=== PATIENT | female | born 1950 | race Caucasian/White ===

== ENCOUNTER 2018-01-21 08:30 | Day surgery (SDC) | payer MEDICARE ==
[2018-01-16 14:17] LABS: Absolute Lymphocytes (CBC) 1.4 K/uL (0.7-4.9); Absolute Monocytes 0.5 K/uL (0.1-1.3); Absolute Neutrophil 2.9 K/uL (1.8-8.0); Basophils % 1.3 % (0-1.3); Eosinophils % 1.7 % (0-4.4); Hematocrit 35.6 % (36.0-45.0); Lymphocytes % 29.2 % (15.3-44.8); MCH 33.4 pg (27.0-35.0); MCV 98.6 fL (80-100); Monocytes % 9.3 % (3.3-12.3); RBC Red Blood Cell Count 3.61 M/uL (3.86-4.86)
[2018-01-16 14:23] LABS: Protime INR 0.97
[2018-01-16 15:05] LABS: Potassium 3.8 mEq/L (3.6-5.0)
[2018-01-21] MEDS ORDERED: NA CHLORIDE 0.9% 500 ML ONE ×2 (09:08→14:32)
[2018-01-21 09:09] VITALS: TEMP 98
[2018-01-21] MEDS ORDERED: LIDOCAINE 1% 20 ML MDV ONE (11:24)
[2018-01-21] MEDS ORDERED: HEPA 1000U/500MLS 1,000 UNIT/500 ML BAG IV ONE ×3 (11:24→12:47)
[2018-01-21] MEDS ORDERED: FENTANYL CITR 100 MCG/2 ML ONE ×2 (11:25→13:28)
[2018-01-21] MEDS ORDERED: MIDAZOLAM HCL 2 MG/2 ML INJ ONE ×3 (11:25→13:06)
[2018-01-21] MEDS ORDERED: HEPARIN 5000 UNIT/ML 1 ML VIAL ONE (11:54)
[2018-01-21] MEDS ORDERED: MEPERIDINE HCL 50 MG/ML AMP ONE (13:17)
[2018-01-21] MEDS ORDERED: PROMETHAZINE 25 MG/ML VIAL ONE (13:36)
[2018-01-21] MEDS ORDERED: LIDOCAINE 1% W/EPI 1:100,000 MDV 50 ML VIAL ONE (15:07)
[2018-01-21] MEDS ORDERED: HYDROCODONE/APAP 10/325 TAB ONE (15:51)
[2018-01-21 15:52] VITALS: O2SAT 98
[2018-01-21 15:56] VITALS: BP 149/69
[2018-01-21] MEDS ORDERED: HYDROCODONE/APAP 10/325 TAB PO ONE (16:00)
--- NOTE | 2018-01-22 04:10 | OP ---
Surgeon: Sharan Benjamin MD Compressor Mechanic: 1. Marcos Downing. 2. Svitlana Horowitz. The patient was admitted as an outpatient on 01/21/2018. Reason For Admission: Outpatient angioplasty and stent of the right common femoral artery. Ms. Hdez was prepped and draped in the routine sterile fashion except at this time, the access was t hrough the right brachial artery. Indications: Ms. Hdez is a 67-year-old, who has severe peripheral vascular disease. She had a righ t common iliac artery stent. She had a left SFA stent via antegrade approach. Has known severe 99% stenosis of her right common femoral artery from previous studies. I had attempted to do the right c ommon femoral artery with an up-and-over approach from the left groin approximately a month ago, but I was unsuccessful. Today, she was brought back for the same procedure using the right brachial appr [facility]. Procedure In Detail: A 6-Pashto sheath was introduced in the right brachial artery. Then, 5000 unit s of heparin were was given intra-arterial after the insertion. Initially, we used a JR4 catheter to cross from the arm all the way to the right common iliac area. The lesion was crossed using a [place] wire successfully. We initially had difficulty advancing catheters or balloons through the right com mon iliac artery stent. An Liu 4 x 40 balloon was able to cross the lesion across the right commo n iliac artery stent. The lesion itself in the common femoral artery was dilated and so was the sten t. We then used a 5 x 40 Zavalla balloon to dilate the right common iliac artery stent as well as the right common femoral artery area. There were dissections in the common femoral artery area. A 6 x 60 self expandable Liu stent was placed successfully in the right common femoral artery with 0% re siduals. There were no complications of the procedure. Blood Loss: About 20 cc. Total Conscious Sedation: 90 minutes. Final Diagnosis: Status post successful angioplasty and stent of the right common femoral artery and status post dilatation of the right common iliac artery. Postoperative Plan: The patient will be going home on same medical regimen including her Plavix and aspirin and statin, and she will see me in the office in 2 weeks. UMU/MILDREDL Voice ID: [id number] Report ID: [id number]
== END 2018-01-21 15:55 | disposition home or self-care (01) ==
LOC: CCL 08:30
DX: I70.201 Unspecified atherosclerosis of native arteries of extremities, right leg (principal); I10 Essential (primary) hypertension
CPT/HCPCS: 36200; 36415; 37226; 80048; 85025; 85347; 85610; 85730; C1725; C1760; C1769; C1893; J1644; J2175; J2250 ×3; J2550; J3010 ×2

== ENCOUNTER → 2018-09-10 | Day surgery (SDC) | payer MEDICARE ==
--- NOTE | 2018-09-10 12:44 | RAD REPORT ---
EXAM DESCRIPTION: RAD - Myelography Lumbar - 09/10/2018 12:24 pm CLINICAL HISTORY: [id number] - LUMBAR RADICULOPATHY COMPARISON: Lumbar Spine 3 Views dated 07/25/2017 TECHNIQUE: The procedure, risks and alternatives to the procedure were discussed with the patient in detail. After answering all questions, both oral and written consent were obtained. Time-out procedu re was performed. The patient was placed in an oblique prone position on the fluoroscopic table. The skin of the lower back was prepped and draped in the usual sterile fashion. After anesthetizing the skin and deeper sof t tissues with 1% lidocaine, a 22 gauge needle was advanced into the thecal sac at the L2-3 level. Approximately 12 cc of Isovue 200M were injected into subarachnoid space. The patient was then sent f or CT myelography. The patient tolerated the procedure well without immediate complications. Total fluoro time: 1 minutes Images obtained: 5 IMPRESSION: Successful fluoroscopic lumbar puncture for CT lumbar myelogram. CT lumbar myelographic findings are separately reported.
--- NOTE | 2018-09-10 12:52 | RAD REPORT ---
EXAM DESCRIPTION: CT - Spine Lumbar Wo Con - 09/10/2018 12:24 pm CLINICAL HISTORY: Radiculopathy. LUMBAR RADICULOPATHY COMPARISON: Lumbar Spine 3 Views dated 07/25/2017; Abdomen Pelvis Wo Contrast dated 10/29/2017 TECHNIQUE: Axial noncontrast CT imaging of the lumbar spine was performed with coronal and sagittal re-formatted images. Myelographic contrast injection is separately reported. All CT scans are performed using dose optimization technique as appropriate and may include automated exposure control or mA/KV adjustment according to patient size. FINDINGS: A very advanced scoliotic curvature of the lower lumbar spine with concavity to the left i s seen. L1-2: No significant findings. L2-3: Mild concentric posterior disc bulge with mild facet ligamentum flavum hypertrophy. No canal or foraminal stenosis of significance. L3-4: Vacuum disc degeneration is present with a large right paracentral/foraminal disc protrusion me asuring 5-6 mm in AP dimension. Facet and ligamentum flavum hypertrophy is present as well. The findi ngs result in stenosis of the right exit foramen. Mild narrowing the anterior inferior aspect of the left exit foramen. Right lateral recess narrowing is present. L4-5: Broad-based moderate-sized posterior disc bulge is present with vacuum disc degeneration. This finding in conjunction with the marked scoliosis at this level results in moderate central canal sten osis to 8 mm. Bilateral attenuation of the lateral recesses noted, greater on the left. Moderate bila teral exit foraminal stenosis also seen. L5-S1: Disc thinning with endplate sclerosis and mild vacuum disc degeneration noted. Mild posterior disc bulge is present resulting in mild narrowing of the central canal. Mild narrowing of both exit f oramina seen. No evidence of cauda equina nerve root clumping to suggest arachnoiditis. Heavy aortic atherosclerosi s is seen. There may be occlusion of the mid abdominal aorta by extensive plaquing. IMPRESSION: Advanced degenerative spondylosis at L3-4, L4-5 and L5-S1 as described above with a sign ificant scoliotic curvature present of the lower lumbar spine. Heavy aortic atherosclerosis is present with significant heavy mid aortic plaque which could indicate chronic occlusion.
[2018-09-10 14:04] VITALS: BP 145/82; TEMP 97.8; O2SAT 100
== END ==
LOC: DS 09:05
PROVIDERS: ATTEND Specialist
DX: M54.16 Radiculopathy, lumbar region (principal); M54.5 Low back pain; M25.551 Pain in right hip
CPT/HCPCS: 62304; 72131; Q9966

== ENCOUNTER 2019-07-28 19:43 | Emergency (ER) | payer MEDICARE ==
[2019-07-28 21:07] LABS: Absolute Lymphocytes (CBC) 0.5 K/uL (0.7-4.9); Basophils % 0.6 % (0-1.3); Hematocrit 29.1 % (36.0-45.0); MPV 8.2 fL (7.6-11.3); RBC Red Blood Cell Count 2.94 M/uL (3.86-4.86)
[2019-07-28] MEDS ORDERED: NITROGLYCERIN 0.4 MG/TAB SL ONE (21:45)
[2019-07-28 21:52] LABS: Blood Morphology Comment NOT SEEN (NOT SEEN); Platelet Estimate ADEQ; Urine White Blood Cell Casts OK
[2019-07-28] MEDS ORDERED: NITROGLYCERIN/D5W 50 MG/250 ML BTL IV ONE (22:01)
[2019-07-28] MEDS ORDERED: ALBUTEROL 2.5 MG/3 ML NEB SOL ONE (22:05)
[2019-07-28] MEDS ORDERED: METHYLPREDNISOLONE 125 MG INJ ONE (22:05)
[2019-07-28] MEDS ORDERED: IPRATROPIUM BROM 0.5MG/2.5ML ONE (22:06)
[2019-07-28 22:15] LABS: Albumin 3.7 g/dL (3.4-5.0); Bilirubin Total 0.3 mg/dL (0.2-1.0); Potassium 5.9 mmol/L (3.5-5.1); Protein, Total 7.6 g/dL (6.4-8.2); Troponin (Emerg Dept Use Only) 0.06 ng/mL (0.0-0.045)
[2019-07-28 22:37] LABS: Arterial Blood Carboxyhemoglob 4.4 % (0-1.5); Blood O2 Saturation 99.4 % (92-98.5)
--- NOTE | 2019-07-28 23:42 | EDPHYS ---
Physician Documentation [facility] Name: Remi Hdez Age: 69 yrs Sex: Female : 1950 Arrival Date: 07/28/2019 Time: 19:51 Bed 2 Private MD: ED Physician Jose Acevedo HPI: 07/28 20:52 This 69 yrs old Female presents to ER via Wheelchair with complaints of ps1 Shortness Of Breath. 20:52 patient presenting with shortness of breath. 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 States that she was recently [place] the [place] with "fluid on lungs" on return to [facility] she was seen by jaswinder (Sourav) and started on augmentin. States that she has been off of abx for a week. 4 days ago she started having increased WOB. + Cough. No fever. No wheezing. . Historical: - Allergies: 20:01 No Known Allergies; aj1 - Home Meds: 20:01 Vicodin 7.5/750 Oral [Active]; metoprolol succinate 25 mg oral Tb24 1 tab twice daily aj1 [Active]; lisinopril-hydrochlorothiazide 20-25 mg oral tab 1 tab once daily [Active]; amlodipine 10 mg tab 1 tab once daily [Active]; clopidogrel 75 mg oral tab 1 tab once daily [Active]; ropinirole 4 mg oral tab 1 tab [Active]; ibandronate 150 mg oral tab 1 tab once monthly [Active]; gabapentin 100 mg oral cap 3 caps once daily [Active]; aspirin 81 mg Oral chew 1 tab once daily [Active]; hydroxyzine HCl 25 mg Oral tab 1 tab at bedtime [Active]; baclofen 10 mg Oral tab 1 tab twice daily [Active]; zyzal [Active]; - PMHx: 20:01 scoliosis; DDD; spondylosis; raynaud's syndrome; PVD; Osteoporosis; CVA; left carotid aj1 artery blocked; - Immunization history:: Flu vaccine is not up to date. - Social history:: Smoking status: Patient uses tobacco products, smokes one pack cigarettes per day. - Ebola Screening: : Patient denies travel to an Ebola-affected area in the 21 days before illness onset. ROS: 20:52 Constitutional: Negative for fever, chills, and weight loss, Eyes: Negative for injury, ps1 pain, redness, and discharge, Cardiovascular: Negative for chest pain, palpitations, and edema, Abdomen/GI: Negative for abdominal pain, nausea, vomiting, diarrhea, and constipation, MS/Extremity: Negative for injury and deformity, Skin: Negative for injury, rash, and discoloration, Neuro: Negative for headache, weakness, numbness, tingling, and seizure. 20:52 Respiratory: Positive for cough, shortness of breath. Exam: 20:52 Constitutional: This is a well developed, well nourished patient who is awake, alert, ps1 and in no acute distress. Head/Face: Normocephalic, atraumatic. Eyes: Pupils equal round and reactive to light, extra-ocular motions intact. Lids and lashes normal. Conjunctiva and sclera are non-icteric and not injected. Chest/axilla: Normal chest wall appearance and motion. Nontender with no deformity. No lesions are appreciated. Respiratory: Lungs have equal breath sounds bilaterally, clear to auscultation and percussion. No rales, rhonchi or wheezes noted. No increased work of breathing, no retractions or nasal flaring. Abdomen/GI: Soft, non-tender, with normal bowel sounds. No distension or tympany. No guarding or rebound. No evidence of tenderness throughout. Skin: Warm, dry with normal turgor. Normal color with no rashes, no lesions, and no evidence of cellulitis. MS/ Extremity: Pulses equal, no cyanosis. Neurovascular intact. Full, normal range of motion. Neuro: Awake and alert, GCS 15, oriented to person, place, time, and situation. Cranial nerves II-XII grossly intact. Sensory grossly intact. 20:52 Cardiovascular: Rate: tachycardic, Rhythm: regular, Pulses: no pulse deficits are appreciated. Vital Signs: 20:01 BP 198 / 92; Pulse 102; Resp 18; Temp 97.8; Pulse Ox 95% on R/A; Weight 42.64 kg (R); aj1 Height 5 ft. 3 in. (160.02 cm) (R); Pain 0/10; 20:46 BP 211 / 99; Pulse 89; Resp 17 S; Pulse Ox 91% on R/A; cc3 21:00 BP 217 / 97; Pulse 87; Resp 22 S; Pulse Ox 91% on R/A; cc3 21:15 BP 219 / 106; Pulse 90; Resp 20 S; Pulse Ox 84% on 2 lpm NC; cc3 21:30 BP 209 / 104; Pulse 94; Resp 20 S; Pulse Ox 73% on 50% Venturi mask; cc3 22:00 BP 239 / 127; Pulse 133; Resp 30 S; Pulse Ox 89% on 50% Venturi mask; cc3 22:09 BP 218 / 121; Pulse 121; Resp 28; Pulse Ox 100% on BiPAP; aa1 22:32 BP 199 / 110; Pulse 105; Resp 24; Pulse Ox 100% on BiPAP; aa1 22:47 BP 167 / 86; Pulse 97; Resp 20; Pulse Ox 100% on BiPAP; aa1 23:06 BP 205 / 98; Pulse 95; Resp 22; Pulse Ox 99% on BiPAP; aa1 23:24 BP 188 / 109; Pulse 95; Resp 20; Pulse Ox 100% on 40% BiPAP; aa1 07/29 00:15 BP 174 / 94; Pulse 97; Resp 20; Pulse Ox 94% on BiPAP; Pain 0/10; aa1 00:57 BP 190 / 91; Pulse 95; Resp 18; Temp 97.6; Pulse Ox 96% on BiPAP; Pain 0/10; aa1 07/28 20:01 Body Mass Index 16.65 (42.64 kg, 160.02 cm) aj1 MDM: 07/28 20:49 Patient medically screened. ps1 23:30 Data reviewed: vital signs, nurses notes, lab test result(s), EKG, radiologic studies, ps1 and as a result, I will admit patient. Counseling: I had a detailed discussion with the patient and/or guardian regarding: the historical points, exam findings, and any diagnostic results supporting the discharge/admit diagnosis, the presence of at least one elevated blood pressure reading (>120/80) during this emergency department visit, lab results, radiology results, the need for further work-up and treatment in the hospital. ED course: Patient went into respiratory distress shortly after CT scan. Patient moved to room 2 and placed on nitro gtt and bipap. Respiratory WOB improved. BP improved as well as O2 saturation. Still demanding 100mcg/min to regulate BP. No PE on CT. C/w acute pulmonary edema and nearly completely calcified aorta. Will transfer to [facility]. . 07/28 20:48 Order name: CBC with Diff; Complete Time: 21:58 ps1 07/28 20:48 Order name: CMP; Complete Time: 22:37 ps1 07/28 20:48 Order name: Troponin (emerg Dept Use Only); Complete Time: 22:37 ps1 07/28 20:48 Order name: BNP; Complete Time: 22:37 ps1 07/28 21:52 Order name: CBC Smear Scan; Complete Time: 21:58 EDMS 07/28 20:48 Order name: CT Chest For PE Angio ps1 07/28 22:37 Order name: ABG Arterial Blood Gas; Complete Time: 23:36 EDMS EC:34 Rate is 86 beats/min. Rhythm is regular. QRS [place] is Normal. SC interval is normal. QRS ps1 interval is normal. QT interval is normal. No Q waves. T waves are Peaked. No ST changes noted. Clinical impression: Cardiac ischemia. Interpreted by me. Administered Medications: 21:45 Drug: Nitroglycerin 0.4 mg Route: Sublingual; cc3 22:00 Follow up: Response: No adverse reaction; Blood pressure is unchanged cc3 22:09 Drug: Nitro Drip - (Nitroglycerin 50 mg, D5W 250 ml) Route: IV; Rate: 50 mcg/min; Site: aa1 right antecubital; 22:20 Follow up: Rate change 100 mcg/min aa1 22:50 Follow up: Rate change 50 mcg/min aa1 23:07 Follow up: Rate change 75 mcg/min aa1 23:23 Follow up: Rate change 100 mcg/min aa1 07/29 01:10 Follow up: IV Status: Infusion continued upon transfer aa1 07/28 22:15 Drug: Albuterol - atroVENT (3:1) (2.5 mg - 0.5 mg) 3 ml Route: Nebulizer; bb 23:15 Follow up: Response: No adverse reaction; Marked relief of symptoms aa1 22:15 Drug: SOLU-Medrol 125 mg Route: IVP; Site: left forearm; bb 23:15 Follow up: Response: No adverse reaction; Marked relief of symptoms aa1 Disposition: 23:38 Critical Care:. ps1 Disposition: 07/28/19 23:40 Transfer ordered to [facility]. Diagnosis are Hypertensive Emergency, Acute Renal Failure, Hypoxia, Severe Atherosclerosis of Aorta. - Reason for transfer: Higher level of care. - Accepting physician is Renee. - Condition is Fair. - Problem is new. - Symptoms have improved. Critical care time excluding procedures: 23:38 Critical care time: Bedside Care: 45 minutes, Consultation: 10 minutes. Total time: 55 ps1 minutes Signatures: Dispatcher [employer] EDTN Shell Thornton RN RN aj1 Aimee Ibrahim RN RN aa1 Ghislaine Negro RN RN bb Jose Acevedo MD MD ps1 Gwen Belcher cc3 Corrections: (The following items were deleted from the chart) 22:32 22:30 ABG Arterial Blood Gas ordered. [facility] 07/29 01:13 07/28 23:40 07/28/2019 23:40 Transfer ordered to [facility]. aa1 Diagnosis is Hypertensive Emergency; Acute Renal Failure; Hypoxia; Severe Atherosclerosis of Aorta. Reason for transfer: Higher level of care. Accepting physician is Renee. Condition is Fair. Problem is new. Symptoms have improved. ps1
--- NOTE | 2019-07-28 23:42 | ER ---
Nurse's Notes [facility] Name: Remi Hdez Age: 69 yrs Sex: Female : 1950 Arrival Date: 07/28/2019 Time: 19:51 Bed 2 Private MD: Diagnosis: Hypertensive Emergency;Acute Renal Failure;Hypoxia;Severe Atherosclerosis of Aorta Presentation: 07/28 19:52 Presenting complaint: Patient states: "I'm having trouble breathing and my blood aj1 pressure has been really high. It was 204/165. I was in the [place] 3 weeks ago and I was in the hospital because my lungs were filling up with fluid." Reports that she has followed up with both her PHCP and her Co Founder And President since returning home. Reports cough, congestion. Denies fever. Transition of care: patient was not received from another setting of care. Onset of symptoms was July 2019. Risk Assessment: Do you want to hurt yourself or someone else? Patient reports no desire to harm self or others. Initial Sepsis Screen: Does the patient meet any 2 criteria? No. Patient's initial sepsis screen is negative. Does the patient have a suspected source of infection? No. Patient's initial sepsis screen is negative. Care prior to arrival: None. 19:52 Method Of Arrival: Wheelchair aj1 19:52 Acuity: AMINAH 2 bb Triage Assessment: 20:01 General: Appears in no apparent distress. uncomfortable, Behavior is calm, cooperative, aj1 appropriate for age. Pain: Denies pain. Neuro: Level of Consciousness is awake, alert, obeys commands. Cardiovascular: Patient's skin is warm and dry. Respiratory: Reports shortness of breath cough that is productive, Onset: The symptoms/episode began/occurred 3 days ago, the patient has mild shortness of breath. Historical: - Allergies: 20:01 No Known Allergies; aj1 - Home Meds: 20:01 Vicodin 7.5/750 Oral [Active]; metoprolol succinate 25 mg oral Tb24 1 tab twice daily aj1 [Active]; lisinopril-hydrochlorothiazide 20-25 mg oral tab 1 tab once daily [Active]; amlodipine 10 mg tab 1 tab once daily [Active]; clopidogrel 75 mg oral tab 1 tab once daily [Active]; ropinirole 4 mg oral tab 1 tab [Active]; ibandronate 150 mg oral tab 1 tab once monthly [Active]; gabapentin 100 mg oral cap 3 caps once daily [Active]; aspirin 81 mg Oral chew 1 tab once daily [Active]; hydroxyzine HCl 25 mg Oral tab 1 tab at bedtime [Active]; baclofen 10 mg Oral tab 1 tab twice daily [Active]; zyzal [Active]; - PMHx: 20:01 scoliosis; DDD; spondylosis; raynaud's syndrome; PVD; Osteoporosis; CVA; left carotid aj1 artery blocked; - Immunization history:: Flu vaccine is not up to date. - Social history:: Smoking status: Patient uses tobacco products, smokes one pack cigarettes per day. - Ebola Screening: : Patient denies travel to an Ebola-affected area in the 21 days before illness onset. Screenin:24 Abuse screen: Denies threats or abuse. Denies injuries from another. Nutritional cc3 screening: No deficits noted. Fall Risk Ambulatory Aid- None/Bed Rest/Nurse Assist (0 pts). Gait- Weak (10 pts.). Mental Status- Oriented to own ability (0 pts). 20:24 Tuberculosis screening: No symptoms or risk factors identified. cc3 Assessment: 20:24 General: Appears in no apparent distress. uncomfortable, Behavior is calm, cooperative, cc3 appropriate for age. Pain: Denies pain. Neuro: Level of Consciousness is awake, alert, obeys commands, Oriented to person, place, time, situation, Appropriate for age. Cardiovascular: Denies chest pain, Heart tones S1 S2 present Capillary refill < 3 seconds in bilateral fingers Patient's skin is warm and dry. Rhythm is regular. Respiratory: Airway is patent Respiratory effort is even, unlabored, Respiratory pattern is regular, symmetrical, Breath sounds are clear bilaterally. GI: Abdomen is flat, Bowel sounds present X 4 quads. : No signs and/or symptoms were reported regarding the genitourinary system. EENT: No signs and/or symptoms were reported regarding the EENT system. Derm: Skin is intact, is healthy with good turgor, Skin is pink, warm \\T\\ dry. normal, Skin temperature is warm. Musculoskeletal: Circulation, motion, and sensation intact. Range of motion: intact in all extremities. 21:15 Reassessment: Patient appears in no apparent distress at this time. Patient and/or cc3 family updated on plan of care and expected duration. Pain level reassessed. Patient is alert, oriented x 3, equal unlabored respirations, skin warm/dry/pink. Patient is desaturating with fluctuating low oxygen saturation of 84% on 2 LPM via nasal cannula and blood pressure reading on the high side as charted, Dr. Acevedo informed and he assessed the patient bedside. 21:25 Reassessment: Followed up CT scan appointment and staff Marbin said they're waiting on cc3 lab result, informed Dr. Acevedo and he said not to wait the lab result anymore, patient can go to CT scan now, door techniciancarola Mishra informed and she said she'll come now to get the patient. 21:45 Reassessment: door techniciancarola Mishra came and took the patient to their department by bed cc3 escorted by me. 22:00 Reassessment: Patient came back from CT scan department and the patient is becoming cc3 respiratory distressed, tachypneic and still with high blood pressure reading, Dr. Acevedo informed and assessed the patient at bedside and said to transfer the patient to trauma room and to start the patient on nitro drip, charge nurse Ghislaine informed. 22:09 Reassessment: Pt moved from bed 19 to bed 2 at this time per MD request. Placed on aa1 BiPAP and nitro drip initiated at this time. Neuro: Level of Consciousness is awake, alert, obeys commands. Respiratory: Airway is patent Respiratory effort is gasping, Respiratory pattern is tachypnea. Derm: Skin is intact, Skin is pink, warm \\T\\ dry. 22:47 Reassessment: Patient appears in no apparent distress at this time. Patient is alert, aa1 oriented x 3, equal unlabored respirations, skin warm/dry/pink. Respirations and v/s improved; will continue to monitor Patient states feeling better. Patient states symptoms have improved. 23:06 Reassessment: BP trending back upwards; MD notified and nitro drip increased at this aa1 time. 23:45 Reassessment: Patient appears in no apparent distress at this time. Patient and/or aa1 family updated on plan of care and expected duration. Pain level reassessed. Patient is alert, oriented x 3, equal unlabored respirations, skin warm/dry/pink. Pt to be transferred; pending approval Patient denies pain at this time. 07/29 00:33 Reassessment: report called to Patrica Weinberg RN for ICU at [facility]. bb 00:57 Reassessment: Patient appears in no apparent distress at this time. Patient is alert, aa1 oriented x 3, equal unlabored respirations, skin warm/dry/pink. Pt states she is feeling much better. [facility] present for transfer. Vital Signs: 07/28 20:01 BP 198 / 92; Pulse 102; Resp 18; Temp 97.8; Pulse Ox 95% on R/A; Weight 42.64 kg (R); aj1 Height 5 ft. 3 in. (160.02 cm) (R); Pain 0/10; 20:46 BP 211 / 99; Pulse 89; Resp 17 S; Pulse Ox 91% on R/A; cc3 21:00 BP 217 / 97; Pulse 87; Resp 22 S; Pulse Ox 91% on R/A; cc3 21:15 BP 219 / 106; Pulse 90; Resp 20 S; Pulse Ox 84% on 2 lpm NC; cc3 21:30 BP 209 / 104; Pulse 94; Resp 20 S; Pulse Ox 73% on 50% Venturi mask; cc3 22:00 BP 239 / 127; Pulse 133; Resp 30 S; Pulse Ox 89% on 50% Venturi mask; cc3 22:09 BP 218 / 121; Pulse 121; Resp 28; Pulse Ox 100% on BiPAP; aa1 22:32 BP 199 / 110; Pulse 105; Resp 24; Pulse Ox 100% on BiPAP; aa1 22:47 BP 167 / 86; Pulse 97; Resp 20; Pulse Ox 100% on BiPAP; aa1 23:06 BP 205 / 98; Pulse 95; Resp 22; Pulse Ox 99% on BiPAP; aa1 23:24 BP 188 / 109; Pulse 95; Resp 20; Pulse Ox 100% on 40% BiPAP; aa1 07/29 00:15 BP 174 / 94; Pulse 97; Resp 20; Pulse Ox 94% on BiPAP; Pain 0/10; aa1 00:57 BP 190 / 91; Pulse 95; Resp 18; Temp 97.6; Pulse Ox 96% on BiPAP; Pain 0/10; aa1 07/28 20:01 Body Mass Index 16.65 (42.64 kg, 160.02 cm) aj1 ED Course: 07/28 19:51 Patient arrived in ED. cf2 19:55 Triage completed. aj1 20:01 Arm band placed on Patient placed in waiting room, Patient notified of wait time. aj1 20:23 Jose Acevedo MD is Attending Physician. [facility] 20:24 Gwen Belcher is Primary Nurse. cc3 20:24 Patient has correct armband on for positive identification. Placed in gown. Bed in low cc3 position. Call light in reach. Side rails up X2. pre k teacher on. Pulse ox on. NIBP on. 20:45 Inserted saline lock: 20 gauge in right antecubital area, using aseptic technique. cc3 Blood collected. 20:49 Radiology exam delayed due to lab results not completed at this time. (BUN/Creatinine). vm2 21:27 Radiology exam delayed due to lab results not completed at this time. (BUN/Creatinine). nj 21:58 CT completed. Patient tolerated procedure well. Patient moved back from CT. 2 22:00 Report given to trauma room. cc3 22:01 CT Chest For PE Angio In Process Unspecified. EDMS 22:15 Inserted saline lock: 22 gauge in left forearm, using aseptic technique. bb 22:47 Aimee Ibrahim, RN is Primary Nurse. aa1 07/29 00:59 No provider procedures requiring assistance completed. Patient transferred, IV remains aa1 in place. intact, No redness/swelling at site. Administered Medications: 07/28 21:45 Drug: Nitroglycerin 0.4 mg Route: Sublingual; cc3 22:00 Follow up: Response: No adverse reaction; Blood pressure is unchanged cc3 22:09 Drug: Nitro Drip - (Nitroglycerin 50 mg, D5W 250 ml) Route: IV; Rate: 50 mcg/min; Site: aa1 right antecubital; 22:20 Follow up: Rate change 100 mcg/min aa1 22:50 Follow up: Rate change 50 mcg/min aa 23:07 Follow up: Rate change 75 mcg/min aa1 23:23 Follow up: Rate change 100 mcg/min aa 07/29 01:10 Follow up: IV Status: Infusion continued upon transfer aa1 07/28 22:15 Drug: Albuterol - atroVENT (3:1) (2.5 mg - 0.5 mg) 3 ml Route: Nebulizer; bb 23:15 Follow up: Response: No adverse reaction; Marked relief of symptoms aa1 22:15 Drug: SOLU-Medrol 125 mg Route: IVP; Site: left forearm; bb 23:15 Follow up: Response: No adverse reaction; Marked relief of symptoms aa1 Outcome: 23:40 ER care complete, transfer ordered by . ps1 07/29 00:34 Instructed on the need for transfer. bb 00:59 Transferred by ground EMS to [facility], Transfer form completed. aa1 X-rays sent w/ patient. 00:59 Condition: stable 01:13 Patient left the ED. aa1 Signatures: Dispatcher [employer] EDShell Woods RN RN aj1 Aimee Ibrahim RN RN aa1 Ghislaine Negro RN RN Edu Bonds [place] 2 Jose Acevedo MD MD ps1 Gwen Belcher cc3 Benji Gonsalves cf2 Corrections: (The following items were deleted from the chart) 07/28 22:28 19:52 Acuity: AMINAH 3 aj1 bb 22:29 21:[address]: Follow[address] up CT scan appointment and staff Marbin said they're cc3 waiting on lab result, informed Dr. Acevedo and he said not to wait the lab result anymore, patient can go to CT scan now, door technician Danica informed and she said she'll come now o get the patient. cc3 22:35 21:15 Reassessment: Patient appears in no apparent distress at this time. Patient cc3 and/or family updated on plan of care and expected duration. Pain level reassessed. Patient is alert, oriented x 3, equal unlabored respirations, skin warm/dry/pink. Patient is desaturating with fluctuating low oxygen saturation of 84% on 2 LPM via nasal cannula and blood pressure reading on the high side as charted, Dr. Acevedo informed and he assessed the patient bedside. cc3
[2019-07-29 02:23] VITALS: BP 190/91; TEMP 97.6; O2SAT 96
--- NOTE | 2019-07-29 09:34 | EKG ---
Test Date: 2019-07-28 Test Time: 20:34:57 [employer]: HOLLI MEASUREMENT RESULTS: Intervals: Rate: 86 CT: 138 QRSD: 74 QT: 372 QTc: 445 [place]: P: 69 CT: 138 QRS: 84 T: 74 INTERPRETIVE STATEMENTS: Normal sinus rhythm Septal infarct, age undetermined Abnormal ECG Compared to ECG 12/27/2017 08:39:39 Myocardial infarct finding now present Incomplete right bundle-branch block no longer present Electronically Signed On 07-29-19 09:34:11 CDT by Jcarlos Carter
--- NOTE | 2019-07-29 10:45 | RAD REPORT ---
EXAM DESCRIPTION: Chest For Pe Angio CLINICAL HISTORY: Shortness of breath, cough, congestion TECHNIQUE: Contiguous axial images obtained through the chest during angiographic phase following th e uneventful administration of IV contrast. Sagittal and coronal reformatted images were provided. [place] P reformatted images were provided. This exam was performed according to our departmental dose-optimization program, which includes autom ated exposure control, adjustment of the mA and/or kV according to patient size and/or use of iterati ve reconstruction technique. COMPARISON: No prior exams provided for comparison. FINDINGS: Diagnostic quality: There is good opacification of the pulmonary arterial tree. Lungs: Diffuse interstitial thickening, scattered patchy groundglass opacities and mild bibasilar con solidation. Bibasilar peribronchial thickening. Pleura: Small bilateral pleural effusions, right greater than left. Heart and pericardium: The heart is mildly enlarged. Coronary artery calcification. No pericardial ef fusion. Mediastinum and didi: Mildly enlarged mediastinal and bilateral hilar lymph nodes measuring up to 12 mm in short axis. Lower neck and chest wall: Unremarkable Vessels: No pulmonary arterial filling defects. Mild to moderate thoracic aortic atherosclerosis. No thoracic aortic aneurysm. Extensive calcified atherosclerotic plaque of the aorta at the level of the hiatus with near complete to complete occlusion. Upper abdomen: Unremarkable Bones: Unremarkable IMPRESSION: 1. No pulmonary embolic disease. 2. Findings suggestive of pulmonary congestion including small bilateral pleural effusions. Superim posed infection not excluded. 3. Extensive calcified atherosclerotic plaque of the aorta at the level of the hiatus with near com plete to complete occlusion. 4. Other findings as above. Electronically signed by: Marshall Caban MD 07/28/2019 10:29 PM CDT Due to temporary technical issues with the PACS/Fluency reporting system, reports are being signed by the in house radiologist as a courtesy to ensure prompt reporting. The interpreting radiologist is f ully responsible for the content of the report.
== END 2019-07-29 01:13 | disposition short-term general hospital (02) ==
LOC: ER 19:43
DX: I16.0 Hypertensive urgency (principal); R09.02 Hypoxemia; N17.9 Acute kidney failure, unspecified; I12.9 Hypertensive chronic kidney disease with stage 1 through stage 4 chronic kidney disease, or unspecified chronic kidney disease; I70.0 Atherosclerosis of aorta; F17.210 Nicotine dependence, cigarettes, uncomplicated
CPT/HCPCS: 96365; 93005; 85025; 36415; 84484; 80053; 83880; 71275; 94640; 82805; 94660; 96375; 99285; 96366; Q9967; J2930

== ENCOUNTER 2019-10-16 15:48 | Inpatient (IN) | payer MEDICARE ==
--- OUTSIDE RECORDS SUMMARY | 2019-10-16 15:52 | XMS REPORT ---
:1950 Author [facility] Address [address] [place] [address] Dr. Fine. [address] [place] [address] Care Team Providers Name Role Phone MEKHI MONTES DE OCA Unavailable Unavailable Problems This patient has no known problems. Allergies, Adverse Reactions, Alerts This patient has no known allergies or adverse reactions. Medications This patient has no known medications. Results Test Description Test Time Test Comments Text Results Atomic Results Result Comments TISSUE EXAM 2019-08-12 11:34:00 Surgical Pathology Report Case: [id number] Authorizing Provider: Dorinda Carrasco MD Collected: 08/07/2019 1453 Ordering Location: [address] Received: 08/07/2019 1457 Service Pathologist: Sheila May MD Specimen: Kidney KIDNEY, RIGHT, NEEDLE BIOPSIES- ACUTE TUBULOEPITHELIAL INJURY- FOCAL SEGMENTAL AND FOCAL GLOBAL GLOMERULOSCLEROSIS- NEGATIVE FOR IMMUNE MEDIATED GLOMERULONEPHRITIS- INTERSTITIAL FIBROSIS AND TUBULAR ATROPHY, MILD (~20%)- MODERATE ARTERIOLAR SCLEROSIS- SEGMENTALLY THICKENED GLOMERULAR BASEMENT MEMBRANES, SUGGESTIVE OF EARLY DIABETIC NEPHROPATHY (ULTRASTRUCTURAL) Signing Pathologist Direct Phone Line: [phone] signed by Sheila May MD on 08/12/2019 at 11:34 AMThe renal biopsy shows 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 No features of crescentic GN or thrombi are seen. No features of acute tubulointersitital nephritis are seen.Negative immunofluorescence and absence of electron dense deposits on ultrastructural evaluation excludes an immune complex mediated glomerulonephritis. The histological findings were discussed with Dr. Cho on 08/10/2019.68623, 05684 X3, 05116, 94572 x7, [id number] source of tissue: Right [place] kidneyKidney biopsy, non-transplantA. [place] kidney biopsy Received in formalin labeled with the patient's name "Remi Khan" accession [id number] are two kong-brown core biopsy fragments measuring 1.2 x0.1x0.1 and 05.x0.1x0.1 cm. The specimen is submitted entirely in cassette A1.A. This portion of the case is received in three containers labeled with the patient's information and [id number] which corresponds to the accompanying requisition slip. Received in formalin labeled with the patient's information and "A. Right [place] kidney biopsy" are two fragments of kong-pink soft tissue measuring 2 x 0.1 x 0.1 cm in aggregate. They are submitted in toto after filtration in cassette A1. Also received in part A is a container labeled with the patient's information and "right [place] kidney biopsy". The specimen is a 1.2 x 0.1 cm kong-pink fragment of soft tissue in saline. It is submitted entirely for C4D testing. Also received as part A is a container labeled with the patient's information and "right [place] kidney biopsy". The specimen consists of a 0.5 cm x 0.1 cm fragment of kong-pink soft tissue in glutaraldehyde. It is submitted for electron microscopy testing. SC/bc LIGHT MICROSCOPY: Section shows two cores of renal cortical tissue. Glomeruli: Approximately 36 glomeruli are examined, of which 7 glomeruli are globally sclerotic/obsolescent. One glomerulus shows segmental scarring and there is a suggestion of a fibrous crescent. All non-sclerotic glomeruli are hypertrophied and with patent capillary loops. No endocapillary hypercellularity, necrosis, cellular/fibrocellular crescents, or thrombi are seen. No double contours are noted on Silva or PAS stain.Tubules and interstitium: The tubules are ectatic with loss of brush borders, lined by low cuboidal to flattened epithelium. There is nuclear dropout with focal regenerative nuclear changes. Some tubular profiles show degenerate sloughed off epithelial cells. Occasional calcium oxalate crystals are seen. No significant interstitial inflammation is seen. There is mild interstitial fibrosis and tubular atrophy involving about 20% of renal cortex. Vessels: Branches of interlobular arteries show mild sclerosis. There is moderate arteriolar hyalinosis. Special stains: Radha trichrome, PAS and Silva silver stains were necessary for evaluation of this biopsy and showed expected staining patterns of internal control tissue matrix structures.IMMUNOFLUORESCENCEHistology: H&E-stained sections show 2 non-obsolescent and one globally sclerosed glomerulus. Immunofluorescence findings: IgA: negative in glomeruli, tubular casts are positiveIgG: negative in glomeruli IgM: focal, segmental, mesangial entrapment/staining 1+C3: negative in glomeruli, arteriolar staining 1+C1q: no significant glomerular, tubulointerstitial or vascular staining Fibrinogen: no significant glomerular, tubulointerstitial or vascular stainingKappa: negative glomeruli, tubular casts are positiveLambda: negative glomeruli, tubular casts are positiveAll polyclonal antibodies used for immunofluorescence staining have been previously tested and shown to have appropriate reactivities with positive control specimens. ELECTRON MICROSCOPY:Thick section histology: Toluidine blue-stained sections reveal three non-obsolescent glomerulus. All three glomeruli are examined ultrastructurally.Ultrastructure: Examination of the glomerular ultrastructure reveals that the glomerular basement membrane is segmentally thickened measuring upto 717 nm (normal female average 215-395 nm; Jes Camilo Arch Pathol Lab Med 133; 224-232). Subendothelial, subepithelial, and mesangial/paramesangial electron-dense, immune complex-type deposits are not present. Podocyte foot processes are segmentally effaced.The interpretation of this case included the use of immunohistochemistry or special stains.Control Slides Examined: In-house known positive controls were evaluated along with the test tissue. These control slides run alongside of the patients sample show appropriate staining. Internal positive and negative controls when available are evaluated Immunohistochemistry technical testing was performed at [facility] Pathology Laboratory where it was developed and its performance characteristics were determined. It has not been cleared or approved by the U.S. Food and Drug Administration. The FDA has determined that such clearance or approval is not necessary. The test is used for clinical purposes. It should not be regarded as investigational or for research. This laboratory is certified under the Clinical Laboratory Improvement Amendments of 1988 (CLIA-88) as qualified to perform high complexity clinical laboratory testing. POCT-GLUCOSE METER 2019-08-12 08:40:00 Test Item Value Reference Range Comments POC-GLUCOSE METER (Pivto) 97 mg/dL 70-110 : TESTED AT [facility] [address] [facility] (test qafd=3055) [place], [address]: Gas Plumber/International Trade Analyst UD=[id number] for ANGELICA GANN [id number] 06:13:00 Test Item Value Reference Range Comments FERRITIN (Pivto) (test oeea=145) 115 ng/mL 5-275 IRON, TIBC, % SAT. (WITHOUT FERRITIN)2019-08-12 06:00:00 Test Item Value Reference Range Comments IRON (BEAKER) (test tqdq=733) 107.0 ug/dL 40.0-160.0 TOTAL IRON BINDING CAPACITY (BEAKER) (test 264 ug/dL 250-450 fbop=027) IRON % SATURATION (2) (BEAKER) (test mwyn=4550) 41 % 20-55 [id number] 05:16:00 Test Item Value Reference Range Comments PHOSPHORUS (BEAKER) (test wrjc=291) 1.8 mg/dL 2.3-4.7 RETICULOCYTE [id number] 04:50:00 Test Item Value Reference Range Comments RETICULOCYTE COUNT PCT (BEAKER) (test cqmk=860) 2.9 % 0.5-1.7 POCT-GLUCOSE [id number] 20:56:00 Test Item Value Reference Range Comments POC-GLUCOSE METER (BEAKER) 122 mg/dL 70-110 : TESTED AT [address] (test ereg=1139) [facility], [address]: Gas Plumber/International Trade Analyst LC=[id number] for NEGRO BUSTILLOS POCT-GLUCOSE [id number] 16:53:00 Test Item Value Reference Range Comments POC-GLUCOSE METER (BEAKER) 113 mg/dL 70-110 : TESTED AT [address] (test vpza=3625) [facility], [address]: Gas Plumber/International Trade Analyst VU=[id number] for MELY GIOVANI POCT-GLUCOSE [id number] 12:42:00 Test Item Value Reference Range Comments POC-GLUCOSE METER (BEAKER) 150 mg/dL 70-110 TESTED AT [address] (test bytf=1123) [facility] [address] POCT-GLUCOSE [id number] 08:47:00 Test Item Value Reference Range Comments POC-GLUCOSE METER (BEAKER) 106 mg/dL 70-110 TESTED AT [address] (test tfwi=5585) [facility] [address] POCT-GLUCOSE [id number] 07:45:00 Test Item Value Reference Range Comments POC-GLUCOSE METER (BEAKER) 114 mg/dL 70-110 TESTED AT [address] (test ynko=4457) [facility] [address] POCT-GLUCOSE [id number] 06:55:00 Test Item Value Reference Range Comments POC-GLUCOSE METER (BEAKER) 205 mg/dL 70-[address] [facility] [address] (test lvuq=6498) [facility] [address] CALCIUM, [id number] 06:09:00 Test Item Value Reference Range Comments CALCIUM IONIZED (BEAKER) (test cvtr=004) 1.15 mmol/L 1.12-1.27 PH, BLOOD (BEAKER) (test qoql=1604) 7.40 BASIC METABOLIC [id number] 04:54:00 Test Item Value Reference Range Comments SODIUM (BEAKER) (test 134 meq/L 136-145 nsfm=670) POTASSIUM (BEAKER) (test 4.0 meq/L 3.5-5.1 mjaj=377) CHLORIDE (BEAKER) (test 93 meq/L 98-107 qhqi=578) CO2 (BEAKER) (test 31 meq/L 22-29 pxkn=329) BLOOD UREA NITROGEN 41 mg/dL 7-21 (BEAKER) (test dwiu=636) CREATININE (BEAKER) (test 5.34 mg/dL 0.57-1.25 wswv=294) GLUCOSE RANDOM (BEAKER) 110 mg/dL 70-105 (test frtx=472) CALCIUM (BEAKER) (test 9.5 mg/dL 8.4-10.2 zakt=217) EGFR (BEAKER) (test 8 mL/min/1.73 sq m ESTIMATED GFR IS NOT qrvi=7545) ACCURATE CREATININE CLEARANCE IN PREDICTING GLOMERULAR FILTRATION RATE. ESTIMATED GFR IS NOT APPLICABLE FOR DIALYSIS PATIENTS. [id number] 04:46:00 Test Item Value Reference Range Comments PHOSPHORUS (BEAKER) (test ensl=767) 4.2 mg/dL 2.3-4.7 [id number] 04:46:00 Test Item Value Reference Range Comments MAGNESIUM (BEAKER) (test xuxo=649) 2.0 mg/dL 1.6-2.6 CBC W/PLT COUNT & AUTO [id number] 04:43:00 Test Item Value Reference Range Comments WHITE BLOOD CELL COUNT (BEAKER) (test xway=994) 7.7 K/ L 3.5-10.5 RED BLOOD CELL COUNT (BEAKER) (test mmty=479) 2.43 M/ L 3.93-5.22 HEMOGLOBIN (BEAKER) (test kvrm=213) 7.9 GM/DL 11.2-15.7 HEMATOCRIT (BEAKER) (test lefd=308) 24.6 % 34.1-44.9 MEAN CORPUSCULAR VOLUME (BEAKER) (test sruq=623) 101.2 fL 79.4-94.8 MEAN CORPUSCULAR HEMOGLOBIN (BEAKER) (test 32.5 pg 25.6-32.2 rouv=602) MEAN CORPUSCULAR HEMOGLOBIN CONC (BEAKER) (test 32.1 GM/DL 32.2-35.5 suxz=488) RED CELL DISTRIBUTION WIDTH (BEAKER) (test 15.6 % 11.7-14.4 drll=285) PLATELET COUNT (BEAKER) (test cfuz=664) 258 K/CU MM 150-450 MEAN PLATELET VOLUME (BEAKER) (test xvms=872) 11.0 fL 9.4-12.3 NUCLEATED RED BLOOD CELLS (BEAKER) (test 0 /100 WBC 0-0 pojo=079) NEUTROPHILS RELATIVE PERCENT (BEAKER) (test 63 % lelb=712) LYMPHOCYTES RELATIVE PERCENT (BEAKER) (test 25 % cxdr=873) MONOCYTES RELATIVE PERCENT (BEAKER) (test 10 % uico=334) EOSINOPHILS RELATIVE PERCENT (BEAKER) (test 2 % eqqw=995) BASOPHILS RELATIVE PERCENT (BEAKER) (test 0 % rnpz=934) NEUTROPHILS ABSOLUTE COUNT (BEAKER) (test 4.85 K/ L 1.56-6.13 veey=617) LYMPHOCYTES ABSOLUTE COUNT (BEAKER) (test 1.93 K/ L 1.18-3.74 uzyt=245) MONOCYTES ABSOLUTE COUNT (BEAKER) (test 0.73 K/ L 0.24-0.36 ypyr=557) EOSINOPHILS ABSOLUTE COUNT (BEAKER) (test 0.12 K/ L 0.04-0.36 mwcs=308) BASOPHILS ABSOLUTE COUNT (BEAKER) (test 0.01 K/ L 0.01-0.08 rhtx=712) IMMATURE GRANULOCYTES-RELATIVE PERCENT (BEAKER) 1 % 0-1 (test deag=8344) POCT-GLUCOSE [id number] 16:58:00 Test Item Value Reference Range Comments POC-GLUCOSE METER (BEAKER) 133 mg/dL 70-[address] [facility] [address] [facility] (test phqu=8941) [facility] [address] POCT-GLUCOSE [id number] 11:51:00 Test Item Value Reference Range Comments POC-GLUCOSE METER (BEAKER) 114 mg/dL 70-110 TESTED AT [place] [id number] [facility] (test awkg=9926) [facility] [address] POCT-GLUCOSE [id number] 07:11:00 Test Item Value Reference Range Comments POC-GLUCOSE METER (BEAKER) 86 mg/dL 70-110 TESTED AT [address] (test qcoq=4757) [facility] [address] BASIC METABOLIC [id number] 06:01:00 Test Item Value Reference Range Comments SODIUM (BEAKER) (test 136 meq/L 136-145 zflv=435) POTASSIUM (BEAKER) (test 3.6 meq/L 3.5-5.1 Specimen slightly dsvu=067) hemolyzed CHLORIDE (BEAKER) (test 98 meq/L 98-107 pnez=160) CO2 (BEAKER) (test 27 meq/L 22-29 xtnf=640) BLOOD UREA NITROGEN 25 mg/dL 7-21 (BEAKER) (test eyje=530) CREATININE (BEAKER) (test 3.94 mg/dL 0.57-1.25 Specimen slightly wpfy=702) hemolyzed GLUCOSE RANDOM (BEAKER) 95 mg/dL 70-105 (test ojbp=755) CALCIUM (BEAKER) (test 9.1 mg/dL 8.4-10.2 kgcz=271) EGFR (BEAKER) (test 11 mL/min/1.73 sq m ESTIMATED GFR IS NOT adsf=0191) ACCURATE CREATININE CLEARANCE IN PREDICTING GLOMERULAR FILTRATION RATE. ESTIMATED GFR IS NOT APPLICABLE FOR DIALYSIS PATIENTS. [id number] 05:59:00 Test Item Value Reference Range Comments PHOSPHORUS (BEAKER) (test 4.0 mg/dL 2.3-4.7 Specimen slightly hemolyzed dzlj=157) CBC W/PLT COUNT & AUTO [id number] 05:25:00 Test Item Value Reference Range Comments WHITE BLOOD CELL COUNT (BEAKER) (test hozr=081) 6.7 K/ L 3.5-10.5 RED BLOOD CELL COUNT (BEAKER) (test mgop=364) 2.59 M/ L 3.93-5.22 HEMOGLOBIN (BEAKER) (test hbmw=541) 8.4 GM/DL 11.2-15.7 HEMATOCRIT (BEAKER) (test pwfm=315) 26.8 % 34.1-44.9 MEAN CORPUSCULAR VOLUME (BEAKER) (test bpgk=797) 103.5 fL 79.4-94.8 MEAN CORPUSCULAR HEMOGLOBIN (BEAKER) (test 32.4 pg 25.6-32.2 vhfz=223) MEAN CORPUSCULAR HEMOGLOBIN CONC (BEAKER) (test 31.3 GM/DL 32.2-35.5 wafx=739) RED CELL DISTRIBUTION WIDTH (BEAKER) (test 15.7 % 11.7-14.4 xjuh=589) PLATELET COUNT (BEAKER) (test jhvq=374) 262 K/CU MM 150-450 MEAN PLATELET VOLUME (BEAKER) (test usll=355) 10.9 fL 9.4-12.3 NUCLEATED RED BLOOD CELLS (BEAKER) (test 0 /100 WBC 0-0 jsbr=596) NEUTROPHILS RELATIVE PERCENT (BEAKER) (test 60 % xzdc=672) LYMPHOCYTES RELATIVE PERCENT (BEAKER) (test 28 % fdvi=466) MONOCYTES RELATIVE PERCENT (BEAKER) (test 10 % uroe=691) EOSINOPHILS RELATIVE PERCENT (BEAKER) (test 2 % xdip=727) BASOPHILS RELATIVE PERCENT (BEAKER) (test 0 % lpbb=881) NEUTROPHILS ABSOLUTE COUNT (BEAKER) (test 3.96 K/ L 1.56-6.13 hkae=043) LYMPHOCYTES ABSOLUTE COUNT (BEAKER) (test 1.84 K/ L 1.18-3.74 zmvs=943) MONOCYTES ABSOLUTE COUNT (BEAKER) (test 0.66 K/ L 0.24-0.36 xfcr=896) EOSINOPHILS ABSOLUTE COUNT (BEAKER) (test 0.11 K/ L 0.04-0.36 xicw=066) BASOPHILS ABSOLUTE COUNT (BEAKER) (test 0.02 K/ L 0.01-0.08 nqwo=804) IMMATURE GRANULOCYTES-RELATIVE PERCENT (BEAKER) 1 % 0-1 (test erky=6471) POCT-GLUCOSE [id number] 19:16:00 Test Item Value Reference Range Comments POC-GLUCOSE METER (BEAKER) 99 mg/dL 70-110 TESTED AT [address] (test fzel=3878) [place] [id number] POCT-GLUCOSE [id number] 17:22:00 Test Item Value Reference Range Comments POC-GLUCOSE METER (BEAKER) 117 mg/dL 70-110 TESTED AT [address] (test dflu=5138) [place] [address] POCT-GLUCOSE [id number] 12:12:00 Test Item Value Reference Range Comments POC-GLUCOSE METER (BEAKER) 101 mg/dL 70-110 TESTED AT [address] (test tqkf=2175) [place] [address] POCT-GLUCOSE [id number] 08:23:00 Test Item Value Reference Range Comments POC-GLUCOSE METER (BEAKER) 114 mg/dL 70-110 TESTED AT [address] (test kito=4628) [place] [address] BASIC METABOLIC [id number] 04:47:00 Test Item Value Reference Range Comments SODIUM (BEAKER) (test 139 meq/L 136-145 zqle=648) POTASSIUM (BEAKER) (test 3.5 meq/L 3.5-5.1 gvfp=951) CHLORIDE (BEAKER) (test 102 meq/L 98-107 kfzt=543) CO2 (BEAKER) (test 29 meq/L 22-29 cwlf=037) BLOOD UREA NITROGEN 11 mg/dL 7-21 (BEAKER) (test bglp=768) CREATININE (BEAKER) (test 1.87 mg/dL 0.57-1.25 idth=072) GLUCOSE RANDOM (BEAKER) 100 mg/dL 70-105 (test hfww=843) CALCIUM (BEAKER) (test 9.0 mg/dL 8.4-10.2 gilo=405) EGFR (BEAKER) (test 27 mL/min/1.73 sq m ESTIMATED GFR IS NOT oioq=1963) ACCURATE CREATININE CLEARANCE IN PREDICTING GLOMERULAR FILTRATION RATE. ESTIMATED GFR IS NOT APPLICABLE FOR DIALYSIS PATIENTS. POCT-GLUCOSE [id number] 18:13:00 Test Item Value Reference Range Comments POC-GLUCOSE METER (BEAKER) 157 mg/dL 70-110 TESTED AT [address] (test ksmk=4418) [place] [address] POCT-GLUCOSE [id number] 16:11:00 Test Item Value Reference Range Comments POC-GLUCOSE METER (BEAKER) 105 mg/dL 70-[address] [facility] [address] [facility] (test ckkm=3356) [facility] [address] POCT-GLUCOSE [id number] 13:40:00 Test Item Value Reference Range Comments POC-GLUCOSE METER (BEAKER) 127 mg/dL 70-110 TESTED AT [place] [id number] [facility] (test hhxh=6673) [facility] [address] CBC W/PLT COUNT & AUTO [id number] 08:00:00 Test Item Value Reference Range Comments WHITE BLOOD CELL COUNT (BEAKER) (test bxwk=383) 7.2 K/ L 3.5-10.5 RED BLOOD CELL COUNT (BEAKER) (test gkws=443) 2.41 M/ L 3.93-5.22 HEMOGLOBIN (BEAKER) (test msnh=607) 7.6 GM/DL 11.2-15.7 HEMATOCRIT (BEAKER) (test ejoi=369) 24.5 % 34.1-44.9 MEAN CORPUSCULAR VOLUME (BEAKER) (test efjr=372) 101.7 fL 79.4-94.8 MEAN CORPUSCULAR HEMOGLOBIN (BEAKER) (test 31.5 pg 25.6-32.2 cvgm=104) MEAN CORPUSCULAR HEMOGLOBIN CONC (BEAKER) (test 31.0 GM/DL 32.2-35.5 ctxh=756) RED CELL DISTRIBUTION WIDTH (BEAKER) (test 15.5 % 11.7-14.4 ewaw=735) PLATELET COUNT (BEAKER) (test ibub=679) 256 K/CU MM 150-450 MEAN PLATELET VOLUME (BEAKER) (test jgat=366) 10.8 fL 9.4-12.3 NUCLEATED RED BLOOD CELLS (BEAKER) (test 0 /100 WBC 0-0 yumu=511) NEUTROPHILS RELATIVE PERCENT (BEAKER) (test 66 % inju=933) LYMPHOCYTES RELATIVE PERCENT (BEAKER) (test 23 % zzks=014) MONOCYTES RELATIVE PERCENT (BEAKER) (test 9 % uika=817) EOSINOPHILS RELATIVE PERCENT (BEAKER) (test 1 % koon=237) BASOPHILS RELATIVE PERCENT (BEAKER) (test 0 % vrjn=415) NEUTROPHILS ABSOLUTE COUNT (BEAKER) (test 4.75 K/ L 1.56-6.13 gbjj=241) LYMPHOCYTES ABSOLUTE COUNT (BEAKER) (test 1.62 K/ L 1.18-3.74 lvvi=971) MONOCYTES ABSOLUTE COUNT (BEAKER) (test 0.64 K/ L 0.24-0.36 pnly=698) EOSINOPHILS ABSOLUTE COUNT (BEAKER) (test 0.06 K/ L 0.04-0.36 hmmb=182) BASOPHILS ABSOLUTE COUNT (BEAKER) (test 0.01 K/ L 0.01-0.08 rebz=606) IMMATURE GRANULOCYTES-RELATIVE PERCENT (BEAKER) 1 % 0-1 (test ihtz=2097) BASIC METABOLIC [id number] 06:43:00 Test Item Value Reference Range Comments SODIUM (BEAKER) (test 136 meq/L 136-145 grnu=135) POTASSIUM (BEAKER) (test 4.6 meq/L 3.5-5.1 iopf=019) CHLORIDE (BEAKER) (test 100 meq/L 98-107 uxjk=399) CO2 (BEAKER) (test 27 meq/L 22-29 czxx=111) BLOOD UREA NITROGEN 40 mg/dL 7-21 (BEAKER) (test amom=930) CREATININE (BEAKER) (test 4.15 mg/dL 0.57-1.25 hbxi=309) GLUCOSE RANDOM (BEAKER) 87 mg/dL 70-105 (test njqv=991) CALCIUM (BEAKER) (test 8.6 mg/dL 8.4-10.2 dzxd=118) EGFR (BEAKER) (test 11 mL/min/1.73 sq m ESTIMATED GFR IS NOT lpxq=6701) ACCURATE CREATININE CLEARANCE IN PREDICTING GLOMERULAR FILTRATION RATE. ESTIMATED GFR IS NOT APPLICABLE FOR DIALYSIS PATIENTS. CBC W/PLT COUNT & AUTO [id number] 20:57:00 Test Item Value Reference Range Comments WHITE BLOOD CELL COUNT (BEAKER) (test juel=139) 5.6 K/ L 3.5-10.5 RED BLOOD CELL COUNT (BEAKER) (test shnj=269) 2.37 M/ L 3.93-5.22 HEMOGLOBIN (BEAKER) (test tqvw=538) 7.6 GM/DL 11.2-15.7 HEMATOCRIT (BEAKER) (test cxva=893) 24.0 % 34.1-44.9 MEAN CORPUSCULAR VOLUME (BEAKER) (test zvxw=165) 101.3 fL 79.4-94.8 MEAN CORPUSCULAR HEMOGLOBIN (BEAKER) (test 32.1 pg 25.6-32.2 yadr=653) MEAN CORPUSCULAR HEMOGLOBIN CONC (BEAKER) (test 31.7 GM/DL 32.2-35.5 fxai=545) RED CELL DISTRIBUTION WIDTH (BEAKER) (test 15.6 % 11.7-14.4 xvbj=535) PLATELET COUNT (BEAKER) (test yaxz=785) 256 K/CU MM 150-450 MEAN PLATELET VOLUME (BEAKER) (test prfz=875) 10.5 fL 9.4-12.3 NUCLEATED RED BLOOD CELLS (BEAKER) (test 0 /100 WBC 0-0 lwen=994) NEUTROPHILS RELATIVE PERCENT (BEAKER) (test 63 % fcfl=450) LYMPHOCYTES RELATIVE PERCENT (BEAKER) (test 24 % qsxk=055) MONOCYTES RELATIVE PERCENT (BEAKER) (test 12 % hwst=629) EOSINOPHILS RELATIVE PERCENT (BEAKER) (test 1 % nexi=492) BASOPHILS RELATIVE PERCENT (BEAKER) (test 0 % usyr=567) NEUTROPHILS ABSOLUTE COUNT (BEAKER) (test 3.53 K/ L 1.56-6.13 uuwk=011) LYMPHOCYTES ABSOLUTE COUNT (BEAKER) (test 1.36 K/ L 1.18-3.74 eolb=996) MONOCYTES ABSOLUTE COUNT (BEAKER) (test 0.65 K/ L 0.24-0.36 ztwp=576) EOSINOPHILS ABSOLUTE COUNT (BEAKER) (test 0.03 K/ L 0.04-0.36 nczf=255) BASOPHILS ABSOLUTE COUNT (BEAKER) (test 0.01 K/ L 0.01-0.08 kazb=351) IMMATURE GRANULOCYTES-RELATIVE PERCENT (BEAKER) 1 % 0-1 (test qfbi=6548) U/S, BIOPSY, RENAL (KIDNEY)2019-08-07 19:04:00Reason for exam:->akiFINAL REPORT US Guided core biopsy right kidney. History: Renal dysfunction. [place] kidney biopsy requested. Operating Room Manager: Da Gomez MD. Chief Design Engineer: None. Modality: Ultrasound Sedation: Versed one mg and fentanyl 50 mcg was given intravenously for conscious sedation. Vital signs were monitored throughout the procedure by a dedicated RN under direct supervision of Dr. Gomez, and remained stable. Physician intra-service sedation time was approximately 15 minutes. Estimated blood loss: < 5 cc. Technique: Informed written consent was obtained. Discussion of risks, benefits, and alternatives were made with the patient. The patient expressed understanding and agreed to proceed. A universal timeout was performed prior to starting the procedure. Standard sterile precautions were utilized. A preliminary ultrasonography was performed to assess the target and determine a safe access site. It showed the bigger and more accessible right kidney. Pertinent ultrasound images were secured to the PACS for documentation. A posterior access site was selected and sterilely prepped and draped. Local anesthesia with 1% lidocaine was administered. A dermatotomy was performed. Using aseptic precautions, under real-time ultrasonographic guidance, the target lesion was accessed with a 17-gauge guide. Using an 18-gauge, multiple cores of the targeted tissue were performed. The specimen was handed over to the pathology fulfillment representative for further processing. At the end of the procedure, an aseptic dressing applied. The patient tolerated the procedure well. After recovery, the patient was discharged from the department in stable condition. Complications: None immediate. Specimen: Five cores Impression: Successful ultrasound-guided core biopsy of [place] right kidney Thank you forthe opportunity to assist in the care of your patient. Signed: Da Gomez MDReport Verified Date/Time: 08/07 19:04:00 Reading Location: [place] [address] Angio Body Reading Room CALCIUM , [id number] 06:20:00 Test Item Value Reference Range Comments CALCIUM IONIZED (BEAKER) (test gmzs=145) 0.97 mmol/L 1.12-1.27 PH, BLOOD (BEAKER) (test yhbx=6372) 7.48 COMPREHENSIVE METABOLIC [id number] 05:32:00 Test Item Value Reference Range Comments TOTAL PROTEIN (BEAKER) 5.9 gm/dL 6.0-8.3 Specimen slightly (test gyaz=454) hemolyzed ALBUMIN (BEAKER) (test 3.6 g/dL 3.5-5.0 Specimen slightly tpwb=1925) hemolyzed ALKALINE PHOSPHATASE 44 U/L 40-150 (BEAKER) (test kfhl=681) BILIRUBIN TOTAL (BEAKER) 0.2 mg/dL 0.2-1.2 Specimen slightly (test vddt=541) hemolyzed SODIUM (BEAKER) (test 137 meq/L 136-145 xtpx=210) POTASSIUM (BEAKER) (test 4.0 meq/L 3.5-5.1 Specimen slightly mwpw=356) hemolyzed CHLORIDE (BEAKER) (test 101 meq/L 98-107 gulr=504) CO2 (BEAKER) (test 27 meq/L 22-29 ghok=286) BLOOD UREA NITROGEN 24 mg/dL 7-21 (BEAKER) (test paur=562) CREATININE (BEAKER) (test 2.94 mg/dL 0.57-1.25 Specimen slightly zymr=975) hemolyzed GLUCOSE RANDOM (BEAKER) 103 mg/dL 70-105 (test wgpj=066) CALCIUM (BEAKER) (test 8.2 mg/dL 8.4-10.2 qcka=619) AST (SGOT) (BEAKER) (test 27 U/L 5-34 Specimen slightly evce=990) hemolyzed ALT (SGPT) (BEAKER) (test 10 U/L 6-55 Specimen slightly jrzf=189) hemolyzed EGFR (BEAKER) (test 16 mL/min/1.73 sq m ESTIMATED GFR IS NOT rfze=6125) ACCURATE CREATININE CLEARANCE IN PREDICTING GLOMERULAR FILTRATION RATE. ESTIMATED GFR IS NOT APPLICABLE FOR DIALYSIS PATIENTS. [id number] 05:20:00 Test Item Value Reference Range Comments MAGNESIUM (BEAKER) (test 1.9 mg/dL 1.6-2.6 Specimen slightly hemolyzed imel=726) [id number] 05:20:00 Test Item Value Reference Range Comments PHOSPHORUS (BEAKER) (test 3.5 mg/dL 2.3-4.7 Specimen slightly hemolyzed bqsn=368) PROTHROMBIN [id number] 05:06:00 Test Item Value Reference Range Comments PROTIME (BEAKER) (test tiak=206) 13.2 seconds 11.9-14.2 INR (BEAKER) (test hrdd=349) 1.0 <=5.9 Effective 03/18/2019: PT Reference Range ChangeNew: 11.9-14.2 Previous: 11.7- 14.7RECOMMENDED COUMADIN/WARFARIN INR THERAPY RANGESSTANDARD DOSE: 2.0-3.0 Includes: PROPHYLAXIS for venous thrombosis, systemic embolization; TREATMENT for venous thrombosis and/or pulmonary embolus.HIGH RISK: Target INR is2.5-3.5 for patients wiht mechanical heart valves.RAD, CHEST, 1 VIEW, NON [id number] 14:00:00Reason for exam:->shortness of breathShould this be performed at the bedside?->YesFINAL REPORT RAD, CHEST, 1 VIEW, NON DEPT INDICATION: shortness of breath COMPARISON: August 03, 2019 FINDINGS: Portable frontal view of the chest. IMPRESSION: Support Lines:Right IJ central venous catheter is stable. Lungs and pleura: No new consolidation. Trace effusions.No pneumothorax.Heart and mediastinum: Stable contours. Additional findings: None. Signed: JR Palm Robert MDReport Verified Date/Time: 08/06/2019 14:00:28 Reading Location: [facility] Radiology Reading Room POCT-GLUCOSE [id number] 09:23:00 Test Item Value Reference Range Comments POC-GLUCOSE METER (BEAKER) 103 mg/dL 70-110 TESTED AT [address] (test dqmk=1431) [facility] [address] POCT-GLUCOSE [id number] 19:02:00 Test Item Value Reference Range Comments POC-GLUCOSE METER (BEAKER) 125 mg/dL 70-110 TESTED AT [address] (test oljp=4344) [facility] [address] POCT-GLUCOSE [id number] 12:40:00 Test Item Value Reference Range Comments POC-GLUCOSE METER (BEAKER) 121 mg/dL 70-110 TESTED AT [address] (test vpxr=7534) [facility] [address] POCT-GLUCOSE [id number] 09:54:00 Test Item Value Reference Range Comments POC-GLUCOSE METER (BEAKER) 87 mg/dL 70-110 TESTED AT [address] (test utdd=5948) [facility] [address] CALCIUM, [id number] 06:41:00 Test Item Value Reference Range Comments CALCIUM IONIZED (BEAKER) (test kumo=072) 1.03 mmol/L 1.12-1.27 PH, BLOOD (BEAKER) (test ldtb=2601) 7.40 COMPREHENSIVE METABOLIC [id number] 06:11:00 Test Item Value Reference Range Comments TOTAL PROTEIN (BEAKER) 6.3 gm/dL 6.0-8.3 (test zsee=382) ALBUMIN (BEAKER) (test 3.7 g/dL 3.5-5.0 aqdo=0384) ALKALINE PHOSPHATASE 53 U/L 40-150 (BEAKER) (test ndzi=137) BILIRUBIN TOTAL (BEAKER) 0.2 mg/dL 0.2-1.2 (test gvyp=910) SODIUM (BEAKER) (test 134 meq/L 136-145 qxft=408) POTASSIUM (BEAKER) (test 4.2 meq/L 3.5-5.1 ghyr=899) CHLORIDE (BEAKER) (test 100 meq/L 98-107 apun=640) CO2 (BEAKER) (test 24 meq/L 22-29 ztam=473) BLOOD UREA NITROGEN 29 mg/dL 7-21 (BEAKER) (test iagw=947) CREATININE (BEAKER) (test 3.19 mg/dL 0.57-1.25 bxya=434) GLUCOSE RANDOM (BEAKER) 82 mg/dL 70-105 (test tkwu=461) CALCIUM (BEAKER) (test 8.4 mg/dL 8.4-10.2 mzsd=639) AST (SGOT) (BEAKER) (test 26 U/L 5-34 lude=653) ALT (SGPT) (BEAKER) (test 18 U/L 6-55 jviu=788) EGFR (BEAKER) (test 14 mL/min/1.73 sq m ESTIMATED GFR IS NOT hfle=4362) ACCURATE CREATININE CLEARANCE IN PREDICTING GLOMERULAR FILTRATION RATE. ESTIMATED GFR IS NOT APPLICABLE FOR DIALYSIS PATIENTS. [id number] 06:04:00 Test Item Value Reference Range Comments PHOSPHORUS (BEAKER) (test hxqu=684) 3.5 mg/dL 2.3-4.7 [id number] 06:04:00 Test Item Value Reference Range Comments MAGNESIUM (BEAKER) (test ccjq=259) 2.0 mg/dL 1.6-2.6 B-TYPE NATRIURETIC FACTOR (BNP)2019-08-05 06:03:00 Test Item Value Reference Range Comments B-TYPE NATRIURETIC PEPTIDE (BEAKER) (test 2566 pg/mL 0-100 terz=748) CBC W/PLT COUNT & AUTO [id number] 05:35:00 Test Item Value Reference Range Comments WHITE BLOOD CELL COUNT (BEAKER) (test sutj=891) 6.8 K/ L 3.5-10.5 RED BLOOD CELL COUNT (BEAKER) (test fuip=653) 2.68 M/ L 3.93-5.22 HEMOGLOBIN (BEAKER) (test kgtq=717) 8.5 GM/DL 11.2-15.7 HEMATOCRIT (BEAKER) (test pynp=034) 27.1 % 34.1-44.9 MEAN CORPUSCULAR VOLUME (BEAKER) (test whut=456) 101.1 fL 79.4-94.8 MEAN CORPUSCULAR HEMOGLOBIN (BEAKER) (test 31.7 pg 25.6-32.2 slzd=507) MEAN CORPUSCULAR HEMOGLOBIN CONC (BEAKER) (test 31.4 GM/DL 32.2-35.5 buty=507) RED CELL DISTRIBUTION WIDTH (BEAKER) (test 15.2 % 11.7-14.4 qgae=716) PLATELET COUNT (BEAKER) (test xrhf=312) 264 K/CU MM 150-450 MEAN PLATELET VOLUME (BEAKER) (test emgq=197) 10.6 fL 9.4-12.3 NUCLEATED RED BLOOD CELLS (BEAKER) (test 0 /100 WBC 0-0 ouzu=837) NEUTROPHILS RELATIVE PERCENT (BEAKER) (test 75 % ckmo=817) LYMPHOCYTES RELATIVE PERCENT (BEAKER) (test 14 % zdqj=533) MONOCYTES RELATIVE PERCENT (BEAKER) (test 10 % zddr=832) EOSINOPHILS RELATIVE PERCENT (BEAKER) (test 0 % xwvh=862) BASOPHILS RELATIVE PERCENT (BEAKER) (test 0 % xbjd=462) NEUTROPHILS ABSOLUTE COUNT (BEAKER) (test 5.09 K/ L 1.56-6.13 vwpm=324) LYMPHOCYTES ABSOLUTE COUNT (BEAKER) (test 0.97 K/ L 1.18-3.74 gmcz=192) MONOCYTES ABSOLUTE COUNT (BEAKER) (test 0.67 K/ L 0.24-0.36 uatm=199) EOSINOPHILS ABSOLUTE COUNT (BEAKER) (test 0.01 K/ L 0.04-0.36 xjbu=265) BASOPHILS ABSOLUTE COUNT (BEAKER) (test 0.00 K/ L 0.01-0.08 vqid=471) IMMATURE GRANULOCYTES-RELATIVE PERCENT (BEAKER) 1 % 0-1 (test tswd=6286) HEPATITIS B [id number] 03:21:00 Test Item Value Reference Range Comments HEPATITIS B CORE TOTAL ANTIBODY (BEAKER) (test Nonreactive Nonreactive wuyj=925) HEPATITIS B SURFACE ANTIBODY (BEAKER) (test < mIU/mL <8.0 axhg=148) HEPATITIS B SURFACE ANTIGEN (2) (BEAKER) (test Nonreactive Nonreactive iojy=0160) POCT-GLUCOSE [id number] 17:07:00 Test Item Value Reference Range Comments POC-GLUCOSE METER (BEAKER) 137 mg/dL 70-[address] [facility] [address] [facility] (test pezq=2166) [facility] [address] POCT-GLUCOSE [id number] 10:50:00 Test Item Value Reference Range Comments POC-GLUCOSE METER (BEAKER) 91 mg/dL 70-110 TESTED AT [address] (test vfyc=3989) [facility] [address] ANG, TUNNELED CATHETER [id number] 10:27:00Reason for exam:->Long- term dialysisFINAL REPORT Procedure: Tunneled dialysis catheter placement. History: Need for hemodialysis. Operating Room Manager: Da Gomez MD. Chief Design Engineer: Josué M.D. Modality: Sonography and fluoroscopy. DOSE REDUCTION: The examination was performed according to departmental dose-optimization program. Fluoro time:0.4 minutes Radiation dose for this procedure was 0.7 mGy air Kerma. Number of images: Four Sedation: Versed 0.5 mg and fentanyl 25 mcg was given intravenously for conscious sedation. Vital signs were monitored throughout the procedure by a dedicated RN under direct supervision of Dr. Gomez, and remained stable. Medicines: Not applicable. Anesthesia: Lidocaine local infiltration. Physician intraprocedure sedation time was 10 minutes. Estimated blood loss: < 5 cc. Technique: Informed written consent was obtained. Discussion of risks, benefits, and alternatives were made with the patient. The patient expressed understanding and agreed to proceed. A universal timeout was performed prior to starting the procedure. The procedure room personnel used personal protective equipment. The operators used sterile gowns and gloves additionally. A preliminary ultrasonogram was performed of the neckthat revealed a patent and compressible right internal jugular vein. Pertinent ultrasound images were stored in the PACS for documentation. A sterile prep and drape of the right neck and upper chest was performed using standard technique. Using aseptic precautions, real-time ultrasound guidance, the internal jugular vein was accessed after local anesthetic infiltration and dermatotomy with a micropuncture needle. A 018 guidewire was advanced into the central venous system under fluoroscopic guidance. Over the wire a micropuncture sheath was placed. Through the micropuncture sheath, a 035 wire wasadvanced into the venous system under fluoroscopic guidance. Over the wire a peel-away sheath was placed. After local anesthesia, an incision was created in the subclavicular exit site location and a cuffed tunneled dialysis catheter of an appropriate length was tunneled from the exit site to the venotomy site using a tunneling device. The catheter was advanced into the venous system through the peel-away sheath which was removed. The catheter aspirated and flushed well and was terminally packed with heparin 1000 units per cc. The catheter was secured to skin using nonabsorbable suture and a CHG dressing applied. The venotomy site was closed using Dermabond. An aseptic dressing was applied using the protocol for Dermabond. The patient was transferred to the recovery area and was discharged from the department in stable condition. Complications: None immediate. Device: 15.5French x 19 cm cuff to tip Duraflow 2 catheter. Findings: Patent and compressible right internal jugular vein. Final image shows the catheter to be in good position with the catheter tip in the right atrium, an excellent position for use. There is no complication. Impression: Successful ultrasound and fluoroscopic guided right internal jugular vein route cuffed tunneled hemodialysis catheter placement as described above. Thank you for the opportunity to assist in the care of your patient. Signed: aD Gomez MDReport Verified Date/Time: 08/04/2019 10:27:22 Reading Location: [place] [address] Angio Body Reading Room CALCIUM, [id number] 06:41:00 Test Item Value Reference Range Comments CALCIUM IONIZED (BEAKER) (test kvqh=483) 1.08 mmol/L 1.12-1.27 PH, BLOOD (BEAKER) (test stvq=8079) 7.36 BASIC METABOLIC [id number] 05:01:00 Test Item Value Reference Range Comments SODIUM (BEAKER) (test 127 meq/L 136-145 sngy=672) POTASSIUM (BEAKER) (test 4.3 meq/L 3.5-5.1 msfo=530) CHLORIDE (BEAKER) (test 93 meq/L 98-107 aiqs=375) CO2 (BEAKER) (test 22 meq/L 22-29 xvzl=662) BLOOD UREA NITROGEN 67 mg/dL 7-21 (BEAKER) (test mzwr=434) CREATININE (BEAKER) (test 5.59 mg/dL 0.57-1.25 upvw=593) GLUCOSE RANDOM (BEAKER) 83 mg/dL 70-105 (test gnuo=341) CALCIUM (BEAKER) (test 8.6 mg/dL 8.4-10.2 rlgo=774) EGFR (BEAKER) (test 8 mL/min/1.73 sq m ESTIMATED GFR IS NOT yoor=3227) ACCURATE CREATININE CLEARANCE IN PREDICTING GLOMERULAR FILTRATION RATE. ESTIMATED GFR IS NOT APPLICABLE FOR DIALYSIS PATIENTS. [id number] 04:51:00 Test Item Value Reference Range Comments PHOSPHORUS (BEAKER) (test dnxj=232) 5.8 mg/dL 2.3-4.7 [id number] 04:51:00 Test Item Value Reference Range Comments MAGNESIUM (BEAKER) (test vtbi=925) 2.0 mg/dL 1.6-2.6 B-TYPE NATRIURETIC FACTOR (BNP)2019-08-04 04:44:00 Test Item Value Reference Range Comments B-TYPE NATRIURETIC PEPTIDE (BEAKER) (test 2587 pg/mL 0-100 ewaa=843) PROTHROMBIN [id number] 04:36:00 Test Item Value Reference Range Comments PROTIME (BEAKER) (test etom=473) 13.2 seconds 11.9-14.2 INR (BEAKER) (test wclu=385) 1.1 <=5.9 Effective 03/18/2019: PT Reference Range ChangeNew: 11.9-14.2 Previous: 11.7- 14.7RECOMMENDED COUMADIN/WARFARIN INR THERAPY RANGESSTANDARD DOSE: 2.0-3.0 Includes: PROPHYLAXIS for venous thrombosis, systemic embolization; TREATMENT for venous thrombosis and/or pulmonary embolus.HIGH RISK: Target INR is2.5-3.5 for patients wiht mechanical heart valves.CBC W/PLT COUNT & AUTO [id number] 04:30:00 Test Item Value Reference Range Comments WHITE BLOOD CELL COUNT (BEAKER) (test vclb=992) 5.5 K/ L 3.5-10.5 RED BLOOD CELL COUNT (BEAKER) (test kfug=854) 2.72 M/ L 3.93-5.22 HEMOGLOBIN (BEAKER) (test jqxy=298) 8.6 GM/DL 11.2-15.7 HEMATOCRIT (BEAKER) (test frtu=571) 26.2 % 34.1-44.9 MEAN CORPUSCULAR VOLUME (BEAKER) (test bnnq=037) 96.3 fL 79.4-94.8 MEAN CORPUSCULAR HEMOGLOBIN (BEAKER) (test 31.6 pg 25.6-32.2 vppo=192) MEAN CORPUSCULAR HEMOGLOBIN CONC (BEAKER) (test 32.8 GM/DL 32.2-35.5 tpdy=330) RED CELL DISTRIBUTION WIDTH (BEAKER) (test 15.0 % 11.7-14.4 byge=820) PLATELET COUNT (BEAKER) (test stuu=871) 294 K/CU MM 150-450 MEAN PLATELET VOLUME (BEAKER) (test wdqb=157) 10.6 fL 9.4-12.3 NUCLEATED RED BLOOD CELLS (BEAKER) (test 0 /100 WBC 0-0 bsue=332) NEUTROPHILS RELATIVE PERCENT (BEAKER) (test 73 % lagf=948) LYMPHOCYTES RELATIVE PERCENT (BEAKER) (test 18 % muju=953) MONOCYTES RELATIVE PERCENT (BEAKER) (test 8 % bqxj=461) EOSINOPHILS RELATIVE PERCENT (BEAKER) (test 0 % muou=285) BASOPHILS RELATIVE PERCENT (BEAKER) (test 0 % wmvs=333) NEUTROPHILS ABSOLUTE COUNT (BEAKER) (test 3.98 K/ L 1.56-6.13 ijro=294) LYMPHOCYTES ABSOLUTE COUNT (BEAKER) (test 1.00 K/ L 1.18-3.74 jfmo=152) MONOCYTES ABSOLUTE COUNT (BEAKER) (test 0.46 K/ L 0.24-0.36 tlsv=068) EOSINOPHILS ABSOLUTE COUNT (BEAKER) (test 0.00 K/ L 0.04-0.36 eajt=167) BASOPHILS ABSOLUTE COUNT (BEAKER) (test 0.00 K/ L 0.01-0.08 jcps=445) IMMATURE GRANULOCYTES-RELATIVE PERCENT (BEAKER) 1 % 0-1 (test kjvy=4730) CREATININE, RANDOM [id number] 03:22:00 Test Item Value Reference Range Comments CREATININE URINE (BEAKER) (test sdtb=431) 157.2 mg/dL Reference Range: No NormalsPROTEIN, RANDOM [id number] 03:22:00 Test Item Value Reference Range Comments PROTEIN, URINE (BEAKER) (test fltv=8482) 71 mg/dL 0-14 URINALYSIS W/ [id number] 02:15:00 Test Item Value Reference Range Comments COLOR (BEAKER) (test shyd=620) Yellow CLARITY (BEAKER) (test knsi=633) Cloudy SPECIFIC GRAVITY UA (BEAKER) (test pvde=630) 1.020 1.001-1.035 PH UA (BEAKER) (test tbdj=430) 5.5 5.0-8.0 PROTEIN UA (BEAKER) (test fqob=064) 70 mg/dL Negative GLUCOSE UA (BEAKER) (test dnei=273) Negative Negative KETONES UA (BEAKER) (test ybqo=118) 10 mg/dL Negative BILIRUBIN UA (BEAKER) (test cdwe=852) Negative Negative BLOOD UA (BEAKER) (test audr=414) Trace Negative NITRITE UA (BEAKER) (test abuk=048) Negative Negative LEUKOCYTE ESTERASE UA (BEAKER) (test hhyn=352) Large Negative UROBILINOGEN UA (BEAKER) (test unov=285) 2.0 mg/dL 0.2-1.0 RBC UA (BEAKER) (test mjkr=180) 51 /HPF WBC UA (BEAKER) (test uclp=767) 533 /HPF BACTERIA (BEAKER) (test jxev=396) Many CRYSTALS, URINE (BEAKER) (test zqqh=9936) Occasional YEAST (BEAKER) (test desa=3956) Many SOURCE(BEAKER) (test hvia=3338) POCT-GLUCOSE [id number] 20:49:00 Test Item Value Reference Range Comments POC-GLUCOSE METER (BEAKER) 145 mg/dL 70-110 TESTED AT [address] (test xvkh=8619) [place] [address] POCT-GLUCOSE [id number] 17:08:00 Test Item Value Reference Range Comments POC-GLUCOSE METER (BEAKER) 142 mg/dL 70-110 TESTED AT [address] (test vuwc=0449) [place] [address] RAD, CHEST, 1 VIEW, NON [id number] 13:52:00Reason for exam:->Fluid overloadShould this be performed at the bedside?->YesFINAL REPORT RAD, CHEST, 1 VIEW, NON DEPT INDICATION: Fluid overload COMPARISON : July 29, 2019 FINDINGS: Portable frontal view of the chest. IMPRESSION: Support Lines: RightIJ central venous catheter is stable. Lungs and pleura: No new consolidation. Decreased interstitialcongestion. No effusion. No pneumothorax.Heart and mediastinum: Stable contours. Additional findings: None. Signed: JR Palm Robert MDReport Verified Date/Time: 08/03/2019 13: 52:14 Reading Location: [facility] Radiology Reading Room POCT-GLUCOSE [id number] 12:26:00 Test Item Value Reference Range Comments POC-GLUCOSE METER (BEAKER) 112 mg/dL 70-110 TESTED AT [address] (test zzvo=8245) [place] [id number] POCT-GLUCOSE [id number] 08:19:00 Test Item Value Reference Range Comments POC-GLUCOSE METER (BEAKER) 95 mg/dL 70-110 TESTED AT [address] (test iprj=8578) [place] [address] BASIC METABOLIC [id number] 07:26:00 Test Item Value Reference Range Comments SODIUM (BEAKER) (test 128 meq/L 136-145 fklw=232) POTASSIUM (BEAKER) (test 3.6 meq/L 3.5-5.1 qxgf=670) CHLORIDE (BEAKER) (test 95 meq/L 98-107 qpep=071) CO2 (BEAKER) (test 24 meq/L 22-29 bmhw=248) BLOOD UREA NITROGEN 46 mg/dL 7-21 (BEAKER) (test xyqx=244) CREATININE (BEAKER) (test 4.09 mg/dL 0.57-1.25 yutj=240) GLUCOSE RANDOM (BEAKER) 93 mg/dL 70-105 (test mdxj=441) CALCIUM (BEAKER) (test 8.4 mg/dL 8.4-10.2 dgyg=611) EGFR (BEAKER) (test 11 mL/min/1.73 sq m ESTIMATED GFR IS NOT akli=1594) ACCURATE CREATININE CLEARANCE IN PREDICTING GLOMERULAR FILTRATION RATE. ESTIMATED GFR IS NOT APPLICABLE FOR DIALYSIS PATIENTS. POCT-GLUCOSE [id number] 20:40:00 Test Item Value Reference Range Comments POC-GLUCOSE METER (BEAKER) 156 mg/dL 70-110 TESTED AT [address] (test zjgc=7444) [place] [id number] POCT-GLUCOSE [id number] 18:30:00 Test Item Value Reference Range Comments POC-GLUCOSE METER (BEAKER) 151 mg/dL 70-110 TESTED AT [address] (test hfno=8829) [facility] [address] BASIC METABOLIC [id number] 05:47:00 Test Item Value Reference Range Comments SODIUM (BEAKER) (test 137 meq/L 136-145 ibnf=067) POTASSIUM (BEAKER) (test 3.9 meq/L 3.5-5.1 qyst=154) CHLORIDE (BEAKER) (test 100 meq/L 98-107 sueh=382) CO2 (BEAKER) (test 25 meq/L 22-29 djck=944) BLOOD UREA NITROGEN 25 mg/dL 7-21 (BEAKER) (test tevt=742) CREATININE (BEAKER) (test 2.64 mg/dL 0.57-1.25 qsgr=334) GLUCOSE RANDOM (BEAKER) 86 mg/dL 70-105 (test ihyk=539) CALCIUM (BEAKER) (test 9.0 mg/dL 8.4-10.2 lhkn=182) EGFR (BEAKER) (test 18 mL/min/1.73 sq m ESTIMATED GFR IS NOT dbmq=9139) ACCURATE CREATININE CLEARANCE IN PREDICTING GLOMERULAR FILTRATION RATE. ESTIMATED GFR IS NOT APPLICABLE FOR DIALYSIS PATIENTS. CBC W/PLT COUNT & AUTO [id number] 05:13:00 Test Item Value Reference Range Comments WHITE BLOOD CELL COUNT (BEAKER) (test mqtd=668) 6.6 K/ L 3.5-10.5 RED BLOOD CELL COUNT (BEAKER) (test qyeg=476) 2.99 M/ L 3.93-5.22 HEMOGLOBIN (BEAKER) (test uflw=432) 9.4 GM/DL 11.2-15.7 HEMATOCRIT (BEAKER) (test urbn=215) 28.7 % 34.1-44.9 MEAN CORPUSCULAR VOLUME (BEAKER) (test epxj=204) 96.0 fL 79.4-94.8 MEAN CORPUSCULAR HEMOGLOBIN (BEAKER) (test 31.4 pg 25.6-32.2 ewjp=498) MEAN CORPUSCULAR HEMOGLOBIN CONC (BEAKER) (test 32.8 GM/DL 32.2-35.5 eclh=849) RED CELL DISTRIBUTION WIDTH (BEAKER) (test 15.1 % 11.7-14.4 yyfb=366) PLATELET COUNT (BEAKER) (test rmjg=478) 304 K/CU MM 150-450 MEAN PLATELET VOLUME (BEAKER) (test ufqj=226) 10.8 fL 9.4-12.3 NUCLEATED RED BLOOD CELLS (BEAKER) (test 0 /100 WBC 0-0 tjbg=855) NEUTROPHILS RELATIVE PERCENT (BEAKER) (test 72 % lpaa=900) LYMPHOCYTES RELATIVE PERCENT (BEAKER) (test 17 % wbgv=580) MONOCYTES RELATIVE PERCENT (BEAKER) (test 11 % zpdc=623) EOSINOPHILS RELATIVE PERCENT (BEAKER) (test 0 % pjxh=901) BASOPHILS RELATIVE PERCENT (BEAKER) (test 0 % bdeq=031) NEUTROPHILS ABSOLUTE COUNT (BEAKER) (test 4.77 K/ L 1.56-6.13 ceuh=509) LYMPHOCYTES ABSOLUTE COUNT (BEAKER) (test 1.10 K/ L 1.18-3.74 pnqf=690) MONOCYTES ABSOLUTE COUNT (BEAKER) (test 0.70 K/ L 0.24-0.36 ysfq=702) EOSINOPHILS ABSOLUTE COUNT (BEAKER) (test 0.00 K/ L 0.04-0.36 lpha=110) BASOPHILS ABSOLUTE COUNT (BEAKER) (test 0.00 K/ L 0.01-0.08 jtqh=788) IMMATURE GRANULOCYTES-RELATIVE PERCENT (BEAKER) 1 % 0-1 (test iusl=9311) POCT-GLUCOSE [id number] 21:29:00 Test Item Value Reference Range Comments POC-GLUCOSE METER (BEAKER) 226 mg/dL 70-110 TESTED AT [address] (test nxat=2862) [place] [address] POCT-GLUCOSE [id number] 13:03:00 Test Item Value Reference Range Comments POC-GLUCOSE METER (BEAKER) 134 mg/dL 70-110 TESTED AT [address] (test lztx=7770) [place] [address] POCT-GLUCOSE [id number] 09:37:00 Test Item Value Reference Range Comments POC-GLUCOSE METER (BEAKER) 82 mg/dL 70-110 TESTED AT [address] (test vytf=5029) [place] [address] BASIC METABOLIC [id number] 05:53:00 Test Item Value Reference Range Comments SODIUM (BEAKER) (test 131 meq/L 136-145 dqqh=809) POTASSIUM (BEAKER) (test 3.4 meq/L 3.5-5.1 bvxo=596) CHLORIDE (BEAKER) (test 94 meq/L 98-107 lmfi=891) CO2 (BEAKER) (test 25 meq/L 22-29 hozj=094) BLOOD UREA NITROGEN 47 mg/dL 7-21 (BEAKER) (test jmyq=350) CREATININE (BEAKER) (test 4.03 mg/dL 0.57-1.25 ybys=778) GLUCOSE RANDOM (BEAKER) 81 mg/dL 70-105 (test audj=221) CALCIUM (BEAKER) (test 8.1 mg/dL 8.4-10.2 rela=715) EGFR (BEAKER) (test 11 mL/min/1.73 sq m ESTIMATED GFR IS NOT kzur=1451) ACCURATE CREATININE CLEARANCE IN PREDICTING GLOMERULAR FILTRATION RATE. ESTIMATED GFR IS NOT APPLICABLE FOR DIALYSIS PATIENTS. CBC W/PLT COUNT & AUTO [id number] 05:32:00 Test Item Value Reference Range Comments WHITE BLOOD CELL COUNT (BEAKER) (test fhcg=232) 8.2 K/ L 3.5-10.5 RED BLOOD CELL COUNT (BEAKER) (test wmgn=547) 2.75 M/ L 3.93-5.22 HEMOGLOBIN (BEAKER) (test efho=377) 8.6 GM/DL 11.2-15.7 HEMATOCRIT (BEAKER) (test yfob=318) 26.0 % 34.1-44.9 MEAN CORPUSCULAR VOLUME (BEAKER) (test jdxg=851) 94.5 fL 79.4-94.8 MEAN CORPUSCULAR HEMOGLOBIN (BEAKER) (test 31.3 pg 25.6-32.2 xxmc=503) MEAN CORPUSCULAR HEMOGLOBIN CONC (BEAKER) (test 33.1 GM/DL 32.2-35.5 uudm=996) RED CELL DISTRIBUTION WIDTH (BEAKER) (test 15.8 % 11.7-14.4 oznt=982) PLATELET COUNT (BEAKER) (test hskp=108) 262 K/CU MM 150-450 MEAN PLATELET VOLUME (BEAKER) (test wdsd=961) 10.9 fL 9.4-12.3 NUCLEATED RED BLOOD CELLS (BEAKER) (test 0 /100 WBC 0-0 gjob=805) NEUTROPHILS RELATIVE PERCENT (BEAKER) (test 71 % ixed=129) LYMPHOCYTES RELATIVE PERCENT (BEAKER) (test 18 % uhvc=439) MONOCYTES RELATIVE PERCENT (BEAKER) (test 10 % jhwh=770) EOSINOPHILS RELATIVE PERCENT (BEAKER) (test 0 % cplh=377) BASOPHILS RELATIVE PERCENT (BEAKER) (test 0 % bihw=696) NEUTROPHILS ABSOLUTE COUNT (BEAKER) (test 5.81 K/ L 1.56-6.13 sfbg=572) LYMPHOCYTES ABSOLUTE COUNT (BEAKER) (test 1.48 K/ L 1.18-3.74 eeej=773) MONOCYTES ABSOLUTE COUNT (BEAKER) (test 0.85 K/ L 0.24-0.36 pilj=079) EOSINOPHILS ABSOLUTE COUNT (BEAKER) (test 0.01 K/ L 0.04-0.36 spxl=561) BASOPHILS ABSOLUTE COUNT (BEAKER) (test 0.01 K/ L 0.01-0.08 akbn=375) IMMATURE GRANULOCYTES-RELATIVE PERCENT (BEAKER) 1 % 0-1 (test urof=6921) POCT-GLUCOSE [id number] 00:07:00 Test Item Value Reference Range Comments POC-GLUCOSE METER (BEAKER) 120 mg/dL 70-[address] [facility] [address] [facility] (test rupo=5381) [facility] [address] URINE PROTEIN ELECTROPHORESIS, [id number] 15:42:00 Test Item Value Reference Range Comments PROTEIN, URINE (BEAKER) (test 41 mg/dL 0-14 cqch=1092) ALBUMIN URINE ELP (BEAKER) 56.1 % (test ydml=4218) GAMMA GLOBULIN URINE (BEAKER) 43.9 % (test uqab=4448) UPEP, ID-[id number] (BEAKER) (test Urine protein study consistent cxuj=6879) with glomerular dysfunction. No monoclonal bands detected. [id number] (BEAKER) Valerie Scott MD (electronic (test cfgi=2571) signature) PROTEIN ELECTROPHORESIS, [id number] 15:34:00 Test Item Value Reference Range Comments ALBUMIN FRACTION (BEAKER) 3.6 g/dL 3.5-5.5 (test mbzd=787) ALPHA 1 FRACTION (BEAKER) 0.4 g/dL 0.2-0.4 (test uist=646) ALPHA 2 FRACTION (BEAKER) 0.9 g/dL 0.5-0.9 (test rxqg=743) BETA FRACTION (BEAKER) 0.7 g/dL 0.6-1.1 (test hupj=163) GAMMA GLOBULIN FRACTION 0.7 g/dL 0.7-1.7 (BEAKER) (test joew=957) INTERPRETATION-119 (BEAKER) Normal electrophoretic pattern. (test ltcu=5729) No monoclonal bands identified. [id number] Valerie Scott MD (electronic (BEAKER) (test qzff=4635) signature) PROTEIN TOTAL SERUM, SPEP 6.3 gm/dL 6.0-8.3 (BEAKER) (test yxhq=7339) POCT-GLUCOSE [id number] 08:49:00 Test Item Value Reference Range Comments POC-GLUCOSE METER (BEAKER) 88 mg/dL 70-[address] [facility] [address] [facility] (test nhrt=4039) [facility] [address] BASIC METABOLIC [id number] 07:13:00 Test Item Value Reference Range Comments SODIUM (BEAKER) (test 138 meq/L 136-145 rmki=375) POTASSIUM (BEAKER) (test 3.7 meq/L 3.5-5.1 fqgz=708) CHLORIDE (BEAKER) (test 102 meq/L 98-107 lofl=454) CO2 (BEAKER) (test 25 meq/L 22-29 gqcl=832) BLOOD UREA NITROGEN 30 mg/dL 7-21 (BEAKER) (test bnto=566) CREATININE (BEAKER) (test 3.01 mg/dL 0.57-1.25 tpvm=829) GLUCOSE RANDOM (BEAKER) 87 mg/dL 70-105 (test bmob=348) CALCIUM (BEAKER) (test 8.3 mg/dL 8.4-10.2 tcwd=391) EGFR (BEAKER) (test 15 mL/min/1.73 sq m ESTIMATED GFR IS NOT adyi=4164) ACCURATE CREATININE CLEARANCE IN PREDICTING GLOMERULAR FILTRATION RATE. ESTIMATED GFR IS NOT APPLICABLE FOR DIALYSIS PATIENTS. [id number] 07:12:00 Test Item Value Reference Range Comments PHOSPHORUS (BEAKER) (test uzkr=556) 3.5 mg/dL 2.3-4.7 [id number] 07:12:00 Test Item Value Reference Range Comments MAGNESIUM (BEAKER) (test xzdx=556) 2.1 mg/dL 1.6-2.6 CBC W/PLT COUNT & AUTO [id number] 04:59:00 Test Item Value Reference Range Comments WHITE BLOOD CELL COUNT (BEAKER) (test cyqo=610) 9.7 K/ L 3.5-10.5 RED BLOOD CELL COUNT (BEAKER) (test tmlm=806) 2.68 M/ L 3.93-5.22 HEMOGLOBIN (BEAKER) (test nubo=675) 8.4 GM/DL 11.2-15.7 HEMATOCRIT (BEAKER) (test oaeo=197) 25.8 % 34.1-44.9 MEAN CORPUSCULAR VOLUME (BEAKER) (test jhiu=522) 96.3 fL 79.4-94.8 MEAN CORPUSCULAR HEMOGLOBIN (BEAKER) (test 31.3 pg 25.6-32.2 vfji=416) MEAN CORPUSCULAR HEMOGLOBIN CONC (BEAKER) (test 32.6 GM/DL 32.2-35.5 oilo=046) RED CELL DISTRIBUTION WIDTH (BEAKER) (test 16.4 % 11.7-14.4 fexs=849) PLATELET COUNT (BEAKER) (test ahqh=391) 240 K/CU MM 150-450 MEAN PLATELET VOLUME (BEAKER) (test lgly=013) 10.5 fL 9.4-12.3 NUCLEATED RED BLOOD CELLS (BEAKER) (test 0 /100 WBC 0-0 esmo=258) NEUTROPHILS RELATIVE PERCENT (BEAKER) (test 75 % yhqc=203) LYMPHOCYTES RELATIVE PERCENT (BEAKER) (test 15 % ibta=452) MONOCYTES RELATIVE PERCENT (BEAKER) (test 9 % nwpe=726) EOSINOPHILS RELATIVE PERCENT (BEAKER) (test 0 % iikc=145) BASOPHILS RELATIVE PERCENT (BEAKER) (test 0 % vzjg=919) NEUTROPHILS ABSOLUTE COUNT (BEAKER) (test 7.29 K/ L 1.56-6.13 mqbh=301) LYMPHOCYTES ABSOLUTE COUNT (BEAKER) (test 1.44 K/ L 1.18-3.74 xqgv=556) MONOCYTES ABSOLUTE COUNT (BEAKER) (test 0.84 K/ L 0.24-0.36 mixs=818) EOSINOPHILS ABSOLUTE COUNT (BEAKER) (test 0.00 K/ L 0.04-0.36 sjxt=793) BASOPHILS ABSOLUTE COUNT (BEAKER) (test 0.03 K/ L 0.01-0.08 enid=702) IMMATURE GRANULOCYTES-RELATIVE PERCENT (BEAKER) 1 % 0-1 (test phsi=2212) BASIC METABOLIC [id number] 18:41:00 Test Item Value Reference Range Comments SODIUM (BEAKER) (test 139 meq/L 136-145 yyfq=529) POTASSIUM (BEAKER) (test 3.7 meq/L 3.5-5.1 bood=835) CHLORIDE (BEAKER) (test 101 meq/L 98-107 ypge=496) CO2 (BEAKER) (test 29 meq/L 22-29 tkfj=585) BLOOD UREA NITROGEN 15 mg/dL 7-21 (BEAKER) (test spwq=578) CREATININE (BEAKER) (test 1.93 mg/dL 0.57-1.25 lxdw=977) GLUCOSE RANDOM (BEAKER) 134 mg/dL 70-105 (test qkqf=828) CALCIUM (BEAKER) (test 8.6 mg/dL 8.4-10.2 augr=123) EGFR (BEAKER) (test 26 mL/min/1.73 sq m ESTIMATED GFR IS NOT qzsd=0839) ACCURATE CREATININE CLEARANCE IN PREDICTING GLOMERULAR FILTRATION RATE. ESTIMATED GFR IS NOT APPLICABLE FOR DIALYSIS PATIENTS. VITAMIN B12 AND [id number] 17:59:00 Test Item Value Reference Range Comments VITAMIN B12 (BEAKER) (test ukpv=002) > pg/mL 213-816 FOLATE (BEAKER) (test opuc=738) 12.7 ng/mL >=7.0 BASIC METABOLIC [id number] 16:16:00 Test Item Value Reference Range Comments SODIUM (BEAKER) (test 139 meq/L 136-145 zjcb=396) POTASSIUM (BEAKER) (test 3.9 meq/L 3.5-5.1 yuwy=746) CHLORIDE (BEAKER) (test 101 meq/L 98-107 wgyd=434) CO2 (BEAKER) (test 27 meq/L 22-29 rrje=599) BLOOD UREA NITROGEN 12 mg/dL 7-21 (BEAKER) (test kirw=371) CREATININE (BEAKER) (test 1.72 mg/dL 0.57-1.25 prxv=530) GLUCOSE RANDOM (BEAKER) 134 mg/dL 70-105 (test cval=316) CALCIUM (BEAKER) (test 9.0 mg/dL 8.4-10.2 nhyy=997) EGFR (BEAKER) (test 29 mL/min/1.73 sq m ESTIMATED GFR IS NOT xkdj=7045) ACCURATE CREATININE CLEARANCE IN PREDICTING GLOMERULAR FILTRATION RATE. ESTIMATED GFR IS NOT APPLICABLE FOR DIALYSIS PATIENTS. [id number] 16:07:00 Test Item Value Reference Range Comments PHOSPHORUS (BEAKER) (test yqqq=619) 2.8 mg/dL 2.3-4.7 [id number] 16:07:00 Test Item Value Reference Range Comments MAGNESIUM (BEAKER) (test rzly=928) 2.0 mg/dL 1.6-2.6 HEMOGLOBIN AND [id number] 15:53:00 Test Item Value Reference Range Comments HEMOGLOBIN (BEAKER) (test tyog=117) 9.6 GM/DL 11.2-15.7 HEMATOCRIT (BEAKER) (test ceae=913) 28.9 % 34.1-44.9 RAD, CHEST, 1 VIEW, NON [id number] 13:32:00Reason for exam:->SOBShould this be performed at the bedside?->YesFINAL REPORT RAD , CHEST, 1 VIEW, NON DEPT INDICATION: SOB COMPARISON: Prior day's exam FINDINGS : Portable frontal view of the chest. IMPRESSION: Support Lines: None. Lungs andpleura: Worsening interstitial congestion. Bilateral pleural effusions. No pneumothorax.Heart and mediastinum: Stable contours. Additional findings: None. Signed: JR Palm Robert MDReport Verified Date/Time: 07/30/2019 13:32: 46 Reading Location: [facility] Radiology Reading Room EOSINOPHIL SMEAR, [id number] 12:08:00 Test Item Value Reference Range Comments EOSINOPHIL SMEAR, URINE (BEAKER) Rare EOS=less than 5% WBCs No EOS seen (test rmzd=0506) seen are EOS RHEUMATOID FACTOR AB, REFLEX TO [id number] 12:01:00 Test Item Value Reference Range Comments RHEUMATOID FACTOR (BEAKER) (test ndko=696) Negative POCT-GLUCOSE [id number] 10:59:00 Test Item Value Reference Range Comments POC-GLUCOSE METER (BEAKER) 87 mg/dL 70-110 TESTED AT [address] (test gtla=1562) [facility] [address] ANTI-NUCLEAR ANTIBODY (SOCRATES)2019-07-30 10:13:00 Test Item Value Reference Range Comments ANTI-NUCLEAR ANTIBODY (SOCRATES) (BEAKER) (test Positive Negative unxo=643) Test performed by IFA method.SOCRATES TITER AND [id number] 10:13:00 Test Item Value Reference Range Comments SOCRATES TITER (BEAKER) (test dmuy=1134) :160 SOCRATES PATTERN (BEAKER) (test cogd=3226) Nucleolar [id number] 10:05:00 Test Item Value Reference Range Comments FERRITIN (BEAKER) (test vnhb=079) 646 ng/mL 5-275 IRON, TIBC, % SAT. (WITHOUT FERRITIN)2019-07-30 09:44:00 Test Item Value Reference Range Comments IRON (BEAKER) (test xoty=780) 38.0 ug/dL 40.0-160.0 TOTAL IRON BINDING CAPACITY (BEAKER) (test 243 ug/dL 250-450 wdlg=755) IRON % SATURATION (2) (BEAKER) (test nbqa=8402) 16 % 20-55 BASIC METABOLIC [id number] 09:20:00 Test Item Value Reference Range Comments SODIUM (BEAKER) (test 136 meq/L 136-145 ocke=392) POTASSIUM (BEAKER) (test 5.0 meq/L 3.5-5.1 acwl=817) CHLORIDE (BEAKER) (test 102 meq/L 98-107 psxm=139) CO2 (BEAKER) (test 24 meq/L 22-29 rxvs=450) BLOOD UREA NITROGEN 34 mg/dL 7-21 (BEAKER) (test gkmr=642) CREATININE (BEAKER) (test 2.93 mg/dL 0.57-1.25 inow=079) GLUCOSE RANDOM (BEAKER) 101 mg/dL 70-105 (test haps=613) CALCIUM (BEAKER) (test 8.5 mg/dL 8.4-10.2 kqio=541) EGFR (BEAKER) (test 16 mL/min/1.73 sq m ESTIMATED GFR IS NOT fmgp=2450) ACCURATE CREATININE CLEARANCE IN PREDICTING GLOMERULAR FILTRATION RATE. ESTIMATED GFR IS NOT APPLICABLE FOR DIALYSIS PATIENTS. [id number] 09:17:00 Test Item Value Reference Range Comments PHOSPHORUS (BEAKER) (test fmql=259) 5.3 mg/dL 2.3-4.7 [id number] 09:17:00 Test Item Value Reference Range Comments MAGNESIUM (BEAKER) (test fpzq=465) 2.1 mg/dL 1.6-2.6 [id number] 09:16:00 Test Item Value Reference Range Comments MAGNESIUM (BEAKER) (test epdv=395) 2.1 mg/dL 1.6-2.6 TSH/FREE T4 IF [id number] 07:01:00 Test Item Value Reference Range Comments THYROID STIMULATING HORMONE (BEAKER) (test 1.59 uIU/mL 0.35-4.94 wbkg=688) COMPLEMENT COMPONENT [id number] 06:49:00 Test Item Value Reference Range Comments C4 COMPLEMENT (BEAKER) (test cwrf=828) 28 mg/dL 15-57 COMPLEMENT COMPONENT [id number] 06:49:00 Test Item Value Reference Range Comments C3 COMPLEMENT (BEAKER) (test vqrm=536) 102 mg/dL 82-193 COMPREHENSIVE METABOLIC [id number] 04:56:00 Test Item Value Reference Range Comments TOTAL PROTEIN (BEAKER) 6.2 gm/dL 6.0-8.3 (test pjwp=977) ALBUMIN (BEAKER) (test 3.7 g/dL 3.5-5.0 sgdm=5767) ALKALINE PHOSPHATASE 57 U/L 40-150 (BEAKER) (test qgsw=716) BILIRUBIN TOTAL (BEAKER) 0.3 mg/dL 0.2-1.2 (test xdus=881) SODIUM (BEAKER) (test 138 meq/L 136-145 ixjg=850) POTASSIUM (BEAKER) (test 4.6 meq/L 3.5-5.1 xcmk=293) CHLORIDE (BEAKER) (test 104 meq/L 98-107 ldvz=839) CO2 (BEAKER) (test 23 meq/L 22-29 xzbt=110) BLOOD UREA NITROGEN 31 mg/dL 7-21 (BEAKER) (test cpce=771) CREATININE (BEAKER) (test 2.72 mg/dL 0.57-1.25 coyf=641) GLUCOSE RANDOM (BEAKER) 112 mg/dL 70-105 (test qhkh=758) CALCIUM (BEAKER) (test 8.8 mg/dL 8.4-10.2 uigr=515) AST (SGOT) (BEAKER) (test 24 U/L 5-34 bjut=516) ALT (SGPT) (BEAKER) (test 12 U/L 6-55 ptob=808) EGFR (BEAKER) (test 17 mL/min/1.73 sq m ESTIMATED GFR IS NOT bdsk=3910) ACCURATE CREATININE CLEARANCE IN PREDICTING GLOMERULAR FILTRATION RATE. ESTIMATED GFR IS NOT APPLICABLE FOR DIALYSIS PATIENTS. [id number] 04:51:00 Test Item Value Reference Range Comments PHOSPHORUS (BEAKER) (test agjh=139) 4.7 mg/dL 2.3-4.7 [id number] 04:51:00 Test Item Value Reference Range Comments MAGNESIUM (BEAKER) (test snhj=467) 2.0 mg/dL 1.6-2.6 CBC W/PLT COUNT & AUTO [id number] 04:28:00 Test Item Value Reference Range Comments WHITE BLOOD CELL COUNT (BEAKER) (test huxh=058) 14.8 K/ L 3.5-10.5 RED BLOOD CELL COUNT (BEAKER) (test splz=233) 2.09 M/ L 3.93-5.22 HEMOGLOBIN (BEAKER) (test aijn=276) 6.7 GM/DL 11.2-15.7 HEMATOCRIT (BEAKER) (test cxxw=036) 20.5 % 34.1-44.9 MEAN CORPUSCULAR VOLUME (BEAKER) (test aufo=279) 98.1 fL 79.4-94.8 MEAN CORPUSCULAR HEMOGLOBIN (BEAKER) (test 32.1 pg 25.6-32.2 ugfb=045) MEAN CORPUSCULAR HEMOGLOBIN CONC (BEAKER) (test 32.7 GM/DL 32.2-35.5 luoc=905) RED CELL DISTRIBUTION WIDTH (BEAKER) (test 15.0 % 11.7-14.4 xdxy=289) PLATELET COUNT (BEAKER) (test ftfi=248) 263 K/CU MM 150-450 MEAN PLATELET VOLUME (BEAKER) (test cibm=028) 10.3 fL 9.4-12.3 NUCLEATED RED BLOOD CELLS (BEAKER) (test 0 /100 WBC 0-0 gnem=895) NEUTROPHILS RELATIVE PERCENT (BEAKER) (test 87 % ikmk=297) LYMPHOCYTES RELATIVE PERCENT (BEAKER) (test 6 % rppf=982) MONOCYTES RELATIVE PERCENT (BEAKER) (test 6 % vvcd=946) EOSINOPHILS RELATIVE PERCENT (BEAKER) (test 0 % nmkx=133) BASOPHILS RELATIVE PERCENT (BEAKER) (test 0 % byyj=282) NEUTROPHILS ABSOLUTE COUNT (BEAKER) (test 12.92 K/ L 1.56-6.13 xzsb=018) LYMPHOCYTES ABSOLUTE COUNT (BEAKER) (test 0.95 K/ L 1.18-3.74 ucmk=699) MONOCYTES ABSOLUTE COUNT (BEAKER) (test 0.87 K/ L 0.24-0.36 tdhk=563) EOSINOPHILS ABSOLUTE COUNT (BEAKER) (test 0.00 K/ L 0.04-0.36 kitd=248) BASOPHILS ABSOLUTE COUNT (BEAKER) (test 0.01 K/ L 0.01-0.08 egym=099) IMMATURE GRANULOCYTES-RELATIVE PERCENT (BEAKER) 1 % 0-1 (test enoe=1341) BLOOD GAS, [id number] 04:22:00 Test Item Value Reference Range Comments PH ARTERIAL (BEAKER) (test tlnq=335) 7.44 7.35-7.45 PCO2 ARTERIAL (BEAKER) (test jcux=869) 37 mmHg 35-45 PO2 ARTERIAL (BEAKER) (test izbs=236) 188 mmHg 80-90 O2 SATURATION ARTERIAL (BEAKER) (test hdla=755) 99.4 % 96.0-97.0 HCO3 ARTERIAL (BEAKER) (test omnk=439) 24 mmol/L 21-29 BASE EXCESS ARTERIAL (BEAKER) (test yebk=319) 0.1 mmol/L -2.0-3.0 PATIENT TEMPERATURE (BEAKER) (test nmxh=5007) 36.5 C FIO2 (BEAKER) (test fqih=5138) 50.0 % CALCIUM, [id number] 04:17:00 Test Item Value Reference Range Comments CALCIUM IONIZED (BEAKER) (test nwup=471) 1.13 mmol/L 1.12-1.27 PH, BLOOD (BEAKER) (test dymv=2804) 7.43 HEPATITIS B SURFACE [id number] 22:40:00 Test Item Value Reference Range Comments HEPATITIS B SURFACE ANTIGEN (2) (BEAKER) (test Nonreactive Nonreactive vrzt=5085) BASIC METABOLIC [id number] 21:37:00 Test Item Value Reference Range Comments SODIUM (BEAKER) (test 134 meq/L 136-145 zwcx=124) POTASSIUM (BEAKER) (test 6.0 meq/L 3.5-5.1 ehld=678) CHLORIDE (BEAKER) (test 105 meq/L 98-107 gzxw=492) CO2 (BEAKER) (test 17 meq/L 22-29 reoo=185) BLOOD UREA NITROGEN 74 mg/dL 7-21 (BEAKER) (test rmoo=948) CREATININE (BEAKER) (test 4.66 mg/dL 0.57-1.25 oxef=404) GLUCOSE RANDOM (BEAKER) 142 mg/dL 70-105 (test qhqi=379) CALCIUM (BEAKER) (test 8.0 mg/dL 8.4-10.2 uzzc=650) EGFR (BEAKER) (test 9 mL/min/1.73 sq m ESTIMATED GFR IS NOT wkbx=1447) ACCURATE CREATININE CLEARANCE IN PREDICTING GLOMERULAR FILTRATION RATE. ESTIMATED GFR IS NOT APPLICABLE FOR DIALYSIS PATIENTS. U/S, RENAL WITH [id number] 21:31:00Reason for exam:->AKIFINAL REPORT U/S, RENAL WITH DOPPLER INDICATION: MOY COMPARISON: None TECHNIQUE: Real-time transabdominal renal ultrasound. Color and spectral Doppler examination of the renal vasculature. FINDINGS: Right kidney: Normal size and cortical thickness without hydronephrosis. Measurements are 9.8 x 4.4 x 5.4 cm. Parenchyma echogenicity is increased. Left kidney:Normal cortical thickness without hydronephrosis. Measurements are 6.2 x 3.8 x 4.0 cm. Parenchymal echogenicity is increased. Renal Vasculature: Doppler interrogation reveals preserved vascular flow in the main renal arteries and veins bilaterally. Urinary bladder: Galeas catheter present. Color Doppler and spectral ultrasound imaging:Right PSVs are normal.Left PSVs are normal. Resistive Indices, Right: Upper: 0.72 Middle: 0.76 Lower: 0.73 Resistive Indices, Left: Upper: 0.74 Middle: 0.75 Lower: 0.77 RIs are slightly elevated bilaterally. IMPRESSION:Bilateral increased renal echogenicity consistent with medical renal disease. The left kidney is mildly atrophic. No hydronephrosis. Resistive indices are slightly elevated bilaterally. Signed: Michael Brito MDReport Verified Date/Time: 07/29/2019 21:31 :26 [id number] 21:27:00 Test Item Value Reference Range Comments MAGNESIUM (BEAKER) (test uket=674) 2.3 mg/dL 1.6-2.6 TROPONIN [id number] 21:18:00 Test Item Value Reference Range Comments TROPONIN I (BEAKER) (test vfds=268) 0.08 ng/mL 0.00-0.03 Troponin I (TnI) levels must be interpreted in the context of the presenting symptoms and the clinical findings. Elevated TnI levels indicate myocardial damage, but are not specific for ischemic heart disease. Elevated TnI levels are seen in patients with other cardiac conditions (including myocarditis and congestive heart failure), and slight TnI elevations occur in patients with other conditions, including sepsis, renal failure, acidosis, acute neurological disease, and persistent tachyarrhythmia.RAD, CHEST, 1 VIEW, NON [id number] 20:45:00Reason for exam:->CVC placementShould this be performed at the bedside?->YesFINAL REPORT RAD, CHEST, 1 VIEW, NON DEPT INDICATION: CVC placement COMPARISON: Prior day's exam FINDINGS: Portable frontal view of the chest. IMPRESSION: Support Lines: Interval placement of right IJ catheter with tip overlying the SVC. Lungs and pleura: Unchanged airspace and pleural opacities. No pneumothorax.Heart and mediastinum: Stable contours. Stable surgical changes.Additional findings: None. Signed: Yonis Rahman MDReport Verified Date/Time: 07/29/2019 20:45:35Reading Location: [address] Neuro Reading Room BASI METABOLIC [id number] 20:31:00 Test Item Value Reference Range Comments SODIUM (BEAKER) (test 134 meq/L 136-145 mkmj=505) POTASSIUM (BEAKER) (test 6.0 meq/L 3.5-5.1 uhzq=049) CHLORIDE (BEAKER) (test 105 meq/L 98-107 hmqc=063) CO2 (BEAKER) (test 18 meq/L 22-29 cces=951) BLOOD UREA NITROGEN 74 mg/dL 7-21 (BEAKER) (test pitz=903) CREATININE (BEAKER) (test 4.68 mg/dL 0.57-1.25 dlxc=724) GLUCOSE RANDOM (BEAKER) 143 mg/dL 70-105 (test lyqg=260) CALCIUM (BEAKER) (test 8.0 mg/dL 8.4-10.2 iktc=480) EGFR (BEAKER) (test 9 mL/min/1.73 sq m ESTIMATED GFR IS NOT yort=3097) ACCURATE CREATININE CLEARANCE IN PREDICTING GLOMERULAR FILTRATION RATE. ESTIMATED GFR IS NOT APPLICABLE FOR DIALYSIS PATIENTS. Draw 1 hour after giving insulin. Page [phone]. Thank you.CREATININE, RANDOM [id number] 18:51:00 Test Item Value Reference Range Comments CREATININE URINE (BEAKER) (test tvty=735) 149.5 mg/dL Reference Range: No NormalsPROTEIN, RANDOM [id number] 18:51:00 Test Item Value Reference Range Comments PROTEIN, URINE (BEAKER) (test ytfv=2289) 86 mg/dL 0-14 BASIC METABOLIC [id number] 18:21:00 Test Item Value Reference Range Comments SODIUM (BEAKER) (test 134 meq/L 136-145 oqxb=346) POTASSIUM (BEAKER) (test 6.1 meq/L 3.5-5.1 kqzt=601) CHLORIDE (BEAKER) (test 105 meq/L 98-107 jwtq=978) CO2 (BEAKER) (test 18 meq/L 22-29 phcg=237) BLOOD UREA NITROGEN 71 mg/dL 7-21 (BEAKER) (test ejxc=852) CREATININE (BEAKER) (test 4.41 mg/dL 0.57-1.25 pacv=768) GLUCOSE RANDOM (BEAKER) 156 mg/dL 70-105 (test gdcq=555) CALCIUM (BEAKER) (test 8.1 mg/dL 8.4-10.2 pdgc=225) EGFR (BEAKER) (test 10 mL/min/1.73 sq m ESTIMATED GFR IS NOT hiqa=2671) ACCURATE CREATININE CLEARANCE IN PREDICTING GLOMERULAR FILTRATION RATE. ESTIMATED GFR IS NOT APPLICABLE FOR DIALYSIS PATIENTS. URIC [id number] 17:45:00 Test Item Value Reference Range Comments URIC ACID (BEAKER) (test swjk=117) 8.0 mg/dL 2.6-7.2 URINALYSIS W/ [id number] 17:44:00 Test Item Value Reference Range Comments COLOR (BEAKER) (test tjnu=442) Yellow CLARITY (BEAKER) (test gwkx=793) Hazy SPECIFIC GRAVITY UA (BEAKER) (test kpuq=359) 1.017 1.001-1.035 PH UA (BEAKER) (test pxrk=692) 5.5 5.0-8.0 PROTEIN UA (BEAKER) (test ojih=770) 30 mg/dL Negative GLUCOSE UA (BEAKER) (test xevf=346) Negative Negative KETONES UA (BEAKER) (test udgp=657) Negative Negative BILIRUBIN UA (BEAKER) (test vhzf=000) Negative Negative BLOOD UA (BEAKER) (test xqqg=776) Moderate Negative NITRITE UA (BEAKER) (test rnbe=726) Negative Negative LEUKOCYTE ESTERASE UA (BEAKER) (test xved=747) Large Negative UROBILINOGEN UA (BEAKER) (test gbgp=810) 0.2 mg/dL 0.2-1.0 RBC UA (BEAKER) (test dkls=521) 13 /HPF WBC UA (BEAKER) (test bmke=603) 70 /HPF MUCUS (BEAKER) (test girl=7706) Rare SQUAMOUS EPITHELIAL (BEAKER) (test esyp=275) < /HPF HYALINE CASTS (BEAKER) (test vdgb=171) 13 /LPF YEAST (BEAKER) (test hkcf=2238) Rare SOURCE(BEAKER) (test xsdw=5771) Urine, Galeas BLOOD GAS, [id number] 17:37:00 Test Item Value Reference Range Comments PH ARTERIAL (BEAKER) (test jnbm=573) 7.22 7.35-7.45 PCO2 ARTERIAL (BEAKER) (test ybfq=579) 44 mmHg 35-45 PO2 ARTERIAL (BEAKER) (test dmjy=499) 100 mmHg 80-90 O2 SATURATION ARTERIAL (BEAKER) (test zeho=808) 96.4 % 96.0-97.0 HCO3 ARTERIAL (BEAKER) (test kvse=613) 18 mmol/L 21-29 BASE EXCESS ARTERIAL (BEAKER) (test blzb=991) -9.4 mmol/L -2.0-3.0 PATIENT TEMPERATURE (BEAKER) (test jpdb=3490) 36.7 C FIO2 (BEAKER) (test qhfr=8274) 50.0 % B-TYPE NATRIURETIC FACTOR (BNP)2019-07-29 16:27:00 Test Item Value Reference Range Comments B-TYPE NATRIURETIC PEPTIDE (BEAKER) (test 3829 pg/mL 0-100 cztp=920) CALCIUM, [id number] 16:05:00 Test Item Value Reference Range Comments CALCIUM IONIZED (BEAKER) (test leat=387) 1.00 mmol/L 1.12-1.27 PH, BLOOD (BEAKER) (test hugt=2132) 7.30 BASIC METABOLIC [id number] 15:53:00 Test Item Value Reference Range Comments SODIUM (BEAKER) (test 134 meq/L 136-145 mrpi=991) POTASSIUM (BEAKER) (test 6.4 meq/L 3.5-5.1 mizp=942) CHLORIDE (BEAKER) (test 107 meq/L 98-107 zove=130) CO2 (BEAKER) (test 20 meq/L 22-29 pcer=241) BLOOD UREA NITROGEN 69 mg/dL 7-21 (BEAKER) (test uwdg=853) CREATININE (BEAKER) (test 4.07 mg/dL 0.57-1.25 ezsv=107) GLUCOSE RANDOM (BEAKER) 158 mg/dL 70-105 (test rydd=002) CALCIUM (BEAKER) (test 7.9 mg/dL 8.4-10.2 mhco=494) EGFR (BEAKER) (test 11 mL/min/1.73 sq m ESTIMATED GFR IS NOT dfxz=9359) ACCURATE CREATININE CLEARANCE IN PREDICTING GLOMERULAR FILTRATION RATE. ESTIMATED GFR IS NOT APPLICABLE FOR DIALYSIS PATIENTS. Page [phone] with [id number] 15:43:00 Test Item Value Reference Range Comments MAGNESIUM (BEAKER) (test takl=948) 2.1 mg/dL 1.6-2.6 Page [phone] with [id number] 15:43:00 Test Item Value Reference Range Comments PHOSPHORUS (BEAKER) (test zwkv=751) 6.0 mg/dL 2.3-4.7 Page [phone] with resultsTROPONIN [id number] 14:11:00 Test Item Value Reference Range Comments TROPONIN I (BEAKER) (test kjbs=779) 0.11 ng/mL 0.00-0.03 Troponin I (TnI) levels must be interpreted in the context of the presenting symptoms and the clinical findings. Elevated TnI levels indicate myocardial damage, but are not specific for ischemic heart disease. Elevated TnI levels are seen in patients with other cardiac conditions (including myocarditis and congestive heart failure), and slight TnI elevations occur in patients with other conditions, including sepsis, renal failure, acidosis, acute neurological disease, and persistent tachyarrhythmia.[id number] 14:04:00 Test Item Value Reference Range Comments PHOSPHORUS (BEAKER) (test gwnm=497) 6.1 mg/dL 2.3-4.7 [id number] 14:04:00 Test Item Value Reference Range Comments MAGNESIUM (BEAKER) (test bodu=727) 2.2 mg/dL 1.6-2.6 HEMOGLOBIN [id number] 13:07:00 Test Item Value Reference Range Comments HEMOGLOBIN A1C (BEAKER) (test iayr=696) 5.6 % 4.3-6.1 POCT-GLUCOSE [id number] 11:56:00 Test Item Value Reference Range Comments POC-GLUCOSE METER (BEAKER) 209 mg/dL 70-[address] [facility] [address] [facility] (test suvg=4539) [facility] [id number] POCT-GLUCOSE [id number] 11:35:00 Test Item Value Reference Range Comments POC-GLUCOSE METER (BEAKER) 192 mg/dL 70-110 TESTED AT [address] (test mwmp=7004) [facility] [id number] CREATININE, RANDOM [id number] 10:13:00 Test Item Value Reference Range Comments CREATININE URINE (BEAKER) (test dmoj=535) 89.4 mg/dL Reference Range: No NormalsUREA NITROGEN, RANDOM [id number] 10:13:00 Test Item Value Reference Range Comments UREA NITROGEN URINE (BEAKER) (test tswo=602) 159 mg/dL Reference Range: No NormalsTROPONIN [id number] 10:08:00 Test Item Value Reference Range Comments TROPONIN I (BEAKER) (test fkah=055) 0.12 ng/mL 0.00-0.03 Troponin I (TnI) levels must be interpreted in the context of the presenting symptoms and the clinical findings. Elevated TnI levels indicate myocardial damage, but are not specific for ischemic heart disease. Elevated TnI levels are seen in patients with other cardiac conditions (including myocarditis and congestive heart failure), and slight TnI elevations occur in patients with other conditions, including sepsis, renal failure, acidosis, acute neurological disease, and persistent tachyarrhythmia.LIPID [id number] 07:50:00 Test Item Value Reference Range Comments TRIGLYCERIDES (BEAKER) (test epvh=429) 137 mg/dL CHOLESTEROL (BEAKER) (test jvzd=555) 140 mg/dL HDL CHOLESTEROL (BEAKER) (test mptd=307) 31 mg/dL LDL CHOLESTEROL CALCULATED (BEAKER) (test 82 mg/dL cnms=726) Triglyceride Reference Range: Low Risk <150 Borderline 150- 199 High Risk 200-499 Very High Risk >=500Cholesterol Reference Range: Low Risk <200 Borderline 200-239 High Risk > 240HDL Cholesterol Reference Range: Low Risk >=60 High Risk <40LDL Cholesterol Reference Range: Optimal <100 Near Optimal 100-129 Borderline 130-159 High 160-189 Very High >=190URINALYSIS WITH MICROSCOPIC IF [id number] 05:40:00 Test Item Value Reference Range Comments COLOR (BEAKER) (test zskv=333) Yellow CLARITY (BEAKER) (test ouuc=921) Hazy SPECIFIC GRAVITY UA (BEAKER) (test clgz=153) 1.033 1.001-1.035 PH UA (BEAKER) (test ergp=157) 5.5 5.0-8.0 PROTEIN UA (BEAKER) (test pnxe=836) 50 mg/dL Negative GLUCOSE UA (BEAKER) (test ftzk=182) Negative Negative KETONES UA (BEAKER) (test snph=742) Trace Negative BILIRUBIN UA (BEAKER) (test tdpb=442) Negative Negative BLOOD UA (BEAKER) (test hpcr=264) Small Negative NITRITE UA (BEAKER) (test xuxo=968) Negative Negative LEUKOCYTE ESTERASE UA (BEAKER) (test rrkh=720) Large Negative UROBILINOGEN UA (BEAKER) (test cafe=682) 2.0 mg/dL 0.2-1.0 SOURCE(BEAKER) (test rnxz=5255) URINALYSIS [id number] 05:40:00 Test Item Value Reference Range Comments RBC UA (BEAKER) (test eutd=908) 8 /HPF WBC UA (BEAKER) (test wfjn=465) 43 /HPF SQUAMOUS EPITHELIAL (BEAKER) (test tduf=831) 1 /HPF YEAST (BEAKER) (test rsmp=9201) [facility] COMPREHENSIVE METABOLIC [id number] 04:28:00 Test Item Value Reference Range Comments TOTAL PROTEIN (BEAKER) 6.5 gm/dL 6.0-8.3 (test wlnd=638) ALBUMIN (BEAKER) (test 3.6 g/dL 3.5-5.0 qupd=1763) ALKALINE PHOSPHATASE 62 U/L 40-150 (BEAKER) (test xnfi=626) BILIRUBIN TOTAL (BEAKER) 0.3 mg/dL 0.2-1.2 (test lhjk=068) SODIUM (BEAKER) (test 135 meq/L 136-145 ktjr=974) POTASSIUM (BEAKER) (test 5.7 meq/L 3.5-5.1 dphf=169) CHLORIDE (BEAKER) (test 108 meq/L 98-107 ywms=764) CO2 (BEAKER) (test 15 meq/L 22-29 nipr=646) BLOOD UREA NITROGEN 68 mg/dL 7-21 (BEAKER) (test qljt=474) CREATININE (BEAKER) (test 3.72 mg/dL 0.57-1.25 cuxg=232) GLUCOSE RANDOM (BEAKER) 157 mg/dL 70-105 (test tizl=963) CALCIUM (BEAKER) (test 8.5 mg/dL 8.4-10.2 gebs=187) AST (SGOT) (BEAKER) (test 15 U/L 5-34 shao=305) ALT (SGPT) (BEAKER) (test 12 U/L 6-55 umkm=455) EGFR (BEAKER) (test 12 mL/min/1.73 sq m ESTIMATED GFR IS NOT hmry=4062) ACCURATE CREATININE CLEARANCE IN PREDICTING GLOMERULAR FILTRATION RATE. ESTIMATED GFR IS NOT APPLICABLE FOR DIALYSIS PATIENTS. RAD, CHEST, 1 VIEW, NON [id number] 04:26:00Reason for exam:-> dyspneaShould this be performed at the bedside?->YesFINAL REPORT INDICATION: dyspnea COMPARISON: None TECHNIQUE: Single frontal view of the chest. FINDINGS: Lungs and pleura: There are right greater than left diffuse interstitial opacities. No lobar airspace consolidation. Small bilateral pleural effusions.Heart and mediastinum: Normal heart size. Unremarkable mediastinal contours.Osseous structures: No acute abnormality.Other : None. IMPRESSION: Findings compatible with diffuse interstitial pulmonary edema with small bilateralpleural effusions or atypical pneumonia which could have a similar appearance. Signed: Michael BritoMDReport Verified Date/Time: 04:26:41 Electronically signed by: Brenda CAPUTO 2018 04:26 AMTROPONIN [id number] 04:22:00 Test Item Value Reference Range Comments TROPONIN I (BEAKER) (test jiqq=519) 0.12 ng/mL 0.00-0.03 Troponin I (TnI) levels must be interpreted in the context of the presenting symptoms and the clinical findings. Elevated TnI levels indicate myocardial damage, but are not specific for ischemic heart disease. Elevated TnI levels are seen in patients with other cardiac conditions (including myocarditis and congestive heart failure), and slight TnI elevations occur in patients with other conditions, including sepsis, renal failure, acidosis, acute neurological disease, and persistent tachyarrhythmia.CBC W/PLT COUNT & AUTO [id number] 04:18:00 Test Item Value Reference Range Comments WHITE BLOOD CELL COUNT (BEAKER) (test zfch=138) 12.5 K/ L 3.5-10.5 RED BLOOD CELL COUNT (BEAKER) (test lqqh=518) 2.61 M/ L 3.93-5.22 HEMOGLOBIN (BEAKER) (test wljb=998) 8.2 GM/DL 11.2-15.7 HEMATOCRIT (BEAKER) (test tfax=094) 26.9 % 34.1-44.9 MEAN CORPUSCULAR VOLUME (BEAKER) (test jcfn=953) 103.1 fL 79.4-94.8 MEAN CORPUSCULAR HEMOGLOBIN (BEAKER) (test 31.4 pg 25.6-32.2 nqar=601) MEAN CORPUSCULAR HEMOGLOBIN CONC (BEAKER) (test 30.5 GM/DL 32.2-35.5 ytpn=483) RED CELL DISTRIBUTION WIDTH (BEAKER) (test 15.0 % 11.7-14.4 cruw=116) PLATELET COUNT (BEAKER) (test oije=840) 302 K/CU MM 150-450 MEAN PLATELET VOLUME (BEAKER) (test shcw=024) 9.9 fL 9.4-12.3 NUCLEATED RED BLOOD CELLS (BEAKER) (test 0 /100 WBC 0-0 oibt=001) NEUTROPHILS RELATIVE PERCENT (BEAKER) (test 97 % yhtb=544) LYMPHOCYTES RELATIVE PERCENT (BEAKER) (test 2 % lpfi=457) MONOCYTES RELATIVE PERCENT (BEAKER) (test 1 % odoj=802) EOSINOPHILS RELATIVE PERCENT (BEAKER) (test 0 % fbqe=733) BASOPHILS RELATIVE PERCENT (BEAKER) (test 0 % hdnd=255) NEUTROPHILS ABSOLUTE COUNT (BEAKER) (test 12.10 K/ L 1.56-6.13 ymwr=647) LYMPHOCYTES ABSOLUTE COUNT (BEAKER) (test 0.22 K/ L 1.18-3.74 liuo=622) MONOCYTES ABSOLUTE COUNT (BEAKER) (test 0.08 K/ L 0.24-0.36 nuke=539) EOSINOPHILS ABSOLUTE COUNT (BEAKER) (test 0.00 K/ L 0.04-0.36 snhi=480) BASOPHILS ABSOLUTE COUNT (BEAKER) (test 0.01 K/ L 0.01-0.08 hxwz=344) IMMATURE GRANULOCYTES-RELATIVE PERCENT (BEAKER) 0 % 0-1 (test miuk=8931) [id number] 04:15:00 Test Item Value Reference Range Comments PHOSPHORUS (BEAKER) (test khdn=186) 5.9 mg/dL 2.3-4.7 [id number] 04:15:00 Test Item Value Reference Range Comments MAGNESIUM (BEAKER) (test imbs=377) 2.2 mg/dL 1.6-2.6 B-TYPE NATRIURETIC FACTOR (BNP)2019-07-29 04:10:00 Test Item Value Reference Range Comments B-TYPE NATRIURETIC PEPTIDE (BEAKER) (test 4787 pg/mL 0-100 nsxu=921)
[2019-10-16] MEDS ORDERED: ALBUTEROL 2.5 MG/3 ML NEB SOL ONE ×2 (16:44→20:18)
[2019-10-16 16:46] LABS: Blood Gas Oxyhemoglobin 83.4 % (94-97); Blood O2 Saturation 87.7 % (92-98.5)
[2019-10-16 16:46] LABS: Absolute Lymphocytes (CBC) 0.8 K/uL (0.7-4.9); Hematocrit 28.5 % (36.0-45.0); Lymphocytes % 7.3 % (15.3-44.8); MPV 9.5 fL (7.6-11.3); RBC Red Blood Cell Count 2.86 M/uL (3.86-4.86)
[2019-10-16 16:52] LABS: Protime INR 1.04
--- NOTE | 2019-10-16 16:56 | RAD REPORT ---
EXAM DESCRIPTION: [facility] Single View10/16/2019 4:21 pm CLINICAL HISTORY: sob COMPARISON: September 30, 2019 FINDINGS: Moderate bilateral pulmonary opacities. Small pleural effusions. The heart is mildly enla rged Central venous line remains in place IMPRESSION: CHF
[2019-10-16 16:59] LABS: Phosphorus 4.9 mg/dL (2.5-4.9); Uric Acid 7.4 mg/dL (2.6-6.0)
[2019-10-16 17:13] LABS: Anisocytosis 1+; Blood Morphology Comment NOTED (NOT SEEN); Elliptocytes 1+; Hypochromasia 1+; Platelet Estimate ADEQ; Poikilocytosis 1+
[2019-10-16 17:17] LABS: Albumin 3.8 g/dL (3.4-5.0); Bilirubin Direct 0.1 mg/dL (0-0.2); Bilirubin Total 0.3 mg/dL (0.2-1.0); Magnesium 1.8 mg/dL (1.8-2.4); Protein, Total 7.2 g/dL (6.4-8.2)
[2019-10-16 17:20] LABS: Troponin (Emerg Dept Use Only) 0.73 ng/mL (0.0-0.045)
[2019-10-16] MEDS ORDERED: ONDANSETRON 4 MG/2 ML VIAL IV PRN (19:26)
[2019-10-16] MEDS ORDERED: ACETAMINOPHEN 500 MG TAB PO PRN (19:26)
--- NOTE | 2019-10-16 19:30 | ER ---
Nurse's Notes [facility] Name: Remi Hdez Age: 69 yrs Sex: Female : 1950 Arrival Date: 10/16/2019 Time: 15:49 Bed 8 Private MD: Vito Sloan K; Parvez Light H Diagnosis: Unspecified systolic (congestive) heart failure;End stage renal disease;Hypoxemia Presentation: 10/16 15:53 Presenting complaint: Child states: copd exacerbation, normally o2 is high 80's, today ch is not holding well. sob issues started carmita hodan. Transition of care: patient was not received from another setting of care. Onset of symptoms was October 14, 2019. Risk Assessment: Do you want to hurt yourself or someone else? Patient reports no desire to harm self or others. Initial Sepsis Screen: Does the patient meet any 2 criteria? No. Patient's initial sepsis screen is negative. Does the patient have a suspected source of infection? No. Patient's initial sepsis screen is negative. Care prior to arrival: None. 15:53 Method Of Arrival: Wheelchair 15:53 Acuity: AMINAH 2 ch Triage Assessment: 16:03 General: Appears distressed, Behavior is cooperative, anxious. Pain: Denies pain. ch Respiratory: Airway is patent Trachea midline Respiratory effort is labored, gasping, with retractions, using tripod position, Respiratory pattern is tachypnea. Historical: - Allergies: 16:03 No Known Allergies; ch - PMHx: 16:03 CVA; DDD; left carotid artery blocked; Osteoporosis; PVD; Raynaud's syndrome; ch scoliosis; spondylosis; COPD; kidney failure; dialysis on saturdays; - PSHx: 16:03 port to R upper chest wall; - Immunization history:: Adult Immunizations up to date. - Social history:: Smoking status: unknown. - Ebola Screening: : Patient negative for fever greater than or equal to 101.5 degrees Fahrenheit, and additional compatible Ebola Virus Disease symptoms Patient denies exposure to infectious person Patient denies travel to an Ebola-affected area in the 21 days before illness onset No symptoms or risks identified at this time. Screenin:48 Abuse screen: Denies threats or abuse. Denies injuries from another. Nutritional sg screening: No deficits noted. Tuberculosis screening: No symptoms or risk factors identified. Never had TB. Fall Risk None identified. Assessment: 16:48 Reassessment: Patient appears in no apparent distress at this time. Patient and/or sg family updated on plan of care and expected duration. Pain level reassessed. Patient is alert, oriented x 3, equal unlabored respirations, skin warm/dry/pink. 19:00 Reassessment: Patient appears in no apparent distress at this time. Patient and/or sg family updated on plan of care and expected duration. Pain level reassessed. Patient is alert, oriented x 3, equal unlabored respirations, skin warm/dry/pink. pt family remains at bedside at this time, awaiting new orders. 20:04 General: Appears in no apparent distress. uncomfortable, Behavior is calm, cooperative, jd3 appropriate for age. Pain: Complains of pain in back Quality of pain is described as aching. Neuro: Level of Consciousness is awake, alert, obeys commands, Oriented to person, place, time, situation. Cardiovascular: Denies chest pain, Capillary refill < 3 seconds Patient's skin is warm and dry. Respiratory: Reports shortness of breath at rest Airway is patent Respiratory effort is even, unlabored, Respiratory pattern is symmetrical, tachypnea. GI: No signs and/or symptoms were reported involving the gastrointestinal system. : No signs and/or symptoms were reported regarding the genitourinary system. EENT: No signs and/or symptoms were reported regarding the EENT system. Derm: Skin is intact, Skin is dry, Skin is normal, Skin temperature is warm. Musculoskeletal: Circulation, motion, and sensation intact. Range of motion: intact in all extremities. 20:19 Reassessment: pt reporting shortness of breath, provider notified. new orders received, jd3 see DEC. 20:35 Reassessment: pt reported the shortness of breath symptoms feeling better. jd3 Vital Signs: 15:50 Pulse 113; Resp 40; Pulse Ox 68% on R/A; ch 16:15 BP 145 / 64; Pulse 69; sg 17:00 BP 164 / 72; Pulse 79; Resp 29 S; Pulse Ox 92% on 3 lpm NC; sg 18:00 BP 169 / 79; Pulse 64; Resp 26; Pulse Ox 90% on 3 lpm NC; sg 19:21 BP 161 / 70; Resp 19 S; Pulse Ox 90% on 3 lpm NC; jd3 20:19 BP 160 / 74; Pulse 79; Resp 22 S; Pulse Ox 91% on Nebulizer Mask; jd3 15:50 pt has home neb, no home o2. pt normal is high 80's, sometimes low 90's ED Course: 15:49 Patient arrived in ED. as 15:49 Vito Sloan MD is Private Physician. as 15:49 Parvez Light DO is Private Physician. as 15:55 Triage completed. 15:55 [facility]C [facility] snw 15:55 José Miguel Kenney MD is Attending Physician. snw 15:58 Nicolas Alex, CHEMA is Primary Nurse. bp 16:03 Arm band placed on left wrist. Patient placed in an exam room, in a wheelchair, on oxygen, on monitoring engineer, on pulse oximetry, pt o2 rises to 88 on 4L NC. 16:21 Radiology exam delayed due to IV insertion attempt and/or patient not having mh1 appropriate IV at this time. 16:21 XRAY Chest (1 view) In Process Unspecified. EDMS 16:30 Initial lab(s) drawn, by me, sent to lab. First set of blood cultures drawn by me. sg Inserted saline lock: 22 gauge in right upper arm, using aseptic technique. Blood collected. 19:22 Patient has correct armband on for positive identification. Bed in low position. Call j light in reach. Side rails up X 1. 19:27 Adam Felix MD is Hospitalizing Provider. snw 20:07 No provider procedures requiring assistance completed. Patient admitted, IV remains in jd3 place. Administered Medications: 16:40 Drug: Albuterol 2.5 mg Route: Inhalation; sg 20:03 Drug: Lasix 20 mg Route: IVP; Site: right antecubital; jd3 20:36 Follow up: Response: No adverse reaction jd3 20:18 Drug: Albuterol 2.5 mg Route: Inhalation; jd3 20:36 Follow up: Response: No adverse reaction jd3 Outcome: 19:28 Decision to Hospitalize by Provider. snw 20:08 Condition: stable jd3 20:08 Instructed on the need for admit. 20:26 Admitted to Med/surg accompanied by tech, via wheelchair, room 215, with oxygen, with johnny chart, Report called to Latesha BEAR 20:45 Patient left the ED. jgilson Signatures: Dispatcher [employer] EDGosia Matt, RN RN Gerry Velez RN RN sg Dalia Ross, OCCUPATIONAL HEALTH AND SAFETY ADVISER-C OCCUPATIONAL HEALTH AND SAFETY ADVISER-Csnw Selam Cutler 1 Franchesca Leung Jonathon, RN RN jd3 Nicolas Alex RN RN bp
--- NOTE | 2019-10-16 19:30 | EDPHYS ---
Physician Documentation [facility] Name: Remi Hdez Age: 69 yrs Sex: Female : 1950 Arrival Date: 10/16/2019 Time: 15:49 Bed 8 Private MD: Vito Sloan K; Parvez Light H ED Physician José Miguel Kenney HPI: 10/16 17:09 This 69 yrs old Female presents to ER via Wheelchair with complaints of COPD snw Exacerbation. 17:09 The patient has shortness of breath at rest. Onset: The symptoms/episode began/occurred snw gradually, 3 day(s) ago, and became worse today. Duration: The symptoms are continuous. The patient's shortness of breath is aggravated by exertion, light activity. Associated signs and symptoms: Pertinent positives: non-productive cough. Severity of symptoms: At their worst the symptoms were moderate severe in the emergency department the symptoms have improved markedly. The patient has experienced similar episodes in the past. sees Dr. Light, Dr. Sloan, and Dr. Benjamin. Historical: - Allergies: 16:03 No Known Allergies; ch - PMHx: 16:03 CVA; DDD; left carotid artery blocked; Osteoporosis; PVD; Raynaud's syndrome; ch scoliosis; spondylosis; COPD; kidney failure; dialysis on saturdays; - PSHx: 16:03 port to R upper chest wall; ch - Immunization history:: Adult Immunizations up to date. - Social history:: Smoking status: unknown. - Ebola Screening: : Patient negative for fever greater than or equal to 101.5 degrees Fahrenheit, and additional compatible Ebola Virus Disease symptoms Patient denies exposure to infectious person Patient denies travel to an Ebola-affected area in the 21 days before illness onset No symptoms or risks identified at this time. ROS: 17:08 Constitutional: Negative for fever, chills, and weight loss, Eyes: Negative for injury, snw pain, redness, and discharge, ENT: Negative for injury, pain, and discharge, Neck: Negative for injury, pain, and swelling, Cardiovascular: Negative for chest pain, palpitations, and edema, Abdomen/GI: Negative for abdominal pain, nausea, vomiting, diarrhea, and constipation, Back: Negative for injury and pain, : Negative for injury, bleeding, discharge, and swelling, MS/Extremity: Negative for injury and deformity, Skin: Negative for injury, rash, and discoloration, Neuro: Negative for headache, weakness, numbness, tingling, and seizure. 17:08 Respiratory: Positive for cough, shortness of breath, at rest. wheezing. Exam: 17:06 Head/Face: Normocephalic, atraumatic. Eyes: Pupils equal round and reactive to light, snw extra-ocular motions intact. Lids and lashes normal. Conjunctiva and sclera are non-icteric and not injected. Cornea within normal limits. Periorbital areas with no swelling, redness, or edema. ENT: Nares patent. No nasal discharge, no septal abnormalities noted. Tympanic membranes are normal and external auditory canals are clear. Oropharynx with no redness, swelling, or masses, exudates, or evidence of obstruction, uvula midline. Mucous membranes moist. Neck: Trachea midline, no thyromegaly or masses palpated, and no cervical lymphadenopathy. Supple, full range of motion without nuchal rigidity, or vertebral point tenderness. No Meningismus. Chest/axilla: Normal chest wall appearance and motion. Nontender with no deformity. No lesions are appreciated. Cardiovascular: Regular rate and rhythm with a normal S1 and S2. No gallops, murmurs, or rubs. Normal PMI, no JVD. No pulse deficits. + mild pretibial edema 17:06 Abdomen/GI: Soft, non-tender, with normal bowel sounds. No distension or tympany. No guarding or rebound. No evidence of tenderness throughout. Back: No spinal tenderness. No costovertebral tenderness. Full range of motion. Skin: Warm, dry with normal turgor. Normal color with no rashes, no lesions, and no evidence of cellulitis. MS/ Extremity: Pulses equal, no cyanosis. Neurovascular intact. Full, normal range of motion. Neuro: Awake and alert, GCS 15, oriented to person, place, time, and situation. Cranial nerves II-XII grossly intact. Motor strength 5/5 in all extremities. Sensory grossly intact. Cerebellar exam normal. Normal gait. Psych: Awake, alert, with orientation to person, place and time. Behavior, mood, and affect are within normal limits. 17:06 Constitutional: The patient appears alert, awake, frail. 17:06 Respiratory: moderate respiratory distress is noted, Respirations: shallow respirations, tachypnea, Breath sounds: bronchial sounds, wheezing: that is moderate, is heard diffusely, SpO2 68%, placed in exam room with O2, rr slowed, SpO2 90%, pt feeling much better. No Oxygen at home. Vital Signs: 15:50 Pulse 113; Resp 40; Pulse Ox 68% on R/A; ch 16:15 BP 145 / 64; Pulse 69; sg 17:00 BP 164 / 72; Pulse 79; Resp 29 S; Pulse Ox 92% on 3 lpm NC; sg 18:00 BP 169 / 79; Pulse 64; Resp 26; Pulse Ox 90% on 3 lpm NC; sg 19:21 BP 161 / 70; Resp 19 S; Pulse Ox 90% on 3 lpm NC; jd3 20:19 BP 160 / 74; Pulse 79; Resp 22 S; Pulse Ox 91% on Nebulizer Mask; jd3 15:50 pt has home neb, no home o2. pt normal is high 80's, sometimes low 90's ch MDM: 15:55 Data reviewed: vital signs, nurses notes. Data interpreted: Pulse oximetry: on room air snw is 68 %. Interpretation: hypoxia. 15:55 Counseling: I had a detailed discussion with the patient and/or guardian regarding: the snw historical points, exam findings, and any diagnostic results supporting the discharge/admit diagnosis, the presence of at least one elevated blood pressure reading (>120/80) during this emergency department visit, lab results, radiology results, the need for further work-up and treatment in the hospital, smoking cessation. Response to treatment: the patient's symptoms have markedly improved after treatment. Physician consultation: Adam Felix MD was called at 19:30, was contacted at 19:30, regarding admission, to the telemetry unit. 16:29 Patient medically screened. snw 10/16 15:55 Order name: Basic Metabolic Panel; Complete Time: 17:27 snw 10/16 15:55 Order name: CBC with Diff; Complete Time: 17:27 snw 10/16 15:55 Order name: LFT's; Complete Time: 17:27 snw 10/16 15:55 Order name: Magnesium; Complete Time: 17:27 snw 10/16 15:55 Order name: NT PRO-BNP; Complete Time: 17:27 snw 10/16 15:55 Order name: PT-INR; Complete Time: 17:03 snw 10/16 15:55 Order name: Troponin (emerg Dept Use Only); Complete Time: 17:27 snw 10/16 15:55 Order name: ABG; Complete Time: 16:50 snw 10/16 15:55 Order name: Blood Culture Adult (2) snw 10/16 16:16 Order name: Uric Acid; Complete Time: 17:01 snw 10/16 16:16 Order name: Phosphorus; Complete Time: 17:01 snw 10/16 16:38 Order name: Glucose, Ancillary Testing; Complete Time: 16:45 EDMS 10/16 17:13 Order name: Manual Differential; Complete Time: 17:27 EDAR 10/16 19:33 Order name: Thyroid Stimulating Hormone EDAR 10/16 19:33 Order name: CBC with Automated Diff EDAR 10/16 19:33 Order name: CBC with Automated Diff EDAR 10/16 19:33 Order name: CKMB Creatine Kinase MB EDAR 10/16 19:33 Order name: CKMB Creatine Kinase MB EDAR 10/16 19:33 Order name: CKMB Creatine Kinase MB EDAR 10/16 19:33 Order name: CKMB Creatine Kinase MB EDAR 10/16 19:33 Order name: Comprehensive Metabolic Panel EDAR 10/16 19:33 Order name: Comprehensive Metabolic Panel [facility] 10/16 19:33 Order name: Lipid Profile [facility] 10/16 19:33 Order name: Lipid Profile [facility] 10/16 19:33 Order name: Magnesium EDAR 10/16 19:33 Order name: Magnesium EDMS 10/16 19:33 Order name: Phosphorus EDAR 10/16 19:33 Order name: Phosphorus EDAR 10/16 19:34 Order name: Troponin I EDAR 10/16 19:34 Order name: Troponin I EDAR 10/16 15:55 Order name: XRAY Chest (1 view); Complete Time: 17:03 snw 10/16 15:55 Order name: EKG; Complete Time: 15:56 snw 10/16 15:55 Order name: Cardiac monitoring; Complete Time: 16:38 snw 10/16 15:55 Order name: EKG - Nurse/Tech; Complete Time: 16:38 snw 10/16 15:55 Order name: IV Saline Lock; Complete Time: 16:38 snw 10/16 15:55 Order name: Labs collected and sent; Complete Time: 16:39 snw 10/16 15:55 Order name: O2 Per Protocol; Complete Time: 16:39 snw 10/16 15:55 Order name: O2 Sat Monitoring; Complete Time: 16:39 snw 10/16 16:16 Order name: FSBS; Complete Time: 16:38 snw 10/16 19:33 Order name: CONS Physician Consult EDMS 10/16 19:33 Order name: Renal EDMS 10/16 19:34 Order name: Troponin I EDMS 10/16 19:34 Order name: Troponin I EDMS Administered Medications: 16:40 Drug: Albuterol 2.5 mg Route: Inhalation; sg 20:03 Drug: Lasix 20 mg Route: IVP; Site: right antecubital; jd3 20:36 Follow up: Response: No adverse reaction jd3 20:18 Drug: Albuterol 2.5 mg Route: Inhalation; jd3 20:36 Follow up: Response: No adverse reaction jd3 Disposition: 10/17 19:37 Co-signature as Attending Physician, José Miguel Kenney MD I agree with the assessment and kdr plan of care. Disposition: 10/16/19 19:28 Hospitalization ordered by Adam Felix for Inpatient Admission. Preliminary diagnosis are Unspecified systolic (congestive) heart failure, End stage renal disease, Hypoxemia. - Bed requested for Telemetry/MedSurg (Inpatient). - Status is Inpatient Admission. jd3 - Condition is Stable. - Problem is an acute exacerbation. - Symptoms have improved. UTI on Admission? No Signatures: Dispatcher [employer] EDAR Gosia Sanchez RN RN ch Gay, Steven, RN RN sg Rittger, Kevin, MD MD [facility] Dalia Ross, HAT AND CAP [employer]S CUTTER HAND-C HAT AND CAP [employer]S CUTTER HAND-[place] RN RN jd3 Aguilar, Jose, RN RN ja1 Corrections: (The following items were deleted from the chart) 10/16 19:59 19:28 Hospitalization Ordered by Adam Felix MD for Inpatient Admission. Preliminary ja1 diagnosis is Unspecified systolic (congestive) heart failure; End stage renal disease; Hypoxemia. Bed requested for Telemetry/MedSurg (Inpatient). Status is Inpatient Admission. Condition is Stable. Problem is an acute exacerbation. Symptoms have improved. UTI on Admission? No. snw 20:45 19:59 10/16/2019 19:28 Hospitalization Ordered by Adam Felix MD for Inpatient jd3 Admission. Preliminary diagnosis is Unspecified systolic (congestive) heart failure; End stage renal disease; Hypoxemia. Bed requested for Telemetry/MedSurg (Inpatient). Status is Inpatient Admission. Condition is Stable. Problem is an acute exacerbation. Symptoms have improved. UTI on Admission? No. ja1
--- NOTE | 2019-10-16 19:33 | P.HP ---
Certification for Inpatient Patient admitted to: Inpatient With expected LOS: >2 Midnights Patient will require the following post-hospital care: None Practitioner: I am a practitioner with admitting privileges, knowledge of patient current condition, hospital course, and medical plan of care. Services: Services provided to patient in accordance with Admission requirements found in Title 42 Section 412.3 of the Code of Federal Regulations Patient History Date of Service: 10/16/19 Reason for admission: shortness of breath History of Present Illness: 69-year-old female with past medical history of CVA; DDD; left carotid artery blocked; Osteoporosis; PVD; Raynaud's syndrome,scoliosis; spondylosis; COPD; kidney failure;ESRD dialysis on saturdays admitted with respiratory distress and hypoxemia. The patient has a recent history of hospitalization in [facility], and was started on dialysis has been followed by nephrology and cardiology. She came to ER today with respiratory distress and shortness of breath. Denies any chest pain. Patient was found to have hypoxemia and was admitted for further management Denies any fever. no chills. Associated with mild cough with no expectoration Denies any nausea vomiting or diarrhea Patient was assessed in the ER and was found to be hypoxemic and x-ray suggestive of pulmonary edema and was admitted for further management. Allergies No Known Drug Allergies Allergy (Verified 01/16/18 13:54) Unknown Home medications list reviewed: Yes Home Medications: Aspirin [Aspir-Low] 81 mg PO DAILY 09/10/18 Baclofen 10 mg PO DAILY 09/10/18 Biotin [Nail-Ex] 2,500 mcg PO DAILY 09/10/18 Clopidogrel Bisulfate [Plavix*] 75 mg PO DAILY 09/10/18 Cyanocobalamin [Vitamin B-12*] 1,000 mcg PO DAILY 09/10/18 Glucosamine/Chondro Martinez A/C/Mn [Glucosamine-Chondroitin Cap] 1 cap PO DAILY 09/10 Hydralazine [Apresoline*] 25 mg PO DAILY 09/10/18 Hydrocodone/Acetaminophen [Vicodin Hp 10-325 mg Tablet] 1 tab PO TID 09/10/18 Ibandronate Sodium [Boniva] 150 mg PO SEECOM 09/10/18 Multivitamin [Multiple Vitamins] 1 tab PO DAILY 09/10/18 Zinc 50 mg PO DAILY 09/10/18 lisinopriL [Lisinopril] 10 mg PO DAILY 09/10/18 - Past Medical/Surgical History Past Medical History: Reviewed- Non-Contributory -: CVA; DDD; left carotid artery blocked; Osteoporosis; PVD; Raynaud's syndrom Past Surgical History: Reviewed- Non-Contributory - Family History Family History: Reviewed- Non-Contributory - Social History Smoking Status: Never smoker Alcohol use: No CD- Drugs: No Caffeine use: No Review of Systems 10-point ROS is otherwise unremarkable Physical Examination - Vital Signs Temperature: 98.1 F Blood Pressure: 149/86 Pulse: 76 Respirations: 20 Pulse Ox (%): 90 - Physical Exam General: Alert, Oriented x3, Mild distress HEENT: Atraumatic, Normocephalic Neck: Supple Respiratory: Diminished, Crackles/rales, Expiratory wheezes Cardiovascular: No edema, Regular rate/rhythm, Normal S1 S2 Capillary refill: <2 Seconds Gastrointestinal: Soft and benign, W/out hepatosplenomegaly Musculoskeletal: No clubbing, No swelling Integumentary: No rashes Neurological: Normal speech, Normal strength at 5/5 x4 extr Lymphatics: No axilla or inguinal lymphadenopathy Urinary: Other (no bladder distention ) External genitalia: Deferred Rectal: Deferred - Studies Laboratory Data (last 24 hrs) 10/16/19 16:30: Uric Acid 7.4 H, Phosphorus 4.9 10/16/19 16:30: PT 12.2, INR 1.04 10/16/19 16:30: WBC 11.2 H, Hgb 9.4 L, Hct 28.5 L, Plt Count 260 10/16/19 16:30: Sodium 141, Potassium 4.0, BUN 73 H, Creatinine 2.54 H, Glucose 139 H, Magnesium 1.8, Total Bilirubin 0.3, AST 30, ALT 30, Alkaline Phosphatase 85 Assessment and Plan - Problems (Diagnosis) (1) Acute respiratory distress Current Visit: Yes Status: Acute (2) Pulmonary edema Current Visit: Yes Status: Acute (3) HTN (hypertension) Current Visit: Yes Status: Chronic (4) CAD (coronary artery disease) Current Visit: Yes Status: Chronic (5) Acute kidney injury superimposed on CKD Current Visit: Yes Status: Acute - Plan Acute respiratory distress Fluid overload Acute hypoxic respiratory failure Acute pulmonary edema End-stage disease on dialysis Hypertension History of CAD History of CVA Plan Monitor under telemetry Aggressive diuresis nephrology and cardiology consult Oxygen supplementation ABG shows hypoxemia Will monitor oxygen level closely Continue home medications and titrate as needed Start on bronchodilators Pulmonology consult GI/DVT prophylaxis Advanced directives full code - Advance Directives Does patient have a Living Will: No Does patient have a Durable POA for Healthcare: No Time Spent Managing Pts Care (In Minutes): 43
[2019-10-16] MEDS: IPRATROPIUM BROM 0.5MG/2.5ML NEB SCH (20:00)
[2019-10-16] MEDS ORDERED: FUROSEMIDE 20 MG/ 2ML VIAL ONE (20:00)
[2019-10-16 20:45] LABS: Thyroid Stimulating Hormone 4.62 uIU/mL (0.360-3.740)
[2019-10-16 20:48] LABS: CKMB Creatine Kinase MB 9.4 ng/mL (0.3-3.6)
[2019-10-16 20:52] LABS: Troponin I 0.98 ng/mL (0.0-0.045)
[2019-10-17] MEDS: FUROSEMIDE 40 MG/4 ML VIAL IV SCH ×3 (00:05→17:43)
[2019-10-17] MEDS: IPRATROPIUM BROM 0.5MG/2.5ML NEB SCH ×4 (02:00→20:55)
[2019-10-17 03:40] LABS: Urine Appearance CLEAR; Urine Bilirubin NEGATIVE (NEG); Urine Blood NEGATIVE (NEG); Urine Color YELLOW; Urine Glucose NEGATIVE (NEG); Urine Protein NEGATIVE (NEG); Urine Specific Gravity 1.015 (1.005-1.030); Urine Urobilinogen 0.2 mg/dL (0.2-1.0); Urine pH 5.5 (5.0-7.0)
[2019-10-17 03:48] LABS: Urine Microscopic Reflex NO UMIC
[2019-10-17] MEDS ORDERED: HYDRALAZINE HCL 20 MG/ML VIAL IV PRN (04:29)
[2019-10-17] MEDS: ALBUTEROL 2.5 MG/3 ML NEB SOL NEB PRN ×5 (04:52→20:55)
[2019-10-17 05:08] LABS: Albumin 3.6 g/dL (3.4-5.0); Bilirubin Total 0.4 mg/dL (0.2-1.0); Magnesium 1.9 mg/dL (1.8-2.4); Phosphorus 5.3 mg/dL (2.5-4.9); Potassium 3.8 mmol/L (3.5-5.1); Protein, Total 6.9 g/dL (6.4-8.2)
[2019-10-17 05:13] LABS: Basophils % 0.6 % (0-1.3); Hematocrit 29.4 % (36.0-45.0); MPV 9.5 fL (7.6-11.3); RBC Red Blood Cell Count 2.88 M/uL (3.86-4.86)
[2019-10-17 05:52] LABS: CKMB Creatine Kinase MB 7.4 ng/mL (0.3-3.6)
[2019-10-17 05:53] LABS: Troponin I 0.9 ng/mL (0.0-0.045)
[2019-10-17] MEDS: HYDROCODONE/APAP 7.5/325 MG TAB PO SCH ×4 (08:15→20:58)
[2019-10-17] MEDS ORDERED: POTASSIUM CL SA 10 MEQ TAB PO ONE (09:00)
[2019-10-17] MEDS ORDERED: PNEUMOCOCCAL VACCINE 0.5 ML IMVAC ONE (10:00)
--- NOTE | 2019-10-17 11:02 | P.PN ---
Subjective Date of Service: 10/17/19 Chief Complaint: shortness of breath Subjective: No new changes, Tolerating diet (seen , no new c/o) Review of Systems 10-point ROS is otherwise unremarkable Physical Examination - Vital Signs Temperature: 97 F Blood Pressure: 190/79 Pulse: 81 Respirations: 18 Pulse Ox (%): 90 - Physical Exam General: Alert, In no apparent distress, Oriented x3 HEENT: Atraumatic, Normocephalic, PERRLA Neck: Supple, 2+ carotid pulse no bruit Respiratory: Normal air movement, Crackles/rales Cardiovascular: No edema, Normal pulses Gastrointestinal: Normal bowel sounds, Soft and benign Musculoskeletal: No clubbing, No swelling - Studies Laboratory Data (last 24 hrs) 10/16/19 16:30: Uric Acid 7.4 H, Phosphorus 4.9 10/16/19 16:30: PT 12.2, INR 1.04 10/16/19 16:30: WBC 11.2 H, Hgb 9.4 L, Hct 28.5 L, Plt Count 260 10/16/19 16:30: Sodium 141, Potassium 4.0, BUN 73 H, Creatinine 2.54 H, Glucose 139 H, Magnesium 1.8, Total Bilirubin 0.3, AST 30, ALT 30, Alkaline Phosphatase 85 Assessment & Plan - Problems (Diagnosis) (1) Acute kidney injury superimposed on CKD Current Visit: Yes Status: Acute (2) Acute respiratory distress Current Visit: Yes Status: Acute (3) Pulmonary edema Current Visit: Yes Status: Acute (4) HTN (hypertension) Current Visit: Yes Status: Chronic Plan to discharge in: 48 Hours Physician Review: Patient Assessed, Agree with Above Assessment and Plan Physician Review Additional Text: # Prolonged ARF - on dialysis , now 1x/week -now with pulmonary edema , stat Nephrology eval and HD today - will need UF of at least 3 L today -c/w lasix IV -may need more frequent HD # Acute reps failure /pulmonary edema - 02 need improving , c/w lasix -wean off 02 when post HD today # HTN -elevated , start hydralazine IV prn -resume home meds and monitor post HD Dispo -possible home in am Critical Care: No
[2019-10-17] MEDS: HYDRALAZINE HCL 25 MG TABLET PO SCH ×2 (12:11→20:59)
[2019-10-17] MEDS: GABAPENTIN 100 MG CAP PO SCH (12:11)
[2019-10-17 13:03] LABS: CKMB Creatine Kinase MB 5.9 ng/mL (0.3-3.6); Troponin I 0.7 ng/mL (0.0-0.045)
[2019-10-17] MEDS: METOPROLOL TAR 50 MG TAB PO SCH (17:46)
[2019-10-17] MEDS ORDERED: NA CHLORIDE 0.9% 1,000 ML IV PRN (18:33)
[2019-10-17] MEDS ORDERED: ALBUMIN HUMAN 25% 50 ML IV SCH (19:00)
[2019-10-17] MEDS ORDERED: HOME MED 1 EA UNK (Metoprolol Tartrate [Lopressor] 100 MG) PO SCH (21:00)
[2019-10-18] MEDS: FUROSEMIDE 40 MG/4 ML VIAL IV SCH ×3 (01:31→17:43)
[2019-10-18] MEDS: IPRATROPIUM BROM 0.5MG/2.5ML NEB SCH ×4 (01:50→20:05)
--- NOTE | 2019-10-18 02:55 | CON ---
Date of Consultation: 10/17/2019 Chief Complaint: Acute on chronic kidney injury. History Of Present Illness: Patient remains dialysis dependent. Patient has a history of cardiorenal syndrome, severe emphysema. Patient was started on dialysis when she was at [facility] and dialysis was initiated via the dialysis catheter. Patient recently was found to have improvement of creatinine level and was weaned off dialysis and subsequently, she was on 1 dialysis per week. She has nonoliguric urine output. Electrolytes were well controlled. Patient did not have metabolic acidosis. Patient was seen by railroad car inspector and bottom finisher for congestive heart failure, as well as a severe COPD with an emphysema. Patient has coronary artery disease back in 2007. She underwent cardiac catheterization. In July 2019, she has had a cardiac echo done, which showed diastolic dysfunction. Patient was seen by bottom finisher in [place] and in 2018, patient had cardiac catheterization done and underwent stent for right common iliac artery and in 2017 for peripheral vascular disease. Patient presented to the hospital because of severe shortness of breath, difficulty with ambulation, and PND. Patient has a history of CVA, degenerative disk disease, left carotid artery blockage, osteoporosis, acute kidney injury resulted in severe kidney failure and was started on dialysis several months ago when she was hospitalized in the [facility]. She became short of breath over the last few days and was complaining of some chest congestion as well as chest pain. She denies fever, chills. She had a mild cough, although she denied wheezing. She denied abdominal pain, nausea, vomiting, diarrhea, melena, hematemesis. Review of Systems: Constitutional: Denies fever or chills. Eyes: Denies vision changes. Ears, Nose, Mouth, and Throat: Denies sore throat, earache. Respiratory: Severe shortness of breath, PND, orthopnea, and nonproductive cough. Denies wheezing. GI: Denies nausea or vomiting. : Denies dysuria or hematuria. Musculoskeletal: Denies muscle aches or joint swelling. All other systems reviewed and all are negative. Past Medical History: Peripheral vascular disease, hypertensive heart and kidney disease, congestive heart failure with diastolic dysfunction, CVA, degenerative disk disease, Raynaud syndrome, osteoporosis, left carotid artery blockage, stent placement for peripheral vascular disease. Family History: No kidney disease. Social History: Denies tobacco, alcohol, or illicit drugs. Physical Examination: Vital signs: Blood pressure 149/86, heart rate 76, respiratory rate 20, SpO2 of 97%. General: Patient is alert, oriented x3, is in mild respiratory distress. Eyes: Anicteric sclerae. EOMI. Ears, Nose, Mouth, and Throat: Oral mucosa moist. No pallor. Neck: Supple. No bruits. Lungs: Diminished breath sounds bilaterally. Few crackles. No wheezing. No rhonchi. Heart: S1, S2. No pericardial friction rub. Tachycardia present. No systolic murmur. Abdomen: Soft, benign, nontender. No rebound. No guarding. Extremities: Slight peripheral edema. No clubbing. No cyanosis. Neurological: Moving all extremities. Cranial nerves are intact. Psychiatric: Alert and oriented x3. Normal affect. Laboratory Data: Blood work: BUN 73, creatinine 2.54, glucose 139, sodium 141 , magnesium 1.8, and total bilirubin 0.3, AP 85. Chest x-rays show congestive heart failure pattern, interstitial pulmonary edema, bilateral pulmonary opacities, small pleural effusion. Heart is mildly enlarged. Impression And Plan: 1. Patient developed acute on chronic congestive heart failure with fluid overload. Patient was treated with diuretics. Patient remains dialysis dependent. Dialysis will be done today with ultrafiltration. Patient will need frequent dialysis for volume control if diuretic does not have an optimal effect. 2. Hypertension. Continue blood pressure medication, ACEI on hold due to OMY 3. Congestive heart failure, cardiorenal syndrome, hypertensive heart and kidney disease, chronic kidney disease stage 5. Patient will continue dialysis and patient will have 24-hour urine collection to re-evaluate for an evidence of renal function recovery. 4. Anemia. Continue to monitor hemoglobin level. Adjust DWAINE as needed. 5. Chronic obstructive pulmonary disease, emphysema. Recommend Pulmonary consultation. SPRING/MODL Voice ID: [id number] Report ID: [id number] DINO
[2019-10-18] MEDS: HYDRALAZINE HCL 25 MG TABLET PO SCH ×3 (05:08→20:49)
[2019-10-18] MEDS: METOPROLOL TAR 50 MG TAB PO SCH ×2 (05:08→17:43)
[2019-10-18 06:24] LABS: Albumin 3.5 g/dL (3.4-5.0); Bilirubin Total 0.5 mg/dL (0.2-1.0); Potassium 4.3 mmol/L (3.5-5.1); Protein, Total 7.1 g/dL (6.4-8.2)
[2019-10-18] MEDS: ALBUTEROL 2.5 MG/3 ML NEB SOL NEB PRN ×2 (07:40→13:10)
[2019-10-18] MEDS ORDERED: HOME MED 1 EA UNK (Nifedipine [Nifedipine Er] 90 MG) PO SCH (09:00)
[2019-10-18] MEDS: CLOPIDOGREL 75 MG TABLET PO SCH (09:55)
[2019-10-18] MEDS: GABAPENTIN 100 MG CAP PO SCH (09:56)
[2019-10-18] MEDS: HYDROCODONE/APAP 7.5/325 MG TAB PO SCH ×3 (09:56→20:48)
[2019-10-18] MEDS: ASPIRIN EC 81 MG TAB PO SCH (09:56)
[2019-10-18] MEDS: ATORVASTATIN 40 MG TAB PO SCH (09:57)
[2019-10-18] MEDS: NIFEDIPINE XL 90 MG TABLET PO SCH (09:57)
--- NOTE | 2019-10-18 11:33 | P.PN ---
Subjective Date of Service: 10/18/19 Chief Complaint: shortness of breath Subjective: No new changes, Improving Review of Systems Unremarkable Physical Examination - Vital Signs Temperature: 98.4 F Blood Pressure: 167/80 Pulse: 74 Respirations: 18 Pulse Ox (%): 96 - Physical Exam General: Alert HEENT: Atraumatic, Normocephalic Respiratory: Normal air movement, Diminished Gastrointestinal: Normal bowel sounds, Soft and benign Neurological: Normal gait, Normal speech, Normal strength at 5/5 x4 extr - Studies Laboratory Last Values WBC 8.2 K/uL (4.3-10.9) D 10/17/19 04:13 RBC 2.88 M/uL (3.86-4.86) L 10/17/19 04:13 Hgb 9.4 g/dL (12.0-15.0) L 10/17/19 04:13 Hct 29.4 % (36.0-45.0) L 10/17/19 04:13 MCV 101.8 fL (80-100) H 10/17/19 04:13 MCH 32.7 pg (27.0-35.0) 10/17/19 04:13 MCHC 32.1 g/dL (32.0-36.0) 10/17/19 04:13 RDW 15.1 % (12.1-15.2) 10/17/19 04:13 Plt Count 260 K/uL (152-406) 10/17/19 04:13 MPV 9.5 fL (7.6-11.3) 10/17/19 04:13 Neutrophils % 82.0 % (41.7-73.7) H 10/17/19 04:13 Lymphocytes % 12.0 % (15.3-44.8) L 10/17/19 04:13 Monocytes % 5.1 % (3.3-12.3) 10/17/19 04:13 Eosinophils % 0.3 % (0-4.4) 10/17/19 04:13 Basophils % 0.6 % (0-1.3) 10/17/19 04:13 Absolute Neutrophils 6.7 K/uL (1.8-8.0) 10/17/19 04:13 Segmented Neutrophils 85 % (40-80) H 10/16/19 16:30 Band Neutrophils 2 % (0-1) H 10/16/19 16:30 Absolute Lymphocytes 1.0 K/uL (0.7-4.9) 10/17/19 04:13 Lymphocytes 9 % (15-42) L 10/16/19 16:30 Monocytes 4 % (0-10) 10/16/19 16:30 Absolute Monocytes 0.4 K/uL (0.1-1.3) 10/17/19 04:13 Absolute Eosinophils 0.0 K/uL (0-0.5) 10/17/19 04:13 Absolute Basophils 0.1 K/uL (0-0.5) 10/17/19 04:13 Hypochromasia 1+ 10/16/19 16:30 Poikilocytosis 1+ 10/16/19 16:30 Anisocytosis 1+ 10/16/19 16:30 Microcytosis 1+ 10/16/19 16:30 Elliptocytes 1+ 10/16/19 16:30 Schistocytes 1+ 10/16/19 16:30 Morphology Comment Noted (NOT SEEN) 10/16/19 16:30 PT 12.2 SECONDS (9.5-12.5) 10/16/19 16:30 INR 1.04 10/16/19 16:30 pH 7.42 (7.35-7.45) 10/16/19 16:36 pCO2 35.0 mmHG (35-45) 10/16/19 16:36 pO2 58.9 mmHG (75-100) L 10/16/19 16:36 HCO3 22.0 mmol/L (22-28) 10/16/19 16:36 Base Excess -1.9 mmol/L 10/16/19 16:36 Oxyhemoglobin 83.4 % (94-97) L 10/16/19 16:36 ABG O2 Sat (Measured) 87.7 % (92-98.5) L 10/16/19 16:36 ABG Carboxyhemoglobin 4.0 % (0-1.5) H 10/16/19 16:36 ABG Methemoglobin 0.9 % (0-1.5) 10/16/19 16:36 Other Total Hgb 8.8 g/dl (12-18) L 10/16/19 16:36 Inspired O2 36.0 % 10/16/19 16:36 Sodium 142 mmol/L (136-145) 10/18/19 05:44 Potassium 4.3 mmol/L (3.5-5.1) 10/18/19 05:44 Chloride 106 mmol/L (98-107) 10/18/19 05:44 Carbon Dioxide 30 mmol/L (21-32) 10/18/19 05:44 BUN 28 mg/dL (7-18) H D 10/18/19 05:44 Creatinine 1.33 mg/dL (0.55-1.3) H 10/18/19 05:44 Estimated GFR 40 mL/min (=/>90) L 10/18/19 05:44 Glucose 95 mg/dL (74-106) 10/18/19 05:44 POC Glucose 131 mg/dl (65-120) H 10/16/19 16:26 Uric Acid 7.4 mg/dL (2.6-6.0) H 10/16/19 16:30 Calcium 9.1 mg/dL (8.5-10.1) 10/18/19 05:44 Phosphorus 5.3 mg/dL (2.5-4.9) H 10/17/19 04:13 Magnesium 1.9 mg/dL (1.8-2.4) 10/17/19 04:13 Total Bilirubin 0.5 mg/dL (0.2-1.0) 10/18/19 05:44 Direct Bilirubin 0.1 mg/dL (0-0.2) 10/16/19 16:30 AST 22 U/L (15-37) 10/18/19 05:44 ALT 26 U/L (12-78) 10/18/19 05:44 Alkaline Phosphatase 78 U/L (45-117) 10/18/19 05:44 CK-MB (CK-2) 5.9 ng/mL (0.3-3.6) H 10/17/19 12:24 Rapid Troponin I 0.73 ng/mL (0.0-0.045) H* 10/16/19 16:30 Troponin I 0.70 ng/mL (0.0-0.045) H* 10/17/19 12:24 NT-Pro-B Natriuret Pep 36443 pg/mL (<125) H 10/16/19 16:30 Serum Total Protein 7.1 g/dL (6.4-8.2) 10/18/19 05:44 Albumin 3.5 g/dL (3.4-5.0) 10/18/19 05:44 Globulin 3.6 g/dL (2.3-3.5) H 10/18/19 05:44 Albumin/Globulin Ratio 1.0 (1.1-1.8) L 10/18/19 05:44 Triglycerides 209 mg/dL (<150) H 10/17/19 04:13 Cholesterol 106 mg/dL (<200) 10/17/19 04:13 LDL Cholesterol, Calc 17 (<130) 10/17/19 04:13 HDL Cholesterol 47 mg/dL (40-60) 10/17/19 04:13 Cholesterol/HDL Ratio 2.26 10/17/19 04:13 TSH 4.620 uIU/mL (0.360-3.740) H 10/16/19 20:11 Free T4 1.27 ng/dL (0.76-1.46) 10/16/19 20:11 Urine Color Yellow 10/17/19 01:50 Urine Appearance Clear 10/17/19 01:50 Urine pH 5.5 (5.0-7.0) 10/17/19 01:50 Ur Specific [place] 1.015 (1.005-1.030) 10/17/19 01:50 Urine Ketones Negative (NEG) 10/17/19 01:50 Urine Blood Negative (NEG) 10/17/19 01:50 Urine Nitrite Negative (NEG) 10/17/19 01:50 Urine Bilirubin Negative (NEG) 10/17/19 01:50 Urine Urobilinogen 0.2 mg/dL (0.2-1.0) 10/17/19 01:50 Ur Leukocyte Esterase Negative (NEG) 10/17/19 01:50 Urine Glucose Negative (NEG) 10/17/19 01:50 Urine Total Protein Negative (NEG) 10/17/19 01:50 Assessment & Plan - Problems (Diagnosis) (1) Acute kidney injury superimposed on CKD Current Visit: Yes Status: Acute (2) Acute respiratory distress Current Visit: Yes Status: Acute (3) Pulmonary edema Current Visit: Yes Status: Acute (4) HTN (hypertension) Current Visit: Yes Status: Chronic Physician Review: Patient Assessed, Agree with Above Assessment and Plan Physician Review Additional Text: # # Acute resp failure /pulmonary edema - improving but still hypoxic and unable to wean off 02 - -s/p HD yesterday with only 1.4 L removal - overall negative 2L volume -c/w lasix diuretics for now and follow -follow repeat bnp in am # Presumed systolic CHF - with mild troponin elevation - improving trend -pt denies recent cardiac cath # Prolonged ARF - on prn HD , follow -may need more frequent UF if poor response of diuretics only -possible due to cardiorenal syndrome # HTN -elevated , on hydralazine IV prn -resume home meds and monitor post HD Dispo -possible home in am
--- NOTE | 2019-10-18 11:47 | EKG ---
Test Date: 2019-10-16 Test Time: 16:12:10 Manager Client: SWG MEASUREMENT RESULTS: Intervals: Rate: 75 NV: 144 QRSD: 82 QT: 432 QTc: 482 [place]: P: 81 NV: 144 QRS: 91 T: 83 INTERPRETIVE STATEMENTS: Normal sinus rhythm Possible Left atrial enlargement Rightward axis Borderline ECG Compared to ECG 07/28/2019 20:34:57 Right-axis deviation now present Myocardial infarct finding no longer present Electronically Signed On 10-18-19 11:42:33 CLINIC ASSISTANT by Sharan Benjamin
[2019-10-18] MEDS: ISOSORBIDE MONO SR 30 MG TAB PO SCH (12:54)
--- NOTE | 2019-10-18 14:19 | RAD REPORT ---
EXAM DESCRIPTION: US - Renal Ultrasound-Complete - 10/18/2019 1:30 pm CLINICAL HISTORY: . Acute and chronic renal failure COMPARISON: None. FINDINGS: The right kidney measures 10 cm with an increased echotexture. Mild hydronephrosis The left kidney measures 7 cm with an increased echotexture. Hydronephrosis is not seen. Bladder is decompressed and poorly seen IMPRESSION: Mild right hydronephrosis Increased renal echotexture consistent with parenchymal disease
[2019-10-19] MEDS: FUROSEMIDE 40 MG/4 ML VIAL IV SCH (00:52)
--- NOTE | 2019-10-19 02:19 | PN ---
Date of Progress Note: 10/18/2019 Chief Complaint: Acute on chronic kidney injury. The patient had renal ultrasound done, which showed mild right hydronephrosis and increased renal echotexture. The patient underwent dialysis to obtain metabolic clearance. BUN was up to 7. The patient has history of emphysema, mild COPD and congestive heart failure. Cardiology workup is pending. The patient is on nebulizer for COPD exacerbation. Review of Systems: Denies chest pain, palpitation. Physical Examination: GI: Denies nausea, vomiting. : Denies dysuria, hematuria. Lungs: Clear to auscultation bilaterally. Heart: S1, S2. Abdomen: Soft, benign. Extremities: No edema. Impression And Plan: Acute on chronic kidney injury, interstitial pulmonary edema. Continue dialysis. Patient has diuretic treatment to obtain. Negative fluid balance. Monitor electrolytes. Adjust dialysis parameters accordingly. Mild right hydronephrosis. Urology consultation was obtained for further evaluation. Hypertension. Continue blood pressure medication. SPRING/JEANCARLOS Voice ID: [id number] Report ID: [id number] DINO
[2019-10-19] MEDS: IPRATROPIUM BROM 0.5MG/2.5ML NEB SCH ×4 (02:25→19:10)
[2019-10-19] MEDS: HYDRALAZINE HCL 25 MG TABLET PO SCH ×3 (05:00→20:19)
[2019-10-19] MEDS: METOPROLOL TAR 50 MG TAB PO SCH ×2 (05:10→17:25)
[2019-10-19 06:02] LABS: Absolute Lymphocytes (CBC) 1.1 K/uL (0.7-4.9); Basophils % 1.4 % (0-1.3); Hematocrit 27.3 % (36.0-45.0); Lymphocytes % 21.3 % (15.3-44.8); MPV 9.2 fL (7.6-11.3); RBC Red Blood Cell Count 2.74 M/uL (3.86-4.86)
[2019-10-19 06:09] LABS: Potassium 3.9 mmol/L (3.5-5.1)
[2019-10-19] MEDS: ISOSORBIDE MONO SR 30 MG TAB PO SCH (08:24)
[2019-10-19] MEDS: HYDROCODONE/APAP 7.5/325 MG TAB PO SCH ×3 (08:24→20:16)
[2019-10-19] MEDS: ASPIRIN EC 81 MG TAB PO SCH (08:24)
[2019-10-19] MEDS: GABAPENTIN 100 MG CAP PO SCH (08:24)
[2019-10-19] MEDS: CLOPIDOGREL 75 MG TABLET PO SCH (08:25)
[2019-10-19] MEDS: ATORVASTATIN 40 MG TAB PO SCH (08:25)
[2019-10-19] MEDS: FUROSEMIDE 20 MG/ 2ML VIAL IV SCH ×2 (08:26→20:19)
[2019-10-19] MEDS: NIFEDIPINE XL 90 MG TABLET PO SCH (08:26)
[2019-10-19] MEDS ORDERED: POTASSIUM CL SA 10 MEQ TAB PO ONE (09:00)
--- NOTE | 2019-10-19 10:50 | RAD REPORT ---
EXAM DESCRIPTION: CT - Stone Protocol - 10/19/2019 10:30 am CLINICAL HISTORY: Hydronephrosis, kidney stones, dialysis patient COMPARISON: CT study October 29, 2017 ; October 18, 2019 renal ultrasound TECHNIQUE: Axial 5 mm thick images were obtained without oral or IV contrast. The [id number] span s the entirety of the system including uppermost abdomen and lung bases. All CT scans are performed using dose optimization technique as appropriate and may include automated exposure control or mA/KV adjustment according to patient size. FINDINGS: Mild dilatation of the right renal pelvis and calices noted. Obstructing calculus is not i dentified. Course of the right ureter is very difficult to follow. Hydroureter is not suspected. Mult iple renal parenchymal calcifications are present fall suspected to be arterial. Patient has innumera ble pelvic floor phleboliths as well as arterial calcifications. Pattern is not substantially differe nt from the 2018 CT study. No suspicious renal masses. Isodense masses and pyelonephritis are not exc luded on a stone protocol CT scan. No urinary bladder suspicious finding. No significant adrenal find ing. Imaged portions of the liver, spleen and pancreas show no suspicious findings on non-contrast imaging . No gallbladder or biliary tree abnormality identified. No suspicious bowel findings. Moderate stool volume is present throughout the colon. Diverticulosis i s present without diverticulitis. No hernia, mass or bulky lymphadenopathy noted. No free air, free fluid or inflammatory stranding. Disc and bony degenerative changes are present. Patient has a very dense arterial tree calcification pattern. This has been present on prior imaging. Calcification pattern shows evidence for occlusion or high-grade stenosis in the upper abdominal aor ta at the celiac artery level. Dense mesenteric renal and iliac arterial tree calcifications present similar to comparison. IMPRESSION: Mild right-sided hydronephrosis of the pelvis and calices seen without an obstructing ca lculus. Poor visualization of the right ureter due to body habitus affects and absence of contrast in the GI tract an arterial tree. Hydroureter an obstructing calculus are not suspected. Patient has innumerable pelvic floor phleboliths and a very dense arterial tree calcification pattern as detailed. Vascular calcification pattern is not substantially different from comparison. Isodense masses and pyelonephritis are not excluded on stone protocol technique.
[2019-10-19] MEDS ORDERED: PNEUMOCOCCAL VACCINE 0.5 ML IMVAC ONE (11:00)
--- NOTE | 2019-10-19 11:14 | P.PN ---
Subjective Date of Service: 10/19/19 Primary Care Provider: Dr. Light; Cardiology Chief Complaint: shortness of breath Subjective: Improving Physical Examination - Vital Signs Temperature: 99.3 F Blood Pressure: 174/80 Pulse: 74 Respirations: 19 Pulse Ox (%): 96 - Physical Exam General: Alert HEENT: Atraumatic Neck: Supple Respiratory: Clear to auscultation bilaterally, Normal air movement Cardiovascular: Normal pulses, Regular rate/rhythm Gastrointestinal: Normal bowel sounds, Soft and benign, Non-distended, No tenderness, No masses, No rebound, No guarding Integumentary: No tenderness/swelling, No erythema, No warmth, No cyanosis Neurological: Normal speech, Normal strength at 5/5 x4 extr, Normal tone - Studies Medications List Reviewed: Yes Assessment & Plan Discharge Plan: Home Plan to discharge in: 24 Hours Physician Review Additional Text: Impression: Acute respiratory failure likely related to pulmonary edema suspect systolic CHF Acute on chronic renal disease stage III with right hydronephrosis Elevated troponin likely related to above Hypertension Chronic pain COPD Plan: Acute respiratory failure likely related to pulmonary edema suspect systolic CHF : Will continue to wean off oxygen. Will adjust IV diuretic therapy. Will consult cardiology for further recommendation. Obtain echocardiogram to further evaluate. Anticipate discharge in the next 24-48 hr. Acute on chronic renal disease stage III with right hydronephrosis: CT scan showed no evidence of calcification to the urinary system. Calcification pattern likely indicates high-grade stenosis in the upper abdominal aorta at the celiac level. IV antibiotic therapy adjusted. Will discuss with nephrology.. Elevated troponin likely related to above: Discuss with cardiology. No intervention needed at this time. Hypertension: Will provide medication as needed. Chronic pain: Continue with medication. COPD: Continue with medication. Wean off oxygen. Time Spent Managing Pts Care (In Minutes): 55
--- NOTE | 2019-10-19 14:07 | RAD REPORT ---
EXAM DESCRIPTION: RAD - Chest Pa And Lat (2 Views) - 10/19/2019 1:54 pm CLINICAL HISTORY: Follow up pulmonary edemapulmonary edema COMPARISON: October 16 TECHNIQUE: PA and lateral views of the chest were obtained. FINDINGS: The lungs are significantly fibrotic as a baseline. The diffuse interstitial edema pattern superimposed on fibrosis has shown improvement. There is residual edema suspected. Bilateral pleural effusions are present but slightly improved. Dialysis catheter remains in place. Heart size has dec reased slightly. Pulmonary vasculature within normal limits. IMPRESSION: Partial resolution of diffuse pulmonary edema pattern compared to October 16. Bilateral pleural effusions are present, slightly improved.
--- NOTE | 2019-10-19 14:26 | CON ---
Identification: 69-year-old woman. History Of Present Illness: Ms. Hdez came to the hospital with shortness of breath. She has severe obstructive lung disease. She has dramatic weight loss. She has several other medical problems and as far as I know, she has an undiagnosed reason for her weight loss. She has a recent onset renal f ailure and gets dialysis 3 times a week, now through left subclavian vein catheter. I am asked to se e her because her troponins are abnormal. She did not present with chest pain. There were no EKG ch anges. A few weeks ago, an echocardiogram was normal, so we have an opportunity to check and see if there has been any interval change in the last few weeks. Right now, I am concerned that the troponi ns are elevated, because of nonacute coronary syndrome type causes. She does not seem to be a patien t with unstable angina or an acute OK. Physical Examination: Vital Signs: She is 5 feet 3 inches, 85 pounds. General: She is emaciated, alert, oriented, pleasant, not in distress. Lungs: Reveal sonorous wheezes that is the way it is pretty much all the time with her. She does no t have a cardiac murmur. She is known to have a totally occluded left carotid artery, peripheral vas cular disease, Raynaud phenomenon, and severe COPD, kidney failure with dialysis, osteoporosis, histo ry of stroke. Impression: This is probably not an acute coronary syndrome, but we will do an echocardiogram and co mpare. If we really think it is a myocardial infarction, the treatment would be strictly medical. She is just not a candidate to under go a cardiac cath. JOMAR/JEANCARLOS Voice ID: [id number] Report ID: [id number]
--- NOTE | 2019-10-19 14:27 | ECHO ---
HEIGHT: 5 ft 3 in WEIGHT: 85 lb 1.6 oz DATE OF STUDY: 10/19/[address]: Jcarlos Carter MD 2-DIMENSIONAL: YES M.MODE: YES DOPPLER: YES COLOR FLOW: YES TDS: NO PORTABLE: NO DEFINITY: NO BUBBLE STUDY: NO DIAGNOSIS: ABNORMAL TROPONIN CARDIAC HISTORY: CATHERIZATION: NO SURGERY: NO PROSTHETIC VALVE: NO PACEMAKER: NO MEASUREMENTS (cm) DIASTOLIC (NORMALS) SYSTOLIC (NORMALS) IVSd 0.9 (0.6-1.2) LA Diam 3.0 (1.9-4.0) LVEF 53% LVIDd 3.9 (3.5-5.7) LVIDs 2.8 (2.0-3.5) %FS 27% LVPWd 1.0 (0.6-1.2) Ao Diam 3.1 (2.0-3.7) 2 DIMENSIONAL ASSESSMENT: RIGHT ATRIUM: PROMINENT EUSTACHIAN VALVE LEFT ATRIUM: NORMAL RIGHT VENTRICLE: NORMAL LEFT VENTRICLE: NORMAL TRICUSPID VALVE: NORMAL MITRAL VALVE: NORMAL PULMONIC VALVE: NORMAL AORTIC VALVE: NORMAL PERICARDIAL EFFUSION: NONE AORTIC ROOT: NORMAL LEFT VENTRICULAR WALL MOTION: NORMAL DOPPLER/COLOR FLOW: MILD MITRAL REGURGITATION. COMMENTS: NORMAL 2D ECHOCARDIOGRAM. MILD MITRAL REGURGITATION. PROMINENT EUSTACHIAN VALVE, WITHIN NORMAL LIMITS. TECHNOLOGIST: [place] GUERRERO
[2019-10-19] MEDS: NEPRO SHAKE 237 ML CAN PO SCH ×2 (20:20→21:00)
[2019-10-19] MEDS ORDERED: ROPINIROLE HCL 1 MG TAB PO SCH (21:00)
[2019-10-20] MEDS: IPRATROPIUM BROM 0.5MG/2.5ML NEB SCH ×3 (01:15→14:00)
--- NOTE | 2019-10-20 03:09 | PN ---
Date of Progress Note: 10/19/2019 Chief Complaint: Acute kidney injury. History Of Present Illness: Patient was initiated on dialysis in [facility] and subsequently, she was transferred to outpatient dialysis. She has history of acute on chronic kidney injury. Renal function was somewhat improving, although patient developed shortness of breath and required dialysis once a week with diuretic therapy. Despite diuretic therapy, patient developed shortness of breath. She was referred to mechanical maintenance foreman treatment of COPD exacerbation with history of chronic condition related to emphysema. Patient presented to the hospital because of shortness of breath. She received dialysis to control azotemia. BUN was up to 70. 24 hours urine collection was scheduled outpatient, but results are not available. Review of Systems: Patient is feeling better. Physical Examination: Lungs: Diminished breath sound at bases. Few crackles. Heart: S1, S2. Abdomen: Soft, benign. Extremities: Minimal edema. Laboratory Data: Renal ultrasound showed hydronephrosis and urology consultation was requested for mild right hydronephrosis. Impression And Plan: 1. Acute on chronic kidney injury. Continue diuretics for volume control. Patient was found to have interstitial pulmonary edema. There is history of severe chronic Lyme disease with emphysema. Patient will benefit from bronchodilators. She may need oxygen therapy. Further recommendation from pulmonary service. 2. Elevated troponin. Cardiac workup is pending. Echo did not show systolic dysfunction at this time. 3. Shortness of breath, dyspnea with activities and at rest. Patient is undergoing workup with Cardiology. Further recommendations appreciated. SPRING/JEANCARLOS Voice ID: [id number] Report ID: [id number] DINO
[2019-10-20] MEDS: HYDRALAZINE HCL 25 MG TABLET PO SCH ×2 (04:09→12:00)
[2019-10-20] MEDS: METOPROLOL TAR 50 MG TAB PO SCH ×2 (05:17→16:48)
[2019-10-20 05:47] LABS: Basophils % 0.8 % (0-1.3); Hematocrit 26.9 % (36.0-45.0); Lymphocytes % 14.2 % (15.3-44.8); MPV 9.2 fL (7.6-11.3); Magnesium 1.8 mg/dL (1.8-2.4); Potassium 3.6 mmol/L (3.5-5.1); RBC Red Blood Cell Count 2.71 M/uL (3.86-4.86)
[2019-10-20 06:35] VITALS: BMI 15.2
[2019-10-20] MEDS ORDERED: POTASSIUM CL SA 10 MEQ TAB PO ONE (08:00)
[2019-10-20] MEDS ORDERED: MAGNESIUM SULFATE 1 gm IVPB 1 GM/100 ML BAG IV ONE (08:00)
[2019-10-20] MEDS: NEPRO SHAKE 237 ML CAN PO SCH (09:00)
[2019-10-20] MEDS: FUROSEMIDE 20 MG/ 2ML VIAL IV SCH (09:00)
--- NOTE | 2019-10-20 09:56 | P.PN ---
Subjective Date of Service: 10/20/19 Primary Care Provider: Dr. Light; Cardiology Chief Complaint: shortness of breath Subjective: No new changes, No C/O voiced (still needing 3 L 02) Review of Systems Unremarkable Physical Examination - Vital Signs Temperature: 99.0 F Blood Pressure: 186/82 Pulse: 75 Respirations: 20 Pulse Ox (%): 92 - Physical Exam General: Alert, Oriented x3 HEENT: Atraumatic, Normocephalic, PERRLA Neck: Supple, 2+ carotid pulse no bruit, JVD not distended Respiratory: Normal air movement, Diminished, Crackles/rales Cardiovascular: Normal pulses, Regular rate/rhythm, Normal S1 S2 Gastrointestinal: Normal bowel sounds, Soft and benign Musculoskeletal: No clubbing, No swelling Integumentary: No rashes, No breakdown Neurological: Normal speech, Normal strength at 5/5 x4 extr, Normal tone - Studies Laboratory Last Values WBC 6.9 K/uL (4.3-10.9) D 10/20/19 05:11 RBC 2.71 M/uL (3.86-4.86) L 10/20/19 05:11 Hgb 8.9 g/dL (12.0-15.0) L 10/20/19 05:11 Hct 26.9 % (36.0-45.0) L 10/20/19 05:11 MCV 99.1 fL (80-100) 10/20/19 05:11 MCH 32.9 pg (27.0-35.0) 10/20/19 05:11 MCHC 33.2 g/dL (32.0-36.0) 10/20/19 05:11 RDW 14.9 % (12.1-15.2) 10/20/19 05:11 Plt Count 252 K/uL (152-406) 10/20/19 05:11 MPV 9.2 fL (7.6-11.3) 10/20/19 05:11 Neutrophils % 73.8 % (41.7-73.7) H 10/20/19 05:11 Lymphocytes % 14.2 % (15.3-44.8) L 10/20/19 05:11 Monocytes % 8.4 % (3.3-12.3) 10/20/19 05:11 Eosinophils % 2.8 % (0-4.4) 10/20/19 05:11 Basophils % 0.8 % (0-1.3) 10/20/19 05:11 Absolute Neutrophils 5.1 K/uL (1.8-8.0) 10/20/19 05:11 Segmented Neutrophils 85 % (40-80) H 10/16/19 16:30 Band Neutrophils 2 % (0-1) H 10/16/19 16:30 Absolute Lymphocytes 1.0 K/uL (0.7-4.9) 10/20/19 05:11 Lymphocytes 9 % (15-42) L 10/16/19 16:30 Monocytes 4 % (0-10) 10/16/19 16:30 Absolute Monocytes 0.6 K/uL (0.1-1.3) 10/20/19 05:11 Absolute Eosinophils 0.2 K/uL (0-0.5) 10/20/19 05:11 Absolute Basophils 0.1 K/uL (0-0.5) 10/20/19 05:11 Hypochromasia 1+ 10/16/19 16:30 Poikilocytosis 1+ 10/16/19 16:30 Anisocytosis 1+ 10/16/19 16:30 Microcytosis 1+ 10/16/19 16:30 Elliptocytes 1+ 10/16/19 16:30 Schistocytes 1+ 10/16/19 16:30 Morphology Comment Noted (NOT SEEN) 10/16/19 16:30 PT 12.2 SECONDS (9.5-12.5) 10/16/19 16:30 INR 1.04 10/16/19 16:30 pH 7.42 (7.35-7.45) 10/16/19 16:36 pCO2 35.0 mmHG (35-45) 10/16/19 16:36 pO2 58.9 mmHG (75-100) L 10/16/19 16:36 HCO3 22.0 mmol/L (22-28) 10/16/19 16:36 Base Excess -1.9 mmol/L 10/16/19 16:36 Oxyhemoglobin 83.4 % (94-97) L 10/16/19 16:36 ABG O2 Sat (Measured) 87.7 % (92-98.5) L 10/16/19 16:36 ABG Carboxyhemoglobin 4.0 % (0-1.5) H 10/16/19 16:36 ABG Methemoglobin 0.9 % (0-1.5) 10/16/19 16:36 Other Total Hgb 8.8 g/dl (12-18) L 10/16/19 16:36 Inspired O2 36.0 % 10/16/19 16:36 Sodium 139 mmol/L (136-145) 10/20/19 05:11 Potassium 3.6 mmol/L (3.5-5.1) 10/20/19 05:11 Chloride 105 mmol/L (98-107) 10/20/19 05:11 Carbon Dioxide 29 mmol/L (21-32) 10/20/19 05:11 BUN 61 mg/dL (7-18) H 10/20/19 05:11 Creatinine 2.05 mg/dL (0.55-1.3) H 10/20/19 05:11 Estimated GFR 24 mL/min (=/>90) L 10/20/19 05:11 Glucose 105 mg/dL (74-106) 10/20/19 05:11 POC Glucose 131 mg/dl (65-120) H 10/16/19 16:26 Uric Acid 7.4 mg/dL (2.6-6.0) H 10/16/19 16:30 Calcium 8.8 mg/dL (8.5-10.1) 10/20/19 05:11 Phosphorus 5.3 mg/dL (2.5-4.9) H 10/17/19 04:13 Magnesium 1.8 mg/dL (1.8-2.4) 10/20/19 05:11 Total Bilirubin 0.5 mg/dL (0.2-1.0) 10/18/19 05:44 Direct Bilirubin 0.1 mg/dL (0-0.2) 10/16/19 16:30 AST 22 U/L (15-37) 10/18/19 05:44 ALT 26 U/L (12-78) 10/18/19 05:44 Alkaline Phosphatase 78 U/L (45-117) 10/18/19 05:44 CK-MB (CK-2) 5.9 ng/mL (0.3-3.6) H 10/17/19 12:24 Rapid Troponin I 0.73 ng/mL (0.0-0.045) H* 10/16/19 16:30 Troponin I 0.70 ng/mL (0.0-0.045) H* 10/17/19 12:24 NT-Pro-B Natriuret Pep 23864 pg/mL (<125) H 10/16/19 16:30 Serum Total Protein 7.1 g/dL (6.4-8.2) 10/18/19 05:44 Albumin 3.5 g/dL (3.4-5.0) 10/18/19 05:44 Globulin 3.6 g/dL (2.3-3.5) H 10/18/19 05:44 Albumin/Globulin Ratio 1.0 (1.1-1.8) L 10/18/19 05:44 Triglycerides 209 mg/dL (<150) H 10/17/19 04:13 Cholesterol 106 mg/dL (<200) 10/17/19 04:13 LDL Cholesterol, Calc 17 (<130) 10/17/19 04:13 HDL Cholesterol 47 mg/dL (40-60) 10/17/19 04:13 Cholesterol/HDL Ratio 2.26 10/17/19 04:13 TSH 4.620 uIU/mL (0.360-3.740) H 10/16/19 20:11 Free T4 1.27 ng/dL (0.76-1.46) 10/16/19 20:11 Urine Color Yellow 10/17/19 01:50 Urine Appearance Clear 10/17/19 01:50 Urine pH 5.5 (5.0-7.0) 10/17/19 01:50 Ur Specific [place] 1.015 (1.005-1.030) 10/17/19 01:50 Urine Ketones Negative (NEG) 10/17/19 01:50 Urine Blood Negative (NEG) 10/17/19 01:50 Urine Nitrite Negative (NEG) 10/17/19 01:50 Urine Bilirubin Negative (NEG) 10/17/19 01:50 Urine Urobilinogen 0.2 mg/dL (0.2-1.0) 10/17/19 01:50 Ur Leukocyte Esterase Negative (NEG) 10/17/19 01:50 Urine Glucose Negative (NEG) 10/17/19 01:50 Urine Total Protein Negative (NEG) 10/17/19 01:50 Medications List Reviewed: Yes Assessment & Plan - Problems (Diagnosis) (1) Acute kidney injury superimposed on CKD Current Visit: Yes Status: Acute (2) Acute respiratory distress Current Visit: Yes Status: Acute (3) Pulmonary edema Current Visit: Yes Status: Acute (4) HTN (hypertension) Current Visit: Yes Status: Chronic Physician Review: Patient Assessed, Agree with Above Assessment and Plan Physician Review Additional Text: Impression: Acute respiratory failure likely related to pulmonary edema suspect systolic CHF Acute on chronic renal disease stage III with right hydronephrosis Elevated troponin likely related to above Hypertension Chronic pain COPD Plan: - still persistent SOB, slight improvement on CXR yesterday - need more dialysis with UF to remove more pulmonary edema fluid since poor response with urine volume and weight up by 1 lb since last HD 3 days ago -attempt made to reach ticket collector to discuss UF of 2 L with albumin and mannitrol aid today , message left -c/w diuretics , will give higher dose today - plan for dc home when able to wean off 02 HTN -uncontrolled , increase hydralazine
[2019-10-20] MEDS ORDERED: FUROSEMIDE 40 MG/4 ML VIAL IV ONE (09:57)
[2019-10-20] MEDS: NIFEDIPINE XL 90 MG TABLET PO SCH (09:59)
[2019-10-20] MEDS: ASPIRIN EC 81 MG TAB PO SCH (10:00)
[2019-10-20] MEDS: HYDROCODONE/APAP 7.5/325 MG TAB PO SCH ×2 (10:00→13:41)
[2019-10-20] MEDS: CLOPIDOGREL 75 MG TABLET PO SCH (10:00)
[2019-10-20] MEDS: GABAPENTIN 100 MG CAP PO SCH (10:00)
[2019-10-20] MEDS: ISOSORBIDE MONO SR 30 MG TAB PO SCH (10:01)
[2019-10-20] MEDS: ATORVASTATIN 40 MG TAB PO SCH (10:01)
--- NOTE | 2019-10-20 10:04 | P.CNS ---
Date of Consult: 10/20/19 Primary Care Provider: Dr. Light; Cardiology Chief Complaint: shortness of breath History of Present Illness: The patient is 69 years of age evaluated by me you for COPD was taking higher inhaler as prescribed . Became suddenly more short of breath and appeared in the hospital possible volume overload diffuse interstitial changes and a pleural effusions is feeling better now denies any fever chills cough sputum hemoptysis Allergies No Known Drug Allergies Allergy (Verified 10/16/19 22:00) Unknown Home Medications: Aspirin [Aspir-Low] 81 mg PO DAILY 09/10/18 Baclofen 10 mg PO BID 09/10/18 Biotin [Nail-Ex] 2,500 mcg PO DAILY 09/10/18 Clopidogrel Bisulfate [Plavix*] 75 mg PO DAILY 09/10/18 Hydrocodone/Acetaminophen [Vicodin Hp 10-325 mg Tablet] 1 tab PO SEECOM Zinc 50 mg PO DAILY 09/10/18 Albuterol Sulfate [Proair Digihaler] 2 puff IH QID 10/16/19 Atorvastatin Calcium [Lipitor] 1 tab PO DAILY 10/16/19 Docusate Sodium [Dulcolax Stool Softener] 1 cap PO BID PRN 10/16/19 Furosemide [Lasix*] 1 tab PO BID 10/16/19 Gabapentin 1 cap PO DAILY 10/16/19 Glucosamine HCl 1 tab PO DAILY 10/16/19 Hydralazine [Apresoline*] 50 mg PO Q8H 10/16/19 Iron 28 mg PO DAILY 10/16/19 Magnesium Oxide [Magnesium] 1 tab PO DAILY 10/16/19 Melatonin 2 cap PO BEDTIME 10/16/19 Metoprolol Tartrate [Lopressor] 100 mg PO BID 10/16/19 Mv,Vipul,Iron,Mn/Folic Acid/Chol [Hair, Skin and Nails Capsule] 5 mg PO BEDTIME Nifedipine [Nifedipine ER] 90 mg PO DAILY 10/16/19 Ropinirole HCl [Requip] 1 tab PO DAILY 10/16/19 Umeclidinium Brm/Vilanterol Tr [Anoro Ellipta 62.5-25 Mcg INH] 1 puff IH DAILY 10/16/19 hydrOXYzine HCL [Atarax] 25 mg PO BEDTIME 10/16/19 Cyanocobalamin (Vitamin B-12) [B-12] 1 tab PO DAILY 10/17/19 - Past Medical/Surgical History Diabetic: No -: CVA; DDD; left carotid artery blocked; Osteoporosis; PVD; Raynaud's syndrom -: degenerative Disc disease -: Scoliosis -: 3 heart stents -: COPD -: heart stents placement x3 -: hernia sx x2 - Family History Mother Medical History: Hypertension Father Medical History: Heart disease - Social History Smoking Status: Unknown if ever smoked Alcohol use: Yes CD- Drugs: No Caffeine use: Yes Place of Residence: Home Review of Systems 10-point ROS is otherwise unremarkable Physical Examination Temp Pulse Resp BP Pulse Ox 99.0 F 75 20 186/82 H 92 10/20/19 09:55 10/20/19 09:55 10/20/19 09:55 10/20/19 09:55 10/20/19 09:55 General: Alert, Oriented x3 HEENT: Atraumatic Neck: Supple Respiratory: Clear to auscultation bilaterally, Diminished Cardiovascular: No edema, Regular rate/rhythm Gastrointestinal: Normal bowel sounds, Soft and benign - Problems (1) Acute respiratory distress Current Visit: Yes Status: Acute Plan: The patient is 69 years of age admitted with acute respiratory distress possible volume overload patient is currently on Lasix normal echocardiogram mild renal insufficiency no evidence of sepsis BNP elevated the patient is doing much better continue with present medications and diuretics history of fluid intake evaluate for almost no possible discharged today on low-dose prednisone she has presumed COPD active smoker mild right-sided hydronephrosis per pressure elevated continue with inhalers at all
[2019-10-20] MEDS ORDERED: predniSONE 20 MG TAB PO SCH (10:05)
[2019-10-20] MEDS ORDERED: FORMOTEROL FUMARATE 20 MCG/2 ML VIAL.NEB NEB SCH (10:06)
[2019-10-20 10:51] VITALS: O2SAT 92
--- NOTE | 2019-10-20 12:27 | PN ---
Date of Progress Note: 10/20/2019 Ms. Hdez was admitted with congestive heart failure to Dr. Farias service. She has a perfectly norm al echocardiogram. She has COPD exacerbation. She has renal failure on dialysis once a week. I thi nk most of her symptoms are probably COPD exacerbation and fluid overload secondary to renal failure. Her troponin was elevated secondary to CHF, renal failure, and hypoxia. She is improved drasticall y. She has no symptoms today. On examination, she was in sinus rhythm. Her Chest was clear. She has no edema. From my standpoint, she can go home today and I will see her in the office in the next week or 2. UMU/JEANCARLOS Voice ID: [id number] Report ID: [id number]
--- NOTE | 2019-10-20 16:19 | P.DS ---
Admission Date: 10/16/19 Discharge Date: 10/20/19 Primary Care Provider: Dr. Light; Cardiology Disposition: ROUTINE DISCHARGE Discharge Condition: GOOD Reason for Admission: shortness of breath Consultations: Pulmonary-Dr. Sloan Nephrology-Dr. Chávez Cardiology-Dr. Benjamin Procedures: CT Scan: FINDINGS: Mild dilatation of the right renal pelvis and calices noted. Obstructing calculus is not identified. Course of the right ureter is very difficult to follow. Hydroureter is not suspected. Multiple renal parenchymal calcifications are present fall suspected to be arterial. Patient has innumerable pelvic floor phleboliths as well as arterial calcifications. Pattern is not substantially different from the 2018 CT study. No suspicious renal masses. Isodense masses and pyelonephritis are not excluded on a stone protocol CT scan. No urinary bladder suspicious finding. No significant adrenal finding. Imaged portions of the liver, spleen and pancreas show no suspicious findings on non-contrast imaging. No gallbladder or biliary tree abnormality identified. No suspicious bowel findings. Moderate stool volume is present throughout the colon. Diverticulosis is present without diverticulitis. No hernia, mass or bulky lymphadenopathy noted. No free air, free fluid or inflammatory stranding. Disc and bony degenerative changes are present. Patient has a very dense arterial tree calcification pattern. This has been present on prior imaging. Calcification pattern shows evidence for occlusion or high-grade stenosis in the upper abdominal aorta at the celiac artery level. Dense mesenteric renal and iliac arterial tree calcifications present similar to comparison. IMPRESSION: Mild right-sided hydronephrosis of the pelvis and calices seen without an obstructing calculus. Poor visualization of the right ureter due to body habitus affects and absence of contrast in the GI tract an arterial tree. Hydroureter an obstructing calculus are not suspected. Patient has innumerable pelvic floor phleboliths and a very dense arterial tree calcification pattern as detailed. Vascular calcification pattern is not substantially different from comparison. Isodense masses and pyelonephritis are not excluded on stone protocol technique. Renal US: FINDINGS: The right kidney measures 10 cm with an increased echotexture. Mild hydronephrosis The left kidney measures 7 cm with an increased echotexture. Hydronephrosis is not seen. Bladder is decompressed and poorly seen IMPRESSION: Mild right hydronephrosis Increased renal echotexture consistent with parenchymal disease ECHO: Ejection fraction 53% LEFT VENTRICULAR WALL MOTION: NORMAL DOPPLER/COLOR FLOW: MILD MITRAL REGURGITATION. COMMENTS: NORMAL 2D ECHOCARDIOGRAM. MILD MITRAL REGURGITATION. PROMINENT EUSTACHIAN VALVE, WITHIN NORMAL LIMITS. Follow up chest x-ray: FINDINGS: The lungs are significantly fibrotic as a baseline. The diffuse interstitial edema pattern superimposed on fibrosis has shown improvement. There is residual edema suspected. Bilateral pleural effusions are present but slightly improved. Dialysis catheter remains in place. Heart size has decreased slightly. Pulmonary vasculature within normal limits. IMPRESSION: Partial resolution of diffuse pulmonary edema pattern compared to October 16. Bilateral pleural effusions are present, slightly improved. Medical Problem List: Acute respiratory failure likely related to pulmonary edema likely diastolic dysfunction CHF End-stage renal disease on hemodialysis weekly with right hydronephrosis Elevated troponin likely related to above Hypertension Chronic pain COPD Hyperlipidemia Restless leg syndrome Brief History of Present Illness: 69-year-old female presented to emergency room with shortness of breath. Patient appeared to have pulmonary edema. Patient admitted for further evaluation and treatment. Hospital Course: Patient presented with acute respiratory failure likely related to pulmonary edema secondary to diastolic CHF. Patient was given IV diuretic therapy. Patient also received dialysis. Patient seen and evaluated by pulmonology and nephrology. During the course of her stay her condition improved. Patient no longer requires oxygen. At discharge patient will continue with a 1500 cc per day fluid restriction and low-salt diet. Patient will continue with Lasix 40 mg 1 pill twice daily. Recommend follow up with nephrology in 1 week to follow up this hospitalization. Patient with end-stage renal disease on dialysis weekly. Patient found to have right hydronephrosis. No stone obstruction identified. This may be chronic. Patient received IV diuretic therapy will with improvement. Patient also received dialysis. Patient gets dialysis every week. Patient will continue with dialysis every week. She will continue with a 1500 cc per day fluid restriction as recommended above. Future medications will need to be renally dose. At discharge she will continue with Lasix 40 mg 1 pill twice daily. Recommend follow up with nephrology within 1 week. Recommend to recheck lab- BMP in 1 week. Patient had elevated troponin likely related to above. Cardiology was consulted. No intervention required. Patient may continue with aspirin 81 mg daily, Plavix 75 mg daily. Patient with hypertension. This has remained stable. At discharge patient will continue with hydralazine 50 mg 1 pill 3 times a day, metoprolol 100 mg 1 pill twice daily, and Nifedipine 90 mg daily. Further adjustment can be done by her PCP. Patient with COPD. Patient had mild exacerbation. Patient seen and by pulmonology. No infection was noted. At discharge she will continue with prednisone 20 mg 1 pill twice daily for 5 days then 1 pill once daily for 5 days. Patient will continue with her medications of Anoro 1 puff daily and Pro air 2 puffs 3 times a day as needed for shortness of breath. Patient with hyperlipidemia. At discharge she will continue with Lipitor 40 mg daily. Patient with restless leg syndrome. At discharge she may continue with Requip 4 mg daily. Patient with chronic pain. At discharge she may continue with her pain medications. Vital Signs/Physical Exam: Temp Pulse Resp BP Pulse Ox 97.6 F 71 20 170/74 H 92 10/20/19 12:00 10/20/19 12:00 10/20/19 12:00 10/20/19 12:00 10/20/19 12:00 General: Alert, In no apparent distress, Oriented x3 HEENT: Atraumatic Neck: Supple Respiratory: Clear to auscultation bilaterally, Normal air movement Cardiovascular: Normal pulses, Regular rate/rhythm Gastrointestinal: Normal bowel sounds, Soft and benign, Non-distended Integumentary: No tenderness/swelling, No erythema, No warmth, No cyanosis Neurological: Normal speech, Normal strength at 5/5 x4 extr, Normal tone, Normal affect Laboratory Data at Discharge: WBC 6.9 K/uL (4.3-10.9) D 10/20/19 05:11 Hgb 8.9 g/dL (12.0-15.0) L 10/20/19 05:11 Hct 26.9 % (36.0-45.0) L 10/20/19 05:11 Plt Count 252 K/uL (152-406) 10/20/19 05:11 PT 12.2 SECONDS (9.5-12.5) 10/16/19 16:30 INR 1.04 10/16/19 16:30 Sodium 139 mmol/L (136-145) 10/20/19 05:11 Potassium 3.6 mmol/L (3.5-5.1) 10/20/19 05:11 BUN 61 mg/dL (7-18) H 10/20/19 05:11 Creatinine 2.05 mg/dL (0.55-1.3) H 10/20/19 05:11 Glucose 105 mg/dL (74-106) 10/20/19 05:11 Uric Acid 7.4 mg/dL (2.6-6.0) H 10/16/19 16:30 Phosphorus 5.3 mg/dL (2.5-4.9) H 10/17/19 04:13 Magnesium 1.8 mg/dL (1.8-2.4) 10/20/19 05:11 Total Bilirubin 0.5 mg/dL (0.2-1.0) 10/18/19 05:44 AST 22 U/L (15-37) 10/18/19 05:44 ALT 26 U/L (12-78) 10/18/19 05:44 Alkaline Phosphatase 78 U/L (45-117) 10/18/19 05:44 Troponin I 0.70 ng/mL (0.0-0.045) H* 10/17/19 12:24 Triglycerides 209 mg/dL (<150) H 10/17/19 04:13 Cholesterol 106 mg/dL (<200) 10/17/19 04:13 HDL Cholesterol 47 mg/dL (40-60) 10/17/19 04:13 Cholesterol/HDL Ratio 2.26 10/17/19 04:13 Home Medications: RX: Aspirin [Aspir-Low] 81 mg PO DAILY 09/10/18 RX: Baclofen 10 mg PO BID 09/10/18 RX: Biotin [Nail-Ex] 2,500 mcg PO DAILY 09/10/18 RX: Clopidogrel Bisulfate [Plavix*] 75 mg PO DAILY 09/10/18 RX: Hydrocodone/Acetaminophen [Vicodin Hp 10-325 mg Tablet] 1 tab PO SEECOM RX: Zinc 50 mg PO DAILY 09/10/18 RX: Albuterol Sulfate [Proair Digihaler] 2 puff IH QID 10/16/19 RX: Atorvastatin Calcium [Lipitor] 1 tab PO DAILY 10/16/19 RX: Docusate Sodium [Dulcolax Stool Softener] 1 cap PO BID PRN 10/16/19 RX: Furosemide [Lasix*] 1 tab PO BID 10/16/19 RX: Gabapentin 1 cap PO DAILY 10/16/19 RX: Glucosamine HCl 1 tab PO DAILY 10/16/19 RX: Hydralazine [Apresoline*] 50 mg PO Q8H 10/16/19 RX: Iron 28 mg PO DAILY 10/16/19 RX: Magnesium Oxide [Magnesium] 1 tab PO DAILY 10/16/19 RX: Melatonin 2 cap PO BEDTIME 10/16/19 RX: Metoprolol Tartrate [Lopressor] 100 mg PO BID 10/16/19 RX: Mv,Vipul,Iron,Mn/Folic Acid/Chol [Hair, Skin and Nails Capsule] 5 mg PO BEDTIME 10/16/19 RX: Nifedipine [Nifedipine ER] 90 mg PO DAILY 10/16/19 RX: Ropinirole HCl [Requip] 1 tab PO DAILY 10/16/19 RX: Umeclidinium Brm/Vilanterol Tr [Anoro Ellipta 62.5-25 Mcg INH] 1 puff IH DAILY 10/16/19 RX: hydrOXYzine HCL [Atarax] 25 mg PO BEDTIME 10/16/19 RX: Cyanocobalamin (Vitamin B-12) [B-12] 1 tab PO DAILY 10/17/19 RX: predniSONE [Prednisone*] 20 mg PO SEECOM #15 tab 10/20/19 New Medications: RX: predniSONE [Prednisone*] 20 mg PO SEECOM #15 tab Patient Discharge Instructions: 1. Patient will follow up with her PCP within 1 week to follow up this hospitalization. 2. Patient presented with acute respiratory failure likely related to pulmonary edema secondary to diastolic CHF. Patient was given IV diuretic therapy. Patient also received dialysis. Patient seen and evaluated by pulmonology and nephrology. During the course of her stay her condition improved. Patient no longer requires oxygen. At discharge patient will continue with a 1500 cc per day fluid restriction and low -salt diet. Patient will continue with Lasix 40 mg 1 pill twice daily. Recommend follow up with nephrology in 1 week to follow up this hospitalization. 3. Patient with end-stage renal disease on dialysis weekly. Patient found to have right hydronephrosis. No stone obstruction identified. This may be chronic. Patient received IV diuretic therapy will with improvement. Patient also received dialysis. Patient gets dialysis every week. Patient will go to dialysis on Saturday. Patient will continue with dialysis every week. She will continue with a 1500 cc per day fluid restriction as recommended above. Future medications will need to be renally dose. At discharge she will continue with Lasix 40 mg 1 pill twice daily. Recommend follow up with nephrology within 1 week. Recommend to recheck lab- BMP in 1 week. 4. Patient had elevated troponin likely related to above. Cardiology was consulted. No intervention required. Patient may continue with aspirin 81 mg daily, Plavix 75 mg daily. 5. Patient with hypertension. This has remained stable. At discharge patient will continue with hydralazine 50 mg 1 pill 3 times a day, metoprolol 100 mg 1 pill twice daily, and Nifedipine 90 mg daily. Further adjustment can be done by her PCP. 6. Patient with COPD. Patient had mild exacerbation. Patient seen and by pulmonology. No infection was noted. At discharge she will continue with prednisone 20 mg 1 pill twice daily for 5 days then 1 pill once daily for 5 days. Patient will continue with her medications of Anoro 1 puff daily and Pro air 2 puffs 3 times a day as needed for shortness of breath. 7. Patient with hyperlipidemia. At discharge she will continue with Lipitor 40 mg daily. 8. Patient with restless leg syndrome. At discharge she may continue with Requip 4 mg daily. 9. Patient with chronic pain. At discharge she may continue with her pain medications. Diet: AHA Activity: Ad janes Time spent managing pt's care (in minutes): 55
[2019-10-20 16:49] VITALS: BP 172/79
[2019-10-20] MEDS ORDERED: FUROSEMIDE 40 MG/4 ML VIAL IV SCH (17:00)
[2019-10-20 17:14] VITALS: TEMP 98.6
--- NOTE | 2019-10-21 01:03 | PN ---
Date of Progress Note: 10/20/2019 Chief Complaint: [id number] kidney injury. History Of Present Illness: Patient was initiated on dialysis in medical center and subsequently she was transferred to outpatient dialysis. She has history of [id number] kidney injury, cardiore nal syndrome, and nonoliguric ATN. She has chronic dyspnea, COPD, emphysema. Patient is on diuretic for volume control. Chest x-ray showed interstitial pulmonary edema. She underwent dialysis during this admission to control hyperazotemia. BUN was up to 70. The patient today is scheduled to have dialysis. Patient was evaluated by [facility] for emphysema. She is on bronchodilator. Review of Systems: Denies headache, vision changes. Physical Examination: Lungs: Few rhonchi. Heart: S1, S2. Abdomen: Soft. Benign. Extremities: Slight edema. Impression And Plan: 1.Tcoxz-px-hpwagsh kidney injury. Patient remains dialysis dependent. Dialysis will be done today to control volemia. Provide metabolic clearance. Monitor electrolytes. Continue renal diet. 2.Elevated troponin. Cardiac echo was done for evaluation of ejection fraction. 3.Shortness of breath, multifactorial. Continue oxygenation. Continue bronchodilator and treatment for chronic obstructive pulmonary disease exacerbation. EB/MODL Voice ID: [id number] Report ID: [id number]
[2019-10-22 05:12] LABS: HBsAG Nonreactive (Nonreactive)
[2019-10-22 22:32] LABS: Albumin, (SPE) 3.6 g/dL (3.8-4.8); Alpha-1-Globulins 0.5 g/dL (0.2-0.3); Alpha-2-Globulins 0.7 g/dL (0.5-0.9); Gamma Globulins 0.7 g/dL (0.8-1.7); INTERPRETATION REPORT
== END 2019-10-20 18:58 | disposition home or self-care (01) | DRG 291 ==
LOC: ER 15:48 → ERHOLD 19:26 → 2ND 20:32
PROVIDERS: ADMIT Family Medicine; ATTEND Internal Medicine
PROC: 5A1D70Z Performance of Urinary Filtration, Intermittent, Less than 6 Hours Per Day (ICD-10-PCS; principal; 2019-10-17)
PROC: 5A1D70Z Performance of Urinary Filtration, Intermittent, Less than 6 Hours Per Day (ICD-10-PCS; 2019-10-20)
DX: I13.2 Hypertensive heart and chronic kidney disease with heart failure and with stage 5 chronic kidney disease, or end stage renal disease (principal); J96.01 Acute respiratory failure with hypoxia; I50.33 Acute on chronic diastolic (congestive) heart failure; N17.9 Acute kidney failure, unspecified; J44.1 Chronic obstructive pulmonary disease with (acute) exacerbation; J44.0 Chronic obstructive pulmonary disease with (acute) lower respiratory infection; N13.30 Unspecified hydronephrosis; N18.3 Chronic kidney disease, stage 3 (moderate); I25.10 Atherosclerotic heart disease of native coronary artery without angina pectoris; G25.81 Restless legs syndrome; Z99.2 Dependence on renal dialysis; Z86.73 Personal history of transient ischemic attack (TIA), and cerebral infarction without residual deficits
CPT/HCPCS: 36415; 71045; 71046; 74176; 76377; 76770; 80048; 80053; 80061; 80076; 81003; 82553; 82805; 82947; 83520; 83735; 83880; 84100; 84165; 84439; 84443; 84484; 84550; 85025; 85610; 86021; 86038; 86334; 86704; 86706; 86803; 87040; 87340; 90471; 90670; 90935; 93005; 93306; 94640; 94760; 96374; 99285; J0360; J1644; J1940; J3475

== ENCOUNTER 2019-12-14 13:19 | Inpatient (IN) | payer MEDICARE ==
--- OUTSIDE RECORDS SUMMARY | 2019-12-14 13:24 | XMS REPORT ---
:1950 [facility] [address] [place] [address] Dr. Fine. [address] [place] [address] Care Team Providers Name Role Phone MEKHI MONTES DE OCA Unavailable Unavailable Problems This patient has no known problems. Allergies, Adverse Reactions, Alerts This patient has no known allergies or adverse reactions. Medications This patient has no known medications. Results Test Description Test Time Test Comments Text Results Atomic Results Result Comments TISSUE EXAM 2019-08-12 11:34:00 Surgical Pathology Report Case: [id number] Authorizing Provider: Dorinda Carrasco MD Collected: 08/07/2019 1459 Ordering Location: [address] Received: 08/07/2019 1457 Service Pathologist: Sheila May MD Specimen: Kidney KIDNEY, RIGHT, NEEDLE BIOPSIES- ACUTE TUBULOEPITHELIAL INJURY- FOCAL SEGMENTAL AND FOCAL GLOBAL GLOMERULOSCLEROSIS- NEGATIVE FOR IMMUNE MEDIATED GLOMERULONEPHRITIS- INTERSTITIAL FIBROSIS AND TUBULAR ATROPHY, MILD (~20%)- MODERATE ARTERIOLAR SCLEROSIS- SEGMENTALLY THICKENED GLOMERULAR BASEMENT MEMBRANES, SUGGESTIVE OF EARLY DIABETIC NEPHROPATHY (ULTRASTRUCTURAL) Signing Pathologist Direct Phone Line: [phone] signed by Sheila May MD on 08/12/2019 at 11:34 AMThe renal biopsy shows 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 No features of crescentic GN or thrombi are seen. No features of acute tubulointersitital nephritis are seen.Negative immunofluorescence and absence of electron dense deposits on ultrastructural evaluation excludes an immune complex mediated glomerulonephritis. The histological findings were discussed with Dr. Cho on 08/10/2019.77773, 53617 X3, 06324, 74748 x7, [id number] source of tissue: Right [place] kidneyKidney biopsy, non-transplantA. Creek kidney biopsy Received in formalin labeled with the patient's name "Remi Khan" accession [id number] are two kong-brown core biopsy fragments measuring 1.2 x0.1x0.1 and 05.x0.1x0.1 cm. The specimen is submitted entirely in cassette A1.A. This portion of the case is received in three containers labeled with the patient's information and [id number] which corresponds to the accompanying requisition slip. Received in formalin labeled with the patient's information and "A. Right [place] kidney biopsy" are two fragments of kong-pink soft tissue measuring 2 x 0.1 x 0.1 cm in aggregate. They are submitted in toto after filtration in cassette A1. Also received in part A is a container labeled with the patient's information and "right [place] kidney biopsy". The specimen is a 1.2 x 0.1 cm kong-pink fragment of soft tissue in saline. It is submitted entirely for C4D testing. Also received as part A is a container labeled with the patient's information and "right [place] kidney biopsy". The specimen consists of a [...] evaluated Immunohistochemistry technical testing was performed at [facility]ology Laboratory where it was developed and [...] Item Value Reference Range Comments POC-GLUCOSE METER ([employer]) 97 mg/dL 70-110 : TESTED AT [facility] [address] [facility] (test ciiu=0146) [place], [address]: [employer] EV=[id number] for ANGELICA GANN [id number] 06:13:00 Test Item Value Reference Range Comments FERRITIN ([employer]) (test gqjl=932) 115 ng/mL 5-275 IRON, TIBC, % SAT. (WITHOUT FERRITIN)2019-08-12 06:00:00 Test Item Value Reference Range Comments IRON (BEAKER) (test udan=747) 107.0 ug/dL 40.0-160.0 TOTAL IRON BINDING CAPACITY (BEAKER) (test 264 ug/dL 250-450 lued=918) IRON % SATURATION (2) (BEAKER) (test vyrl=5982) 41 % 20-55 [id number] 05:16:00 Test Item Value Reference Range Comments PHOSPHORUS (BEAKER) (test qbeg=192) 1.8 mg/dL 2.3-4.7 RETICULOCYTE [id number] 04:50:00 Test Item Value Reference Range Comments RETICULOCYTE COUNT PCT (BEAKER) (test lxer=491) 2.9 % 0.5-1.7 POCT-GLUCOSE [id number] 20:56:00 Test Item Value Reference Range Comments POC-GLUCOSE METER (BEAKER) 122 mg/dL 70-110 : TESTED AT [address] (test eypa=2577) [facility], [address]: [place] [employer] SV=[id number] for NEGRO BUSTILLOS POCT-GLUCOSE [id number] 16:53:00 Test Item Value Reference Range Comments POC-GLUCOSE METER (BEAKER) 113 mg/dL 70-110 : TESTED AT [address] (test jbzg=4962) [facility], [address]: [place] [employer] TI=[id number] for MELY GIOVANI POCT-GLUCOSE [id number] 12:42:00 Test Item Value Reference Range Comments POC-GLUCOSE METER (BEAKER) 150 mg/dL 70-110 TESTED AT [address] (test rhdd=9210) [facility] [address] POCT-GLUCOSE [id number] 08:47:00 Test Item Value Reference Range Comments POC-GLUCOSE METER (BEAKER) 106 mg/dL 70-110 TESTED AT [address] (test epax=7643) [facility] [address] POCT-GLUCOSE [id number] 07:45:00 Test Item Value Reference Range Comments POC-GLUCOSE METER (BEAKER) 114 mg/dL 70-110 TESTED AT [address] (test upuh=2459) [facility] [address] POCT-GLUCOSE [id number] 06:55:00 Test Item Value Reference Range Comments POC-GLUCOSE METER (BEAKER) 205 mg/dL 70-110 TESTED AT [facility] [address] (test znwt=1575) [facility] [address] CALCIUM, [id number] 06:09:00 Test Item Value Reference Range Comments CALCIUM IONIZED (BEAKER) (test kqeg=457) 1.15 mmol/L 1.12-1.27 PH, BLOOD (BEAKER) (test dfsc=9651) 7.40 BASIC METABOLIC [id number] 04:54:00 Test Item Value Reference Range Comments SODIUM (BEAKER) (test 134 meq/L 136-145 vota=522) POTASSIUM (BEAKER) (test 4.0 meq/L 3.5-5.1 upro=540) CHLORIDE (BEAKER) (test 93 meq/L 98-107 hubs=641) CO2 (BEAKER) (test 31 meq/L 22-29 snui=121) BLOOD UREA NITROGEN 41 mg/dL 7-21 (BEAKER) (test olfc=456) CREATININE (BEAKER) (test 5.34 mg/dL 0.57-1.25 tvog=031) GLUCOSE RANDOM (BEAKER) 110 mg/dL 70-105 (test abvr=201) CALCIUM (BEAKER) (test 9.5 mg/dL 8.4-10.2 omqm=337) EGFR (BEAKER) (test 8 mL/min/1.73 sq m ESTIMATED GFR IS NOT nbla=9071) ACCURATE CREATININE CLEARANCE IN PREDICTING GLOMERULAR FILTRATION RATE. ESTIMATED GFR IS NOT APPLICABLE FOR DIALYSIS PATIENTS. [id number] 04:46:00 Test Item Value Reference Range Comments PHOSPHORUS (BEAKER) (test onct=848) 4.2 mg/dL 2.3-4.7 [id number] 04:46:00 Test Item Value Reference Range Comments MAGNESIUM (BEAKER) (test bsza=999) 2.0 mg/dL 1.6-2.6 CBC W/PLT COUNT & AUTO [id number] 04:43:00 Test Item Value Reference Range Comments WHITE BLOOD CELL COUNT (BEAKER) (test wvob=356) 7.7 K/ L 3.5-10.5 RED BLOOD CELL COUNT (BEAKER) (test tppm=573) 2.43 M/ L 3.93-5.22 HEMOGLOBIN (BEAKER) (test hxyt=145) 7.9 GM/DL 11.2-15.7 HEMATOCRIT (BEAKER) (test thgc=278) 24.6 % 34.1-44.9 MEAN CORPUSCULAR VOLUME (BEAKER) (test coik=964) 101.2 fL 79.4-94.8 MEAN CORPUSCULAR HEMOGLOBIN (BEAKER) (test 32.5 pg 25.6-32.2 tjnq=086) MEAN CORPUSCULAR HEMOGLOBIN CONC (BEAKER) (test 32.1 GM/DL 32.2-35.5 xjgg=030) RED CELL DISTRIBUTION WIDTH (BEAKER) (test 15.6 % 11.7-14.4 pnwa=573) PLATELET COUNT (BEAKER) (test fivv=299) 258 K/CU MM 150-450 MEAN PLATELET VOLUME (BEAKER) (test fqad=498) 11.0 fL 9.4-12.3 NUCLEATED RED BLOOD CELLS (BEAKER) (test 0 /100 WBC 0-0 clqb=046) NEUTROPHILS RELATIVE PERCENT (BEAKER) (test 63 % jvgn=153) LYMPHOCYTES RELATIVE PERCENT (BEAKER) (test 25 % cqfp=572) MONOCYTES RELATIVE PERCENT (BEAKER) (test 10 % pfif=153) EOSINOPHILS RELATIVE PERCENT (BEAKER) (test 2 % jpyq=775) BASOPHILS RELATIVE PERCENT (BEAKER) (test 0 % tdjt=923) NEUTROPHILS ABSOLUTE COUNT (BEAKER) (test 4.85 K/ L 1.56-6.13 iqts=972) LYMPHOCYTES ABSOLUTE COUNT (BEAKER) (test 1.93 K/ L 1.18-3.74 wfpn=954) MONOCYTES ABSOLUTE COUNT (BEAKER) (test 0.73 K/ L 0.24-0.36 ufsl=742) EOSINOPHILS ABSOLUTE COUNT (BEAKER) (test 0.12 K/ L 0.04-0.36 boyr=618) BASOPHILS ABSOLUTE COUNT (BEAKER) (test 0.01 K/ L 0.01-0.08 xzwj=961) IMMATURE GRANULOCYTES-RELATIVE PERCENT (BEAKER) 1 % 0-1 (test pncv=1854) POCT-GLUCOSE [id number] 16:58:00 Test Item Value Reference Range Comments POC-GLUCOSE METER (BEAKER) 133 mg/dL 70-110 TESTED AT [facility] [address] [facility] (test hhnx=1692) [facility] [address] POCT-GLUCOSE [id number] 11:51:00 Test Item Value Reference Range Comments POC-GLUCOSE METER (BEAKER) 114 mg/dL 70-110 TESTED AT [place] [id number] [facility] (test zalf=2921) [facility] [address] POCT-GLUCOSE [id number] 07:11:00 Test Item Value Reference Range Comments POC-GLUCOSE METER (BEAKER) 86 mg/dL 70-110 TESTED AT [address] (test wnge=9470) [facility] [address] BASIC METABOLIC [id number] 06:01:00 Test Item Value Reference Range Comments SODIUM (BEAKER) (test 136 meq/L 136-145 lyry=314) POTASSIUM (BEAKER) (test 3.6 meq/L 3.5-5.1 Specimen slightly qsdi=264) hemolyzed CHLORIDE (BEAKER) (test 98 meq/L 98-107 gyoe=418) CO2 (BEAKER) (test 27 meq/L 22-29 axpk=340) BLOOD UREA NITROGEN 25 mg/dL 7-21 (BEAKER) (test frdq=416) CREATININE (BEAKER) (test 3.94 mg/dL 0.57-1.25 Specimen slightly fcov=714) hemolyzed GLUCOSE RANDOM (BEAKER) 95 mg/dL 70-105 (test pwvs=059) CALCIUM (BEAKER) (test 9.1 mg/dL 8.4-10.2 bobp=215) EGFR (BEAKER) (test 11 mL/min/1.73 sq m ESTIMATED GFR IS NOT jjub=3433) ACCURATE CREATININE CLEARANCE IN PREDICTING GLOMERULAR FILTRATION RATE. ESTIMATED GFR IS NOT APPLICABLE FOR DIALYSIS PATIENTS. [id number] 05:59:00 Test Item Value Reference Range Comments PHOSPHORUS (BEAKER) (test 4.0 mg/dL 2.3-4.7 Specimen slightly hemolyzed nnef=700) CBC W/PLT COUNT & AUTO [id number] 05:25:00 Test Item Value Reference Range Comments WHITE BLOOD CELL COUNT (BEAKER) (test akxs=324) 6.7 K/ L 3.5-10.5 RED BLOOD CELL COUNT (BEAKER) (test oexu=311) 2.59 M/ L 3.93-5.22 HEMOGLOBIN (BEAKER) (test ufrq=266) 8.4 GM/DL 11.2-15.7 HEMATOCRIT (BEAKER) (test ocuu=563) 26.8 % 34.1-44.9 MEAN CORPUSCULAR VOLUME (BEAKER) (test kpox=873) 103.5 fL 79.4-94.8 MEAN CORPUSCULAR HEMOGLOBIN (BEAKER) (test 32.4 pg 25.6-32.2 plvk=595) MEAN CORPUSCULAR HEMOGLOBIN CONC (BEAKER) (test 31.3 GM/DL 32.2-35.5 nzea=414) RED CELL DISTRIBUTION WIDTH (BEAKER) (test 15.7 % 11.7-14.4 umgw=616) PLATELET COUNT (BEAKER) (test rvkk=993) 262 K/CU MM 150-450 MEAN PLATELET VOLUME (BEAKER) (test sren=662) 10.9 fL 9.4-12.3 NUCLEATED RED BLOOD CELLS (BEAKER) (test 0 /100 WBC 0-0 jzno=231) NEUTROPHILS RELATIVE PERCENT (BEAKER) (test 60 % xerp=710) LYMPHOCYTES RELATIVE PERCENT (BEAKER) (test 28 % dbmf=991) MONOCYTES RELATIVE PERCENT (BEAKER) (test 10 % kjfy=208) EOSINOPHILS RELATIVE PERCENT (BEAKER) (test 2 % dhpo=828) BASOPHILS RELATIVE PERCENT (BEAKER) (test 0 % gavj=969) NEUTROPHILS ABSOLUTE COUNT (BEAKER) (test 3.96 K/ L 1.56-6.13 zzjo=052) LYMPHOCYTES ABSOLUTE COUNT (BEAKER) (test 1.84 K/ L 1.18-3.74 drle=449) MONOCYTES ABSOLUTE COUNT (BEAKER) (test 0.66 K/ L 0.24-0.36 dxcn=350) EOSINOPHILS ABSOLUTE COUNT (BEAKER) (test 0.11 K/ L 0.04-0.36 wyda=308) BASOPHILS ABSOLUTE COUNT (BEAKER) (test 0.02 K/ L 0.01-0.08 zina=171) IMMATURE GRANULOCYTES-RELATIVE PERCENT (BEAKER) 1 % 0-1 (test esce=5246) POCT-GLUCOSE [id number] 19:16:00 Test Item Value Reference Range Comments POC-GLUCOSE METER (BEAKER) 99 mg/dL 70-110 TESTED AT [address] (test chmd=1934) [place] [id number] POCT-GLUCOSE [id number] 17:22:00 Test Item Value Reference Range Comments POC-GLUCOSE METER (BEAKER) 117 mg/dL 70-110 TESTED AT [address] (test jbwp=7077) [place] [address] POCT-GLUCOSE [id number] 12:12:00 Test Item Value Reference Range Comments POC-GLUCOSE METER (BEAKER) 101 mg/dL 70-110 TESTED AT [address] (test oxay=1903) [place] [address] POCT-GLUCOSE [id number] 08:23:00 Test Item Value Reference Range Comments POC-GLUCOSE METER (BEAKER) 114 mg/dL 70-110 TESTED AT [address] (test wami=6229) [place] [address] BASIC METABOLIC [id number] 04:47:00 Test Item Value Reference Range Comments SODIUM (BEAKER) (test 139 meq/L 136-145 twup=034) POTASSIUM (BEAKER) (test 3.5 meq/L 3.5-5.1 vqfu=808) CHLORIDE (BEAKER) (test 102 meq/L 98-107 twuj=848) CO2 (BEAKER) (test 29 meq/L 22-29 hkns=515) BLOOD UREA NITROGEN 11 mg/dL 7-21 (BEAKER) (test ktag=528) CREATININE (BEAKER) (test 1.87 mg/dL 0.57-1.25 jrbb=542) GLUCOSE RANDOM (BEAKER) 100 mg/dL 70-105 (test biyf=856) CALCIUM (BEAKER) (test 9.0 mg/dL 8.4-10.2 rrty=504) EGFR (BEAKER) (test 27 mL/min/1.73 sq m ESTIMATED GFR IS NOT pfmy=7025) ACCURATE CREATININE CLEARANCE IN PREDICTING GLOMERULAR FILTRATION RATE. ESTIMATED GFR IS NOT APPLICABLE FOR DIALYSIS PATIENTS. POCT-GLUCOSE [id number] 18:13:00 Test Item Value Reference Range Comments POC-GLUCOSE METER (BEAKER) 157 mg/dL 70-110 TESTED AT [address] (test vmlm=1344) [place] [address] POCT-GLUCOSE [id number] 16:11:00 Test Item Value Reference Range Comments POC-GLUCOSE METER (BEAKER) 105 mg/dL 70-110 TESTED AT [facility] [address] [facility] (test yuah=5309) [facility] [address] POCT-GLUCOSE [id number] 13:40:00 Test Item Value Reference Range Comments POC-GLUCOSE METER (BEAKER) 127 mg/dL 70-110 TESTED AT [place] [id number] [facility] (test ktur=3302) [facility] [address] CBC W/PLT COUNT & AUTO [id number] 08:00:00 Test Item Value Reference Range Comments WHITE BLOOD CELL COUNT (BEAKER) (test xmmq=159) 7.2 K/ L 3.5-10.5 RED BLOOD CELL COUNT (BEAKER) (test wxyf=359) 2.41 M/ L 3.93-5.22 HEMOGLOBIN (BEAKER) (test mdot=163) 7.6 GM/DL 11.2-15.7 HEMATOCRIT (BEAKER) (test hpis=412) 24.5 % 34.1-44.9 MEAN CORPUSCULAR VOLUME (BEAKER) (test rpde=582) 101.7 fL 79.4-94.8 MEAN CORPUSCULAR HEMOGLOBIN (BEAKER) (test 31.5 pg 25.6-32.2 ocsd=907) MEAN CORPUSCULAR HEMOGLOBIN CONC (BEAKER) (test 31.0 GM/DL 32.2-35.5 tmdo=056) RED CELL DISTRIBUTION WIDTH (BEAKER) (test 15.5 % 11.7-14.4 ozxf=575) PLATELET COUNT (BEAKER) (test icun=178) 256 K/CU MM 150-450 MEAN PLATELET VOLUME (BEAKER) (test ddji=796) 10.8 fL 9.4-12.3 NUCLEATED RED BLOOD CELLS (BEAKER) (test 0 /100 WBC 0-0 gxqs=593) NEUTROPHILS RELATIVE PERCENT (BEAKER) (test 66 % fpug=391) LYMPHOCYTES RELATIVE PERCENT (BEAKER) (test 23 % jmjb=170) MONOCYTES RELATIVE PERCENT (BEAKER) (test 9 % nkoi=254) EOSINOPHILS RELATIVE PERCENT (BEAKER) (test 1 % sxol=154) BASOPHILS RELATIVE PERCENT (BEAKER) (test 0 % cota=006) NEUTROPHILS ABSOLUTE COUNT (BEAKER) (test 4.75 K/ L 1.56-6.13 qclq=232) LYMPHOCYTES ABSOLUTE COUNT (BEAKER) (test 1.62 K/ L 1.18-3.74 atrz=143) MONOCYTES ABSOLUTE COUNT (BEAKER) (test 0.64 K/ L 0.24-0.36 prbk=436) EOSINOPHILS ABSOLUTE COUNT (BEAKER) (test 0.06 K/ L 0.04-0.36 frut=453) BASOPHILS ABSOLUTE COUNT (BEAKER) (test 0.01 K/ L 0.01-0.08 bgbg=801) IMMATURE GRANULOCYTES-RELATIVE PERCENT (BEAKER) 1 % 0-1 (test slrp=7419) BASIC METABOLIC [id number] 06:43:00 Test Item Value Reference Range Comments SODIUM (BEAKER) (test 136 meq/L 136-145 pktq=224) POTASSIUM (BEAKER) (test 4.6 meq/L 3.5-5.1 ihqa=191) CHLORIDE (BEAKER) (test 100 meq/L 98-107 ygoq=163) CO2 (BEAKER) (test 27 meq/L 22-29 htfe=274) BLOOD UREA NITROGEN 40 mg/dL 7-21 (BEAKER) (test zpzj=268) CREATININE (BEAKER) (test 4.15 mg/dL 0.57-1.25 hgkp=157) GLUCOSE RANDOM (BEAKER) 87 mg/dL 70-105 (test rkjy=075) CALCIUM (BEAKER) (test 8.6 mg/dL 8.4-10.2 ahtk=093) EGFR (BEAKER) (test 11 mL/min/1.73 sq m ESTIMATED GFR IS NOT dxjy=5997) ACCURATE CREATININE CLEARANCE IN PREDICTING GLOMERULAR FILTRATION RATE. ESTIMATED GFR IS NOT APPLICABLE FOR DIALYSIS PATIENTS. CBC W/PLT COUNT & AUTO [id number] 20:57:00 Test Item Value Reference Range Comments WHITE BLOOD CELL COUNT (BEAKER) (test gfbu=894) 5.6 K/ L 3.5-10.5 RED BLOOD CELL COUNT (BEAKER) (test hdxr=957) 2.37 M/ L 3.93-5.22 HEMOGLOBIN (BEAKER) (test byka=447) 7.6 GM/DL 11.2-15.7 HEMATOCRIT (BEAKER) (test nxbh=385) 24.0 % 34.1-44.9 MEAN CORPUSCULAR VOLUME (BEAKER) (test hheu=181) 101.3 fL 79.4-94.8 MEAN CORPUSCULAR HEMOGLOBIN (BEAKER) (test 32.1 pg 25.6-32.2 ycda=811) MEAN CORPUSCULAR HEMOGLOBIN CONC (BEAKER) (test 31.7 GM/DL 32.2-35.5 dzfr=271) RED CELL DISTRIBUTION WIDTH (BEAKER) (test 15.6 % 11.7-14.4 pqxx=855) PLATELET COUNT (BEAKER) (test rlph=311) 256 K/CU MM 150-450 MEAN PLATELET VOLUME (BEAKER) (test nuyp=311) 10.5 fL 9.4-12.3 NUCLEATED RED BLOOD CELLS (BEAKER) (test 0 /100 WBC 0-0 nduz=502) NEUTROPHILS RELATIVE PERCENT (BEAKER) (test 63 % uijn=019) LYMPHOCYTES RELATIVE PERCENT (BEAKER) (test 24 % vuqu=370) MONOCYTES RELATIVE PERCENT (BEAKER) (test 12 % oipy=200) EOSINOPHILS RELATIVE PERCENT (BEAKER) (test 1 % kndi=436) BASOPHILS RELATIVE PERCENT (BEAKER) (test 0 % nxiz=793) NEUTROPHILS ABSOLUTE COUNT (BEAKER) (test 3.53 K/ L 1.56-6.13 detv=499) LYMPHOCYTES ABSOLUTE COUNT (BEAKER) (test 1.36 K/ L 1.18-3.74 mvej=501) MONOCYTES ABSOLUTE COUNT (BEAKER) (test 0.65 K/ L 0.24-0.36 zhae=562) EOSINOPHILS ABSOLUTE COUNT (BEAKER) (test 0.03 K/ L 0.04-0.36 gmos=092) BASOPHILS ABSOLUTE COUNT (BEAKER) (test 0.01 K/ L 0.01-0.08 fpyr=621) IMMATURE GRANULOCYTES-RELATIVE PERCENT (BEAKER) 1 % 0-1 (test svfk=3402) U/S, BIOPSY, RENAL (KIDNEY)2019-08-07 19:04:00Reason for exam:->akiFINAL REPORT US Guided core biopsy right kidney. History: Renal dysfunction. [place] kidney biopsy requested. Heading Pinner: Da Gomez MD. Telesales Advisor: None. Modality: Ultrasound Sedation: Versed one mg [...] specimen was handed over to the pathology inside outside sales representative for further processing. At the end of the procedure, an aseptic dressing applied. The patient tolerated the procedure well. After recovery, the patient was discharged from the department in stable condition. Complications: None immediate. Specimen: Five cores Impression: Successful ultrasound-guided core biopsy of [place] right kidney Thank you forthe opportunity to assist in the care of your patient. Signed: Da Gomez MDReport Verified Date/Time: 08/07 19:04:00 Reading Location: [place] [address] Angio Body Reading Room CALCIUM , [id number] 06:20:00 Test Item Value Reference Range Comments CALCIUM IONIZED (BEAKER) (test dnxr=109) 0.97 mmol/L 1.12-1.27 PH, BLOOD (BEAKER) (test rdvz=9994) 7.48 COMPREHENSIVE METABOLIC [id number] 05:32:00 Test Item Value Reference Range Comments TOTAL PROTEIN (BEAKER) 5.9 gm/dL 6.0-8.3 Specimen slightly (test dpjy=860) hemolyzed ALBUMIN (BEAKER) (test 3.6 g/dL 3.5-5.0 Specimen slightly qojl=9782) hemolyzed ALKALINE PHOSPHATASE 44 U/L 40-150 (BEAKER) (test yofc=777) BILIRUBIN TOTAL (BEAKER) 0.2 mg/dL 0.2-1.2 Specimen slightly (test lnkb=850) hemolyzed SODIUM (BEAKER) (test 137 meq/L 136-145 ktle=941) POTASSIUM (BEAKER) (test 4.0 meq/L 3.5-5.1 Specimen slightly paqz=916) hemolyzed CHLORIDE (BEAKER) (test 101 meq/L 98-107 ecxs=684) CO2 (BEAKER) (test 27 meq/L 22-29 xxbf=948) BLOOD UREA NITROGEN 24 mg/dL 7-21 (BEAKER) (test piqm=013) CREATININE (BEAKER) (test 2.94 mg/dL 0.57-1.25 Specimen slightly eupn=850) hemolyzed GLUCOSE RANDOM (BEAKER) 103 mg/dL 70-105 (test tjpk=566) CALCIUM (BEAKER) (test 8.2 mg/dL 8.4-10.2 gkpu=635) AST (SGOT) (BEAKER) (test 27 U/L 5-34 Specimen slightly kylf=028) hemolyzed ALT (SGPT) (BEAKER) (test 10 U/L 6-55 Specimen slightly oatu=234) hemolyzed EGFR (BEAKER) (test 16 mL/min/1.73 sq m ESTIMATED GFR IS NOT kovw=6668) ACCURATE CREATININE CLEARANCE IN PREDICTING GLOMERULAR FILTRATION RATE. ESTIMATED GFR IS NOT APPLICABLE FOR DIALYSIS PATIENTS. [id number] 05:20:00 Test Item Value Reference Range Comments MAGNESIUM (BEAKER) (test 1.9 mg/dL 1.6-2.6 Specimen slightly hemolyzed vguv=075) [id number] 05:20:00 Test Item Value Reference Range Comments PHOSPHORUS (BEAKER) (test 3.5 mg/dL 2.3-4.7 Specimen slightly hemolyzed muuj=792) PROTHROMBIN TIME/[id number] 05:06:00 Test Item Value Reference Range Comments PROTIME (BEAKER) (test odjm=653) 13.2 seconds 11.9-14.2 INR (BEAKER) (test ikep=011) 1.0 <=5.9 Effective 03/18/2019: PT Reference Range ChangeNew: 11.9-14.2 Previous: 11.7- 14.7RECOMMENDED COUMADIN/WARFARIN INR THERAPY RANGESSTANDARD DOSE: 2.0-3.0 Includes: PROPHYLAXIS for venous thrombosis, systemic embolization; TREATMENT for venous thrombosis and/or pulmonary embolus.HIGH RISK: Target INR is2.5-3.5 for patients wiht mechanical heart valves.RAD, CHEST, 1 VIEW, NON [id number] 14:00:00Reason for exam:->shortness of breathShould this [...] MDReport Verified Date/Time: 08/06/2019 14:00:28 Reading Location: [facility] Radiology Reading Room POCT-GLUCOSE [id number] 09:23:00 Test Item Value Reference Range Comments POC-GLUCOSE METER (BEAKER) 103 mg/dL 70-110 TESTED AT [address] (test uefs=1172) [facility] [id number] POCT-GLUCOSE [id number] 19:02:00 Test Item Value Reference Range Comments POC-GLUCOSE METER (BEAKER) 125 mg/dL 70-110 TESTED AT [address] (test bsjf=6813) [facility] [id number] POCT-GLUCOSE [id number] 12:40:00 Test Item Value Reference Range Comments POC-GLUCOSE METER (BEAKER) 121 mg/dL 70-110 TESTED AT [address] (test gooy=7988) [facility] [address] POCT-GLUCOSE [id number] 09:54:00 Test Item Value Reference Range Comments POC-GLUCOSE METER (BEAKER) 87 mg/dL 70-110 TESTED AT [address] (test lbdp=7618) [facility] [address] CALCIUM, [id number] 06:41:00 Test Item Value Reference Range Comments CALCIUM IONIZED (BEAKER) (test jkwa=771) 1.03 mmol/L 1.12-1.27 PH, BLOOD (BEAKER) (test oypq=7619) 7.40 COMPREHENSIVE METABOLIC [id number] 06:11:00 Test Item Value Reference Range Comments TOTAL PROTEIN (BEAKER) 6.3 gm/dL 6.0-8.3 (test jipw=493) ALBUMIN (BEAKER) (test 3.7 g/dL 3.5-5.0 kcht=6366) ALKALINE PHOSPHATASE 53 U/L 40-150 (BEAKER) (test sgwn=888) BILIRUBIN TOTAL (BEAKER) 0.2 mg/dL 0.2-1.2 (test otvp=067) SODIUM (BEAKER) (test 134 meq/L 136-145 dbfi=251) POTASSIUM (BEAKER) (test 4.2 meq/L 3.5-5.1 dflk=593) CHLORIDE (BEAKER) (test 100 meq/L 98-107 hjrj=839) CO2 (BEAKER) (test 24 meq/L 22-29 pelg=077) BLOOD UREA NITROGEN 29 mg/dL 7-21 (BEAKER) (test ejbb=698) CREATININE (BEAKER) (test 3.19 mg/dL 0.57-1.25 rine=144) GLUCOSE RANDOM (BEAKER) 82 mg/dL 70-105 (test chck=801) CALCIUM (BEAKER) (test 8.4 mg/dL 8.4-10.2 fnuq=209) AST (SGOT) (BEAKER) (test 26 U/L 5-34 zgfz=943) ALT (SGPT) (BEAKER) (test 18 U/L 6-55 msxh=095) EGFR (BEAKER) (test 14 mL/min/1.73 sq m ESTIMATED GFR IS NOT vgwt=5746) ACCURATE CREATININE CLEARANCE IN PREDICTING GLOMERULAR FILTRATION RATE. ESTIMATED GFR IS NOT APPLICABLE FOR DIALYSIS PATIENTS. [id number] 06:04:00 Test Item Value Reference Range Comments PHOSPHORUS (BEAKER) (test wgqc=041) 3.5 mg/dL 2.3-4.7 [id number] 06:04:00 Test Item Value Reference Range Comments MAGNESIUM (BEAKER) (test jixy=884) 2.0 mg/dL 1.6-2.6 B-TYPE NATRIURETIC FACTOR (BNP)2019-08-05 06:03:00 Test Item Value Reference Range Comments B-TYPE NATRIURETIC PEPTIDE (BEAKER) (test 2566 pg/mL 0-100 yjcj=201) CBC W/PLT COUNT & AUTO [id number] 05:35:00 Test Item Value Reference Range Comments WHITE BLOOD CELL COUNT (BEAKER) (test mtwv=952) 6.8 K/ L 3.5-10.5 RED BLOOD CELL COUNT (BEAKER) (test alil=715) 2.68 M/ L 3.93-5.22 HEMOGLOBIN (BEAKER) (test hzli=666) 8.5 GM/DL 11.2-15.7 HEMATOCRIT (BEAKER) (test rqyx=354) 27.1 % 34.1-44.9 MEAN CORPUSCULAR VOLUME (BEAKER) (test ldsb=152) 101.1 fL 79.4-94.8 MEAN CORPUSCULAR HEMOGLOBIN (BEAKER) (test 31.7 pg 25.6-32.2 qnmh=134) MEAN CORPUSCULAR HEMOGLOBIN CONC (BEAKER) (test 31.4 GM/DL 32.2-35.5 hegk=362) RED CELL DISTRIBUTION WIDTH (BEAKER) (test 15.2 % 11.7-14.4 rgve=412) PLATELET COUNT (BEAKER) (test faza=100) 264 K/CU MM 150-450 MEAN PLATELET VOLUME (BEAKER) (test vmxg=580) 10.6 fL 9.4-12.3 NUCLEATED RED BLOOD CELLS (BEAKER) (test 0 /100 WBC 0-0 wtsl=516) NEUTROPHILS RELATIVE PERCENT (BEAKER) (test 75 % tjqq=107) LYMPHOCYTES RELATIVE PERCENT (BEAKER) (test 14 % vfny=836) MONOCYTES RELATIVE PERCENT (BEAKER) (test 10 % teyp=211) EOSINOPHILS RELATIVE PERCENT (BEAKER) (test 0 % mgcj=149) BASOPHILS RELATIVE PERCENT (BEAKER) (test 0 % ajqj=544) NEUTROPHILS ABSOLUTE COUNT (BEAKER) (test 5.09 K/ L 1.56-6.13 oqbd=744) LYMPHOCYTES ABSOLUTE COUNT (BEAKER) (test 0.97 K/ L 1.18-3.74 qhvm=515) MONOCYTES ABSOLUTE COUNT (BEAKER) (test 0.67 K/ L 0.24-0.36 imqj=950) EOSINOPHILS ABSOLUTE COUNT (BEAKER) (test 0.01 K/ L 0.04-0.36 rmdy=065) BASOPHILS ABSOLUTE COUNT (BEAKER) (test 0.00 K/ L 0.01-0.08 chno=871) IMMATURE GRANULOCYTES-RELATIVE PERCENT (BEAKER) 1 % 0-1 (test xozf=4929) HEPATITIS B [id number] 03:21:00 Test Item Value Reference Range Comments HEPATITIS B CORE TOTAL ANTIBODY (BEAKER) (test Nonreactive Nonreactive vohs=083) HEPATITIS B SURFACE ANTIBODY (BEAKER) (test < mIU/mL <8.0 bczl=820) HEPATITIS B SURFACE ANTIGEN (2) (BEAKER) (test Nonreactive Nonreactive xlmd=3175) POCT-GLUCOSE [id number] 17:07:00 Test Item Value Reference Range Comments POC-GLUCOSE METER (BEAKER) 137 mg/dL 70-110 TESTED AT [facility] [address] [facility] (test ziuw=4392) [facility] [address] POCT-GLUCOSE [id number] 10:50:00 Test Item Value Reference Range Comments POC-GLUCOSE METER (BEAKER) 91 mg/dL 70-110 TESTED AT [address] (test ybsy=2430) [facility] [address] ANG, TUNNELED CATHETER [id number] 10:27:00Reason for exam:->Long- term dialysisFINAL REPORT Procedure: Tunneled dialysis catheter placement. History: Need for hemodialysis. Heading Pinner: aD Gomez MD. Telesales Advisor: Josué M.D. Modality: Sonography and fluoroscopy. DOSE [...] patient. Signed: Da Gomez MDReport Verified Date/Time: 08/04/2019 10:27:22 Reading Location: [place] [address] Angio Body Reading Room CALCIUM, [id number] 06:41:00 Test Item Value Reference Range Comments CALCIUM IONIZED (BEAKER) (test rcnz=068) 1.08 mmol/L 1.12-1.27 PH, BLOOD (BEAKER) (test qmlx=4832) 7.36 BASIC METABOLIC [id number] 05:01:00 Test Item Value Reference Range Comments SODIUM (BEAKER) (test 127 meq/L 136-145 okhm=537) POTASSIUM (BEAKER) (test 4.3 meq/L 3.5-5.1 wghi=036) CHLORIDE (BEAKER) (test 93 meq/L 98-107 zpej=223) CO2 (BEAKER) (test 22 meq/L 22-29 ajms=349) BLOOD UREA NITROGEN 67 mg/dL 7-21 (BEAKER) (test vfnm=419) CREATININE (BEAKER) (test 5.59 mg/dL 0.57-1.25 kogs=094) GLUCOSE RANDOM (BEAKER) 83 mg/dL 70-105 (test bieq=635) CALCIUM (BEAKER) (test 8.6 mg/dL 8.4-10.2 prmp=761) EGFR (BEAKER) (test 8 mL/min/1.73 sq m ESTIMATED GFR IS NOT zufb=1572) ACCURATE CREATININE CLEARANCE IN PREDICTING GLOMERULAR FILTRATION RATE. ESTIMATED GFR IS NOT APPLICABLE FOR DIALYSIS PATIENTS. [id number] 04:51:00 Test Item Value Reference Range Comments PHOSPHORUS (BEAKER) (test qfmm=292) 5.8 mg/dL 2.3-4.7 [id number] 04:51:00 Test Item Value Reference Range Comments MAGNESIUM (BEAKER) (test qhso=362) 2.0 mg/dL 1.6-2.6 B-TYPE NATRIURETIC FACTOR (BNP)2019-08-04 04:44:00 Test Item Value Reference Range Comments B-TYPE NATRIURETIC PEPTIDE (BEAKER) (test 2587 pg/mL 0-100 xxrw=412) PROTHROMBIN TIME/[id number] 04:36:00 Test Item Value Reference Range Comments PROTIME (BEAKER) (test pfoc=662) 13.2 seconds 11.9-14.2 INR (BEAKER) (test hjka=100) 1.1 <=5.9 Effective 03/18/2019: PT Reference Range ChangeNew: 11.9-14.2 Previous: 11.7- 14.7RECOMMENDED COUMADIN/WARFARIN INR THERAPY RANGESSTANDARD DOSE: 2.0-3.0 Includes: PROPHYLAXIS for venous thrombosis, systemic embolization; TREATMENT for venous thrombosis and/or pulmonary embolus.HIGH RISK: Target INR is2.5-3.5 for patients wiht mechanical heart valves.CBC W/PLT COUNT & AUTO [id number] 04:30:00 Test Item Value Reference Range Comments WHITE BLOOD CELL COUNT (BEAKER) (test miba=352) 5.5 K/ L 3.5-10.5 RED BLOOD CELL COUNT (BEAKER) (test upfl=096) 2.72 M/ L 3.93-5.22 HEMOGLOBIN (BEAKER) (test vjop=013) 8.6 GM/DL 11.2-15.7 HEMATOCRIT (BEAKER) (test tunz=069) 26.2 % 34.1-44.9 MEAN CORPUSCULAR VOLUME (BEAKER) (test cliu=226) 96.3 fL 79.4-94.8 MEAN CORPUSCULAR HEMOGLOBIN (BEAKER) (test 31.6 pg 25.6-32.2 tfjr=497) MEAN CORPUSCULAR HEMOGLOBIN CONC (BEAKER) (test 32.8 GM/DL 32.2-35.5 eoto=330) RED CELL DISTRIBUTION WIDTH (BEAKER) (test 15.0 % 11.7-14.4 hevw=979) PLATELET COUNT (BEAKER) (test rwpb=591) 294 K/CU MM 150-450 MEAN PLATELET VOLUME (BEAKER) (test vntc=929) 10.6 fL 9.4-12.3 NUCLEATED RED BLOOD CELLS (BEAKER) (test 0 /100 WBC 0-0 zexy=557) NEUTROPHILS RELATIVE PERCENT (BEAKER) (test 73 % hazi=347) LYMPHOCYTES RELATIVE PERCENT (BEAKER) (test 18 % sblk=776) MONOCYTES RELATIVE PERCENT (BEAKER) (test 8 % ogtu=374) EOSINOPHILS RELATIVE PERCENT (BEAKER) (test 0 % pvlq=841) BASOPHILS RELATIVE PERCENT (BEAKER) (test 0 % asfi=315) NEUTROPHILS ABSOLUTE COUNT (BEAKER) (test 3.98 K/ L 1.56-6.13 egus=308) LYMPHOCYTES ABSOLUTE COUNT (BEAKER) (test 1.00 K/ L 1.18-3.74 yoxj=496) MONOCYTES ABSOLUTE COUNT (BEAKER) (test 0.46 K/ L 0.24-0.36 ufpr=318) EOSINOPHILS ABSOLUTE COUNT (BEAKER) (test 0.00 K/ L 0.04-0.36 rxpg=347) BASOPHILS ABSOLUTE COUNT (BEAKER) (test 0.00 K/ L 0.01-0.08 rtqm=054) IMMATURE GRANULOCYTES-RELATIVE PERCENT (BEAKER) 1 % 0-1 (test mpwh=6331) CREATININE, RANDOM [id number] 03:22:00 Test Item Value Reference Range Comments CREATININE URINE (BEAKER) (test czvs=379) 157.2 mg/dL Reference Range: No NormalsPROTEIN, RANDOM [id number] 03:22:00 Test Item Value Reference Range Comments PROTEIN, URINE (BEAKER) (test uenp=2575) 71 mg/dL 0-14 URINALYSIS W/ [id number] 02:15:00 Test Item Value Reference Range Comments COLOR (BEAKER) (test vcwr=764) Yellow CLARITY (BEAKER) (test dfob=936) Cloudy SPECIFIC GRAVITY UA (BEAKER) (test xlnq=123) 1.020 1.001-1.035 PH UA (BEAKER) (test osjt=214) 5.5 5.0-8.0 PROTEIN UA (BEAKER) (test jufy=735) 70 mg/dL Negative GLUCOSE UA (BEAKER) (test tzdw=990) Negative Negative KETONES UA (BEAKER) (test zjom=223) 10 mg/dL Negative BILIRUBIN UA (BEAKER) (test hcsu=773) Negative Negative BLOOD UA (BEAKER) (test fkgc=783) Trace Negative NITRITE UA (BEAKER) (test ncor=530) Negative Negative LEUKOCYTE ESTERASE UA (BEAKER) (test rgpp=212) Large Negative UROBILINOGEN UA (BEAKER) (test pbfd=032) 2.0 mg/dL 0.2-1.0 RBC UA (BEAKER) (test kmov=844) 51 /HPF WBC UA (BEAKER) (test qbiz=359) 533 /HPF BACTERIA (BEAKER) (test ronc=074) Many CRYSTALS, URINE (BEAKER) (test vbau=4052) Occasional YEAST (BEAKER) (test nqde=4728) Many SOURCE(BEAKER) (test brlb=0834) POCT-GLUCOSE [id number] 20:49:00 Test Item Value Reference Range Comments POC-GLUCOSE METER (BEAKER) 145 mg/dL 70-110 TESTED AT [address] (test udki=7449) [place] [address] POCT-GLUCOSE [id number] 17:08:00 Test Item Value Reference Range Comments POC-GLUCOSE METER (BEAKER) 142 mg/dL 70-110 TESTED AT [address] (test yiui=4094) [place] [address] RAD, CHEST, 1 VIEW, NON [id number] 13:52:00Reason for exam:->Fluid overloadShould this be performed [...] Verified Date/Time: 08/03/2019 13: 52:14 Reading Location: [facility] Radiology Reading Room POCT-GLUCOSE [id number] 12:26:00 Test Item Value Reference Range Comments POC-GLUCOSE METER (BEAKER) 112 mg/dL 70-110 TESTED AT [address] (test oaif=8599) [place] [id number] POCT-GLUCOSE [id number] 08:19:00 Test Item Value Reference Range Comments POC-GLUCOSE METER (BEAKER) 95 mg/dL 70-110 TESTED AT [address] (test uzcq=8979) [place] [address] BASIC METABOLIC [id number] 07:26:00 Test Item Value Reference Range Comments SODIUM (BEAKER) (test 128 meq/L 136-145 hapq=341) POTASSIUM (BEAKER) (test 3.6 meq/L 3.5-5.1 jycu=292) CHLORIDE (BEAKER) (test 95 meq/L 98-107 tiim=356) CO2 (BEAKER) (test 24 meq/L 22-29 pbdr=661) BLOOD UREA NITROGEN 46 mg/dL 7-21 (BEAKER) (test ziua=440) CREATININE (BEAKER) (test 4.09 mg/dL 0.57-1.25 vjeo=762) GLUCOSE RANDOM (BEAKER) 93 mg/dL 70-105 (test vejc=533) CALCIUM (BEAKER) (test 8.4 mg/dL 8.4-10.2 kumz=168) EGFR (BEAKER) (test 11 mL/min/1.73 sq m ESTIMATED GFR IS NOT ajgf=8563) ACCURATE CREATININE CLEARANCE IN PREDICTING GLOMERULAR FILTRATION RATE. ESTIMATED GFR IS NOT APPLICABLE FOR DIALYSIS PATIENTS. POCT-GLUCOSE [id number] 20:40:00 Test Item Value Reference Range Comments POC-GLUCOSE METER (BEAKER) 156 mg/dL 70-110 TESTED AT [address] (test yllr=5609) [place] [id number] POCT-GLUCOSE [id number] 18:30:00 Test Item Value Reference Range Comments POC-GLUCOSE METER (BEAKER) 151 mg/dL 70-110 TESTED AT [address] (test tzwg=9508) [facility] [address] BASIC METABOLIC [id number] 05:47:00 Test Item Value Reference Range Comments SODIUM (BEAKER) (test 137 meq/L 136-145 gboj=198) POTASSIUM (BEAKER) (test 3.9 meq/L 3.5-5.1 boar=428) CHLORIDE (BEAKER) (test 100 meq/L 98-107 knho=199) CO2 (BEAKER) (test 25 meq/L 22-29 kslm=321) BLOOD UREA NITROGEN 25 mg/dL 7-21 (BEAKER) (test zxln=271) CREATININE (BEAKER) (test 2.64 mg/dL 0.57-1.25 jcmp=102) GLUCOSE RANDOM (BEAKER) 86 mg/dL 70-105 (test pthd=813) CALCIUM (BEAKER) (test 9.0 mg/dL 8.4-10.2 ijas=160) EGFR (BEAKER) (test 18 mL/min/1.73 sq m ESTIMATED GFR IS NOT ezqj=1677) ACCURATE CREATININE CLEARANCE IN PREDICTING GLOMERULAR FILTRATION RATE. ESTIMATED GFR IS NOT APPLICABLE FOR DIALYSIS PATIENTS. CBC W/PLT COUNT & AUTO [id number] 05:13:00 Test Item Value Reference Range Comments WHITE BLOOD CELL COUNT (BEAKER) (test zxzw=201) 6.6 K/ L 3.5-10.5 RED BLOOD CELL COUNT (BEAKER) (test pbju=109) 2.99 M/ L 3.93-5.22 HEMOGLOBIN (BEAKER) (test yqcv=433) 9.4 GM/DL 11.2-15.7 HEMATOCRIT (BEAKER) (test qsvz=192) 28.7 % 34.1-44.9 MEAN CORPUSCULAR VOLUME (BEAKER) (test kxma=771) 96.0 fL 79.4-94.8 MEAN CORPUSCULAR HEMOGLOBIN (BEAKER) (test 31.4 pg 25.6-32.2 icfg=225) MEAN CORPUSCULAR HEMOGLOBIN CONC (BEAKER) (test 32.8 GM/DL 32.2-35.5 aucm=038) RED CELL DISTRIBUTION WIDTH (BEAKER) (test 15.1 % 11.7-14.4 dqxw=531) PLATELET COUNT (BEAKER) (test tgyk=393) 304 K/CU MM 150-450 MEAN PLATELET VOLUME (BEAKER) (test zjsr=931) 10.8 fL 9.4-12.3 NUCLEATED RED BLOOD CELLS (BEAKER) (test 0 /100 WBC 0-0 vosc=672) NEUTROPHILS RELATIVE PERCENT (BEAKER) (test 72 % dhho=103) LYMPHOCYTES RELATIVE PERCENT (BEAKER) (test 17 % hlzz=595) MONOCYTES RELATIVE PERCENT (BEAKER) (test 11 % pbkb=791) EOSINOPHILS RELATIVE PERCENT (BEAKER) (test 0 % rxik=857) BASOPHILS RELATIVE PERCENT (BEAKER) (test 0 % ppwe=362) NEUTROPHILS ABSOLUTE COUNT (BEAKER) (test 4.77 K/ L 1.56-6.13 uvbw=102) LYMPHOCYTES ABSOLUTE COUNT (BEAKER) (test 1.10 K/ L 1.18-3.74 dgxz=562) MONOCYTES ABSOLUTE COUNT (BEAKER) (test 0.70 K/ L 0.24-0.36 pbbq=079) EOSINOPHILS ABSOLUTE COUNT (BEAKER) (test 0.00 K/ L 0.04-0.36 wjzg=689) BASOPHILS ABSOLUTE COUNT (BEAKER) (test 0.00 K/ L 0.01-0.08 cacd=439) IMMATURE GRANULOCYTES-RELATIVE PERCENT (BEAKER) 1 % 0-1 (test alpr=8711) POCT-GLUCOSE [id number] 21:29:00 Test Item Value Reference Range Comments POC-GLUCOSE METER (BEAKER) 226 mg/dL 70-110 TESTED AT [address] (test wusd=6636) [place] [address] POCT-GLUCOSE [id number] 13:03:00 Test Item Value Reference Range Comments POC-GLUCOSE METER (BEAKER) 134 mg/dL 70-110 TESTED AT [address] (test ytio=9587) [place] [address] POCT-GLUCOSE [id number] 09:37:00 Test Item Value Reference Range Comments POC-GLUCOSE METER (BEAKER) 82 mg/dL 70-110 TESTED AT [address] (test lpcg=9379) [place] [address] BASIC METABOLIC [id number] 05:53:00 Test Item Value Reference Range Comments SODIUM (BEAKER) (test 131 meq/L 136-145 qeat=986) POTASSIUM (BEAKER) (test 3.4 meq/L 3.5-5.1 pivp=456) CHLORIDE (BEAKER) (test 94 meq/L 98-107 ihqh=267) CO2 (BEAKER) (test 25 meq/L 22-29 cmyu=557) BLOOD UREA NITROGEN 47 mg/dL 7-21 (BEAKER) (test vqrd=567) CREATININE (BEAKER) (test 4.03 mg/dL 0.57-1.25 atju=167) GLUCOSE RANDOM (BEAKER) 81 mg/dL 70-105 (test gvdd=779) CALCIUM (BEAKER) (test 8.1 mg/dL 8.4-10.2 stmz=819) EGFR (BEAKER) (test 11 mL/min/1.73 sq m ESTIMATED GFR IS NOT hzba=4377) ACCURATE CREATININE CLEARANCE IN PREDICTING GLOMERULAR FILTRATION RATE. ESTIMATED GFR IS NOT APPLICABLE FOR DIALYSIS PATIENTS. CBC W/PLT COUNT & AUTO [id number] 05:32:00 Test Item Value Reference Range Comments WHITE BLOOD CELL COUNT (BEAKER) (test gfhj=953) 8.2 K/ L 3.5-10.5 RED BLOOD CELL COUNT (BEAKER) (test ukac=737) 2.75 M/ L 3.93-5.22 HEMOGLOBIN (BEAKER) (test ntod=638) 8.6 GM/DL 11.2-15.7 HEMATOCRIT (BEAKER) (test haeq=618) 26.0 % 34.1-44.9 MEAN CORPUSCULAR VOLUME (BEAKER) (test pwnm=359) 94.5 fL 79.4-94.8 MEAN CORPUSCULAR HEMOGLOBIN (BEAKER) (test 31.3 pg 25.6-32.2 zpmf=905) MEAN CORPUSCULAR HEMOGLOBIN CONC (BEAKER) (test 33.1 GM/DL 32.2-35.5 evpq=468) RED CELL DISTRIBUTION WIDTH (BEAKER) (test 15.8 % 11.7-14.4 wnpn=982) PLATELET COUNT (BEAKER) (test lyrx=076) 262 K/CU MM 150-450 MEAN PLATELET VOLUME (BEAKER) (test ocyr=042) 10.9 fL 9.4-12.3 NUCLEATED RED BLOOD CELLS (BEAKER) (test 0 /100 WBC 0-0 xgtn=698) NEUTROPHILS RELATIVE PERCENT (BEAKER) (test 71 % ufus=746) LYMPHOCYTES RELATIVE PERCENT (BEAKER) (test 18 % rnce=931) MONOCYTES RELATIVE PERCENT (BEAKER) (test 10 % vvmq=793) EOSINOPHILS RELATIVE PERCENT (BEAKER) (test 0 % orbz=289) BASOPHILS RELATIVE PERCENT (BEAKER) (test 0 % ejzk=604) NEUTROPHILS ABSOLUTE COUNT (BEAKER) (test 5.81 K/ L 1.56-6.13 fpgq=994) LYMPHOCYTES ABSOLUTE COUNT (BEAKER) (test 1.48 K/ L 1.18-3.74 bley=069) MONOCYTES ABSOLUTE COUNT (BEAKER) (test 0.85 K/ L 0.24-0.36 eiyf=129) EOSINOPHILS ABSOLUTE COUNT (BEAKER) (test 0.01 K/ L 0.04-0.36 yrcd=708) BASOPHILS ABSOLUTE COUNT (BEAKER) (test 0.01 K/ L 0.01-0.08 oehr=211) IMMATURE GRANULOCYTES-RELATIVE PERCENT (BEAKER) 1 % 0-1 (test vmas=4725) POCT-GLUCOSE [id number] 00:07:00 Test Item Value Reference Range Comments POC-GLUCOSE METER (BEAKER) 120 mg/dL 70-110 TESTED AT [facility] [address] [facility] (test jzyq=9780) [facility] [address] URINE PROTEIN ELECTROPHORESIS, [id number] 15:42:00 Test Item Value Reference Range Comments PROTEIN, URINE (BEAKER) (test 41 mg/dL 0-14 mnhy=9801) ALBUMIN URINE ELP (BEAKER) 56.1 % (test btym=9446) GAMMA GLOBULIN URINE (BEAKER) 43.9 % (test jyui=8807) UPEP, ID-438 (BEAKER) (test Urine protein study consistent baij=5089) with glomerular dysfunction. No monoclonal bands detected. [id number] (BEAKER) Valerie Scott MD (electronic (test ktca=5854) signature) PROTEIN ELECTROPHORESIS, [id number] 15:34:00 Test Item Value Reference Range Comments ALBUMIN FRACTION (BEAKER) 3.6 g/dL 3.5-5.5 (test fccd=798) ALPHA 1 FRACTION (BEAKER) 0.4 g/dL 0.2-0.4 (test ccwx=692) ALPHA 2 FRACTION (BEAKER) 0.9 g/dL 0.5-0.9 (test ztad=619) BETA FRACTION (BEAKER) 0.7 g/dL 0.6-1.1 (test bzpl=578) GAMMA GLOBULIN FRACTION 0.7 g/dL 0.7-1.7 (BEAKER) (test zgay=689) INTERPRETATION-119 (BEAKER) Normal electrophoretic pattern. (test iwfj=1772) No monoclonal bands identified. [id number] Valerie Scott MD (electronic (BEAKER) (test bqao=5062) signature) PROTEIN TOTAL SERUM, SPEP 6.3 gm/dL 6.0-8.3 (BEAKER) (test dsie=3697) POCT-GLUCOSE [id number] 08:49:00 Test Item Value Reference Range Comments POC-GLUCOSE METER (BEAKER) 88 mg/dL 70-110 TESTED AT [facility] [address] [facility] (test hxff=0966) [facility] [address] BASIC METABOLIC [id number] 07:13:00 Test Item Value Reference Range Comments SODIUM (BEAKER) (test 138 meq/L 136-145 asod=722) POTASSIUM (BEAKER) (test 3.7 meq/L 3.5-5.1 sizp=214) CHLORIDE (BEAKER) (test 102 meq/L 98-107 gojc=061) CO2 (BEAKER) (test 25 meq/L 22-29 izek=400) BLOOD UREA NITROGEN 30 mg/dL 7-21 (BEAKER) (test onxx=392) CREATININE (BEAKER) (test 3.01 mg/dL 0.57-1.25 qmpl=126) GLUCOSE RANDOM (BEAKER) 87 mg/dL 70-105 (test whta=455) CALCIUM (BEAKER) (test 8.3 mg/dL 8.4-10.2 zstc=997) EGFR (BEAKER) (test 15 mL/min/1.73 sq m ESTIMATED GFR IS NOT ayue=6652) ACCURATE CREATININE CLEARANCE IN PREDICTING GLOMERULAR FILTRATION RATE. ESTIMATED GFR IS NOT APPLICABLE FOR DIALYSIS PATIENTS. [id number] 07:12:00 Test Item Value Reference Range Comments PHOSPHORUS (BEAKER) (test wmnh=033) 3.5 mg/dL 2.3-4.7 [id number] 07:12:00 Test Item Value Reference Range Comments MAGNESIUM (BEAKER) (test qcpw=178) 2.1 mg/dL 1.6-2.6 CBC W/PLT COUNT & AUTO [id number] 04:59:00 Test Item Value Reference Range Comments WHITE BLOOD CELL COUNT (BEAKER) (test ejhr=205) 9.7 K/ L 3.5-10.5 RED BLOOD CELL COUNT (BEAKER) (test mhbb=951) 2.68 M/ L 3.93-5.22 HEMOGLOBIN (BEAKER) (test cdjo=404) 8.4 GM/DL 11.2-15.7 HEMATOCRIT (BEAKER) (test ujvg=649) 25.8 % 34.1-44.9 MEAN CORPUSCULAR VOLUME (BEAKER) (test mqni=103) 96.3 fL 79.4-94.8 MEAN CORPUSCULAR HEMOGLOBIN (BEAKER) (test 31.3 pg 25.6-32.2 qnuq=308) MEAN CORPUSCULAR HEMOGLOBIN CONC (BEAKER) (test 32.6 GM/DL 32.2-35.5 jpej=065) RED CELL DISTRIBUTION WIDTH (BEAKER) (test 16.4 % 11.7-14.4 kavu=016) PLATELET COUNT (BEAKER) (test zdkh=594) 240 K/CU MM 150-450 MEAN PLATELET VOLUME (BEAKER) (test pzlt=989) 10.5 fL 9.4-12.3 NUCLEATED RED BLOOD CELLS (BEAKER) (test 0 /100 WBC 0-0 sfkt=703) NEUTROPHILS RELATIVE PERCENT (BEAKER) (test 75 % dxms=946) LYMPHOCYTES RELATIVE PERCENT (BEAKER) (test 15 % zhia=374) MONOCYTES RELATIVE PERCENT (BEAKER) (test 9 % hfal=413) EOSINOPHILS RELATIVE PERCENT (BEAKER) (test 0 % ybxq=648) BASOPHILS RELATIVE PERCENT (BEAKER) (test 0 % ydwo=405) NEUTROPHILS ABSOLUTE COUNT (BEAKER) (test 7.29 K/ L 1.56-6.13 yrbg=769) LYMPHOCYTES ABSOLUTE COUNT (BEAKER) (test 1.44 K/ L 1.18-3.74 qrmr=912) MONOCYTES ABSOLUTE COUNT (BEAKER) (test 0.84 K/ L 0.24-0.36 ymns=329) EOSINOPHILS ABSOLUTE COUNT (BEAKER) (test 0.00 K/ L 0.04-0.36 ofhj=989) BASOPHILS ABSOLUTE COUNT (BEAKER) (test 0.03 K/ L 0.01-0.08 zicb=605) IMMATURE GRANULOCYTES-RELATIVE PERCENT (BEAKER) 1 % 0-1 (test rkub=9709) BASIC METABOLIC [id number] 18:41:00 Test Item Value Reference Range Comments SODIUM (BEAKER) (test 139 meq/L 136-145 fetp=520) POTASSIUM (BEAKER) (test 3.7 meq/L 3.5-5.1 pcmm=971) CHLORIDE (BEAKER) (test 101 meq/L 98-107 dkgd=637) CO2 (BEAKER) (test 29 meq/L 22-29 llcf=935) BLOOD UREA NITROGEN 15 mg/dL 7-21 (BEAKER) (test jyav=507) CREATININE (BEAKER) (test 1.93 mg/dL 0.57-1.25 vnas=863) GLUCOSE RANDOM (BEAKER) 134 mg/dL 70-105 (test caup=164) CALCIUM (BEAKER) (test 8.6 mg/dL 8.4-10.2 fupp=156) EGFR (BEAKER) (test 26 mL/min/1.73 sq m ESTIMATED GFR IS NOT xain=0438) ACCURATE CREATININE CLEARANCE IN PREDICTING GLOMERULAR FILTRATION RATE. ESTIMATED GFR IS NOT APPLICABLE FOR DIALYSIS PATIENTS. VITAMIN B12 AND [id number] 17:59:00 Test Item Value Reference Range Comments VITAMIN B12 (BEAKER) (test gstg=864) > pg/mL 213-816 FOLATE (BEAKER) (test zumu=729) 12.7 ng/mL >=7.0 BASIC METABOLIC [id number] 16:16:00 Test Item Value Reference Range Comments SODIUM (BEAKER) (test 139 meq/L 136-145 uzxc=312) POTASSIUM (BEAKER) (test 3.9 meq/L 3.5-5.1 akdv=415) CHLORIDE (BEAKER) (test 101 meq/L 98-107 mdrm=571) CO2 (BEAKER) (test 27 meq/L 22-29 qpln=957) BLOOD UREA NITROGEN 12 mg/dL 7-21 (BEAKER) (test fpwe=964) CREATININE (BEAKER) (test 1.72 mg/dL 0.57-1.25 cyaa=740) GLUCOSE RANDOM (BEAKER) 134 mg/dL 70-105 (test fywt=322) CALCIUM (BEAKER) (test 9.0 mg/dL 8.4-10.2 vjfr=007) EGFR (BEAKER) (test 29 mL/min/1.73 sq m ESTIMATED GFR IS NOT ozdo=6177) ACCURATE CREATININE CLEARANCE IN PREDICTING GLOMERULAR FILTRATION RATE. ESTIMATED GFR IS NOT APPLICABLE FOR DIALYSIS PATIENTS. [id number] 16:07:00 Test Item Value Reference Range Comments PHOSPHORUS (BEAKER) (test trju=165) 2.8 mg/dL 2.3-4.7 [id number] 16:07:00 Test Item Value Reference Range Comments MAGNESIUM (BEAKER) (test xotd=101) 2.0 mg/dL 1.6-2.6 HEMOGLOBIN AND [id number] 15:53:00 Test Item Value Reference Range Comments HEMOGLOBIN (BEAKER) (test hzeu=663) 9.6 GM/DL 11.2-15.7 HEMATOCRIT (BEAKER) (test dmzp=111) 28.9 % 34.1-44.9 RAD, CHEST, 1 VIEW, NON [id number] 13:32:00Reason for exam:->SOBShould this be performed at [...] Verified Date/Time: 07/30/2019 13:32: 46 Reading Location: [facility] Radiology Reading Room EOSINOPHIL SMEAR, [id number] 12:08:00 Test Item Value Reference Range Comments EOSINOPHIL SMEAR, URINE (BEAKER) Rare EOS=less than 5% WBCs No EOS seen (test mlym=0017) seen are EOS RHEUMATOID FACTOR AB, REFLEX TO [id number] 12:01:00 Test Item Value Reference Range Comments RHEUMATOID FACTOR (BEAKER) (test otwy=844) Negative POCT-GLUCOSE [id number] 10:59:00 Test Item Value Reference Range Comments POC-GLUCOSE METER (BEAKER) 87 mg/dL 70-110 TESTED AT [address] (test ivgx=8404) [facility] [address] ANTI-NUCLEAR ANTIBODY (SOCRATES)2019-07-30 10:13:00 Test Item Value Reference Range Comments ANTI-NUCLEAR ANTIBODY (SOCRATES) (BEAKER) (test Positive Negative enob=249) Test performed by IFA method.SOCRATES TITER AND [id number] 10:13:00 Test Item Value Reference Range Comments SOCRATES TITER (BEAKER) (test hnav=2610) :160 SOCRATES PATTERN (BEAKER) (test hfng=5075) Nucleolar [id number] 10:05:00 Test Item Value Reference Range Comments FERRITIN (BEAKER) (test ygzi=307) 646 ng/mL 5-275 IRON, TIBC, % SAT. (WITHOUT FERRITIN)2019-07-30 09:44:00 Test Item Value Reference Range Comments IRON (BEAKER) (test zlfb=487) 38.0 ug/dL 40.0-160.0 TOTAL IRON BINDING CAPACITY (BEAKER) (test 243 ug/dL 250-450 rraw=718) IRON % SATURATION (2) (BEAKER) (test nsyk=6527) 16 % 20-55 BASIC METABOLIC [id number] 09:20:00 Test Item Value Reference Range Comments SODIUM (BEAKER) (test 136 meq/L 136-145 ejpq=967) POTASSIUM (BEAKER) (test 5.0 meq/L 3.5-5.1 wfpf=022) CHLORIDE (BEAKER) (test 102 meq/L 98-107 iqja=597) CO2 (BEAKER) (test 24 meq/L 22-29 xfiq=079) BLOOD UREA NITROGEN 34 mg/dL 7-21 (BEAKER) (test wiau=981) CREATININE (BEAKER) (test 2.93 mg/dL 0.57-1.25 ckqt=313) GLUCOSE RANDOM (BEAKER) 101 mg/dL 70-105 (test soim=423) CALCIUM (BEAKER) (test 8.5 mg/dL 8.4-10.2 mnmx=067) EGFR (BEAKER) (test 16 mL/min/1.73 sq m ESTIMATED GFR IS NOT buvw=6296) ACCURATE CREATININE CLEARANCE IN PREDICTING GLOMERULAR FILTRATION RATE. ESTIMATED GFR IS NOT APPLICABLE FOR DIALYSIS PATIENTS. [id number] 09:17:00 Test Item Value Reference Range Comments PHOSPHORUS (BEAKER) (test uiug=139) 5.3 mg/dL 2.3-4.7 [id number] 09:17:00 Test Item Value Reference Range Comments MAGNESIUM (BEAKER) (test eipn=243) 2.1 mg/dL 1.6-2.6 [id number] 09:16:00 Test Item Value Reference Range Comments MAGNESIUM (BEAKER) (test jgii=264) 2.1 mg/dL 1.6-2.6 TSH/FREE T4 IF [id number] 07:01:00 Test Item Value Reference Range Comments THYROID STIMULATING HORMONE (BEAKER) (test 1.59 uIU/mL 0.35-4.94 nfwv=341) COMPLEMENT COMPONENT [id number] 06:49:00 Test Item Value Reference Range Comments C4 COMPLEMENT (BEAKER) (test btwy=727) 28 mg/dL 15-57 COMPLEMENT COMPONENT [id number] 06:49:00 Test Item Value Reference Range Comments C3 COMPLEMENT (BEAKER) (test dllb=331) 102 mg/dL 82-193 COMPREHENSIVE METABOLIC [id number] 04:56:00 Test Item Value Reference Range Comments TOTAL PROTEIN (BEAKER) 6.2 gm/dL 6.0-8.3 (test umvn=098) ALBUMIN (BEAKER) (test 3.7 g/dL 3.5-5.0 ufkk=8908) ALKALINE PHOSPHATASE 57 U/L 40-150 (BEAKER) (test fada=812) BILIRUBIN TOTAL (BEAKER) 0.3 mg/dL 0.2-1.2 (test umfv=409) SODIUM (BEAKER) (test 138 meq/L 136-145 wphd=226) POTASSIUM (BEAKER) (test 4.6 meq/L 3.5-5.1 rjxl=806) CHLORIDE (BEAKER) (test 104 meq/L 98-107 zxbi=565) CO2 (BEAKER) (test 23 meq/L 22-29 bqkw=275) BLOOD UREA NITROGEN 31 mg/dL 7-21 (BEAKER) (test niji=823) CREATININE (BEAKER) (test 2.72 mg/dL 0.57-1.25 ioui=447) GLUCOSE RANDOM (BEAKER) 112 mg/dL 70-105 (test xrey=085) CALCIUM (BEAKER) (test 8.8 mg/dL 8.4-10.2 dreh=235) AST (SGOT) (BEAKER) (test 24 U/L 5-34 vyxp=572) ALT (SGPT) (BEAKER) (test 12 U/L 6-55 wodz=852) EGFR (BEAKER) (test 17 mL/min/1.73 sq m ESTIMATED GFR IS NOT abmy=6467) ACCURATE CREATININE CLEARANCE IN PREDICTING GLOMERULAR FILTRATION RATE. ESTIMATED GFR IS NOT APPLICABLE FOR DIALYSIS PATIENTS. [id number] 04:51:00 Test Item Value Reference Range Comments PHOSPHORUS (BEAKER) (test hfil=682) 4.7 mg/dL 2.3-4.7 [id number] 04:51:00 Test Item Value Reference Range Comments MAGNESIUM (BEAKER) (test scec=160) 2.0 mg/dL 1.6-2.6 CBC W/PLT COUNT & AUTO [id number] 04:28:00 Test Item Value Reference Range Comments WHITE BLOOD CELL COUNT (BEAKER) (test mlij=004) 14.8 K/ L 3.5-10.5 RED BLOOD CELL COUNT (BEAKER) (test nagr=630) 2.09 M/ L 3.93-5.22 HEMOGLOBIN (BEAKER) (test vuxi=430) 6.7 GM/DL 11.2-15.7 HEMATOCRIT (BEAKER) (test tnhq=641) 20.5 % 34.1-44.9 MEAN CORPUSCULAR VOLUME (BEAKER) (test mugj=070) 98.1 fL 79.4-94.8 MEAN CORPUSCULAR HEMOGLOBIN (BEAKER) (test 32.1 pg 25.6-32.2 ixle=708) MEAN CORPUSCULAR HEMOGLOBIN CONC (BEAKER) (test 32.7 GM/DL 32.2-35.5 lzvg=458) RED CELL DISTRIBUTION WIDTH (BEAKER) (test 15.0 % 11.7-14.4 fcrk=197) PLATELET COUNT (BEAKER) (test xybf=214) 263 K/CU MM 150-450 MEAN PLATELET VOLUME (BEAKER) (test kylg=383) 10.3 fL 9.4-12.3 NUCLEATED RED BLOOD CELLS (BEAKER) (test 0 /100 WBC 0-0 zwon=626) NEUTROPHILS RELATIVE PERCENT (BEAKER) (test 87 % uomu=552) LYMPHOCYTES RELATIVE PERCENT (BEAKER) (test 6 % lxxs=768) MONOCYTES RELATIVE PERCENT (BEAKER) (test 6 % stsp=280) EOSINOPHILS RELATIVE PERCENT (BEAKER) (test 0 % ozyd=519) BASOPHILS RELATIVE PERCENT (BEAKER) (test 0 % kahw=173) NEUTROPHILS ABSOLUTE COUNT (BEAKER) (test 12.92 K/ L 1.56-6.13 qvtb=340) LYMPHOCYTES ABSOLUTE COUNT (BEAKER) (test 0.95 K/ L 1.18-3.74 ndof=297) MONOCYTES ABSOLUTE COUNT (BEAKER) (test 0.87 K/ L 0.24-0.36 aumu=196) EOSINOPHILS ABSOLUTE COUNT (BEAKER) (test 0.00 K/ L 0.04-0.36 eavb=399) BASOPHILS ABSOLUTE COUNT (BEAKER) (test 0.01 K/ L 0.01-0.08 lbbe=117) IMMATURE GRANULOCYTES-RELATIVE PERCENT (BEAKER) 1 % 0-1 (test zhjp=1111) BLOOD GAS, [id number] 04:22:00 Test Item Value Reference Range Comments PH ARTERIAL (BEAKER) (test gfmb=591) 7.44 7.35-7.45 PCO2 ARTERIAL (BEAKER) (test unzq=387) 37 mmHg 35-45 PO2 ARTERIAL (BEAKER) (test yxob=442) 188 mmHg 80-90 O2 SATURATION ARTERIAL (BEAKER) (test xtak=200) 99.4 % 96.0-97.0 HCO3 ARTERIAL (BEAKER) (test xlvj=851) 24 mmol/L 21-29 BASE EXCESS ARTERIAL (BEAKER) (test avzx=090) 0.1 mmol/L -2.0-3.0 PATIENT TEMPERATURE (BEAKER) (test mimf=7889) 36.5 C FIO2 (BEAKER) (test ktbz=0841) 50.0 % CALCIUM, [id number] 04:17:00 Test Item Value Reference Range Comments CALCIUM IONIZED (BEAKER) (test teod=055) 1.13 mmol/L 1.12-1.27 PH, BLOOD (BEAKER) (test tvkd=2878) 7.43 HEPATITIS B SURFACE [id number] 22:40:00 Test Item Value Reference Range Comments HEPATITIS B SURFACE ANTIGEN (2) (BEAKER) (test Nonreactive Nonreactive figs=9105) BASIC METABOLIC [id number] 21:37:00 Test Item Value Reference Range Comments SODIUM (BEAKER) (test 134 meq/L 136-145 aose=235) POTASSIUM (BEAKER) (test 6.0 meq/L 3.5-5.1 cqua=811) CHLORIDE (BEAKER) (test 105 meq/L 98-107 kyjl=344) CO2 (BEAKER) (test 17 meq/L 22-29 iery=274) BLOOD UREA NITROGEN 74 mg/dL 7-21 (BEAKER) (test iaft=007) CREATININE (BEAKER) (test 4.66 mg/dL 0.57-1.25 rjul=862) GLUCOSE RANDOM (BEAKER) 142 mg/dL 70-105 (test aodb=204) CALCIUM (BEAKER) (test 8.0 mg/dL 8.4-10.2 ybdb=817) EGFR (BEAKER) (test 9 mL/min/1.73 sq m ESTIMATED GFR IS NOT akfi=6595) ACCURATE CREATININE CLEARANCE IN PREDICTING GLOMERULAR FILTRATION RATE. ESTIMATED GFR IS NOT APPLICABLE FOR DIALYSIS PATIENTS. U/S, RENAL WITH [id number] 21:31:00Reason for exam:->AKIFINAL REPORT U/S, RENAL WITH [...] Brito MDReport Verified Date/Time: 07/29/2019 21:31 :26 [id number] 21:27:00 Test Item Value Reference Range Comments MAGNESIUM (BEAKER) (test ukuc=029) 2.3 mg/dL 1.6-2.6 TROPONIN [id number] 21:18:00 Test Item Value Reference Range Comments TROPONIN I (BEAKER) (test yybe=128) 0.08 ng/mL 0.00-0.03 Troponin I (TnI) levels [...] and persistent tachyarrhythmia.RAD, CHEST, 1 VIEW, NON [id number] 20:45:00Reason for exam:->CVC placementShould this be performed [...] Rahman MDReport Verified Date/Time: 07/29/2019 20:45:35Reading Location: [address] Neuro Reading Room BASI METABOLIC [id number] 20:31:00 Test Item Value Reference Range Comments SODIUM (BEAKER) (test 134 meq/L 136-145 gipa=009) POTASSIUM (BEAKER) (test 6.0 meq/L 3.5-5.1 ebtz=359) CHLORIDE (BEAKER) (test 105 meq/L 98-107 pztq=801) CO2 (BEAKER) (test 18 meq/L 22-29 yiep=913) BLOOD UREA NITROGEN 74 mg/dL 7-21 (BEAKER) (test jkij=213) CREATININE (BEAKER) (test 4.68 mg/dL 0.57-1.25 vsoq=972) GLUCOSE RANDOM (BEAKER) 143 mg/dL 70-105 (test zmzr=508) CALCIUM (BEAKER) (test 8.0 mg/dL 8.4-10.2 vgfy=813) EGFR (BEAKER) (test 9 mL/min/1.73 sq m ESTIMATED GFR IS NOT wdad=0897) ACCURATE CREATININE CLEARANCE IN PREDICTING GLOMERULAR FILTRATION RATE. ESTIMATED GFR IS NOT APPLICABLE FOR DIALYSIS PATIENTS. Draw 1 hour after giving insulin. Page [phone]. Thank you.CREATININE, RANDOM [id number] 18:51:00 Test Item Value Reference Range Comments CREATININE URINE (BEAKER) (test rczy=216) 149.5 mg/dL Reference Range: No NormalsPROTEIN, RANDOM [id number] 18:51:00 Test Item Value Reference Range Comments PROTEIN, URINE (BEAKER) (test jkbf=7358) 86 mg/dL 0-14 BASIC METABOLIC [id number] 18:21:00 Test Item Value Reference Range Comments SODIUM (BEAKER) (test 134 meq/L 136-145 cnvj=471) POTASSIUM (BEAKER) (test 6.1 meq/L 3.5-5.1 egio=312) CHLORIDE (BEAKER) (test 105 meq/L 98-107 eirx=352) CO2 (BEAKER) (test 18 meq/L 22-29 sguf=787) BLOOD UREA NITROGEN 71 mg/dL 7-21 (BEAKER) (test vbyc=982) CREATININE (BEAKER) (test 4.41 mg/dL 0.57-1.25 khhg=530) GLUCOSE RANDOM (BEAKER) 156 mg/dL 70-105 (test ualf=510) CALCIUM (BEAKER) (test 8.1 mg/dL 8.4-10.2 sces=423) EGFR (BEAKER) (test 10 mL/min/1.73 sq m ESTIMATED GFR IS NOT nvdl=2364) ACCURATE CREATININE CLEARANCE IN PREDICTING GLOMERULAR FILTRATION RATE. ESTIMATED GFR IS NOT APPLICABLE FOR DIALYSIS PATIENTS. URIC [id number] 17:45:00 Test Item Value Reference Range Comments URIC ACID (BEAKER) (test mivm=199) 8.0 mg/dL 2.6-7.2 URINALYSIS W/ [id number] 17:44:00 Test Item Value Reference Range Comments COLOR (BEAKER) (test rhfn=810) Yellow CLARITY (BEAKER) (test bycf=892) Hazy SPECIFIC GRAVITY UA (BEAKER) (test wcgu=645) 1.017 1.001-1.035 PH UA (BEAKER) (test sslk=926) 5.5 5.0-8.0 PROTEIN UA (BEAKER) (test csrr=161) 30 mg/dL Negative GLUCOSE UA (BEAKER) (test uxvh=585) Negative Negative KETONES UA (BEAKER) (test chwd=179) Negative Negative BILIRUBIN UA (BEAKER) (test iocg=510) Negative Negative BLOOD UA (BEAKER) (test webx=503) Moderate Negative NITRITE UA (BEAKER) (test ubnm=030) Negative Negative LEUKOCYTE ESTERASE UA (BEAKER) (test reum=232) Large Negative UROBILINOGEN UA (BEAKER) (test gmdf=671) 0.2 mg/dL 0.2-1.0 RBC UA (BEAKER) (test sbdw=477) 13 /HPF WBC UA (BEAKER) (test yhas=515) 70 /HPF MUCUS (BEAKER) (test gjdn=6168) Rare SQUAMOUS EPITHELIAL (BEAKER) (test hwle=581) < /HPF HYALINE CASTS (BEAKER) (test hdvt=352) 13 /LPF YEAST (BEAKER) (test jsgi=7542) Rare SOURCE(BEAKER) (test prkh=7564) Urine, [place] BLOOD GAS, [id number] 17:37:00 Test Item Value Reference Range Comments PH ARTERIAL (BEAKER) (test leju=535) 7.22 7.35-7.45 PCO2 ARTERIAL (BEAKER) (test kxku=865) 44 mmHg 35-45 PO2 ARTERIAL (BEAKER) (test ireq=227) 100 mmHg 80-90 O2 SATURATION ARTERIAL (BEAKER) (test dcma=597) 96.4 % 96.0-97.0 HCO3 ARTERIAL (BEAKER) (test qupx=960) 18 mmol/L 21-29 BASE EXCESS ARTERIAL (BEAKER) (test bpwz=162) -9.4 mmol/L -2.0-3.0 PATIENT TEMPERATURE (BEAKER) (test kfjw=8642) 36.7 C FIO2 (BEAKER) (test saqy=0233) 50.0 % B-TYPE NATRIURETIC FACTOR (BNP)2019-07-29 16:27:00 Test Item Value Reference Range Comments B-TYPE NATRIURETIC PEPTIDE (BEAKER) (test 3829 pg/mL 0-100 cefe=667) CALCIUM, [id number] 16:05:00 Test Item Value Reference Range Comments CALCIUM IONIZED (BEAKER) (test pwik=731) 1.00 mmol/L 1.12-1.27 PH, BLOOD (BEAKER) (test bzsp=4721) 7.30 BASIC METABOLIC [id number] 15:53:00 Test Item Value Reference Range Comments SODIUM (BEAKER) (test 134 meq/L 136-145 kwzx=948) POTASSIUM (BEAKER) (test 6.4 meq/L 3.5-5.1 bwim=737) CHLORIDE (BEAKER) (test 107 meq/L 98-107 jowl=342) CO2 (BEAKER) (test 20 meq/L 22-29 ygfk=853) BLOOD UREA NITROGEN 69 mg/dL 7-21 (BEAKER) (test trcu=321) CREATININE (BEAKER) (test 4.07 mg/dL 0.57-1.25 bpcs=242) GLUCOSE RANDOM (BEAKER) 158 mg/dL 70-105 (test drlq=982) CALCIUM (BEAKER) (test 7.9 mg/dL 8.4-10.2 ohvj=951) EGFR (BEAKER) (test 11 mL/min/1.73 sq m ESTIMATED GFR IS NOT gtzc=2518) ACCURATE CREATININE CLEARANCE IN PREDICTING GLOMERULAR FILTRATION RATE. ESTIMATED GFR IS NOT APPLICABLE FOR DIALYSIS PATIENTS. Page [phone] with [id number] 15:43:00 Test Item Value Reference Range Comments MAGNESIUM (BEAKER) (test ngks=700) 2.1 mg/dL 1.6-2.6 Page [phone] with [id number] 15:43:00 Test Item Value Reference Range Comments PHOSPHORUS (BEAKER) (test kuap=779) 6.0 mg/dL 2.3-4.7 Page [phone] with resultsTROPONIN [id number] 14:11:00 Test Item Value Reference Range Comments TROPONIN I (BEAKER) (test yvki=582) 0.11 ng/mL 0.00-0.03 Troponin I (TnI) levels [...] failure, acidosis, acute neurological disease, and persistent tachyarrhythmia.[id number] 14:04:00 Test Item Value Reference Range Comments PHOSPHORUS (BEAKER) (test mrhr=705) 6.1 mg/dL 2.3-4.7 [id number] 14:04:00 Test Item Value Reference Range Comments MAGNESIUM (BEAKER) (test hpvj=602) 2.2 mg/dL 1.6-2.6 HEMOGLOBIN [id number] 13:07:00 Test Item Value Reference Range Comments HEMOGLOBIN A1C (BEAKER) (test reep=691) 5.6 % 4.3-6.1 POCT-GLUCOSE [id number] 11:56:00 Test Item Value Reference Range Comments POC-GLUCOSE METER (BEAKER) 209 mg/dL 70-110 TESTED AT [facility] [address] [facility] (test eqgu=3299) [facility] [address] POCT-GLUCOSE [id number] 11:35:00 Test Item Value Reference Range Comments POC-GLUCOSE METER (BEAKER) 192 mg/dL 70-110 TESTED AT [address] (test ieff=3730) [facility] [address] CREATININE, RANDOM [id number] 10:13:00 Test Item Value Reference Range Comments CREATININE URINE (BEAKER) (test mfkp=699) 89.4 mg/dL Reference Range: No NormalsUREA NITROGEN, RANDOM [id number] 10:13:00 Test Item Value Reference Range Comments UREA NITROGEN URINE (BEAKER) (test keys=569) 159 mg/dL Reference Range: No NormalsTROPONIN [id number] 10:08:00 Test Item Value Reference Range Comments TROPONIN I (BEAKER) (test aytz=825) 0.12 ng/mL 0.00-0.03 Troponin I (TnI) levels [...] acidosis, acute neurological disease, and persistent tachyarrhythmia.LIPID [id number] 07:50:00 Test Item Value Reference Range Comments TRIGLYCERIDES (BEAKER) (test xwpb=271) 137 mg/dL CHOLESTEROL (BEAKER) (test ysck=969) 140 mg/dL HDL CHOLESTEROL (BEAKER) (test igef=500) 31 mg/dL LDL CHOLESTEROL CALCULATED (BEAKER) (test 82 mg/dL upji=740) Triglyceride Reference Range: Low Risk <150 Borderline 150- 199 High Risk 200-499 Very High Risk >=500Cholesterol Reference Range: Low Risk <200 Borderline 200-239 High Risk > 240HDL Cholesterol Reference Range: Low Risk >=60 High Risk <40LDL Cholesterol Reference Range: Optimal <100 Near Optimal 100-129 Borderline 130-159 High 160-189 Very High >=190URINALYSIS WITH MICROSCOPIC IF [id number] 05:40:00 Test Item Value Reference Range Comments COLOR (BEAKER) (test mkkr=591) Yellow CLARITY (BEAKER) (test tsqn=382) Hazy SPECIFIC GRAVITY UA (BEAKER) (test lodb=728) 1.033 1.001-1.035 PH UA (BEAKER) (test hizo=345) 5.5 5.0-8.0 PROTEIN UA (BEAKER) (test kgub=392) 50 mg/dL Negative GLUCOSE UA (BEAKER) (test aqlc=803) Negative Negative KETONES UA (BEAKER) (test ddgo=165) Trace Negative BILIRUBIN UA (BEAKER) (test yjoa=264) Negative Negative BLOOD UA (BEAKER) (test fave=259) Small Negative NITRITE UA (BEAKER) (test wqyp=500) Negative Negative LEUKOCYTE ESTERASE UA (BEAKER) (test jayx=513) Large Negative UROBILINOGEN UA (BEAKER) (test vhgv=345) 2.0 mg/dL 0.2-1.0 SOURCE(BEAKER) (test pubo=3074) URINALYSIS [id number] 05:40:00 Test Item Value Reference Range Comments RBC UA (BEAKER) (test rajs=557) 8 /HPF WBC UA (BEAKER) (test cumh=689) 43 /HPF SQUAMOUS EPITHELIAL (BEAKER) (test fyfp=656) 1 /HPF YEAST (BEAKER) (test qqkp=8718) [facility] COMPREHENSIVE METABOLIC [id number] 04:28:00 Test Item Value Reference Range Comments TOTAL PROTEIN (BEAKER) 6.5 gm/dL 6.0-8.3 (test hces=202) ALBUMIN (BEAKER) (test 3.6 g/dL 3.5-5.0 cwsn=5050) ALKALINE PHOSPHATASE 62 U/L 40-150 (BEAKER) (test wttx=097) BILIRUBIN TOTAL (BEAKER) 0.3 mg/dL 0.2-1.2 (test jcfx=921) SODIUM (BEAKER) (test 135 meq/L 136-145 zkkz=694) POTASSIUM (BEAKER) (test 5.7 meq/L 3.5-5.1 daiq=675) CHLORIDE (BEAKER) (test 108 meq/L 98-107 mnhh=309) CO2 (BEAKER) (test 15 meq/L 22-29 uldz=404) BLOOD UREA NITROGEN 68 mg/dL 7-21 (BEAKER) (test nywa=923) CREATININE (BEAKER) (test 3.72 mg/dL 0.57-1.25 lspf=429) GLUCOSE RANDOM (BEAKER) 157 mg/dL 70-105 (test scws=960) CALCIUM (BEAKER) (test 8.5 mg/dL 8.4-10.2 zrjr=372) AST (SGOT) (BEAKER) (test 15 U/L 5-34 kdlw=910) ALT (SGPT) (BEAKER) (test 12 U/L 6-55 rgps=448) EGFR (BEAKER) (test 12 mL/min/1.73 sq m ESTIMATED GFR IS NOT pfxl=0865) ACCURATE CREATININE CLEARANCE IN PREDICTING GLOMERULAR FILTRATION RATE. ESTIMATED GFR IS NOT APPLICABLE FOR DIALYSIS PATIENTS. RAD, CHEST, 1 VIEW, NON [id number] 04:26:00Reason for exam:-> dyspneaShould this be performed [...] signed by: Brenda CAPUTO 2018 04:26 AMTROPONIN [id number] 04:22:00 Test Item Value Reference Range Comments TROPONIN I (BEAKER) (test mrah=093) 0.12 ng/mL 0.00-0.03 Troponin I (TnI) levels [...] and persistent tachyarrhythmia.CBC W/PLT COUNT & AUTO [id number] 04:18:00 Test Item Value Reference Range Comments WHITE BLOOD CELL COUNT (BEAKER) (test iicn=241) 12.5 K/ L 3.5-10.5 RED BLOOD CELL COUNT (BEAKER) (test dtyh=066) 2.61 M/ L 3.93-5.22 HEMOGLOBIN (BEAKER) (test mhmm=019) 8.2 GM/DL 11.2-15.7 HEMATOCRIT (BEAKER) (test ojos=051) 26.9 % 34.1-44.9 MEAN CORPUSCULAR VOLUME (BEAKER) (test hckt=468) 103.1 fL 79.4-94.8 MEAN CORPUSCULAR HEMOGLOBIN (BEAKER) (test 31.4 pg 25.6-32.2 ylut=431) MEAN CORPUSCULAR HEMOGLOBIN CONC (BEAKER) (test 30.5 GM/DL 32.2-35.5 sods=132) RED CELL DISTRIBUTION WIDTH (BEAKER) (test 15.0 % 11.7-14.4 zfzo=905) PLATELET COUNT (BEAKER) (test vokf=904) 302 K/CU MM 150-450 MEAN PLATELET VOLUME (BEAKER) (test lfqc=210) 9.9 fL 9.4-12.3 NUCLEATED RED BLOOD CELLS (BEAKER) (test 0 /100 WBC 0-0 wfww=663) NEUTROPHILS RELATIVE PERCENT (BEAKER) (test 97 % yghd=919) LYMPHOCYTES RELATIVE PERCENT (BEAKER) (test 2 % karq=503) MONOCYTES RELATIVE PERCENT (BEAKER) (test 1 % ustf=721) EOSINOPHILS RELATIVE PERCENT (BEAKER) (test 0 % qtas=195) BASOPHILS RELATIVE PERCENT (BEAKER) (test 0 % ddtf=419) NEUTROPHILS ABSOLUTE COUNT (BEAKER) (test 12.10 K/ L 1.56-6.13 vqek=228) LYMPHOCYTES ABSOLUTE COUNT (BEAKER) (test 0.22 K/ L 1.18-3.74 xmjj=397) MONOCYTES ABSOLUTE COUNT (BEAKER) (test 0.08 K/ L 0.24-0.36 rmou=681) EOSINOPHILS ABSOLUTE COUNT (BEAKER) (test 0.00 K/ L 0.04-0.36 qoqq=515) BASOPHILS ABSOLUTE COUNT (BEAKER) (test 0.01 K/ L 0.01-0.08 zhee=476) IMMATURE GRANULOCYTES-RELATIVE PERCENT (BEAKER) 0 % 0-1 (test kcrv=5640) [id number] 04:15:00 Test Item Value Reference Range Comments PHOSPHORUS (BEAKER) (test ilsk=742) 5.9 mg/dL 2.3-4.7 [id number] 04:15:00 Test Item Value Reference Range Comments MAGNESIUM (BEAKER) (test wguy=776) 2.2 mg/dL 1.6-2.6 B-TYPE NATRIURETIC FACTOR (BNP)2019-07-29 04:10:00 Test Item Value Reference Range Comments B-TYPE NATRIURETIC PEPTIDE (BEAKER) (test 4787 pg/mL 0-100 xxwc=209)
[2019-12-14] MEDS ORDERED: ENOXAPARIN 40 MG/0.4 ML SQ ONE (14:04)
[2019-12-14] MEDS ORDERED: SOTALOL HCL 80 MG TAB ONE (14:04)
--- NOTE | 2019-12-14 14:24 | RAD REPORT ---
EXAM DESCRIPTION: [facility] Single View12/14/2019 2:14 pm CLINICAL HISTORY: Congestion COMPARISON: 2019 FINDINGS: Small bilateral pleural effusions Moderate bilateral interstitial lung opacities Heart is mildly to moderately enlarged IMPRESSION: CHF
[2019-12-14 14:26] LABS: Protime INR 1.04
[2019-12-14 14:27] LABS: Absolute Lymphocytes (CBC) 0.7 K/uL (0.7-4.9); Basophils % 0.6 % (0-1.3); Hematocrit 28.5 % (36.0-45.0); MPV 10.1 fL (7.6-11.3); RBC Red Blood Cell Count 2.87 M/uL (3.86-4.86)
--- NOTE | 2019-12-14 14:35 | ER ---
Nurse's Notes [facility] Name: Remi Hdez Age: 69 yrs Sex: Female : 1950 Arrival Date: 12/14/2019 Time: 13:21 Bed 8 Private MD: Parvez Light H Diagnosis: Typical atrial flutter;Tachycardia, unspecified Presentation: 12/14 13:38 Presenting complaint: Patient states: was sent from Dr. Benjamin's office for abnormal hb EKG, pt has been feeling more weak and SOB than usual, hx of COPD , pt EKG shows A-flutter with no hx. Transition of care: patient was not received from another setting of care. Onset of symptoms was December 13, 2019. Risk Assessment: Do you want to hurt yourself or someone else? Patient reports no desire to harm self or others. Initial Sepsis Screen: Does the patient meet any 2 criteria? Does the patient have a suspected source of infection? No. Patient's initial sepsis screen is negative. Care prior to arrival: None. 13:38 Method Of Arrival: Wheelchair hb 13:38 Acuity: AMINAH 2 hb Historical: - Allergies: 13:40 No Known Allergies; hb - Home Meds: 14:11 nifedipine 90 mg Oral TbER 1 tab once daily [Active]; ropinirole 4 mg Oral tab 1 tab sv [Active]; gabapentin 100 mg Oral cap 1 caps once daily [Active]; Vicodin 7.5/750 Oral [Active]; furosemide 40 mg Oral tab 1 tab 2 times per day [Active]; hydroxyzine HCl 25 mg Oral tab 1 tab at bedtime [Active]; clopidogrel 75 mg Oral tab 1 tab once daily [Active]; atorvastatin 40 mg oral tab 1 tab once daily [Active]; hydralazine 50 mg Oral tab Q6H [Active]; metoprolol tartrate 100 mg Oral tab 1 tab 2 times per day [Active]; Dulcolax 100 mg Oral twice a day [Active]; baclofen 10 mg Oral tab 1 tab twice daily [Active]; aspirin 81 mg Oral chew 1 tab once daily [Active]; Iron CR 28 mg Oral daily [Active]; melatonin 5 mg Oral cap daily [Active]; magnesium oxide 250 mg Oral tab daily [Active]; Glucosamine oral oral [Active]; zinc [Active]; biotin oral oral daily [Active]; Albuterol Nebulizer [Active]; ipratropium bromide (bulk) miscellaneous [Active]; ProAir HFA inhalation inhalation [Active]; Anora Ellipta [Active]; - PMHx: 14:11 COPD; CVA; DDD; dialysis on saturdays; kidney failure; left carotid artery blocked; sv Osteoporosis; PVD; Raynaud's syndrome; scoliosis; spondylosis; - PSHx: 14:11 port to R upper chest wall; sv - Coronavirus screen:: The patient has NOT traveled to [place] in the past 14 days. Proceed with normal triage process as indicated. The patient has NOT had contact with known/suspected case of Coronavirus? Proceed with normal triage procedures. - Social history:: Patient/guardian denies using alcohol, street drugs, The patient lives with family, Smoking status: Patient reports the use of cigarette tobacco products. - Family history:: not pertinent. - Ebola Screening: : No symptoms or risks identified at this time. Screenin:11 Abuse screen: Denies threats or abuse. Nutritional screening: No deficits noted. Tuberculosis screening: No symptoms or risk factors identified. Fall Risk None identified. Assessment: 14:06 General: Appears slender, Behavior is calm, cooperative. Pain: Denies pain. Neuro: Level of Consciousness is awake, alert, Oriented to person, place, time, situation, Balance Wheel Arm Burnisher are equal bilaterally Moves all extremities. Gait is steady, Speech is normal, Facial symmetry appears normal, Cardiovascular: Heart tones S1 S2 present Capillary refill < 3 seconds Patient's skin is warm and dry. Pulses are palpable in right radial artery, right dorsalis pedis artery, left radial artery and left dorsalis pedis artery Rhythm is atrial flutter Chest pain is denied. Respiratory: Airway is patent is compromised Respiratory effort is even, Respiratory pattern is regular, symmetrical, Breath sounds are clear bilaterally. Parent/caregiver reports the patient having shortness of breath at rest. GI: No signs and/or symptoms were reported involving the gastrointestinal system. : No signs and/or symptoms were reported regarding the genitourinary system. EENT: No signs and/or symptoms were reported regarding the EENT system. Derm: Skin is intact, is healthy with good turgor. Musculoskeletal: Circulation, motion, and sensation intact. Capillary refill < 3 seconds. 14:10 Cardiovascular: Reports " i feel like my heart is going to beat out of my chest" since yesterday. 15:34 Reassessment: Patient appears in no apparent distress at this time. Patient and/or family updated on plan of care and expected duration. Pain level reassessed. Patient is alert, oriented x 3, equal unlabored respirations, skin warm/dry/pink. Patient states feeling better. Patient states symptoms have improved. awaiting for room. 16:50 Reassessment: Attempted to call report, nurse to call back. sv Vital Signs: 13:40 BP 161 / 72; Pulse 147; Resp 24 S; Temp 98.8; Pulse Ox 87% on R/A; Weight 39.92 kg; hb Height 5 ft. 3 in. (160.02 cm); 14:33 BP 177 / 76; Pulse 134; Resp 14; Pulse Ox 95% ; sv 14:55 BP 162 / 69; Pulse 86; Resp 23; Pulse Ox 93% on R/A; ca1 16:01 BP 145 / 69; Pulse 77; Resp 19; Pulse Ox 92% ; sv 17:00 BP 140 / 57; Pulse 66; Resp 14 S; Pulse Ox 92% on R/A; ca1 13:40 Body Mass Index 15.59 (39.92 kg, 160.02 cm) hb ED Course: 13:21 Patient arrived in ED. mr 13:22 Parvez Light DO is Private Physician. mr 13:39 Triage completed. hb 13:47 Dc Bearden MD is Attending Physician. ma2 13:55 EKG done, by senior wind turbine technician. reviewed by Dc Bearden MD. at1 13:55 Inserted saline lock: 18 gauge in left antecubital area, using aseptic technique. Blood sv collected. Flushed left antecubital with 5 ml normal saline. 14:01 Destiny Carter, RN is Primary Nurse. sv 14:13 Arm band placed on. ah 14:34 Baltazar Cline is Hospitalizing Provider. ma2 15:15 XRAY Chest (1 view) Sent. sv 15:35 Placed in gown. Bed in low position. Call light in reach. Side rails up X 1. ah 15:39 EKG done, by senior wind turbine technician. reviewed by Dc Bearden MD. at1 17:11 No provider procedures requiring assistance completed. Patient admitted, IV remains in sv place. intact. Administered Medications: 14:05 Drug: Sotalol 120 mg Route: PO; 15:15 Follow up: Response: No adverse reaction sv 14:05 Drug: Lovenox 40 mg Route: Sub-Q; Site: right lower abdomen; ah 15:15 Follow up: Response: No adverse reaction sv Outcome: 14:34 Decision to Hospitalize by Provider. ma2 17:11 Admitted to Tele accompanied by tech, family with patient, via wheelchair, room 424, sv with chart, Report called to Daria BEAR 17:11 Condition: stable 17:11 Instructed on the need for admit. 17:32 Patient left the ED. sv Signatures: Kanchan Catalan, RN RN Luzmaria Wyatt mr Andrés, Funmi, photocopying machine operator EKG Tat1 Nikole Huntley RN RN Dc Norton MD MD ma2 aMna Feldman, RN RN Destiny Herring, RN CHEMA
--- NOTE | 2019-12-14 14:35 | EDPHYS ---
Physician Documentation [facility] Name: Remi Hdez Age: 69 yrs Sex: Female : 1950 Arrival Date: 12/14/2019 Time: 13:21 Bed 8 Private MD: Parvez Light H ED Physician Dc Bearden HPI: 12/14 14:30 This 69 yrs old Female presents to ER via Wheelchair with complaints of ma2 Abnormal EKG. 14:30 weakness. Onset: The symptoms/episode began/occurred gradually, 1 week(s) ago. Severity ma2 of symptoms: At their worst the symptoms were mild in the emergency department the symptoms are unchanged. send from dr. fernandez office for galo cordova. i called the office, dr. Carter advised to give Lewis and Lovenox and admit for possible electric cardioversion tomorrow. patient states she has generalized weakness for 1 week,, no other symptoms . Historical: - Allergies: 13:40 No Known Allergies; hb - Home Meds: 14:11 nifedipine 90 mg Oral TbER 1 tab once daily [Active]; ropinirole 4 mg Oral tab 1 tab sv [Active]; gabapentin 100 mg Oral cap 1 caps once daily [Active]; Vicodin 7.5/750 Oral [Active]; furosemide 40 mg Oral tab 1 tab 2 times per day [Active]; hydroxyzine HCl 25 mg Oral tab 1 tab at bedtime [Active]; clopidogrel 75 mg Oral tab 1 tab once daily [Active]; atorvastatin 40 mg oral tab 1 tab once daily [Active]; hydralazine 50 mg Oral tab Q6H [Active]; metoprolol tartrate 100 mg Oral tab 1 tab 2 times per day [Active]; Dulcolax 100 mg Oral twice a day [Active]; baclofen 10 mg Oral tab 1 tab twice daily [Active]; aspirin 81 mg Oral chew 1 tab once daily [Active]; Iron CR 28 mg Oral daily [Active]; melatonin 5 mg Oral cap daily [Active]; magnesium oxide 250 mg Oral tab daily [Active]; Glucosamine oral oral [Active]; zinc [Active]; biotin oral oral daily [Active]; Albuterol Nebulizer [Active]; ipratropium bromide (bulk) miscellaneous [Active]; ProAir HFA inhalation inhalation [Active]; Anora Ellipta [Active]; - PMHx: 14:11 COPD; CVA; DDD; dialysis on saturdays; kidney failure; left carotid artery blocked; sv Osteoporosis; PVD; Raynaud's syndrome; scoliosis; spondylosis; - PSHx: 14:11 port to R upper chest wall; sv - Coronavirus screen:: The patient has NOT traveled to [place] in the past 14 days. Proceed with normal triage process as indicated. The patient has NOT had contact with known/suspected case of Coronavirus? Proceed with normal triage procedures. - Social history:: Patient/guardian denies using alcohol, street drugs, The patient lives with family, Smoking status: Patient reports the use of cigarette tobacco products. - Family history:: not pertinent. - Ebola Screening: : No symptoms or risks identified at this time. ROS: 14:30 Constitutional: Negative for fever, chills, and weight loss. ma2 14:30 All other systems are negative. Exam: 14:30 Constitutional: This is a well developed, well nourished patient who is awake, alert, ma2 and in no acute distress. Head/Face: Normocephalic, atraumatic. Eyes: Pupils equal round and reactive to light, extra-ocular motions intact. Lids and lashes normal. Conjunctiva and sclera are non-icteric and not injected. Cornea within normal limits. Periorbital areas with no swelling, redness, or edema. ENT: Nares patent. No nasal discharge, no septal abnormalities noted. Tympanic membranes are normal and external auditory canals are clear. Oropharynx with no redness, swelling, or masses, exudates, or evidence of obstruction, uvula midline. Mucous membranes moist. Neck: Trachea midline, no thyromegaly or masses palpated, and no cervical lymphadenopathy. Supple, full range of motion without nuchal rigidity, or vertebral point tenderness. No Meningismus. Chest/axilla: Normal chest wall appearance and motion. Nontender with no deformity. No lesions are appreciated. Cardiovascular: tachycardia w Regular rhythm with a normal S1 and S2. No gallops, murmurs, or rubs. Normal PMI, no JVD. No pulse deficits. Respiratory: Lungs have equal breath sounds bilaterally, clear to auscultation and percussion. No rales, rhonchi or wheezes noted. No increased work of breathing, no retractions or nasal flaring. Abdomen/GI: Soft, non-tender, with normal bowel sounds. No distension or tympany. No guarding or rebound. No evidence of tenderness throughout. MS/ Extremity: Pulses equal, no cyanosis. Neurovascular intact. Full, normal range of motion. Neuro: Awake and alert, GCS 15, oriented to person, place, time, and situation. Cranial nerves II-XII grossly intact. Motor strength 5/5 in all extremities. Sensory grossly intact. Cerebellar exam normal. Normal gait. Vital Signs: 13:40 BP 161 / 72; Pulse 147; Resp 24 S; Temp 98.8; Pulse Ox 87% on R/A; Weight 39.92 kg; hb Height 5 ft. 3 in. (160.02 cm); 14:33 BP 177 / 76; Pulse 134; Resp 14; Pulse Ox 95% ; sv 14:55 BP 162 / 69; Pulse 86; Resp 23; Pulse Ox 93% on R/A; ca1 16:01 BP 145 / 69; Pulse 77; Resp 19; Pulse Ox 92% ; sv 17:00 BP 140 / 57; Pulse 66; Resp 14 S; Pulse Ox 92% on R/A; ca1 13:40 Body Mass Index 15.59 (39.92 kg, 160.02 cm) hb MDM: 13:47 Patient medically screened. ma2 14:30 Differential Diagnosis a. fluuter, vtach, afib w rvr vs anxiety . Data reviewed: vital ma2 signs, nurses notes. Counseling: I had a detailed discussion with the patient and/or guardian regarding: the historical points, exam findings, and any diagnostic results supporting the discharge/admit diagnosis, the presence of at least one elevated blood pressure reading (>120/80) during this emergency department visit, the need for further work-up and treatment in the hospital. Response to treatment: the patient's symptoms have mildly improved after treatment. 12/14 13:52 Order name: Basic Metabolic Panel wv2 12/14 13:52 Order name: CBC with Diff 12/14 13:52 Order name: LFT's 2 12/14 13:52 Order name: Magnesium wv2 12/14 13:52 Order name: NT PRO-BNP wv12/14 13:52 Order name: PT-INR [facility] 12/14 13:52 Order name: Troponin (emerg Dept Use Only) [facility] 12/14 13:52 Order name: XRAY Chest (1 view) [facility] 12/14 13:52 Order name: EKG; Complete Time: 13:55 [facility] 12/14 14:34 Order name: TSH [facility] 12/14 14:34 Order name: T4 Free [facility] 12/14 15:06 Order name: RAD [facility] 12/14 13:52 Order name: Cardiac monitoring; Complete Time: 13:58 [facility] 12/14 13:52 Order name: EKG - Nurse/Tech; Complete Time: 13:58 [facility] 12/14 13:52 Order name: IV Saline Lock; Complete Time: 13:58 [facility] 12/14 13:52 Order name: Labs collected and sent; Complete Time: 13:58 [facility] 12/14 13:52 Order name: O2 Per Protocol; Complete Time: 13:58 [facility] 12/14 13:52 Order name: O2 Sat Monitoring; Complete Time: 13:58 [facility] 12/14 15:14 Order name: EKG; Complete Time: 15:16 sv 12/14 15:14 Order name: EKG - Nurse/Tech; Complete Time: 15:34 sv Administered Medications: 14:05 Drug: Sotalol 120 mg Route: PO; 15:15 Follow up: Response: No adverse reaction sv 14:05 Drug: Lovenox 40 mg Route: Sub-Q; Site: right lower abdomen; 15:15 Follow up: Response: No adverse reaction sv Disposition: 12/14/19 14:34 Hospitalization ordered by Baltazar Cline for Inpatient Admission. Preliminary diagnosis are Typical atrial flutter, Tachycardia, unspecified. - Bed requested for Telemetry/MedSurg (Inpatient). - Status is Inpatient Admission. sv - Condition is Stable. - Problem is new. - Symptoms are unchanged. Signatures: Dispatcher [employer] [facility] Analisa Muhammad Stephanie, RN RN sv Baxter, Heather, RN RN Dc Bearden MD MD [facility] Destiny Carter RN RN Corrections: (The following items were deleted from the chart) 16:48 14:34 Hospitalization Ordered by Baltazar Cline for Inpatient Admission. Preliminary bd diagnosis is Typical atrial flutter; Tachycardia, unspecified. Bed requested for Telemetry/MedSurg (Inpatient). Status is Inpatient Admission. Condition is Stable. Problem is new. Symptoms are unchanged. ma2 17:32 16:48 12/14/2019 14:34 Hospitalization Ordered by Baltazar Cline for Inpatient sv Admission. Preliminary diagnosis is Typical atrial flutter; Tachycardia, unspecified. Bed requested for Telemetry/MedSurg (Inpatient). Status is Inpatient Admission. Condition is Stable. Problem is new. Symptoms are unchanged. bd
[2019-12-14 14:49] LABS: Albumin 3.9 g/dL (3.4-5.0); Bilirubin Direct 0.1 mg/dL (0-0.2); Bilirubin Total 0.4 mg/dL (0.2-1.0); Magnesium 2.7 mg/dL (1.8-2.4); Potassium 3.2 mmol/L (3.5-5.1)
[2019-12-14 14:53] LABS: Troponin (Emerg Dept Use Only) 0.57 ng/mL (0.0-0.045)
[2019-12-14 15:02] LABS: Thyroid Stimulating Hormone 2.45 uIU/mL (0.360-3.740)
--- NOTE | 2019-12-14 15:57 | P.HP ---
Certification for Inpatient Patient admitted to: Inpatient With expected LOS: >2 Midnights Practitioner: I am a practitioner with admitting privileges, knowledge of patient current condition, hospital course, and medical plan of care. Services: Services provided to patient in accordance with Admission requirements found in Title 42 Section 412.3 of the Code of Federal Regulations Patient History Date of Service: 12/14/19 Reason for admission: Palpitation History of Present Illness: 69-year-old woman with a history of coronary artery disease status post coronary stent, history of CVA, history of chronic kidney disease, status post hemodialysis for end-stage renal disease was referred to the emergency department from her Cardiology office for atrial flutter. Patient reports feeling short of breath and palpitation since yesterday. Notes patient renal function has improved and hemodialysis has been discontinued. EKG done in the ED demonstrated atrial flutter and nonspecific ST changes. Initial troponin is mildly elevated. He was given a shot of full-dose Lovenox and her dose of sotalol. Patient spontaneously converted to sinus rhythm during my examination. Cardiology-Dr. Carter was informed who recommended admission to the hospitalist service for him to evaluate. Patient denied any chest pain. She is admitted for further management. Allergies No Known Drug Allergies Allergy (Verified 10/16/19 22:00) Unknown Home Medications: Aspirin [Aspir-Low] 81 mg PO DAILY 09/10/18 Baclofen 10 mg PO BID 09/10/18 Biotin [Nail-Ex] 2,500 mcg PO DAILY 09/10/18 Clopidogrel Bisulfate [Plavix*] 75 mg PO DAILY 09/10/18 Hydrocodone/Acetaminophen [Vicodin Hp 10-325 mg Tablet] 1 tab PO SEECOM Zinc 50 mg PO DAILY 09/10/18 Albuterol Sulfate [Proair Digihaler] 2 puff IH QID 10/16/19 Atorvastatin Calcium [Lipitor] 1 tab PO DAILY 10/16/19 Docusate Sodium [Dulcolax Stool Softener] 1 cap PO BID PRN 10/16/19 Furosemide [Lasix*] 1 tab PO BID 10/16/19 Gabapentin 1 cap PO DAILY 10/16/19 Glucosamine HCl 1 tab PO DAILY 10/16/19 Hydralazine [Apresoline*] 50 mg PO Q8H 10/16/19 Iron 28 mg PO DAILY 10/16/19 Magnesium Oxide [Magnesium] 1 tab PO DAILY 10/16/19 Melatonin 2 cap PO BEDTIME 10/16/19 Metoprolol Tartrate [Lopressor] 100 mg PO BID 10/16/19 Mv,Vipul,Iron,Mn/Folic Acid/Chol [Hair, Skin and Nails Capsule] 5 mg PO BEDTIME Nifedipine [Nifedipine ER] 90 mg PO DAILY 10/16/19 Ropinirole HCl [Requip] 1 tab PO DAILY 10/16/19 Umeclidinium Brm/Vilanterol Tr [Anoro Ellipta 62.5-25 Mcg INH] 1 puff IH DAILY 10/16/19 hydrOXYzine HCL [Atarax] 25 mg PO BEDTIME 10/16/19 Cyanocobalamin (Vitamin B-12) [B-12] 1 tab PO DAILY 10/17/19 predniSONE [Prednisone*] 20 mg PO SEECOM #15 tab 10/20/19 - Past Medical/Surgical History Diabetic: No -: CVA; DDD; left carotid artery blocked; Osteoporosis; PVD; Raynaud's syndrom -: degenerative Disc disease -: Scoliosis -: 3 heart stents -: COPD -: heart stents placement x3 -: hernia sx x2 - Family History Mother -: Hypertension Father -: Heart disease - Social History Smoking Status: Current every day smoker Alcohol use: Yes CD- Drugs: No Caffeine use: Yes Review of Systems Other: Except as documented, all other systems reviewed and negative. Physical Examination - Physical Exam General: Alert, In no apparent distress, Oriented x3 HEENT: Atraumatic, Mucous membr. moist/pink, Sclerae nonicteric Neck: Supple, JVD not distended, No Thyromegaly Respiratory: Clear to auscultation bilaterally, Normal air movement Cardiovascular: No edema, Regular rate/rhythm, Normal S1 S2 Capillary refill: <2 Seconds Gastrointestinal: Normal bowel sounds, Soft and benign, Non-distended, No tenderness Musculoskeletal: No swelling, No erythema Integumentary: No rashes Neurological: Normal speech, Normal strength at 5/5 x4 extr, Cranial nerves 3- 12 intact - Studies Laboratory Data (last 24 hrs) 12/14/19 13:55: PT 12.3, INR 1.04 12/14/19 13:55: WBC 9.1, Hgb 9.2 L, Hct 28.5 L, Plt Count 244 12/14/19 13:55: Sodium 140, Potassium 3.2 L, BUN 47 H, Creatinine 2.12 H, Glucose 117 H, Magnesium 2.7 H D, Total Bilirubin 0.4, AST 30, ALT 26, Alkaline Phosphatase 103 Assessment and Plan - Problems (Diagnosis) (1) Atrial flutter Current Visit: Yes Status: Acute (2) Chronic kidney disease, stage 4 (severe) Current Visit: Yes Status: Acute (3) Elevated troponin Current Visit: Yes Status: Acute (4) CAD (coronary artery disease) Current Visit: No Status: Chronic - Plan Admit to telemetry. Start sotalol per cardiology recommendation. Patient received a shot of full dose of Lovenox in the ED. Elevated troponin could be secondary to demand ischemia. Cardiology consult Trend troponin. Continue aspirin. Start Heparin drip in am. - Advance Directives Does patient have a Living Will: No Does patient have a Durable POA for Healthcare: No
--- NOTE | 2019-12-14 16:03 | EKG ---
Test Date: 2019-12-14 Test Time: 15:33:32 Api Product Manager: CLIFF MEASUREMENT RESULTS: Intervals: Rate: 73 HI: 130 QRSD: 88 QT: 446 QTc: 491 [place]: P: 74 HI: 130 QRS: 88 T: 79 INTERPRETIVE STATEMENTS: Normal sinus rhythm Possible Left atrial enlargement Prolonged QT Abnormal ECG Compared to ECG 12/14/2019 13:52:55 Prolonged QT interval now present Atrial flutter no longer present Right-axis deviation no longer present ST (T wave) deviation no longer present Electronically Signed On 12-14-19 16:02:12 MULCHER OPERATOR by Jcarlos Carter
--- NOTE | 2019-12-14 16:03 | EKG ---
Test Date: 2019-12-14 Test Time: 13:52:55 Supervisor Cutting And Boning: CLIFF MEASUREMENT RESULTS: Intervals: Rate: 145 [place]: QRSD: 74 QT: 346 QTc: 537 [place]: P: -88 [place]: QRS: 90 T: -58 INTERPRETIVE STATEMENTS: Atrial flutter with 2:1 AV conduction Rightward axis Marked ST abnormality, possible inferior subendocardial injury Abnormal ECG Compared to ECG 10/16/2019 16:12:10 ST (T wave) deviation now present Sinus rhythm no longer present Electronically Signed On 12-14-19 16:02:21 MACHINE STITCHER by Jcarlos Carter
[2019-12-14] MEDS ORDERED: ALBUTEROL 2.5 MG/3 ML NEB SOL NEB PRN (17:08)
[2019-12-14] MEDS: SOTALOL HCL 80 MG TAB PO SCH (18:50)
--- NOTE | 2019-12-14 19:07 | CON ---
Chief Complaint: Shortness of breath. Reason For Consult: Paroxysmal atrial flutter. History Of Present Illness: Mrs. Hdez has severe obstructive lung disease for a period of time. Jomar shi was a hemodialysis patient. I do not think she is on dialysis presently. Her creatinine is 2.1. On physical exam, she is small and thin, alert, oriented, pleasant. She is in normal rhythm now. Jomar shi received a dose of Betapace. She has various peripheral artery stents put in by Dr. Benjamin over t he period of 2014 to 2017. Presently, she is not a tobacco user. Apparently now that she gets dialy sis only on Saturdays. Physical Examination: Lungs: Do not reveal crackles or wheeze, but the breath sounds are all bronchial, not much fascicula r at all. Heart: Reveals a regular rate and rhythm without a murmur or gallop. Abdomen: Soft. Extremities: No edema, cyanosis, or clubbing. I think since the patient is back in normal rhythm, I think we can try a low dose of Betapace with a creatinine at 2.12. I am not too concerned about it. I think the dose should be 40 b.i.d. We will see if she handles that and see if she can handle being on the Eliquis 2.5 b.i.d. JOMAR/JEANCARLOS Voice ID: [id number] Report ID: [id number]
[2019-12-14] MEDS ORDERED: POTASSIUM 25 MEQ EFFERV TAB PO ONE (19:19)
[2019-12-14] MEDS: IPRATROPIUM BROM 0.5MG/2.5ML NEB SCH (20:20)
[2019-12-14] MEDS ORDERED: DOCUSATE NA 100 MG CAP PO PRN (21:15)
[2019-12-14] MEDS ORDERED: ACETAMINOPHEN PO SCH (21:15)
[2019-12-14] MEDS ORDERED: HYDROCODONE PO SCH (21:15)
[2019-12-14] MEDS ORDERED: FUROSEMIDE 40 MG/4 ML VIAL IV ONE (21:58)
[2019-12-14] MEDS ORDERED: METOPROLOL TAR 50 MG TAB PO SCH (22:00)
[2019-12-14] MEDS ORDERED: FUROSEMIDE 40 MG/4 ML VIAL ONE (22:03)
[2019-12-14] MEDS ORDERED: FUROSEMIDE 20 MG/ 2ML VIAL ONE (22:03)
[2019-12-14] MEDS: APIXABAN 2.5 MG TABLET PO SCH (22:05)
[2019-12-14] MEDS: HYDROCODONE/APAP 7.5/325 MG TAB PO SCH (22:44)
[2019-12-14] MEDS: HYDRALAZINE HCL 25 MG TABLET PO SCH (22:45)
[2019-12-14] MEDS: ROPINIROLE HCL 1 MG TAB PO SCH (22:45)
[2019-12-14] MEDS: MELATONIN 5 MG TABLET PO SCH (22:45)
--- NOTE | 2019-12-14 22:57 | RAD REPORT ---
EXAM DESCRIPTION: RAD - Chest Single View - 12/14/2019 10:23 pm CLINICAL HISTORY: sob Chest pain. COMPARISON: Chest Single View dated 12/14/2019; Chest Pa And Lat (2 Views) dated 10/19/2019; Chest Si ngle View dated 10/16/2019; Chest Pa And Lat (2 Views) dated 09/30/2019 FINDINGS: Portable technique limits examination quality. Bilateral interstitial lung opacities are again seen with small bilateral pleural effusions. The hear t is moderately in size. No displaced fractures. IMPRESSION: Stable CHF versus volume overload pattern noted.
[2019-12-15] MEDS: IPRATROPIUM BROM 0.5MG/2.5ML NEB SCH ×4 (01:40→19:55)
[2019-12-15 01:41] LABS: Urine Appearance CLEAR; Urine Bilirubin NEGATIVE (NEG); Urine Blood NEGATIVE (NEG); Urine Color YELLOW; Urine Glucose NEGATIVE (NEG); Urine Protein NEGATIVE (NEG); Urine Specific Gravity 1.015 (1.005-1.030); Urine Urobilinogen 0.2 mg/dL (0.2-1.0); Urine pH 5.5 (5.0-7.0)
[2019-12-15 01:45] LABS: Urine Microscopic Reflex NO UMIC
[2019-12-15 03:32] LABS: Absolute Lymphocytes (CBC) 0.9 K/uL (0.7-4.9); Basophils % 1.1 % (0-1.3); Hematocrit 23.4 % (36.0-45.0); Lymphocytes % 15.7 % (15.3-44.8); MPV 10.1 fL (7.6-11.3); RBC Red Blood Cell Count 2.36 M/uL (3.86-4.86)
[2019-12-15 04:02] LABS: Magnesium 2.5 mg/dL (1.8-2.4); Phosphorus 5.1 mg/dL (2.5-4.9); Potassium 3.9 mmol/L (3.5-5.1)
[2019-12-15] MEDS: HYDRALAZINE HCL 25 MG TABLET PO SCH ×4 (04:41→20:40)
[2019-12-15] MEDS ORDERED: POTASSIUM CL SA 10 MEQ TAB PO ONE (04:47)
[2019-12-15] MEDS: SOTALOL HCL 80 MG TAB PO SCH ×2 (05:37→16:46)
[2019-12-15] MEDS: APIXABAN 2.5 MG TABLET PO SCH (08:35)
[2019-12-15] MEDS: HOME MED 1 EA UNK (Umeclidinium Brm/Vilanterol Tr [Anoro Ellipta 62.5-25 Mcg Inh] 1 PUFF) IN SCH (09:00)
[2019-12-15] MEDS: IRON 28 MG PO SCH (09:00)
[2019-12-15] MEDS: GLUCOSAMINE HCL PO SCH (09:00)
[2019-12-15] MEDS: BIOTIN 2500 MCG PO SCH (09:00)
[2019-12-15] MEDS ORDERED: FUROSEMIDE 40 MG TABLET PO SCH (09:00)
[2019-12-15] MEDS ORDERED: ALBUTEROL SULFATE IH SCH (09:00)
[2019-12-15] MEDS: NIFEDIPINE XL 90 MG TABLET PO SCH (09:00)
[2019-12-15] MEDS ORDERED: ASPIRIN EC 81 MG TAB PO SCH (09:00)
[2019-12-15] MEDS ORDERED: CLOPIDOGREL 75 MG TABLET PO SCH (09:00)
[2019-12-15] MEDS: HOME MED 1 EA UNK (Magnesium Oxide [Magnesium] 1 TAB) PO SCH (09:00)
[2019-12-15] MEDS: BACLOFEN 10 MG TAB PO SCH ×2 (10:06→20:39)
[2019-12-15] MEDS: HYDROCODONE/APAP 7.5/325 MG TAB PO SCH ×3 (10:06→20:39)
[2019-12-15] MEDS: ZINC SULFATE 220 MG CAP PO SCH (10:07)
[2019-12-15] MEDS: ATORVASTATIN 40 MG TAB PO SCH (10:08)
[2019-12-15] MEDS: GABAPENTIN 100 MG CAP PO SCH (10:08)
--- NOTE | 2019-12-15 10:37 | RAD REPORT ---
EXAM DESCRIPTION: CT - Thorax Wo Con - 12/15/2019 9:33 am CLINICAL HISTORY: hemoptysis COMPARISON: Chest For Pe Angio dated 07/28/2019; Chest Single View dated 12/14/2019 TECHNIQUE: Axial 5 mm thick images of the chest were obtained without IV contrast. All CT scans are performed using dose optimization technique as appropriate and may include automated exposure control or mA/KV adjustment according to patient size. FINDINGS: Interstitial opacification is present throughout the lung osorio. Atelectasis changes are present in each posterior lower lobe along with additional alveolar opacities. A few scattered perihi lar alveolar opacities are present. Small to moderate size bilateral pleural effusions are seen along the posterior aspect of each lung field. Volumes are increased slightly from July 2019. Lung base atelectasis changes are present. No pneumothorax. Cardiomegaly is present without pericardial effusion. There is a congested or edematous appearance to the mediastinal fat. A few nonspecific lymph nodes are present. Assessment is limited in the absence of IV contrast. No gross change to the mediastinum from the comparison CT study. No chest wall mass present. Fluid retention is present in the subcutaneous fatty tissues. IMPRESSION: Cardiomegaly with CHF/volume overload findings. Small to moderate bilateral pleural effusions are present increased from prior imaging. Congested or edematous appearance to the mediastinal fat. No gross change to the mediastinum. Primar y malignancy is not identifiable on this study.
--- NOTE | 2019-12-15 12:29 | P.CNS ---
Date of Consult: 12/15/19 Chief Complaint: Palpitations shortness of breath History of Present Illness: Patient is 69 years of age admitted with sudden onset of palpitations shortness of breath and hypoxemia history of severe COPD she has been often having some hemoptysis the past 3 weeks no change with antibiotics compliant with her medications just an out of trilogy patient was in atrial flutter on admission he is still tachypneic Allergies No Known Drug Allergies Allergy (Verified 10/16/19 22:00) Unknown Home Medications: Aspirin [Aspir-Low] 81 mg PO DAILY 09/10/18 Baclofen 10 mg PO BID 09/10/18 Biotin [Nail-Ex] 2,500 mcg PO DAILY 09/10/18 Clopidogrel Bisulfate [Plavix*] 75 mg PO DAILY 09/10/18 Zinc 50 mg PO DAILY 09/10/18 Atorvastatin Calcium [Lipitor] 1 tab PO DAILY 10/16/19 Docusate Sodium [Dulcolax Stool Softener] 1 cap PO BID PRN 10/16/19 Furosemide [Lasix*] 1 tab PO BID 10/16/19 Gabapentin 1 cap PO DAILY 10/16/19 Glucosamine HCl 1 tab PO DAILY 10/16/19 Hydralazine [Apresoline*] 50 mg PO Q6H 10/16/19 Iron 28 mg PO DAILY 10/16/19 Magnesium Oxide [Magnesium] 1 tab PO DAILY 10/16/19 Melatonin 2 cap PO BEDTIME 10/16/19 Metoprolol Tartrate [Lopressor] 100 mg PO BID 10/16/19 Mv,Vipul,Iron,Mn/Folic Acid/Chol [Hair, Skin and Nails Capsule] 5 mg PO BEDTIME Nifedipine [Nifedipine ER] 90 mg PO DAILY 10/16/19 Ropinirole HCl [Requip] 1 tab PO DAILY 10/16/19 hydrOXYzine HCL [Atarax] 50 mg PO BEDTIME 10/16/19 Albuterol Neb [Proventil 0.083% Neb Soln] 1 amp IN TID 12/14/19 Albuterol Sulfate [Proair Digihaler] 2 puff IH QID 12/14/19 Hydrocodone Bit/Acetaminophen [Hydrocodon-Acetaminoph 7.5-325] 1 tab PO TID Ipratropium Neb [Atrovent*] 1 amp IN QID PRN 12/14/19 Umeclidinium Brm/Vilanterol Tr [Anoro Ellipta 62.5-25 Mcg INH] 1 puff IN DAILY 12/14/19 - Past Medical/Surgical History Diabetic: No -: CVA; DDD; left carotid artery blocked; Osteoporosis; PVD; Raynaud's syndrom -: degenerative Disc disease -: Scoliosis -: 3 heart stents -: COPD -: heart stents placement x3 -: hernia sx x2 - Family History Mother Medical History: Hypertension Father Medical History: Heart disease - Social History Smoking Status: Unknown if ever smoked Alcohol use: Yes CD- Drugs: No Caffeine use: Yes Place of Residence: Home Review of Systems 10-point ROS is otherwise unremarkable General: Weakness Respiratory: Shortness of Breath Physical Examination Temp Pulse Resp BP Pulse Ox 97.1 F 66 16 159/72 H 95 12/15/19 12:00 12/15/19 12:00 12/15/19 12:00 12/15/19 12:00 12/15/19 12:00 General: Alert, Oriented x3, Moderate distress Respiratory: Clear to auscultation bilaterally, Diminished Cardiovascular: No edema, Normal pulses Gastrointestinal: Normal bowel sounds, Soft and benign Laboratory Data (last 24 hrs) 12/14/19 13:55: PT 12.3, INR 1.04 12/14/19 13:55: WBC 9.1, Hgb 9.2 L, Hct 28.5 L, Plt Count 244 12/14/19 13:55: Sodium 140, Potassium 3.2 L, BUN 47 H, Creatinine 2.12 H, Glucose 117 H, Magnesium 2.7 H D, Total Bilirubin 0.4, AST 30, ALT 26, Alkaline Phosphatase 103 - Problems (1) COPD exacerbation Current Visit: Yes Status: Acute Plan: Patient is a 69 years of age with severe COPD admitted with an exacerbation in atrial flutter normal echo last year has chronic renal failure normal thyroid function blood pressure is elevated acute onset of atrial flutter patient is anti coagulated on sotalol patient has bilateral pleural effusions no evidence of any malignancy patient has been complaining of hemoptysis for the past 3 weeks sputum culture ordered fluid persists may need a bronchoscopy CT scan was done without contrast
--- NOTE | 2019-12-15 13:47 | PN ---
Patient was admitted yesterday from my office for atrial flutter, rate of 150. Was placed on sotalol 40 mg 1 p.o. b.i.d. She converted to sinus rhythm. She is on Eliquis 2.5 mg b.i.d. She was gettin g a CT scan of her chest today, which was ordered by Dr. Sloan. She has a history of severe COPD. Also when she came into the office, she complained of new-onset claudication. She has had a histor y of peripheral vascular disease in the past. From my standpoint, she can go home on sotalol 40 b.i. d. Continue the Eliquis and I will make arrangements for her to have an arterial Doppler done as an outpatient. PRATIMA Voice ID: [id number] Report ID: [id number]
[2019-12-15] MEDS ORDERED: IPRATROPIUM BROM 0.5MG/2.5ML NEB SCH (14:00)
--- NOTE | 2019-12-15 15:56 | P.PN ---
Subjective Date of Service: 12/15/19 Chief Complaint: Palpitations shortness of breath Patient reports feeling short of breath. Her hemoglobin dropped from 9 to 7 today. She reports history dark colored diarrhea. She also has a prior history of hemoptysis. She is hypoxic on oxygen by nasal cannula. She is currently in sinus rhythm. Physical Examination - Vital Signs Temperature: 97.1 F Blood Pressure: 159/72 Pulse: 66 Respirations: 16 Pulse Ox (%): 89 - Physical Exam General: Alert, Mild distress (Respiratory distress) HEENT: Normocephalic, Mucous membr. moist/pink Neck: JVD not distended Respiratory: Diminished (Mild bilateral expiratory wheezes) Cardiovascular: No edema, Regular rate/rhythm, Normal S1 S2 Gastrointestinal: Normal bowel sounds, Soft and benign, Non-distended, No tenderness Musculoskeletal: No swelling, No erythema Integumentary: No rashes Neurological: Normal speech, Normal strength at 5/5 x4 extr Assessment And Plan - Current Problems (Diagnosis) (1) Atrial flutter Current Visit: Yes Status: Acute (2) Chronic kidney disease, stage 4 (severe) Current Visit: Yes Status: Acute (3) Elevated troponin Current Visit: Yes Status: Acute (4) CAD (coronary artery disease) Current Visit: No Status: Chronic - Plan Continue Sotalol. Stop Eliquis given drop in hemoglobin, prior history of hemoptysis, and reports of dark-colored diarrhea, Check stool for occult. Titrate oxygen. BiPAP p.r.n. Pulmonary input appreciated Considering blood transfusion if hemoglobin drops further.
[2019-12-15] MEDS: FUROSEMIDE 40 MG/4 ML VIAL IV SCH (16:46)
--- NOTE | 2019-12-15 18:11 | CON ---
Date of Consultation: 12/15/2019 Reason For Consultation: Elevated BUN, creatinine, fluid management, over volume. History Of Present Illness: This is a pleasant 69-year-old female with significant past medical hist ory of chronic kidney disease stage 4, status post required dialysis, weaned from dialysis back in [facility] 2019, CVA, congestive heart failure, diastolic dysfunction, carotid stenosis on the left side, Raynaud syndrome, the patient was in her regular state of health. Patient went to her service desk lead, found to have AFib with RVR. For that reason, patient was referred to the hospital. Patient denied any nausea, any vomiting. Patient complaining of some shortness of breath. Lab on arrival, creatini ne 2 which is around her baseline. Past Medical History: Includes: 1.CVA. 2.Left carotid stenosis. 3.PAD. 4.Coronary artery disease with congestive heart failure, diastolic dysfunction. 5.COPD. 6.Chronic kidney disease stage 4, baseline creatinine 2 to 2.3, required dialysis, weaned from dialy sis October 2018. Family History: Positive for hypertension and coronary artery disease. Social History: Active smoker, active alcohol. Denies drug abuse. Past Surgical History: Includes PTCA, hernia repair, PermCath placement and removal. Review of Systems: Head and Neck: No red eye. No ear pain. GI: No nausea, no vomiting. : No polyuria, no dysuria, no hematuria. [employer]: No vaginal discharge. Respiratory: Has shortness of breath. Cardiovascular: Has palpitation. Has chest tightness. Endocrine: No polydipsia. Skin: No rash. Neuro: No weakness. Musculoskeletal: Generalized fatigue. Physical Examination: Vital Signs: When I saw the patient, blood pressure of 159/72, pulse of 66 and regular. Heart: S1, S2. Systolic murmur. Irregular. Abdomen: Soft nontender. Extremities: No edema. Chest: Crackles bilateral base. Neurologic: Alert and oriented x3, no focal. Laboratory Data: WBC 5.9, H and H 7.4/23.4, platelets of 200. Sodium 139, potassium 3.9, bicarb 29, BUN 50, creatinine 2, GFR 25, calcium of 8, phosphorus 5.1, magnesium 2.5. Cardiac enzyme 0.5 tropo umu. PTH 136. Assessment And Plan: 1.Chronic kidney disease stage 4 secondary to cardiorenal, slightly on the wet side, stable on basel ine. I am going to increase Lasix to 60 b.i.d. intravenous and we will continue to monitor the patie nt. 2.Hypertension, not controlled. I am going to adjust the blood pressure medication. We will utiliz e beta-keo for better blood pressure control. 3.We will utilize diuretic for better volume control. 4.Congestive heart failure with exacerbation as above. 5.Anemia of chronic kidney disease. I will send for iron study and we will follow up. The patient may need erythropoiesis-stimulating agent. ROCHELLE Voice ID: [id number] Report ID: [id number]
[2019-12-15] MEDS: ROPINIROLE HCL 1 MG TAB PO SCH (20:40)
[2019-12-15] MEDS: MELATONIN 5 MG TABLET PO SCH (20:40)
[2019-12-15] MEDS: MV CAL IRON MN PO SCH (20:41)
[2019-12-15] MEDS: FOLIC ACID PO SCH (20:41)
[2019-12-15] MEDS: ENSURE ENLIVE 237 ML CAN PO SCH (20:41)
[2019-12-15] MEDS: CHOL PO SCH (20:41)
[2019-12-16] MEDS: IPRATROPIUM BROM 0.5MG/2.5ML NEB SCH ×4 (01:10→19:40)
[2019-12-16] MEDS: HYDRALAZINE HCL 25 MG TABLET PO SCH ×5 (03:15→23:27)
[2019-12-16 04:18] LABS: Basophils % 0.9 % (0-1.3)
[2019-12-16 05:27] LABS: Albumin 2.8 g/dL (3.4-5.0); BUN Blood Urea Nitrogen 50 mg/dL (7-18); Bicarbonate 31 mmol/L (21-32); Ferritin 190.5 ng/mL (8-388); Glucose Level 96 mg/dL (74-106); Magnesium 2.3 mg/dL (1.8-2.4); Phosphorus 4.4 mg/dL (2.5-4.9); Potassium 3.9 mmol/L (3.5-5.1); Sodium Level 141 mmol/L (136-145); Transferrin 182 mg/dL (200-360)
[2019-12-16 05:29] LABS: Folic Acid, (Folate) > 20.0 ng/mL (3.1-17.5)
[2019-12-16] MEDS ORDERED: POTASSIUM CL SA 10 MEQ TAB PO ONE (05:38)
[2019-12-16] MEDS: SOTALOL HCL 80 MG TAB PO SCH ×2 (06:09→18:17)
[2019-12-16] MEDS: HYDROCODONE/APAP 7.5/325 MG TAB PO SCH ×3 (08:48→20:55)
[2019-12-16] MEDS: ZINC SULFATE 220 MG CAP PO SCH (08:49)
[2019-12-16] MEDS: NIFEDIPINE XL 90 MG TABLET PO SCH (08:49)
[2019-12-16] MEDS: GABAPENTIN 100 MG CAP PO SCH (08:50)
[2019-12-16] MEDS: ENSURE ENLIVE 237 ML CAN PO SCH ×2 (08:50→21:30)
[2019-12-16] MEDS: BACLOFEN 10 MG TAB PO SCH ×2 (08:50→20:55)
[2019-12-16] MEDS: GLUCOSAMINE HCL PO SCH (08:50)
[2019-12-16] MEDS: FUROSEMIDE 40 MG/4 ML VIAL IV SCH ×2 (08:50→18:17)
[2019-12-16] MEDS: ATORVASTATIN 40 MG TAB PO SCH (08:50)
[2019-12-16] MEDS: BIOTIN 2500 MCG PO SCH (08:51)
[2019-12-16] MEDS: HOME MED 1 EA UNK (Magnesium Oxide [Magnesium] 1 TAB) PO SCH (08:51)
[2019-12-16] MEDS: IRON 28 MG PO SCH (08:51)
[2019-12-16] MEDS: HOME MED 1 EA UNK (Umeclidinium Brm/Vilanterol Tr [Anoro Ellipta 62.5-25 Mcg Inh] 1 PUFF) IN SCH (08:52)
[2019-12-16] MEDS ORDERED: ONDANSETRON 4 MG/2 ML VIAL IV PRN (09:57)
[2019-12-16] MEDS ORDERED: SOD FERRIC GLUC COMPLX/SUCROSE 250 MG in NA CHLORIDE 0.9% 250 ML IV SCH (11:00)
--- NOTE | 2019-12-16 11:06 | ECHO ---
HEIGHT: 5 ft 3 in WEIGHT: 88 lb 3.2 oz DATE OF STUDY: 12/16/[address]: Vito Sloan MD 2-DIMENSIONAL: YES M.MODE: YES DOPPLER: YES COLOR FLOW: YES TDS: NO PORTABLE: NO DEFINITY: NO BUBBLE STUDY: NO DIAGNOSIS: SHORTNESS OF BREATH/ ATRIAL FLUTTER CARDIAC HISTORY: CATHERIZATION: NO SURGERY: NO PROSTHETIC VALVE: NO PACEMAKER: NO MEASUREMENTS (cm) DIASTOLIC (NORMALS) SYSTOLIC (NORMALS) IVSd 0.9 (0.6-1.2) LA Diam 3.4 (1.9-4.0) LVEF 54% LVIDd 4.7 (3.5-5.7) LVIDs 3.4 (2.0-3.5) %FS 28% LVPWd 1.1 (0.6-1.2) Ao Diam 2.8 (2.0-3.7) 2 DIMENSIONAL ASSESSMENT: RIGHT ATRIUM: NORMAL LEFT ATRIUM: NORMAL RIGHT VENTRICLE: NORMAL LEFT VENTRICLE: NORMAL TRICUSPID VALVE: NORMAL MITRAL VALVE: NORMAL PULMONIC VALVE: NORMAL AORTIC VALVE: NORMAL PERICARDIAL EFFUSION: NONE AORTIC ROOT: NORMAL LEFT VENTRICULAR WALL MOTION: NORMAL. DOPPLER/COLOR FLOW: MILD MITRAL AND TRICUSPID REGURGITATION. ESTIMATED RIGHT VENTRICULAR SYSTOLIC PRESSURE 38mmHg (MILD PULMONARY HYPERTENSION). COMMENTS: NORMAL 2D ECHO. MILD MITRAL AND TRICUSPID REGURGITATION. MILD PULMONARY HYPERTENSION. STUDY PERFORMED WHILE PATIENT WAS IN SINUS RHYTHM. TECHNOLOGIST: DIANELYS BROWN
[2019-12-16] MEDS ORDERED: FUROSEMIDE 40 MG/4 ML VIAL IV ONE (11:45)
[2019-12-16] MEDS ORDERED: NA CHLORIDE 0.9% 250 ML IV SCH (12:00)
--- NOTE | 2019-12-16 12:02 | PN ---
Mrs. Hdez is not able to tolerate Eliquis, so we will stop it and not give any other anticoagulant i n its place. She had bleeding, but she is maintaining sinus rhythm on sotalol 40 b.i.d., so I would like us to continue that. I think from the arrhythmia standpoint, the patient could be discharged ho me on Betapace 40 b.i.d. and have close followup in our office. JOMAR/JEANCARLOS Voice ID: [id number] Report ID: [id number]
--- NOTE | 2019-12-16 13:53 | P.PN ---
Subjective Date of Service: 12/16/19 Chief Complaint: Palpitations shortness of breath Patient reports persistent shortness of breath. She was also hypoxic this morning and placed on BiPAP Her hemoglobin has dropped from 9-7 and stable at 7 She reports history dark colored diarrhea. She also has a prior history of hemoptysis. She is currently in sinus rhythm. Physical Examination - Vital Signs Temperature: 97.1 F Blood Pressure: 177/75 Pulse: 69 Respirations: 19 Pulse Ox (%): 97 - Physical Exam General: Alert, In no apparent distress, Oriented x3 HEENT: Mucous membr. moist/pink, Sclerae nonicteric Neck: Supple, JVD not distended Respiratory: Diminished Cardiovascular: No edema, Regular rate/rhythm, Normal S1 S2, No murmurs Gastrointestinal: Normal bowel sounds, Soft and benign, Non-distended, No tenderness Musculoskeletal: No swelling, No erythema Integumentary: No rashes Neurological: Normal speech, Normal strength at 5/5 x4 extr Assessment And Plan - Current Problems (Diagnosis) (1) Atrial flutter Current Visit: Yes Status: Acute (2) Chronic kidney disease, stage 4 (severe) Current Visit: Yes Status: Chronic (3) Elevated troponin Current Visit: Yes Status: Acute (4) CAD (coronary artery disease) Current Visit: No Status: Chronic - Plan Continue Sotalol. Eliquis is on hold given drop in hemoglobin, prior history of hemoptysis, and reports of dark-colored diarrhea, Stool for occult is pending. Titrate oxygen. BiPAP as needed. Transfuse 2 units PRBC for symptomatic anemia. Give Lasix in between transfusions Pulmonary input appreciated Scheduled bronchodilators. Start oral prednisone. Reassess for home oxygen on discharge.
[2019-12-16] MEDS ORDERED: NA CHLORIDE 0.9% 250 ML ONE ×2 (14:10→19:34)
--- NOTE | 2019-12-16 15:17 | PN ---
Date of Progress Note: 12/16/2019 Subjective: Patient was admitted with CHF exacerbation, atrial fibrillation, RVR. Yesterday, we started her on aggressive diuresis, responding well. Blood pressure still elevated. Physical Examination: Vital Signs: Blood pressure 182/76, pulse of 79, had urine output of 950, even balance. Chest: Crackles bilateral. Heart: S1, S2. Systolic murmur Irr . Abdomen: Soft, nontender. Extremities: Trace edema. Laboratory Data: WBC 5.3, H and H 7.6/24, platelets 204. Sodium 141, potassium 3.9, bicarb 31, BUN 50, creatinine down to 1.8, GFR of 27, calcium 8.4 , phosphorus 4.4, magnesium 2.3. Iron saturation of 10, ferritin of 190. TSH 1.8. Medications: Current medications the patient is on include, atorvastatin 40 mg , baclofen, hydralazine 50 t.i.d., nifedipine, sotalol, gabapentin, Ensure, Lasix 60 b.i.d. Assessment And Plan: 1. Chronic kidney disease, stage IV, still over-volume secondary to cardiorenal. I am going to optimize her diuresis. We will increase Lasix to 80 mg b.i.d. and we will monitor. 2. Hypertension, uncontrolled with the presence of congestive heart failure exacerbation. We will challenge the patient with JESSICA inhibitor, increase hydralazine to 75, and increase Lasix. We will follow up. 3. Iron-deficiency anemia. Patient will be started on IV iron. I agree with transfusion. Plan, we will give Lasix 40 after each unit. 4. Coronary artery disease, congestive heart failure, by Cardiology. Case discussed with agreed on the plan. GARRY/JEANCARLOS Voice ID: [id number] Report ID: [id number] DINO
[2019-12-16] MEDS: MELATONIN 5 MG TABLET PO SCH (20:55)
[2019-12-16] MEDS: ROPINIROLE HCL 1 MG TAB PO SCH (20:55)
[2019-12-16] MEDS: CHOL PO SCH (20:59)
[2019-12-16] MEDS: FOLIC ACID PO SCH (20:59)
[2019-12-16] MEDS: MV CAL IRON MN PO SCH (20:59)
[2019-12-16] MEDS ORDERED: HYDRALAZINE HCL 20 MG/ML VIAL IV ONE (23:50)
[2019-12-17] MEDS: IPRATROPIUM BROM 0.5MG/2.5ML NEB SCH ×4 (01:45→20:00)
[2019-12-17 02:06] LABS: Hematocrit 34.4 % (36.0-45.0)
[2019-12-17 05:00] LABS: Albumin 2.7 g/dL (3.4-5.0); Phosphorus 3.5 mg/dL (2.5-4.9); Potassium 3.7 mmol/L (3.5-5.1)
[2019-12-17] MEDS ORDERED: POTASSIUM CL SA 10 MEQ TAB PO ONE (05:15)
[2019-12-17] MEDS: HYDRALAZINE HCL 25 MG TABLET PO SCH ×4 (05:32→23:34)
[2019-12-17] MEDS: SOTALOL HCL 80 MG TAB PO SCH ×2 (05:32→16:59)
[2019-12-17] MEDS: NICOTINE 21 MG/PAT TD SCH (07:54)
[2019-12-17] MEDS: HYDROCODONE/APAP 7.5/325 MG TAB PO SCH ×3 (07:55→20:35)
[2019-12-17] MEDS: ZINC SULFATE 220 MG CAP PO SCH (07:55)
[2019-12-17] MEDS: BACLOFEN 10 MG TAB PO SCH ×2 (07:55→20:35)
[2019-12-17] MEDS: predniSONE 20 MG TAB PO SCH (07:55)
[2019-12-17] MEDS: NIFEDIPINE XL 90 MG TABLET PO SCH (07:56)
[2019-12-17] MEDS: lisinopriL 5 MG TAB PO SCH (07:56)
[2019-12-17] MEDS: ENSURE ENLIVE 237 ML CAN PO SCH ×2 (07:57→20:36)
[2019-12-17] MEDS: FUROSEMIDE 40 MG/4 ML VIAL IV SCH (07:57)
[2019-12-17] MEDS: GLUCOSAMINE HCL PO SCH (07:58)
[2019-12-17] MEDS: IRON 28 MG PO SCH (07:58)
[2019-12-17] MEDS: BIOTIN 2500 MCG PO SCH (07:58)
[2019-12-17] MEDS: GABAPENTIN 100 MG CAP PO SCH (07:59)
[2019-12-17] MEDS: ATORVASTATIN 40 MG TAB PO SCH (08:02)
[2019-12-17] MEDS: HOME MED 1 EA UNK (Magnesium Oxide [Magnesium] 1 TAB) PO SCH (08:02)
[2019-12-17] MEDS: HOME MED 1 EA UNK (Umeclidinium Brm/Vilanterol Tr [Anoro Ellipta 62.5-25 Mcg Inh] 1 PUFF) IN SCH (08:03)
--- NOTE | 2019-12-17 11:42 | P.PN ---
Subjective Date of Service: 12/17/19 Chief Complaint: Palpitations shortness of breath Subjective: No new changes, Improving Review of Systems 10-point ROS is otherwise unremarkable Physical Examination - Vital Signs Temperature: 98.8 F Blood Pressure: 140/68 Pulse: 69 Respirations: 22 Pulse Ox (%): 90 - Physical Exam General: Alert, In no apparent distress HEENT: Atraumatic, Normocephalic Neck: Supple Respiratory: Clear to auscultation bilaterally, Normal air movement Cardiovascular: Normal pulses, Regular rate/rhythm Capillary refill: <2 Seconds Gastrointestinal: Soft and benign, W/out hepatosplenomegaly Musculoskeletal: No clubbing, No swelling Integumentary: No rashes Neurological: Normal speech, Normal strength at 5/5 x4 extr Lymphatics: No axilla or inguinal lymphadenopathy External genitalia: Deferred Rectal: Deferred - Studies Laboratory Last Values WBC 5.3 K/uL (4.3-10.9) 12/16/19 03:51 RBC 2.40 M/uL (3.86-4.86) L 12/16/19 03:51 Hgb 11.3 g/dL (12.0-15.0) L D 12/17/19 01:43 Hct 34.4 % (36.0-45.0) L D 12/17/19 01:43 MCV 100.1 fL (80-100) H 12/16/19 03:51 MCH 31.7 pg (27.0-35.0) 12/16/19 03:51 MCHC 31.7 g/dL (32.0-36.0) L 12/16/19 03:51 RDW 17.9 % (12.1-15.2) H 12/16/19 03:51 Plt Count 204 K/uL (152-406) 12/16/19 03:51 MPV 10.0 fL (7.6-11.3) 12/16/19 03:51 Neutrophils % 69.3 % (41.7-73.7) 12/16/19 03:51 Lymphocytes % 18.0 % (15.3-44.8) 12/16/19 03:51 Monocytes % 8.9 % (3.3-12.3) 12/16/19 03:51 Eosinophils % 2.9 % (0-4.4) 12/16/19 03:51 Basophils % 0.9 % (0-1.3) 12/16/19 03:51 Absolute Neutrophils 3.7 K/uL (1.8-8.0) 12/16/19 03:51 Absolute Lymphocytes 1.0 K/uL (0.7-4.9) 12/16/19 03:51 Absolute Monocytes 0.5 K/uL (0.1-1.3) 12/16/19 03:51 Absolute Eosinophils 0.2 K/uL (0-0.5) 12/16/19 03:51 Absolute Basophils 0.0 K/uL (0-0.5) 12/16/19 03:51 Absolute Retic 0.12 M/uL (0.02-0.11) H 12/16/19 03:51 Percent Retic 4.88 % (0.4-2.05) H 12/16/19 03:51 PT 12.3 SECONDS (9.5-12.5) 12/14/19 13:55 INR 1.04 12/14/19 13:55 Sodium 140 mmol/L (136-145) 12/17/19 04:28 Potassium 3.7 mmol/L (3.5-5.1) 12/17/19 04:28 Chloride 104 mmol/L (98-107) 12/17/19 04:28 Carbon Dioxide 30 mmol/L (21-32) 12/17/19 04:28 BUN 42 mg/dL (7-18) H 12/17/19 04:28 Creatinine 1.58 mg/dL (0.55-1.3) H 12/17/19 04:28 Estimated GFR 33 mL/min (=/>90) L 12/17/19 04:28 Glucose 90 mg/dL (74-106) 12/17/19 04:28 Calcium 8.4 mg/dL (8.5-10.1) L 12/17/19 04:28 Phosphorus 3.5 mg/dL (2.5-4.9) 12/17/19 04:28 Magnesium 2.0 mg/dL (1.8-2.4) 12/17/19 04:28 Iron 26.0 ug/dL (50-170) L 12/16/19 03:51 TIBC 255 ug/dL (250-460) 12/16/19 03:51 Transferrin 182 mg/dL (200-360) L 12/16/19 03:51 Transferrin % Sat 10.2 % (20.0-50.0) L 12/16/19 03:51 Ferritin 190.5 ng/mL (8-388) 12/16/19 03:51 Total Bilirubin 0.4 mg/dL (0.2-1.0) 12/14/19 13:55 Direct Bilirubin 0.1 mg/dL (0-0.2) 12/14/19 13:55 AST 30 U/L (15-37) 12/14/19 13:55 ALT 26 U/L (12-78) 12/14/19 13:55 Alkaline Phosphatase 103 U/L (45-117) 12/14/19 13:55 Rapid Troponin I 0.57 ng/mL (0.0-0.045) H* 12/14/19 13:55 Troponin I 0.53 ng/mL (0.0-0.045) H* 12/14/19 22:01 NT-Pro-B Natriuret Pep 15386 pg/mL (<125) H 12/14/19 13:55 Serum Total Protein 8.0 g/dL (6.4-8.2) 12/14/19 13:55 Albumin 2.7 g/dL (3.4-5.0) L 12/17/19 04:28 Globulin 4.1 g/dL (2.3-3.5) H 12/14/19 13:55 Albumin/Globulin Ratio 1.0 (1.1-1.8) L 12/14/19 13:55 Triglycerides 82 mg/dL (<150) 12/15/19 03:00 Cholesterol 98 mg/dL (<200) 12/15/19 03:00 LDL Cholesterol, Calc 28 (<130) 12/15/19 03:00 HDL Cholesterol 54 mg/dL (40-60) 12/15/19 03:00 Cholesterol/HDL Ratio 1.81 12/15/19 03:00 Vitamin B12 1515 pg/mL (193-986) H 12/16/19 03:51 Serum Folate > 20.0 ng/mL (3.1-17.5) H 12/16/19 03:51 TSH 1.850 uIU/mL (0.360-3.740) 12/16/19 03:51 Free T4 1.26 ng/dL (0.76-1.46) 12/14/19 13:55 Urine Color Yellow 12/15/19 00:30 Urine Appearance Clear 12/15/19 00:30 Urine pH 5.5 (5.0-7.0) 12/15/19 00:30 Ur Specific [place] 1.015 (1.005-1.030) 12/15/19 00:30 Glucose (UA)(Auto) Negative (NEG) 12/15/19 00:30 Urine Ketones Negative (NEG) 12/15/19 00:30 Urine Blood Negative (NEG) 12/15/19 00:30 Urine Nitrite Negative (NEG) 12/15/19 00:30 Urine Bilirubin Negative (NEG) 12/15/19 00:30 Urine Urobilinogen 0.2 mg/dL (0.2-1.0) 12/15/19 00:30 Ur Leukocyte Esterase Negative (NEG) 12/15/19 00:30 Urine Total Protein Negative (NEG) 12/15/19 00:30 ABO/Rh B POSITIVE 12/16/19 12:20 Solid Phase Ab Screen Negative 12/16/19 12:20 Crossmatch See Detail 12/16/19 12:20 Assessment & Plan - Problems (Diagnosis) (1) Atrial flutter Current Visit: Yes Status: Acute (2) COPD exacerbation Current Visit: Yes Status: Acute (3) Chronic kidney disease, stage 4 (severe) Current Visit: Yes Status: Chronic (4) Acute kidney injury superimposed on CKD Current Visit: No Status: Acute (5) CAD (coronary artery disease) Current Visit: No Status: Chronic (6) HTN (hypertension) Current Visit: No Status: Chronic Plan: Continue Sotalol. Eliquis is on hold given drop in hemoglobin, prior history of hemoptysis, and reports of dark-colored diarrhea, Appreciate help from cardiology recommended no anticoagulation at this point Stool for occult is pending. Titrate oxygen. BiPAP as needed. Anemia underwent transfusions HH stable Monitor CBC daily Transfuse p.r.n. Discussed with nephrology Doses of lasix changed will monitor renal parameters possible Dc in a.m. if renal parameters as stable Time Spent Managing Pts Care (In Minutes): 42
--- NOTE | 2019-12-17 14:52 | PN ---
Date of Progress Note: 12/17/2019 Subjective: Patient was admitted with acute kidney injury secondary to cardiorenal, AFib with RVR. Patient diuresed aggressively. Physical Examination: Vital Signs: Blood pressure 140/68, pulse of 69. Patient had good urine output of 2500, negative of 700. Chest: Faint thrills, more prominent on the left base. Heart: S1, S2. Systolic murmur. Irregular. Abdomen: Soft, nontender. Extremities: No edema. Laboratory Data: H and H 11.3/34.4. Sodium 140, potassium 3.7, bicarb 30, BUN 42, creatinine down t o 1.5, GFR of 33, calcium 8.4. Current Medications: Includes: 1.Atorvastatin. 2.IV iron. 3.Hydralazine 75 t.i.d. 4.Lisinopril was started yesterday at 5 daily. 5.Nifedipine. 6.Gabapentin. 7.Lasix 80 b.i.d. 8.Prednisone. Assessment And Plan: 1.Acute kidney injury secondary to cardiorenal, recovered back to baseline. I am going to go ahead and switch the patient to oral Lasix 100 mg b.i.d. 2.We will monitor the patient on oral. If kidney function stays stable, fluid status been controlle d, okay to be discharged tomorrow. 3.Hypertension, controlled, optimal. We will continue JESSICA inhibitor. 4.Iron-deficiency anemia. Continue IV iron. 5.Congestive heart failure exacerbation as above. We will utilize the blood pressure to establish b juan ramon volume control. 6.Atrial fibrillation as by Cardiology. 7.Chronic obstructive pulmonary disease. Followup Pulmonary. GARRY/JEANCARLOS Voice ID: [id number] Report ID: [id number]
[2019-12-17] MEDS ORDERED: FUROSEMIDE 100 MG/10 ML VIAL IV SCH (17:00)
[2019-12-17] MEDS: MELATONIN 5 MG TABLET PO SCH (20:35)
[2019-12-17] MEDS: CHOL PO SCH (20:36)
[2019-12-17] MEDS: ROPINIROLE HCL 1 MG TAB PO SCH (20:36)
[2019-12-17] MEDS: FOLIC ACID PO SCH (20:36)
[2019-12-17] MEDS: MV CAL IRON MN PO SCH (20:36)
[2019-12-18] MEDS: IPRATROPIUM BROM 0.5MG/2.5ML NEB SCH ×2 (01:35→09:15)
[2019-12-18 05:31] LABS: Absolute Lymphocytes (CBC) 1.1 K/uL (0.7-4.9); Basophils % 1.1 % (0-1.3); Hematocrit 34.4 % (36.0-45.0); Lymphocytes % 27.3 % (15.3-44.8); RBC Red Blood Cell Count 3.61 M/uL (3.86-4.86)
[2019-12-18] MEDS: HYDRALAZINE HCL 25 MG TABLET PO SCH ×2 (05:37→11:25)
[2019-12-18] MEDS: SOTALOL HCL 80 MG TAB PO SCH (05:38)
[2019-12-18 05:44] LABS: Albumin 2.9 g/dL (3.4-5.0); Phosphorus 3.8 mg/dL (2.5-4.9)
[2019-12-18 05:46] LABS: Potassium 4.4 mmol/L (3.5-5.1)
[2019-12-18 05:51] VITALS: BMI 15.7
[2019-12-18] MEDS: BIOTIN 2500 MCG PO SCH (09:00)
[2019-12-18] MEDS ORDERED: FUROSEMIDE 40 MG TABLET PO SCH (09:00)
[2019-12-18] MEDS: IRON 28 MG PO SCH (09:00)
[2019-12-18] MEDS: HOME MED 1 EA UNK (Magnesium Oxide [Magnesium] 1 TAB) PO SCH (09:00)
[2019-12-18] MEDS: GLUCOSAMINE HCL PO SCH (09:00)
[2019-12-18] MEDS: HOME MED 1 EA UNK (Umeclidinium Brm/Vilanterol Tr [Anoro Ellipta 62.5-25 Mcg Inh] 1 PUFF) IN SCH (09:00)
[2019-12-18 09:33] LABS: Blood Morphology Comment NOT SEEN (NOT SEEN); Platelet Estimate ADEQ; Urine White Blood Cell Casts OK
[2019-12-18] MEDS: BACLOFEN 10 MG TAB PO SCH (09:33)
[2019-12-18] MEDS: ZINC SULFATE 220 MG CAP PO SCH (09:33)
[2019-12-18] MEDS: ATORVASTATIN 40 MG TAB PO SCH (09:33)
[2019-12-18] MEDS: predniSONE 20 MG TAB PO SCH (09:33)
[2019-12-18] MEDS: HYDROCODONE/APAP 7.5/325 MG TAB PO SCH (09:34)
[2019-12-18] MEDS: lisinopriL 5 MG TAB PO SCH (09:35)
[2019-12-18] MEDS: NICOTINE 21 MG/PAT TD SCH (09:35)
[2019-12-18] MEDS: GABAPENTIN 100 MG CAP PO SCH (09:35)
[2019-12-18] MEDS: ENSURE ENLIVE 237 ML CAN PO SCH (09:36)
[2019-12-18] MEDS: NIFEDIPINE XL 90 MG TABLET PO SCH (10:35)
--- NOTE | 2019-12-18 10:38 | P.DS ---
Admission Date: 12/14/19 Discharge Date: 12/18/19 Disposition: ROUTINE DISCHARGE Discharge Condition: GOOD Reason for Admission: Palpitations shortness of breath - Problems (1) Atrial flutter Status: Acute (2) COPD exacerbation Status: Acute (3) Chronic kidney disease, stage 4 (severe) Status: Chronic (4) Acute kidney injury superimposed on CKD Status: Acute (5) CAD (coronary artery disease) Status: Chronic (6) HTN (hypertension) Status: Chronic Brief History of Present Illness: 69-year-old woman with a history of coronary artery disease status post coronary stent, history of CVA, history of chronic kidney disease, status post hemodialysis for end-stage renal disease was referred to the emergency department from her Cardiology office for atrial flutter. Patient reports feeling short of breath and palpitation since yesterday. Notes patient renal function has improved and hemodialysis has been discontinued. EKG done in the ED demonstrated atrial flutter and nonspecific ST changes. Initial troponin is mildly elevated. He was given a shot of full-dose Lovenox and her dose of sotalol. Patient spontaneously converted to sinus rhythm during my examination. Cardiology-Dr. Carter was informed who recommended admission to the hospitalist service for him to evaluate. Patient denied any chest pain. She is admitted for further management. Hospital Course: Patient was admitted and was monitor under telemetry. Started on sotalol Cardiology and nephrology were consulted . Stephanie is on hold given drop in hemoglobin, prior history of hemoptysis, and reports of dark-colored diarrhea, Appreciate help from cardiology recommended no anticoagulation at this point For Anemia she underwent transfusions. Hemoglobin is stable at the time of discharge Discussed with nephrology , Doses of lasix changed , monitored renal parameters The patient is being discharged home today in a stable condition with advice to follow up with PCP in 1 week and also with Cardiology and Nephrology in 1-2 weeks Vital Signs/Physical Exam: Temp Pulse Resp BP Pulse Ox 97.8 F 66 18 168/64 H 94 12/18/19 08:00 12/18/19 10:35 12/18/19 09:34 12/18/19 10:35 12/18/19 09:34 General: Alert, In no apparent distress HEENT: Atraumatic, Normocephalic Neck: Supple Respiratory: Clear to auscultation bilaterally Cardiovascular: Regular rate/rhythm Gastrointestinal: Soft and benign, W/out hepatosplenomegaly Musculoskeletal: No clubbing, No swelling Integumentary: No rashes Neurological: Normal speech, Normal strength at 5/5 x4 extr Lymphatics: No axilla or inguinal lymphadenopathy External genitalia: Deferred Rectal: Deferred Laboratory Data at Discharge: WBC 3.9 K/uL (4.3-10.9) L D 12/18/19 05:11 Hgb 11.2 g/dL (12.0-15.0) L 12/18/19 05:11 Hct 34.4 % (36.0-45.0) L 12/18/19 05:11 Plt Count 223 K/uL (152-406) 12/18/19 05:11 PT 12.3 SECONDS (9.5-12.5) 12/14/19 13:55 INR 1.04 12/14/19 13:55 Sodium 137 mmol/L (136-145) 12/18/19 05:11 Potassium 4.4 mmol/L (3.5-5.1) 12/18/19 05:11 BUN 45 mg/dL (7-18) H 12/18/19 05:11 Creatinine 1.69 mg/dL (0.55-1.3) H 12/18/19 05:11 Glucose 86 mg/dL (74-106) 12/18/19 05:11 Phosphorus 3.8 mg/dL (2.5-4.9) 12/18/19 05:11 Magnesium 2.0 mg/dL (1.8-2.4) 12/18/19 05:11 Total Bilirubin 0.4 mg/dL (0.2-1.0) 12/14/19 13:55 AST 30 U/L (15-37) 12/14/19 13:55 ALT 26 U/L (12-78) 12/14/19 13:55 Alkaline Phosphatase 103 U/L (45-117) 12/14/19 13:55 Troponin I 0.53 ng/mL (0.0-0.045) H* 12/14/19 22:01 Triglycerides 82 mg/dL (<150) 12/15/19 03:00 Cholesterol 98 mg/dL (<200) 12/15/19 03:00 HDL Cholesterol 54 mg/dL (40-60) 12/15/19 03:00 Cholesterol/HDL Ratio 1.81 12/15/19 03:00 Home Medications: Aspirin [Aspir-Low] 81 mg PO DAILY 09/10/18 Baclofen 10 mg PO BID 09/10/18 Biotin [Nail-Ex] 2,500 mcg PO DAILY 09/10/18 Clopidogrel Bisulfate [Plavix*] 75 mg PO DAILY 09/10/18 Zinc 50 mg PO DAILY 09/10/18 Atorvastatin Calcium [Lipitor] 1 tab PO DAILY 10/16/19 Docusate Sodium [Dulcolax Stool Softener] 1 cap PO BID PRN 10/16/19 Gabapentin 1 cap PO DAILY 10/16/19 Glucosamine HCl 1 tab PO DAILY 10/16/19 Hydralazine [Apresoline*] 50 mg PO Q6H 10/16/19 Iron 28 mg PO DAILY 10/16/19 Magnesium Oxide [Magnesium] 1 tab PO DAILY 10/16/19 Melatonin 2 cap PO BEDTIME 10/16/19 Mv,Vipul,Iron,Mn/Folic Acid/Chol [Hair, Skin and Nails Capsule] 5 mg PO BEDTIME Nifedipine [Nifedipine ER] 90 mg PO DAILY 10/16/19 Ropinirole HCl [Requip] 1 tab PO DAILY 10/16/19 hydrOXYzine HCL [Atarax] 50 mg PO BEDTIME 10/16/19 Albuterol Neb [Proventil 0.083% Neb Soln] 1 amp IN TID 12/14/19 Albuterol Sulfate [Proair Digihaler] 2 puff IH QID 12/14/19 Hydrocodone Bit/Acetaminophen [Hydrocodon-Acetaminoph 7.5-325] 1 tab PO TID Ipratropium Neb [Atrovent*] 1 amp IN QID PRN 12/14/19 Umeclidinium Brm/Vilanterol Tr [Anoro Ellipta 62.5-25 Mcg INH] 1 puff IN DAILY 12/14/19 Furosemide [Lasix*] 100 mg PO DAILY #90 tab 12/18/19 Sotalol HCl [Betapace*] 40 mg PO BID 6AM 6PM #60 tab 12/18/19 predniSONE [Prednisone*] 40 mg PO DAILY #10 tab 12/18/19 New Medications: Furosemide [Lasix*] 100 mg PO DAILY #90 tab predniSONE [Prednisone*] 40 mg PO DAILY #10 tab Sotalol HCl [Betapace*] 40 mg PO BID 6AM 6PM #60 tab Diet: AHA Activity: Ad janes Followup: Ji Narayan MD [ACTIVE - CAN ADMIT] - (call to schedule appointment) Sharan Benjamin MD [ACTIVE - CAN ADMIT] - (call to schedule appointment) Time spent managing pt's care (in minutes): 40
[2019-12-18 12:25] VITALS: TEMP 97.9
[2019-12-18 13:33] VITALS: BP 138/60
[2019-12-18 13:35] VITALS: O2SAT 93
== END 2019-12-18 12:46 | disposition home or self-care (01) | DRG 291 ==
LOC: ER 13:19 → ERHOLD 16:02 → 4TH 17:25
PROVIDERS: ADMIT Internal Medicine; ATTEND Family Medicine
PROC: 5A09457 Assistance with Respiratory Ventilation, 24-96 Consecutive Hours, Continuous Positive Airway Pressure (ICD-10-PCS; principal; 2019-12-14)
PROC: 30233N1 Transfusion of Nonautologous Red Blood Cells into Peripheral Vein, Percutaneous Approach (ICD-10-PCS; 2019-12-16)
PROC: 30233N1 Transfusion of Nonautologous Red Blood Cells into Peripheral Vein, Percutaneous Approach (ICD-10-PCS; 2019-12-16)
DX: I13.0 Hypertensive heart and chronic kidney disease with heart failure and stage 1 through stage 4 chronic kidney disease, or unspecified chronic kidney disease (principal); I50.33 Acute on chronic diastolic (congestive) heart failure; J96.21 Acute and chronic respiratory failure with hypoxia; I48.92 Unspecified atrial flutter; N18.4 Chronic kidney disease, stage 4 (severe); J44.1 Chronic obstructive pulmonary disease with (acute) exacerbation; N17.9 Acute kidney failure, unspecified; E44.0 Moderate protein-calorie malnutrition; Z68.1 Body mass index [BMI] 19.9 or less, adult; I24.8 Other forms of acute ischemic heart disease; I73.00 Raynaud's syndrome without gangrene; D63.8 Anemia in other chronic diseases classified elsewhere; D50.9 Iron deficiency anemia, unspecified; I25.10 Atherosclerotic heart disease of native coronary artery without angina pectoris; I65.22 Occlusion and stenosis of left carotid artery; Z99.81 Dependence on supplemental oxygen; Z86.73 Personal history of transient ischemic attack (TIA), and cerebral infarction without residual deficits
CPT/HCPCS: 36415; 36430; 71045; 71250; 80048; 80061; 80069; 80076; 81003; 82607; 82728; 82746; 83540; 83735; 83880; 84100; 84439; 84443; 84466; 84484; 85014; 85018; 85025; 85044; 85610; 86850; 86900; 86901; 87070; 87077; 87186; 87205; 93005; 93306; 94660; 94760; 96372; 99285; J0360; J1650; J1940; J2916; J7030; J7512; P9016

== ENCOUNTER 2020-01-05 07:44 | Day surgery (SDC) | payer MEDICARE ==
--- NOTE | 2019-12-30 11:27 | EKG ---
Test Date: 2019-12-30 Test Time: 10:01:03 Office System Analyst: DOE MEASUREMENT RESULTS: Intervals: Rate: 60 MA: 146 QRSD: 86 QT: 522 QTc: 522 [place]: P: 79 MA: 146 QRS: 93 T: 76 INTERPRETIVE STATEMENTS: Normal sinus rhythm Possible Left atrial enlargement Rightward axis Left ventricular hypertrophy Prolonged QT Abnormal ECG Compared to ECG 12/14/2019 15:33:32 Right-axis deviation now present Left ventricular hypertrophy now present Electronically Signed On 12-30-19 11:26:48 CDT by Jcarlos Carter
--- NOTE | 2019-12-30 11:40 | RAD REPORT ---
EXAM DESCRIPTION: RAD - Chest Pa And Lat (2 Views) - 12/30/2019 11:29 am CLINICAL HISTORY: preop cleaner laboratory equipment Chest pain. COMPARISON: Chest Single View dated 12/14/2019; Chest Single View dated 12/14/2019; Chest Pa And Lat ( 2 Views) dated 10/19/2019; Chest Single View dated 10/16/2019 FINDINGS: Emphysematous changes are present throughout the lungs. Mild interstitial pulmonary edema suspected. The heart is mildly enlarged in size. No displaced fractures. IMPRESSION: Mild CHF.
[2019-12-30 11:53] LABS: Absolute Lymphocytes (CBC) 0.7 K/uL (0.7-4.9); Basophils % 1.1 % (0-1.3); Hematocrit 37.4 % (36.0-45.0); Lymphocytes % 11.2 % (15.3-44.8); MPV 9.7 fL (7.6-11.3); RBC Red Blood Cell Count 3.94 M/uL (3.86-4.86)
[2019-12-30 11:59] LABS: Protime INR 0.98
[2019-12-30 12:41] LABS: Potassium 3.6 mmol/L (3.5-5.1)
--- OUTSIDE RECORDS SUMMARY | 2020-01-05 07:49 | XMS REPORT ---
:1950 Author Organization [facility] Address [address] [place] [address] Dr. Wang [address] [place] [id number] Care Team Providers Name Role Phone MEKHI MONTES DE OCA Unavailable Unavailable Problems This patient has no known problems. Allergies, Adverse Reactions, Alerts This patient has no known allergies or adverse reactions. Medications This patient has no known medications. Results Test Description Test Time Test Comments Text Results Atomic Results Result Comments TISSUE EXAM 2019-08-12 11:34:00 Surgical Pathology Report Case: [id number] Authorizing Provider: Dorinda Carrasco MD Collected: 08/07/2019 3958 Ordering Location: [address] Received: 08/07/2019 1457 Service Pathologist: Sheila May MD Specimen: Kidney KIDNEY, RIGHT, NEEDLE BIOPSIES- ACUTE TUBULOEPITHELIAL INJURY- FOCAL SEGMENTAL AND FOCAL GLOBAL GLOMERULOSCLEROSIS- NEGATIVE FOR IMMUNE MEDIATED GLOMERULONEPHRITIS- INTERSTITIAL FIBROSIS AND TUBULAR ATROPHY, MILD (~20%)- MODERATE ARTERIOLAR SCLEROSIS- SEGMENTALLY THICKENED GLOMERULAR BASEMENT MEMBRANES, SUGGESTIVE OF EARLY DIABETIC NEPHROPATHY (ULTRASTRUCTURAL) Signing Pathologist Direct Phone Line: [phone] signed by Sheila May MD on 08/12/2019 at 11:34 AMThe renal biopsy shows 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 No features of crescentic GN or thrombi are seen. No features of acute tubulointersitital nephritis are seen.Negative immunofluorescence and absence of electron dense deposits on ultrastructural evaluation excludes an immune complex mediated glomerulonephritis. The histological findings were discussed with Dr. Cho on 08/10/2019.13343, 65716 X3, 28221, 93288 x7, [id number] source of tissue: Right seminole kidneyKidney biopsy, non-transplantA. [place] kidney biopsy Received in formalin labeled with the patient's name "Remi Khan" accession [id number] are two kong-brown core biopsy fragments measuring 1.2 x0.1x0.1 and 05.x0.1x0.1 cm. The specimen is submitted entirely in cassette A1.A. This portion of the case is received in three containers labeled with the patient's information and [id number] which corresponds to the accompanying requisition slip. Received in formalin labeled with the patient's information and "A. Right seminole kidney biopsy" are two fragments of kong-pink soft tissue measuring 2 x 0.1 x 0.1 cm in aggregate. They are submitted in toto after filtration in cassette A1. Also received in part A is a container labeled with the patient's information and "right seminole kidney biopsy". The specimen is a 1.2 x 0.1 cm kong-pink fragment of soft tissue in saline. It is submitted entirely for C4D testing. Also received as part A is a container labeled with the patient's information and "right seminole kidney biopsy". The specimen consists of a [...] seen. No double contours are noted on Boone or PAS stain.Tubules and interstitium: The tubules [...] hyalinosis. Special stains: Radha trichrome, PAS and Boone silver stains were necessary for evaluation of [...] evaluated Immunohistochemistry technical testing was performed at [facility], Pathology Laboratory where it was developed and [...] Item Value Reference Range Comments POC-GLUCOSE METER (Social Point) 97 mg/dL 70-110 : TESTED AT [facility] [address] [facility] (test xmsu=0321) [place], [address]: Deputy Program Manager/Bit Tripoler [id number] for ANGELICA GANN [id number] 06:13:00 Test Item Value Reference Range Comments FERRITIN (Social Point) (test wmuw=707) 115 ng/mL 5-275 IRON, TIBC, % SAT. (WITHOUT FERRITIN)2019-08-12 06:00:00 Test Item Value Reference Range Comments IRON (BEAKER) (test xslg=203) 107.0 ug/dL 40.0-160.0 TOTAL IRON BINDING CAPACITY (BEAKER) (test 264 ug/dL 250-450 eubc=204) IRON % SATURATION (2) (BEAKER) (test ofgj=7334) 41 % 20-55 [id number] 05:16:00 Test Item Value Reference Range Comments PHOSPHORUS (BEAKER) (test httg=981) 1.8 mg/dL 2.3-4.7 RETICULOCYTE [id number] 04:50:00 Test Item Value Reference Range Comments RETICULOCYTE COUNT PCT (BEAKER) (test vcxq=572) 2.9 % 0.5-1.7 POCT-GLUCOSE [id number] 20:56:00 Test Item Value Reference Range Comments POC-GLUCOSE METER (BEAKER) 122 mg/dL 70-110 : TESTED AT [address] (test rukg=4459) [facility], [address]: Deputy Program Manager/Bit Tripoler [id number] for NEGRO BUSTILLOS POCT-GLUCOSE [id number] 16:53:00 Test Item Value Reference Range Comments POC-GLUCOSE METER (BEAKER) 113 mg/dL 70-110 : TESTED AT [address] (test kdqh=6829) [facility], [address]: Deputy Program Manager/Bit Tripoler [id number] for GIOVANI BOONE POCT-GLUCOSE [id number] 12:42:00 Test Item Value Reference Range Comments POC-GLUCOSE METER (BEAKER) 150 mg/dL 70-110 TESTED AT [address] (test ksni=2630) [facility] [address] POCT-GLUCOSE [id number] 08:47:00 Test Item Value Reference Range Comments POC-GLUCOSE METER (BEAKER) 106 mg/dL 70-110 TESTED AT [address] (test azec=7124) [facility] [address] POCT-GLUCOSE [id number] 07:45:00 Test Item Value Reference Range Comments POC-GLUCOSE METER (BEAKER) 114 mg/dL 70-110 TESTED AT [address] (test mqkq=8279) [facility] [address] POCT-GLUCOSE [id number] 06:55:00 Test Item Value Reference Range Comments POC-GLUCOSE METER (BEAKER) 205 mg/dL 70-110 TESTED AT [facility] [address] [facility] (test kklg=0506) [facility] [address] CALCIUM, [id number] 06:09:00 Test Item Value Reference Range Comments CALCIUM IONIZED (BEAKER) (test dmuc=570) 1.15 mmol/L 1.12-1.27 PH, BLOOD (BEAKER) (test flcp=8522) 7.40 BASIC METABOLIC [id number] 04:54:00 Test Item Value Reference Range Comments SODIUM (BEAKER) (test 134 meq/L 136-145 xcsf=541) POTASSIUM (BEAKER) (test 4.0 meq/L 3.5-5.1 zivo=497) CHLORIDE (BEAKER) (test 93 meq/L 98-107 dzhz=641) CO2 (BEAKER) (test 31 meq/L 22-29 eyeb=883) BLOOD UREA NITROGEN 41 mg/dL 7-21 (BEAKER) (test mjhh=772) CREATININE (BEAKER) (test 5.34 mg/dL 0.57-1.25 nmgi=144) GLUCOSE RANDOM (BEAKER) 110 mg/dL 70-105 (test bgpk=071) CALCIUM (BEAKER) (test 9.5 mg/dL 8.4-10.2 degq=838) EGFR (BEAKER) (test 8 mL/min/1.73 sq m ESTIMATED GFR IS NOT ihnh=5443) ACCURATE CREATININE CLEARANCE IN PREDICTING GLOMERULAR FILTRATION RATE. ESTIMATED GFR IS NOT APPLICABLE FOR DIALYSIS PATIENTS. [id number] 04:46:00 Test Item Value Reference Range Comments PHOSPHORUS (BEAKER) (test tzko=991) 4.2 mg/dL 2.3-4.7 [id number] 04:46:00 Test Item Value Reference Range Comments MAGNESIUM (BEAKER) (test tufr=248) 2.0 mg/dL 1.6-2.6 CBC W/PLT COUNT & AUTO [id number] 04:43:00 Test Item Value Reference Range Comments WHITE BLOOD CELL COUNT (BEAKER) (test nhsw=036) 7.7 K/ L 3.5-10.5 RED BLOOD CELL COUNT (BEAKER) (test ailx=455) 2.43 M/ L 3.93-5.22 HEMOGLOBIN (BEAKER) (test owaj=885) 7.9 GM/DL 11.2-15.7 HEMATOCRIT (BEAKER) (test mxyx=204) 24.6 % 34.1-44.9 MEAN CORPUSCULAR VOLUME (BEAKER) (test sqsn=024) 101.2 fL 79.4-94.8 MEAN CORPUSCULAR HEMOGLOBIN (BEAKER) (test 32.5 pg 25.6-32.2 wrjc=974) MEAN CORPUSCULAR HEMOGLOBIN CONC (BEAKER) (test 32.1 GM/DL 32.2-35.5 rvgz=869) RED CELL DISTRIBUTION WIDTH (BEAKER) (test 15.6 % 11.7-14.4 kraf=801) PLATELET COUNT (BEAKER) (test imxw=488) 258 K/CU MM 150-450 MEAN PLATELET VOLUME (BEAKER) (test rwsl=389) 11.0 fL 9.4-12.3 NUCLEATED RED BLOOD CELLS (BEAKER) (test 0 /100 WBC 0-0 aujb=831) NEUTROPHILS RELATIVE PERCENT (BEAKER) (test 63 % dimn=223) LYMPHOCYTES RELATIVE PERCENT (BEAKER) (test 25 % lggp=984) MONOCYTES RELATIVE PERCENT (BEAKER) (test 10 % ehhy=552) EOSINOPHILS RELATIVE PERCENT (BEAKER) (test 2 % zrds=170) BASOPHILS RELATIVE PERCENT (BEAKER) (test 0 % jrvl=798) NEUTROPHILS ABSOLUTE COUNT (BEAKER) (test 4.85 K/ L 1.56-6.13 wcpd=600) LYMPHOCYTES ABSOLUTE COUNT (BEAKER) (test 1.93 K/ L 1.18-3.74 herj=259) MONOCYTES ABSOLUTE COUNT (BEAKER) (test 0.73 K/ L 0.24-0.36 ugwf=668) EOSINOPHILS ABSOLUTE COUNT (BEAKER) (test 0.12 K/ L 0.04-0.36 ndek=618) BASOPHILS ABSOLUTE COUNT (BEAKER) (test 0.01 K/ L 0.01-0.08 afoj=580) IMMATURE GRANULOCYTES-RELATIVE PERCENT (BEAKER) 1 % 0-1 (test kcta=2297) POCT-GLUCOSE [id number] 16:58:00 Test Item Value Reference Range Comments POC-GLUCOSE METER (BEAKER) 133 mg/dL 70-110 TESTED AT [facility] [address] [facility] (test albx=6352) [facility] [address] POCT-GLUCOSE [id number] 11:51:00 Test Item Value Reference Range Comments POC-GLUCOSE METER (BEAKER) 114 mg/dL 70-110 TESTED AT [place] [id number] [facility] (test afjd=4063) [facility] [address] POCT-GLUCOSE [id number] 07:11:00 Test Item Value Reference Range Comments POC-GLUCOSE METER (BEAKER) 86 mg/dL 70-110 TESTED AT [address] (test upoi=0074) [facility] [address] BASIC METABOLIC [id number] 06:01:00 Test Item Value Reference Range Comments SODIUM (BEAKER) (test 136 meq/L 136-145 ajwx=012) POTASSIUM (BEAKER) (test 3.6 meq/L 3.5-5.1 Specimen slightly swgl=286) hemolyzed CHLORIDE (BEAKER) (test 98 meq/L 98-107 rmil=030) CO2 (BEAKER) (test 27 meq/L 22-29 cqva=842) BLOOD UREA NITROGEN 25 mg/dL 7-21 (BEAKER) (test zhfg=925) CREATININE (BEAKER) (test 3.94 mg/dL 0.57-1.25 Specimen slightly opfx=437) hemolyzed GLUCOSE RANDOM (BEAKER) 95 mg/dL 70-105 (test ytut=240) CALCIUM (BEAKER) (test 9.1 mg/dL 8.4-10.2 xnqk=141) EGFR (BEAKER) (test 11 mL/min/1.73 sq m ESTIMATED GFR IS NOT ltul=7761) ACCURATE CREATININE CLEARANCE IN PREDICTING GLOMERULAR FILTRATION RATE. ESTIMATED GFR IS NOT APPLICABLE FOR DIALYSIS PATIENTS. [id number] 05:59:00 Test Item Value Reference Range Comments PHOSPHORUS (BEAKER) (test 4.0 mg/dL 2.3-4.7 Specimen slightly hemolyzed qbcq=480) CBC W/PLT COUNT & AUTO [id number] 05:25:00 Test Item Value Reference Range Comments WHITE BLOOD CELL COUNT (BEAKER) (test qyve=004) 6.7 K/ L 3.5-10.5 RED BLOOD CELL COUNT (BEAKER) (test jesm=721) 2.59 M/ L 3.93-5.22 HEMOGLOBIN (BEAKER) (test ekbl=509) 8.4 GM/DL 11.2-15.7 HEMATOCRIT (BEAKER) (test eveu=899) 26.8 % 34.1-44.9 MEAN CORPUSCULAR VOLUME (BEAKER) (test ybcw=141) 103.5 fL 79.4-94.8 MEAN CORPUSCULAR HEMOGLOBIN (BEAKER) (test 32.4 pg 25.6-32.2 dsvd=497) MEAN CORPUSCULAR HEMOGLOBIN CONC (BEAKER) (test 31.3 GM/DL 32.2-35.5 dwae=256) RED CELL DISTRIBUTION WIDTH (BEAKER) (test 15.7 % 11.7-14.4 ynwy=425) PLATELET COUNT (BEAKER) (test imyy=402) 262 K/CU MM 150-450 MEAN PLATELET VOLUME (BEAKER) (test gevg=320) 10.9 fL 9.4-12.3 NUCLEATED RED BLOOD CELLS (BEAKER) (test 0 /100 WBC 0-0 uzwy=588) NEUTROPHILS RELATIVE PERCENT (BEAKER) (test 60 % kjrl=392) LYMPHOCYTES RELATIVE PERCENT (BEAKER) (test 28 % dptg=766) MONOCYTES RELATIVE PERCENT (BEAKER) (test 10 % zgvu=948) EOSINOPHILS RELATIVE PERCENT (BEAKER) (test 2 % rcxz=827) BASOPHILS RELATIVE PERCENT (BEAKER) (test 0 % rvzy=956) NEUTROPHILS ABSOLUTE COUNT (BEAKER) (test 3.96 K/ L 1.56-6.13 gdss=281) LYMPHOCYTES ABSOLUTE COUNT (BEAKER) (test 1.84 K/ L 1.18-3.74 qzok=701) MONOCYTES ABSOLUTE COUNT (BEAKER) (test 0.66 K/ L 0.24-0.36 dzej=403) EOSINOPHILS ABSOLUTE COUNT (BEAKER) (test 0.11 K/ L 0.04-0.36 onwn=454) BASOPHILS ABSOLUTE COUNT (BEAKER) (test 0.02 K/ L 0.01-0.08 bjeg=497) IMMATURE GRANULOCYTES-RELATIVE PERCENT (BEAKER) 1 % 0-1 (test ilee=0855) POCT-GLUCOSE [id number] 19:16:00 Test Item Value Reference Range Comments POC-GLUCOSE METER (BEAKER) 99 mg/dL 70-110 TESTED AT [address] (test dpkk=6450) [place] [id number] POCT-GLUCOSE [id number] 17:22:00 Test Item Value Reference Range Comments POC-GLUCOSE METER (BEAKER) 117 mg/dL 70-110 TESTED AT [address] (test ioza=0718) [place] [address] POCT-GLUCOSE [id number] 12:12:00 Test Item Value Reference Range Comments POC-GLUCOSE METER (BEAKER) 101 mg/dL 70-110 TESTED AT [address] (test ubvz=1696) [place] [address] POCT-GLUCOSE [id number] 08:23:00 Test Item Value Reference Range Comments POC-GLUCOSE METER (BEAKER) 114 mg/dL 70-110 TESTED AT [address] (test vanx=8327) [place] [address] BASIC METABOLIC [id number] 04:47:00 Test Item Value Reference Range Comments SODIUM (BEAKER) (test 139 meq/L 136-145 dxot=921) POTASSIUM (BEAKER) (test 3.5 meq/L 3.5-5.1 ofnn=114) CHLORIDE (BEAKER) (test 102 meq/L 98-107 emit=006) CO2 (BEAKER) (test 29 meq/L 22-29 vhsc=376) BLOOD UREA NITROGEN 11 mg/dL 7-21 (BEAKER) (test lufe=513) CREATININE (BEAKER) (test 1.87 mg/dL 0.57-1.25 agay=018) GLUCOSE RANDOM (BEAKER) 100 mg/dL 70-105 (test fapz=286) CALCIUM (BEAKER) (test 9.0 mg/dL 8.4-10.2 kalo=171) EGFR (BEAKER) (test 27 mL/min/1.73 sq m ESTIMATED GFR IS NOT ruga=0305) ACCURATE CREATININE CLEARANCE IN PREDICTING GLOMERULAR FILTRATION RATE. ESTIMATED GFR IS NOT APPLICABLE FOR DIALYSIS PATIENTS. POCT-GLUCOSE [id number] 18:13:00 Test Item Value Reference Range Comments POC-GLUCOSE METER (BEAKER) 157 mg/dL 70-110 TESTED AT [address] (test rawj=3965) [place] [address] POCT-GLUCOSE [id number] 16:11:00 Test Item Value Reference Range Comments POC-GLUCOSE METER (BEAKER) 105 mg/dL 70-110 TESTED AT [facility] [address] [facility] (test sqmm=1738) [facility] [address] POCT-GLUCOSE [id number] 13:40:00 Test Item Value Reference Range Comments POC-GLUCOSE METER (BEAKER) 127 mg/dL 70-110 TESTED AT [facility] [address] [facility] (test fyxd=6935) [facility] [address] CBC W/PLT COUNT & AUTO [id number] 08:00:00 Test Item Value Reference Range Comments WHITE BLOOD CELL COUNT (BEAKER) (test nujp=081) 7.2 K/ L 3.5-10.5 RED BLOOD CELL COUNT (BEAKER) (test yzzo=196) 2.41 M/ L 3.93-5.22 HEMOGLOBIN (BEAKER) (test mdqb=988) 7.6 GM/DL 11.2-15.7 HEMATOCRIT (BEAKER) (test tltw=295) 24.5 % 34.1-44.9 MEAN CORPUSCULAR VOLUME (BEAKER) (test rsjx=580) 101.7 fL 79.4-94.8 MEAN CORPUSCULAR HEMOGLOBIN (BEAKER) (test 31.5 pg 25.6-32.2 gkih=301) MEAN CORPUSCULAR HEMOGLOBIN CONC (BEAKER) (test 31.0 GM/DL 32.2-35.5 cuku=732) RED CELL DISTRIBUTION WIDTH (BEAKER) (test 15.5 % 11.7-14.4 vdai=575) PLATELET COUNT (BEAKER) (test dior=376) 256 K/CU MM 150-450 MEAN PLATELET VOLUME (BEAKER) (test reul=452) 10.8 fL 9.4-12.3 NUCLEATED RED BLOOD CELLS (BEAKER) (test 0 /100 WBC 0-0 yswv=000) NEUTROPHILS RELATIVE PERCENT (BEAKER) (test 66 % zvay=216) LYMPHOCYTES RELATIVE PERCENT (BEAKER) (test 23 % vfkq=683) MONOCYTES RELATIVE PERCENT (BEAKER) (test 9 % reww=950) EOSINOPHILS RELATIVE PERCENT (BEAKER) (test 1 % umbv=235) BASOPHILS RELATIVE PERCENT (BEAKER) (test 0 % wudu=421) NEUTROPHILS ABSOLUTE COUNT (BEAKER) (test 4.75 K/ L 1.56-6.13 lpge=154) LYMPHOCYTES ABSOLUTE COUNT (BEAKER) (test 1.62 K/ L 1.18-3.74 rvwk=923) MONOCYTES ABSOLUTE COUNT (BEAKER) (test 0.64 K/ L 0.24-0.36 mmnm=638) EOSINOPHILS ABSOLUTE COUNT (BEAKER) (test 0.06 K/ L 0.04-0.36 vqkp=369) BASOPHILS ABSOLUTE COUNT (BEAKER) (test 0.01 K/ L 0.01-0.08 jknw=858) IMMATURE GRANULOCYTES-RELATIVE PERCENT (BEAKER) 1 % 0-1 (test rtsh=4136) BASIC METABOLIC [id number] 06:43:00 Test Item Value Reference Range Comments SODIUM (BEAKER) (test 136 meq/L 136-145 bwsr=312) POTASSIUM (BEAKER) (test 4.6 meq/L 3.5-5.1 lgjg=822) CHLORIDE (BEAKER) (test 100 meq/L 98-107 empy=822) CO2 (BEAKER) (test 27 meq/L 22-29 csjl=015) BLOOD UREA NITROGEN 40 mg/dL 7-21 (BEAKER) (test hpxh=809) CREATININE (BEAKER) (test 4.15 mg/dL 0.57-1.25 ovji=398) GLUCOSE RANDOM (BEAKER) 87 mg/dL 70-105 (test ahet=132) CALCIUM (BEAKER) (test 8.6 mg/dL 8.4-10.2 fyjt=832) EGFR (BEAKER) (test 11 mL/min/1.73 sq m ESTIMATED GFR IS NOT oshe=3339) ACCURATE CREATININE CLEARANCE IN PREDICTING GLOMERULAR FILTRATION RATE. ESTIMATED GFR IS NOT APPLICABLE FOR DIALYSIS PATIENTS. CBC W/PLT COUNT & AUTO [id number] 20:57:00 Test Item Value Reference Range Comments WHITE BLOOD CELL COUNT (BEAKER) (test pyue=422) 5.6 K/ L 3.5-10.5 RED BLOOD CELL COUNT (BEAKER) (test uemj=426) 2.37 M/ L 3.93-5.22 HEMOGLOBIN (BEAKER) (test mfkl=330) 7.6 GM/DL 11.2-15.7 HEMATOCRIT (BEAKER) (test vlci=488) 24.0 % 34.1-44.9 MEAN CORPUSCULAR VOLUME (BEAKER) (test dduo=910) 101.3 fL 79.4-94.8 MEAN CORPUSCULAR HEMOGLOBIN (BEAKER) (test 32.1 pg 25.6-32.2 knls=901) MEAN CORPUSCULAR HEMOGLOBIN CONC (BEAKER) (test 31.7 GM/DL 32.2-35.5 ofab=040) RED CELL DISTRIBUTION WIDTH (BEAKER) (test 15.6 % 11.7-14.4 shfz=866) PLATELET COUNT (BEAKER) (test ghzr=963) 256 K/CU MM 150-450 MEAN PLATELET VOLUME (BEAKER) (test hhbv=535) 10.5 fL 9.4-12.3 NUCLEATED RED BLOOD CELLS (BEAKER) (test 0 /100 WBC 0-0 pnst=713) NEUTROPHILS RELATIVE PERCENT (BEAKER) (test 63 % szms=033) LYMPHOCYTES RELATIVE PERCENT (BEAKER) (test 24 % fteu=784) MONOCYTES RELATIVE PERCENT (BEAKER) (test 12 % zoxe=837) EOSINOPHILS RELATIVE PERCENT (BEAKER) (test 1 % nzgj=892) BASOPHILS RELATIVE PERCENT (BEAKER) (test 0 % retv=874) NEUTROPHILS ABSOLUTE COUNT (BEAKER) (test 3.53 K/ L 1.56-6.13 ovqj=853) LYMPHOCYTES ABSOLUTE COUNT (BEAKER) (test 1.36 K/ L 1.18-3.74 ztlf=096) MONOCYTES ABSOLUTE COUNT (BEAKER) (test 0.65 K/ L 0.24-0.36 ojsk=194) EOSINOPHILS ABSOLUTE COUNT (BEAKER) (test 0.03 K/ L 0.04-0.36 blvs=087) BASOPHILS ABSOLUTE COUNT (BEAKER) (test 0.01 K/ L 0.01-0.08 wzgh=470) IMMATURE GRANULOCYTES-RELATIVE PERCENT (BEAKER) 1 % 0-1 (test goxz=8450) U/S, BIOPSY, RENAL (KIDNEY)2019-08-07 19:04:00Reason for exam:->akiFINAL REPORT US Guided core biopsy right kidney. History: Renal dysfunction. [place] kidney biopsy requested. Mammal Keeper: Da Gomez MD. Physician Ophthalmologist: None. Modality: Ultrasound Sedation: Versed one mg [...] specimen was handed over to the pathology nutrition representative for further processing. At the end of the procedure, an aseptic dressing applied. The patient tolerated the procedure well. After recovery, the patient was discharged from the department in stable condition. Complications: None immediate. Specimen: Five cores Impression: Successful ultrasound-guided core biopsy of seminole right kidney Thank you forthe opportunity to assist in the care of your patient. Signed: Da Gomez MDReport Verified Date/Time: 08/07 19:04:00 Reading Location: [place] [address] Angio Body Reading Room CALCIUM , [id number] 06:20:00 Test Item Value Reference Range Comments CALCIUM IONIZED (BEAKER) (test tjnd=450) 0.97 mmol/L 1.12-1.27 PH, BLOOD (BEAKER) (test vkym=0513) 7.48 COMPREHENSIVE METABOLIC [id number] 05:32:00 Test Item Value Reference Range Comments TOTAL PROTEIN (BEAKER) 5.9 gm/dL 6.0-8.3 Specimen slightly (test jgih=710) hemolyzed ALBUMIN (BEAKER) (test 3.6 g/dL 3.5-5.0 Specimen slightly lzjk=6473) hemolyzed ALKALINE PHOSPHATASE 44 U/L 40-150 (BEAKER) (test euyd=388) BILIRUBIN TOTAL (BEAKER) 0.2 mg/dL 0.2-1.2 Specimen slightly (test njvd=920) hemolyzed SODIUM (BEAKER) (test 137 meq/L 136-145 luje=219) POTASSIUM (BEAKER) (test 4.0 meq/L 3.5-5.1 Specimen slightly czlt=230) hemolyzed CHLORIDE (BEAKER) (test 101 meq/L 98-107 pmoq=832) CO2 (BEAKER) (test 27 meq/L 22-29 dzid=328) BLOOD UREA NITROGEN 24 mg/dL 7-21 (BEAKER) (test wdtr=146) CREATININE (BEAKER) (test 2.94 mg/dL 0.57-1.25 Specimen slightly qevy=033) hemolyzed GLUCOSE RANDOM (BEAKER) 103 mg/dL 70-105 (test qfip=731) CALCIUM (BEAKER) (test 8.2 mg/dL 8.4-10.2 nlwa=468) AST (SGOT) (BEAKER) (test 27 U/L 5-34 Specimen slightly yfsn=471) hemolyzed ALT (SGPT) (BEAKER) (test 10 U/L 6-55 Specimen slightly yllm=107) hemolyzed EGFR (BEAKER) (test 16 mL/min/1.73 sq m ESTIMATED GFR IS NOT lrhj=5101) ACCURATE CREATININE CLEARANCE IN PREDICTING GLOMERULAR FILTRATION RATE. ESTIMATED GFR IS NOT APPLICABLE FOR DIALYSIS PATIENTS. [id number] 05:20:00 Test Item Value Reference Range Comments MAGNESIUM (BEAKER) (test 1.9 mg/dL 1.6-2.6 Specimen slightly hemolyzed waqg=636) [id number] 05:20:00 Test Item Value Reference Range Comments PHOSPHORUS (BEAKER) (test 3.5 mg/dL 2.3-4.7 Specimen slightly hemolyzed wdwx=370) PROTHROMBIN [id number] 05:06:00 Test Item Value Reference Range Comments PROTIME (BEAKER) (test zwrt=824) 13.2 seconds 11.9-14.2 INR (BEAKER) (test tgih=712) 1.0 <=5.9 Effective 03/18/2019: PT Reference Range ChangeNew: 11.9-14.2 Previous: 11.7- 14.7RECOMMENDED COUMADIN/WARFARIN INR THERAPY RANGESSTANDARD DOSE: 2.0-3.0 Includes: PROPHYLAXIS for venous thrombosis, systemic embolization; TREATMENT for venous thrombosis and/or pulmonary embolus.HIGH RISK: Target INR is2.5-3.5 for patients wiht mechanical heart valves.RAD, CHEST, 1 VIEW, NON [id number] 14:00:00Reason for exam:->shortness of breathShould this [...] MDReport Verified Date/Time: 08/06/2019 14:00:28 Reading Location: [facility] Radiology Reading Room POCT-GLUCOSE [id number] 09:23:00 Test Item Value Reference Range Comments POC-GLUCOSE METER (BEAKER) 103 mg/dL 70-110 TESTED AT [address] (test inqo=9021) [facility] [id number] POCT-GLUCOSE [id number] 19:02:00 Test Item Value Reference Range Comments POC-GLUCOSE METER (BEAKER) 125 mg/dL 70-110 TESTED AT [address] (test lool=4511) [facility] [address] POCT-GLUCOSE [id number] 12:40:00 Test Item Value Reference Range Comments POC-GLUCOSE METER (BEAKER) 121 mg/dL 70-110 TESTED AT [address] (test gkhx=9154) [facility] [address] POCT-GLUCOSE [id number] 09:54:00 Test Item Value Reference Range Comments POC-GLUCOSE METER (BEAKER) 87 mg/dL 70-110 TESTED AT [address] (test rzpw=4218) [place] [id number] CALCIUM, [id number] 06:41:00 Test Item Value Reference Range Comments CALCIUM IONIZED (BEAKER) (test exbm=397) 1.03 mmol/L 1.12-1.27 PH, BLOOD (BEAKER) (test ynan=2239) 7.40 COMPREHENSIVE METABOLIC [id number] 06:11:00 Test Item Value Reference Range Comments TOTAL PROTEIN (BEAKER) 6.3 gm/dL 6.0-8.3 (test gbxp=253) ALBUMIN (BEAKER) (test 3.7 g/dL 3.5-5.0 ozvl=2968) ALKALINE PHOSPHATASE 53 U/L 40-150 (BEAKER) (test ouke=174) BILIRUBIN TOTAL (BEAKER) 0.2 mg/dL 0.2-1.2 (test igua=907) SODIUM (BEAKER) (test 134 meq/L 136-145 leta=006) POTASSIUM (BEAKER) (test 4.2 meq/L 3.5-5.1 wjwl=659) CHLORIDE (BEAKER) (test 100 meq/L 98-107 sxns=819) CO2 (BEAKER) (test 24 meq/L 22-29 nmdi=801) BLOOD UREA NITROGEN 29 mg/dL 7-21 (BEAKER) (test yusk=389) CREATININE (BEAKER) (test 3.19 mg/dL 0.57-1.25 tvhc=812) GLUCOSE RANDOM (BEAKER) 82 mg/dL 70-105 (test hoio=257) CALCIUM (BEAKER) (test 8.4 mg/dL 8.4-10.2 myeb=002) AST (SGOT) (BEAKER) (test 26 U/L 5-34 gctw=138) ALT (SGPT) (BEAKER) (test 18 U/L 6-55 uhmd=343) EGFR (BEAKER) (test 14 mL/min/1.73 sq m ESTIMATED GFR IS NOT svoi=8882) ACCURATE CREATININE CLEARANCE IN PREDICTING GLOMERULAR FILTRATION RATE. ESTIMATED GFR IS NOT APPLICABLE FOR DIALYSIS PATIENTS. [id number] 06:04:00 Test Item Value Reference Range Comments PHOSPHORUS (BEAKER) (test pcnc=722) 3.5 mg/dL 2.3-4.7 [id number] 06:04:00 Test Item Value Reference Range Comments MAGNESIUM (BEAKER) (test fzjj=542) 2.0 mg/dL 1.6-2.6 B-TYPE NATRIURETIC FACTOR (BNP)2019-08-05 06:03:00 Test Item Value Reference Range Comments B-TYPE NATRIURETIC PEPTIDE (BEAKER) (test 2566 pg/mL 0-100 bxmx=216) CBC W/PLT COUNT & AUTO [id number] 05:35:00 Test Item Value Reference Range Comments WHITE BLOOD CELL COUNT (BEAKER) (test torq=848) 6.8 K/ L 3.5-10.5 RED BLOOD CELL COUNT (BEAKER) (test leek=800) 2.68 M/ L 3.93-5.22 HEMOGLOBIN (BEAKER) (test ksuf=193) 8.5 GM/DL 11.2-15.7 HEMATOCRIT (BEAKER) (test bjgt=521) 27.1 % 34.1-44.9 MEAN CORPUSCULAR VOLUME (BEAKER) (test aqxo=340) 101.1 fL 79.4-94.8 MEAN CORPUSCULAR HEMOGLOBIN (BEAKER) (test 31.7 pg 25.6-32.2 msik=053) MEAN CORPUSCULAR HEMOGLOBIN CONC (BEAKER) (test 31.4 GM/DL 32.2-35.5 vjni=326) RED CELL DISTRIBUTION WIDTH (BEAKER) (test 15.2 % 11.7-14.4 shjv=568) PLATELET COUNT (BEAKER) (test tfdj=350) 264 K/CU MM 150-450 MEAN PLATELET VOLUME (BEAKER) (test zgbt=776) 10.6 fL 9.4-12.3 NUCLEATED RED BLOOD CELLS (BEAKER) (test 0 /100 WBC 0-0 rftj=225) NEUTROPHILS RELATIVE PERCENT (BEAKER) (test 75 % jznu=032) LYMPHOCYTES RELATIVE PERCENT (BEAKER) (test 14 % othb=196) MONOCYTES RELATIVE PERCENT (BEAKER) (test 10 % afpc=025) EOSINOPHILS RELATIVE PERCENT (BEAKER) (test 0 % lanj=150) BASOPHILS RELATIVE PERCENT (BEAKER) (test 0 % tdpc=369) NEUTROPHILS ABSOLUTE COUNT (BEAKER) (test 5.09 K/ L 1.56-6.13 blld=986) LYMPHOCYTES ABSOLUTE COUNT (BEAKER) (test 0.97 K/ L 1.18-3.74 vqxc=748) MONOCYTES ABSOLUTE COUNT (BEAKER) (test 0.67 K/ L 0.24-0.36 ubpu=494) EOSINOPHILS ABSOLUTE COUNT (BEAKER) (test 0.01 K/ L 0.04-0.36 warz=817) BASOPHILS ABSOLUTE COUNT (BEAKER) (test 0.00 K/ L 0.01-0.08 zjxo=508) IMMATURE GRANULOCYTES-RELATIVE PERCENT (BEAKER) 1 % 0-1 (test ajyb=1424) HEPATITIS B [id number] 03:21:00 Test Item Value Reference Range Comments HEPATITIS B CORE TOTAL ANTIBODY (BEAKER) (test Nonreactive Nonreactive wdbp=798) HEPATITIS B SURFACE ANTIBODY (BEAKER) (test < mIU/mL <8.0 zstu=703) HEPATITIS B SURFACE ANTIGEN (2) (BEAKER) (test Nonreactive Nonreactive uqie=9975) POCT-GLUCOSE [id number] 17:07:00 Test Item Value Reference Range Comments POC-GLUCOSE METER (BEAKER) 137 mg/dL 70-110 TESTED AT [address] (test xrhc=4827) [facility] [address] POCT-GLUCOSE [id number] 10:50:00 Test Item Value Reference Range Comments POC-GLUCOSE METER (BEAKER) 91 mg/dL 70-110 TESTED AT [address] (test sjzt=0488) [facility] [address] ANG, TUNNELED CATHETER [id number] 10:27:00Reason for exam:->Long- term dialysisFINAL REPORT Procedure: Tunneled dialysis catheter placement. History: Need for hemodialysis. Mammal Keeper: Da Gomez MD. Physician Ophthalmologist: Josué M.D. Modality: Sonography and fluoroscopy. DOSE [...] MDReport Verified Date/Time: 08/04/2019 10:27:22 Reading Location: [place] [address] Angio Body Reading Room CALCIUM, [id number] 06:41:00 Test Item Value Reference Range Comments CALCIUM IONIZED (BEAKER) (test elvf=629) 1.08 mmol/L 1.12-1.27 PH, BLOOD (BEAKER) (test bkcf=5987) 7.36 BASIC METABOLIC [id number] 05:01:00 Test Item Value Reference Range Comments SODIUM (BEAKER) (test 127 meq/L 136-145 ysjo=931) POTASSIUM (BEAKER) (test 4.3 meq/L 3.5-5.1 suxu=094) CHLORIDE (BEAKER) (test 93 meq/L 98-107 ybff=934) CO2 (BEAKER) (test 22 meq/L 22-29 yswe=290) BLOOD UREA NITROGEN 67 mg/dL 7-21 (BEAKER) (test yeam=397) CREATININE (BEAKER) (test 5.59 mg/dL 0.57-1.25 huhx=581) GLUCOSE RANDOM (BEAKER) 83 mg/dL 70-105 (test tstz=538) CALCIUM (BEAKER) (test 8.6 mg/dL 8.4-10.2 njvt=274) EGFR (BEAKER) (test 8 mL/min/1.73 sq m ESTIMATED GFR IS NOT fwfw=7639) ACCURATE CREATININE CLEARANCE IN PREDICTING GLOMERULAR FILTRATION RATE. ESTIMATED GFR IS NOT APPLICABLE FOR DIALYSIS PATIENTS. [id number] 04:51:00 Test Item Value Reference Range Comments PHOSPHORUS (BEAKER) (test ukbq=633) 5.8 mg/dL 2.3-4.7 [id number] 04:51:00 Test Item Value Reference Range Comments MAGNESIUM (BEAKER) (test hzsk=403) 2.0 mg/dL 1.6-2.6 B-TYPE NATRIURETIC FACTOR (BNP)2019-08-04 04:44:00 Test Item Value Reference Range Comments B-TYPE NATRIURETIC PEPTIDE (BEAKER) (test 2587 pg/mL 0-100 mycq=624) PROTHROMBIN [id number] 04:36:00 Test Item Value Reference Range Comments PROTIME (BEAKER) (test csed=062) 13.2 seconds 11.9-14.2 INR (BEAKER) (test pbsl=474) 1.1 <=5.9 Effective 03/18/2019: PT Reference Range ChangeNew: 11.9-14.2 Previous: 11.7- 14.7RECOMMENDED COUMADIN/WARFARIN INR THERAPY RANGESSTANDARD DOSE: 2.0-3.0 Includes: PROPHYLAXIS for venous thrombosis, systemic embolization; TREATMENT for venous thrombosis and/or pulmonary embolus.HIGH RISK: Target INR is2.5-3.5 for patients wiht mechanical heart valves.CBC W/PLT COUNT & AUTO [id number] 04:30:00 Test Item Value Reference Range Comments WHITE BLOOD CELL COUNT (BEAKER) (test iefb=036) 5.5 K/ L 3.5-10.5 RED BLOOD CELL COUNT (BEAKER) (test nsmo=927) 2.72 M/ L 3.93-5.22 HEMOGLOBIN (BEAKER) (test awpv=128) 8.6 GM/DL 11.2-15.7 HEMATOCRIT (BEAKER) (test laqh=751) 26.2 % 34.1-44.9 MEAN CORPUSCULAR VOLUME (BEAKER) (test vztr=098) 96.3 fL 79.4-94.8 MEAN CORPUSCULAR HEMOGLOBIN (BEAKER) (test 31.6 pg 25.6-32.2 jbxp=458) MEAN CORPUSCULAR HEMOGLOBIN CONC (BEAKER) (test 32.8 GM/DL 32.2-35.5 qhfs=838) RED CELL DISTRIBUTION WIDTH (BEAKER) (test 15.0 % 11.7-14.4 jqzx=433) PLATELET COUNT (BEAKER) (test tdnm=391) 294 K/CU MM 150-450 MEAN PLATELET VOLUME (BEAKER) (test cldv=203) 10.6 fL 9.4-12.3 NUCLEATED RED BLOOD CELLS (BEAKER) (test 0 /100 WBC 0-0 vqdb=142) NEUTROPHILS RELATIVE PERCENT (BEAKER) (test 73 % tnhp=303) LYMPHOCYTES RELATIVE PERCENT (BEAKER) (test 18 % ppko=996) MONOCYTES RELATIVE PERCENT (BEAKER) (test 8 % mkvq=932) EOSINOPHILS RELATIVE PERCENT (BEAKER) (test 0 % kbzr=496) BASOPHILS RELATIVE PERCENT (BEAKER) (test 0 % gkpj=625) NEUTROPHILS ABSOLUTE COUNT (BEAKER) (test 3.98 K/ L 1.56-6.13 yghz=715) LYMPHOCYTES ABSOLUTE COUNT (BEAKER) (test 1.00 K/ L 1.18-3.74 aehq=462) MONOCYTES ABSOLUTE COUNT (BEAKER) (test 0.46 K/ L 0.24-0.36 sadb=225) EOSINOPHILS ABSOLUTE COUNT (BEAKER) (test 0.00 K/ L 0.04-0.36 bwdk=312) BASOPHILS ABSOLUTE COUNT (BEAKER) (test 0.00 K/ L 0.01-0.08 vezt=465) IMMATURE GRANULOCYTES-RELATIVE PERCENT (BEAKER) 1 % 0-1 (test wpmq=5627) CREATININE, RANDOM [id number] 03:22:00 Test Item Value Reference Range Comments CREATININE URINE (BEAKER) (test wjcp=671) 157.2 mg/dL Reference Range: No NormalsPROTEIN, RANDOM [id number] 03:22:00 Test Item Value Reference Range Comments PROTEIN, URINE (BEAKER) (test bqof=7513) 71 mg/dL 0-14 URINALYSIS W/ [id number] 02:15:00 Test Item Value Reference Range Comments COLOR (BEAKER) (test bino=310) Yellow CLARITY (BEAKER) (test xcli=220) Cloudy SPECIFIC GRAVITY UA (BEAKER) (test zzko=606) 1.020 1.001-1.035 PH UA (BEAKER) (test kioe=853) 5.5 5.0-8.0 PROTEIN UA (BEAKER) (test cgxl=343) 70 mg/dL Negative GLUCOSE UA (BEAKER) (test qxss=844) Negative Negative KETONES UA (BEAKER) (test ecai=505) 10 mg/dL Negative BILIRUBIN UA (BEAKER) (test swav=872) Negative Negative BLOOD UA (BEAKER) (test vkuu=308) Trace Negative NITRITE UA (BEAKER) (test ekup=358) Negative Negative LEUKOCYTE ESTERASE UA (BEAKER) (test ogtf=243) Large Negative UROBILINOGEN UA (BEAKER) (test wjxl=115) 2.0 mg/dL 0.2-1.0 RBC UA (BEAKER) (test zkwl=976) 51 /HPF WBC UA (BEAKER) (test tgkd=247) 533 /HPF BACTERIA (BEAKER) (test gsvu=145) Many CRYSTALS, URINE (BEAKER) (test swci=3700) Occasional YEAST (BEAKER) (test qffx=8055) Many SOURCE(BEAKER) (test givy=2139) POCT-GLUCOSE [id number] 20:49:00 Test Item Value Reference Range Comments POC-GLUCOSE METER (BEAKER) 145 mg/dL 70-110 TESTED AT [address] (test galr=8882) [place] [address] POCT-GLUCOSE [id number] 17:08:00 Test Item Value Reference Range Comments POC-GLUCOSE METER (BEAKER) 142 mg/dL 70-110 TESTED AT [address] (test vmjp=0080) [place] [address] RAD, CHEST, 1 VIEW, NON [id number] 13:52:00Reason for exam:->Fluid overloadShould this be performed [...] Verified Date/Time: 08/03/2019 13: 52:14 Reading Location: [facility] Radiology Reading Room POCT-GLUCOSE [id number] 12:26:00 Test Item Value Reference Range Comments POC-GLUCOSE METER (BEAKER) 112 mg/dL 70-110 TESTED AT [address] (test jbnd=4610) [place] [id number] POCT-GLUCOSE [id number] 08:19:00 Test Item Value Reference Range Comments POC-GLUCOSE METER (BEAKER) 95 mg/dL 70-110 TESTED AT [address] (test mguz=0663) [place] [address] BASIC METABOLIC [id number] 07:26:00 Test Item Value Reference Range Comments SODIUM (BEAKER) (test 128 meq/L 136-145 byfv=760) POTASSIUM (BEAKER) (test 3.6 meq/L 3.5-5.1 nsfe=761) CHLORIDE (BEAKER) (test 95 meq/L 98-107 rpfz=472) CO2 (BEAKER) (test 24 meq/L 22-29 zmhq=572) BLOOD UREA NITROGEN 46 mg/dL 7-21 (BEAKER) (test tapm=625) CREATININE (BEAKER) (test 4.09 mg/dL 0.57-1.25 ivqd=696) GLUCOSE RANDOM (BEAKER) 93 mg/dL 70-105 (test ylpn=676) CALCIUM (BEAKER) (test 8.4 mg/dL 8.4-10.2 cdnd=488) EGFR (BEAKER) (test 11 mL/min/1.73 sq m ESTIMATED GFR IS NOT ehfa=9051) ACCURATE CREATININE CLEARANCE IN PREDICTING GLOMERULAR FILTRATION RATE. ESTIMATED GFR IS NOT APPLICABLE FOR DIALYSIS PATIENTS. POCT-GLUCOSE [id number] 20:40:00 Test Item Value Reference Range Comments POC-GLUCOSE METER (BEAKER) 156 mg/dL 70-110 TESTED AT [address] (test ddae=0360) [place] [id number] POCT-GLUCOSE [id number] 18:30:00 Test Item Value Reference Range Comments POC-GLUCOSE METER (BEAKER) 151 mg/dL 70-110 TESTED AT [address] (test oygv=6023) [facility] [address] BASIC METABOLIC [id number] 05:47:00 Test Item Value Reference Range Comments SODIUM (BEAKER) (test 137 meq/L 136-145 jgse=920) POTASSIUM (BEAKER) (test 3.9 meq/L 3.5-5.1 dmdf=703) CHLORIDE (BEAKER) (test 100 meq/L 98-107 eioi=617) CO2 (BEAKER) (test 25 meq/L 22-29 udyu=728) BLOOD UREA NITROGEN 25 mg/dL 7-21 (BEAKER) (test sehl=672) CREATININE (BEAKER) (test 2.64 mg/dL 0.57-1.25 kxtz=876) GLUCOSE RANDOM (BEAKER) 86 mg/dL 70-105 (test bxtc=223) CALCIUM (BEAKER) (test 9.0 mg/dL 8.4-10.2 ybwj=970) EGFR (BEAKER) (test 18 mL/min/1.73 sq m ESTIMATED GFR IS NOT rwsl=2893) ACCURATE CREATININE CLEARANCE IN PREDICTING GLOMERULAR FILTRATION RATE. ESTIMATED GFR IS NOT APPLICABLE FOR DIALYSIS PATIENTS. CBC W/PLT COUNT & AUTO [id number] 05:13:00 Test Item Value Reference Range Comments WHITE BLOOD CELL COUNT (BEAKER) (test cbok=559) 6.6 K/ L 3.5-10.5 RED BLOOD CELL COUNT (BEAKER) (test szez=550) 2.99 M/ L 3.93-5.22 HEMOGLOBIN (BEAKER) (test hnly=019) 9.4 GM/DL 11.2-15.7 HEMATOCRIT (BEAKER) (test hxhm=913) 28.7 % 34.1-44.9 MEAN CORPUSCULAR VOLUME (BEAKER) (test bdzn=128) 96.0 fL 79.4-94.8 MEAN CORPUSCULAR HEMOGLOBIN (BEAKER) (test 31.4 pg 25.6-32.2 tttu=193) MEAN CORPUSCULAR HEMOGLOBIN CONC (BEAKER) (test 32.8 GM/DL 32.2-35.5 jdpa=712) RED CELL DISTRIBUTION WIDTH (BEAKER) (test 15.1 % 11.7-14.4 pusf=887) PLATELET COUNT (BEAKER) (test nzpu=925) 304 K/CU MM 150-450 MEAN PLATELET VOLUME (BEAKER) (test gfuy=139) 10.8 fL 9.4-12.3 NUCLEATED RED BLOOD CELLS (BEAKER) (test 0 /100 WBC 0-0 wsap=619) NEUTROPHILS RELATIVE PERCENT (BEAKER) (test 72 % ggau=498) LYMPHOCYTES RELATIVE PERCENT (BEAKER) (test 17 % usdb=024) MONOCYTES RELATIVE PERCENT (BEAKER) (test 11 % wgki=140) EOSINOPHILS RELATIVE PERCENT (BEAKER) (test 0 % pfme=567) BASOPHILS RELATIVE PERCENT (BEAKER) (test 0 % knzj=617) NEUTROPHILS ABSOLUTE COUNT (BEAKER) (test 4.77 K/ L 1.56-6.13 bbyg=372) LYMPHOCYTES ABSOLUTE COUNT (BEAKER) (test 1.10 K/ L 1.18-3.74 hxjh=409) MONOCYTES ABSOLUTE COUNT (BEAKER) (test 0.70 K/ L 0.24-0.36 forb=079) EOSINOPHILS ABSOLUTE COUNT (BEAKER) (test 0.00 K/ L 0.04-0.36 qmuc=514) BASOPHILS ABSOLUTE COUNT (BEAKER) (test 0.00 K/ L 0.01-0.08 khsy=740) IMMATURE GRANULOCYTES-RELATIVE PERCENT (BEAKER) 1 % 0-1 (test iwch=1556) POCT-GLUCOSE [id number] 21:29:00 Test Item Value Reference Range Comments POC-GLUCOSE METER (BEAKER) 226 mg/dL 70-110 TESTED AT [address] (test ziky=5372) [place] [address] POCT-GLUCOSE [id number] 13:03:00 Test Item Value Reference Range Comments POC-GLUCOSE METER (BEAKER) 134 mg/dL 70-110 TESTED AT [address] (test hwfd=6508) [place] [address] POCT-GLUCOSE [id number] 09:37:00 Test Item Value Reference Range Comments POC-GLUCOSE METER (BEAKER) 82 mg/dL 70-110 TESTED AT [address] (test sehk=3143) [place] [address] BASIC METABOLIC [id number] 05:53:00 Test Item Value Reference Range Comments SODIUM (BEAKER) (test 131 meq/L 136-145 sdzc=321) POTASSIUM (BEAKER) (test 3.4 meq/L 3.5-5.1 botk=732) CHLORIDE (BEAKER) (test 94 meq/L 98-107 jikd=603) CO2 (BEAKER) (test 25 meq/L 22-29 gvsw=449) BLOOD UREA NITROGEN 47 mg/dL 7-21 (BEAKER) (test igdk=721) CREATININE (BEAKER) (test 4.03 mg/dL 0.57-1.25 ekea=310) GLUCOSE RANDOM (BEAKER) 81 mg/dL 70-105 (test apgs=151) CALCIUM (BEAKER) (test 8.1 mg/dL 8.4-10.2 gvwn=919) EGFR (BEAKER) (test 11 mL/min/1.73 sq m ESTIMATED GFR IS NOT aaia=9012) ACCURATE CREATININE CLEARANCE IN PREDICTING GLOMERULAR FILTRATION RATE. ESTIMATED GFR IS NOT APPLICABLE FOR DIALYSIS PATIENTS. CBC W/PLT COUNT & AUTO [id number] 05:32:00 Test Item Value Reference Range Comments WHITE BLOOD CELL COUNT (BEAKER) (test zdks=502) 8.2 K/ L 3.5-10.5 RED BLOOD CELL COUNT (BEAKER) (test bkre=365) 2.75 M/ L 3.93-5.22 HEMOGLOBIN (BEAKER) (test qvln=025) 8.6 GM/DL 11.2-15.7 HEMATOCRIT (BEAKER) (test qvix=460) 26.0 % 34.1-44.9 MEAN CORPUSCULAR VOLUME (BEAKER) (test dhse=581) 94.5 fL 79.4-94.8 MEAN CORPUSCULAR HEMOGLOBIN (BEAKER) (test 31.3 pg 25.6-32.2 bscs=907) MEAN CORPUSCULAR HEMOGLOBIN CONC (BEAKER) (test 33.1 GM/DL 32.2-35.5 rtqo=721) RED CELL DISTRIBUTION WIDTH (BEAKER) (test 15.8 % 11.7-14.4 ksjp=148) PLATELET COUNT (BEAKER) (test jpfb=856) 262 K/CU MM 150-450 MEAN PLATELET VOLUME (BEAKER) (test whoo=622) 10.9 fL 9.4-12.3 NUCLEATED RED BLOOD CELLS (BEAKER) (test 0 /100 WBC 0-0 kehw=742) NEUTROPHILS RELATIVE PERCENT (BEAKER) (test 71 % zvza=466) LYMPHOCYTES RELATIVE PERCENT (BEAKER) (test 18 % ehab=570) MONOCYTES RELATIVE PERCENT (BEAKER) (test 10 % vbkv=440) EOSINOPHILS RELATIVE PERCENT (BEAKER) (test 0 % pinp=623) BASOPHILS RELATIVE PERCENT (BEAKER) (test 0 % ztti=475) NEUTROPHILS ABSOLUTE COUNT (BEAKER) (test 5.81 K/ L 1.56-6.13 axtu=576) LYMPHOCYTES ABSOLUTE COUNT (BEAKER) (test 1.48 K/ L 1.18-3.74 ezre=582) MONOCYTES ABSOLUTE COUNT (BEAKER) (test 0.85 K/ L 0.24-0.36 lvlj=785) EOSINOPHILS ABSOLUTE COUNT (BEAKER) (test 0.01 K/ L 0.04-0.36 fcbg=446) BASOPHILS ABSOLUTE COUNT (BEAKER) (test 0.01 K/ L 0.01-0.08 giqr=722) IMMATURE GRANULOCYTES-RELATIVE PERCENT (BEAKER) 1 % 0-1 (test tzbc=9928) POCT-GLUCOSE [id number] 00:07:00 Test Item Value Reference Range Comments POC-GLUCOSE METER (BEAKER) 120 mg/dL 70-110 TESTED AT [facility] [address] [facility] (test zouv=9837) [facility] [address] URINE PROTEIN ELECTROPHORESIS, [id number] 15:42:00 Test Item Value Reference Range Comments PROTEIN, URINE (BEAKER) (test 41 mg/dL 0-14 mocg=0238) ALBUMIN URINE ELP (BEAKER) 56.1 % (test cjxw=6539) GAMMA GLOBULIN URINE (BEAKER) 43.9 % (test cwky=5633) UPEP, ID-438 (BEAKER) (test Urine protein study consistent gtah=9208) with glomerular dysfunction. No monoclonal bands detected. [id number] (BEAKER) Valerie Scott MD (electronic (test jtwq=1755) signature) PROTEIN ELECTROPHORESIS, [id number] 15:34:00 Test Item Value Reference Range Comments ALBUMIN FRACTION (BEAKER) 3.6 g/dL 3.5-5.5 (test hcrj=422) ALPHA 1 FRACTION (BEAKER) 0.4 g/dL 0.2-0.4 (test xptl=430) ALPHA 2 FRACTION (BEAKER) 0.9 g/dL 0.5-0.9 (test haxd=738) BETA FRACTION (BEAKER) 0.7 g/dL 0.6-1.1 (test tbfc=629) GAMMA GLOBULIN FRACTION 0.7 g/dL 0.7-1.7 (BEAKER) (test aire=395) INTERPRETATION-119 (BEAKER) Normal electrophoretic pattern. (test cecl=0084) No monoclonal bands identified. [id number] Valerie Scott MD (electronic (BEAKER) (test xmsh=4896) signature) PROTEIN TOTAL SERUM, SPEP 6.3 gm/dL 6.0-8.3 (BEAKER) (test qtge=6958) POCT-GLUCOSE [id number] 08:49:00 Test Item Value Reference Range Comments POC-GLUCOSE METER (BEAKER) 88 mg/dL 70-110 TESTED AT [place] [id number] [facility] (test miax=9832) [facility] [address] BASIC METABOLIC [id number] 07:13:00 Test Item Value Reference Range Comments SODIUM (BEAKER) (test 138 meq/L 136-145 lhmo=183) POTASSIUM (BEAKER) (test 3.7 meq/L 3.5-5.1 jwji=470) CHLORIDE (BEAKER) (test 102 meq/L 98-107 qxva=121) CO2 (BEAKER) (test 25 meq/L 22-29 sozr=456) BLOOD UREA NITROGEN 30 mg/dL 7-21 (BEAKER) (test rkaf=941) CREATININE (BEAKER) (test 3.01 mg/dL 0.57-1.25 wxeg=251) GLUCOSE RANDOM (BEAKER) 87 mg/dL 70-105 (test inik=647) CALCIUM (BEAKER) (test 8.3 mg/dL 8.4-10.2 icic=429) EGFR (BEAKER) (test 15 mL/min/1.73 sq m ESTIMATED GFR IS NOT xtag=1500) ACCURATE CREATININE CLEARANCE IN PREDICTING GLOMERULAR FILTRATION RATE. ESTIMATED GFR IS NOT APPLICABLE FOR DIALYSIS PATIENTS. [id number] 07:12:00 Test Item Value Reference Range Comments PHOSPHORUS (BEAKER) (test nxqp=241) 3.5 mg/dL 2.3-4.7 [id number] 07:12:00 Test Item Value Reference Range Comments MAGNESIUM (BEAKER) (test tvow=360) 2.1 mg/dL 1.6-2.6 CBC W/PLT COUNT & AUTO [id number] 04:59:00 Test Item Value Reference Range Comments WHITE BLOOD CELL COUNT (BEAKER) (test lqnq=301) 9.7 K/ L 3.5-10.5 RED BLOOD CELL COUNT (BEAKER) (test agdy=458) 2.68 M/ L 3.93-5.22 HEMOGLOBIN (BEAKER) (test wlnj=602) 8.4 GM/DL 11.2-15.7 HEMATOCRIT (BEAKER) (test yajg=438) 25.8 % 34.1-44.9 MEAN CORPUSCULAR VOLUME (BEAKER) (test tggi=177) 96.3 fL 79.4-94.8 MEAN CORPUSCULAR HEMOGLOBIN (BEAKER) (test 31.3 pg 25.6-32.2 luzg=410) MEAN CORPUSCULAR HEMOGLOBIN CONC (BEAKER) (test 32.6 GM/DL 32.2-35.5 rkar=770) RED CELL DISTRIBUTION WIDTH (BEAKER) (test 16.4 % 11.7-14.4 dmss=975) PLATELET COUNT (BEAKER) (test wnsf=995) 240 K/CU MM 150-450 MEAN PLATELET VOLUME (BEAKER) (test ufhc=017) 10.5 fL 9.4-12.3 NUCLEATED RED BLOOD CELLS (BEAKER) (test 0 /100 WBC 0-0 lutc=384) NEUTROPHILS RELATIVE PERCENT (BEAKER) (test 75 % jvvt=749) LYMPHOCYTES RELATIVE PERCENT (BEAKER) (test 15 % manp=629) MONOCYTES RELATIVE PERCENT (BEAKER) (test 9 % kdel=686) EOSINOPHILS RELATIVE PERCENT (BEAKER) (test 0 % qyir=418) BASOPHILS RELATIVE PERCENT (BEAKER) (test 0 % aitm=035) NEUTROPHILS ABSOLUTE COUNT (BEAKER) (test 7.29 K/ L 1.56-6.13 zsrg=536) LYMPHOCYTES ABSOLUTE COUNT (BEAKER) (test 1.44 K/ L 1.18-3.74 xfwr=554) MONOCYTES ABSOLUTE COUNT (BEAKER) (test 0.84 K/ L 0.24-0.36 hkyt=968) EOSINOPHILS ABSOLUTE COUNT (BEAKER) (test 0.00 K/ L 0.04-0.36 orff=250) BASOPHILS ABSOLUTE COUNT (BEAKER) (test 0.03 K/ L 0.01-0.08 fhzs=670) IMMATURE GRANULOCYTES-RELATIVE PERCENT (BEAKER) 1 % 0-1 (test ursc=7481) BASIC METABOLIC [id number] 18:41:00 Test Item Value Reference Range Comments SODIUM (BEAKER) (test 139 meq/L 136-145 wwhq=060) POTASSIUM (BEAKER) (test 3.7 meq/L 3.5-5.1 wvwy=723) CHLORIDE (BEAKER) (test 101 meq/L 98-107 pgbk=729) CO2 (BEAKER) (test 29 meq/L 22-29 vomf=239) BLOOD UREA NITROGEN 15 mg/dL 7-21 (BEAKER) (test gpvo=040) CREATININE (BEAKER) (test 1.93 mg/dL 0.57-1.25 suft=769) GLUCOSE RANDOM (BEAKER) 134 mg/dL 70-105 (test wubf=128) CALCIUM (BEAKER) (test 8.6 mg/dL 8.4-10.2 qwno=933) EGFR (BEAKER) (test 26 mL/min/1.73 sq m ESTIMATED GFR IS NOT lbwd=5493) ACCURATE CREATININE CLEARANCE IN PREDICTING GLOMERULAR FILTRATION RATE. ESTIMATED GFR IS NOT APPLICABLE FOR DIALYSIS PATIENTS. VITAMIN B12 AND [id number] 17:59:00 Test Item Value Reference Range Comments VITAMIN B12 (BEAKER) (test kmdp=067) > pg/mL 213-816 FOLATE (BEAKER) (test bqpi=988) 12.7 ng/mL >=7.0 BASIC METABOLIC [id number] 16:16:00 Test Item Value Reference Range Comments SODIUM (BEAKER) (test 139 meq/L 136-145 ixqd=746) POTASSIUM (BEAKER) (test 3.9 meq/L 3.5-5.1 ophz=226) CHLORIDE (BEAKER) (test 101 meq/L 98-107 ddzf=604) CO2 (BEAKER) (test 27 meq/L 22-29 kowf=718) BLOOD UREA NITROGEN 12 mg/dL 7-21 (BEAKER) (test pszx=229) CREATININE (BEAKER) (test 1.72 mg/dL 0.57-1.25 vgsp=875) GLUCOSE RANDOM (BEAKER) 134 mg/dL 70-105 (test lhnc=918) CALCIUM (BEAKER) (test 9.0 mg/dL 8.4-10.2 utgs=695) EGFR (BEAKER) (test 29 mL/min/1.73 sq m ESTIMATED GFR IS NOT ufnc=9908) ACCURATE CREATININE CLEARANCE IN PREDICTING GLOMERULAR FILTRATION RATE. ESTIMATED GFR IS NOT APPLICABLE FOR DIALYSIS PATIENTS. [id number] 16:07:00 Test Item Value Reference Range Comments PHOSPHORUS (BEAKER) (test pizc=556) 2.8 mg/dL 2.3-4.7 [id number] 16:07:00 Test Item Value Reference Range Comments MAGNESIUM (BEAKER) (test mmqc=905) 2.0 mg/dL 1.6-2.6 HEMOGLOBIN AND [id number] 15:53:00 Test Item Value Reference Range Comments HEMOGLOBIN (BEAKER) (test ysjo=049) 9.6 GM/DL 11.2-15.7 HEMATOCRIT (BEAKER) (test dyvr=765) 28.9 % 34.1-44.9 RAD, CHEST, 1 VIEW, NON [id number] 13:32:00Reason for exam:->SOBShould this be performed at [...] Verified Date/Time: 07/30/2019 13:32: 46 Reading Location: [facility] Radiology Reading Room EOSINOPHIL SMEAR, [id number] 12:08:00 Test Item Value Reference Range Comments EOSINOPHIL SMEAR, URINE (BEAKER) Rare EOS=less than 5% WBCs No EOS seen (test ltxy=5395) seen are EOS RHEUMATOID FACTOR AB, REFLEX TO [id number] 12:01:00 Test Item Value Reference Range Comments RHEUMATOID FACTOR (BEAKER) (test gvco=740) Negative POCT-GLUCOSE [id number] 10:59:00 Test Item Value Reference Range Comments POC-GLUCOSE METER (BEAKER) 87 mg/dL 70-110 TESTED AT [facility] [address] [facility] (test cqwq=6153) [facility] [address] ANTI-NUCLEAR ANTIBODY (SOCRATES)2019-07-30 10:13:00 Test Item Value Reference Range Comments ANTI-NUCLEAR ANTIBODY (SOCRATES) (BEAKER) (test Positive Negative ftuu=215) Test performed by IFA method.SO[facility] TITER AND [id number] 10:13:00 Test Item Value Reference Range Comments SOCRATES TITER (BEAKER) (test gdjq=1711) :160 SOCRATES PATTERN (BEAKER) (test ymte=5333) Nucleolar [id number] 10:05:00 Test Item Value Reference Range Comments FERRITIN (BEAKER) (test chlv=079) 646 ng/mL 5-275 IRON, TIBC, % SAT. (WITHOUT FERRITIN)2019-07-30 09:44:00 Test Item Value Reference Range Comments IRON (BEAKER) (test rfwz=647) 38.0 ug/dL 40.0-160.0 TOTAL IRON BINDING CAPACITY (BEAKER) (test 243 ug/dL 250-450 xylx=711) IRON % SATURATION (2) (BEAKER) (test yyql=8130) 16 % 20-55 BASIC METABOLIC [id number] 09:20:00 Test Item Value Reference Range Comments SODIUM (BEAKER) (test 136 meq/L 136-145 isyw=467) POTASSIUM (BEAKER) (test 5.0 meq/L 3.5-5.1 wbhi=571) CHLORIDE (BEAKER) (test 102 meq/L 98-107 eyes=752) CO2 (BEAKER) (test 24 meq/L 22-29 kixo=762) BLOOD UREA NITROGEN 34 mg/dL 7-21 (BEAKER) (test hqrw=666) CREATININE (BEAKER) (test 2.93 mg/dL 0.57-1.25 hjjr=365) GLUCOSE RANDOM (BEAKER) 101 mg/dL 70-105 (test yicz=416) CALCIUM (BEAKER) (test 8.5 mg/dL 8.4-10.2 wnok=194) EGFR (BEAKER) (test 16 mL/min/1.73 sq m ESTIMATED GFR IS NOT jxel=8856) ACCURATE CREATININE CLEARANCE IN PREDICTING GLOMERULAR FILTRATION RATE. ESTIMATED GFR IS NOT APPLICABLE FOR DIALYSIS PATIENTS. [id number] 09:17:00 Test Item Value Reference Range Comments PHOSPHORUS (BEAKER) (test ewjm=128) 5.3 mg/dL 2.3-4.7 [id number] 09:17:00 Test Item Value Reference Range Comments MAGNESIUM (BEAKER) (test eeux=702) 2.1 mg/dL 1.6-2.6 [id number] 09:16:00 Test Item Value Reference Range Comments MAGNESIUM (BEAKER) (test rmzb=524) 2.1 mg/dL 1.6-2.6 TSH/FREE T4 IF [id number] 07:01:00 Test Item Value Reference Range Comments THYROID STIMULATING HORMONE (BEAKER) (test 1.59 uIU/mL 0.35-4.94 dwca=337) COMPLEMENT COMPONENT [id number] 06:49:00 Test Item Value Reference Range Comments C4 COMPLEMENT (BEAKER) (test tcpl=904) 28 mg/dL 15-57 COMPLEMENT COMPONENT [id number] 06:49:00 Test Item Value Reference Range Comments C3 COMPLEMENT (BEAKER) (test zzrj=700) 102 mg/dL 82-193 COMPREHENSIVE METABOLIC [id number] 04:56:00 Test Item Value Reference Range Comments TOTAL PROTEIN (BEAKER) 6.2 gm/dL 6.0-8.3 (test tabl=544) ALBUMIN (BEAKER) (test 3.7 g/dL 3.5-5.0 bowm=4614) ALKALINE PHOSPHATASE 57 U/L 40-150 (BEAKER) (test hzri=556) BILIRUBIN TOTAL (BEAKER) 0.3 mg/dL 0.2-1.2 (test rmmf=038) SODIUM (BEAKER) (test 138 meq/L 136-145 codo=140) POTASSIUM (BEAKER) (test 4.6 meq/L 3.5-5.1 qaku=870) CHLORIDE (BEAKER) (test 104 meq/L 98-107 lnuh=570) CO2 (BEAKER) (test 23 meq/L 22-29 rckz=277) BLOOD UREA NITROGEN 31 mg/dL 7-21 (BEAKER) (test pqhu=899) CREATININE (BEAKER) (test 2.72 mg/dL 0.57-1.25 ypmo=158) GLUCOSE RANDOM (BEAKER) 112 mg/dL 70-105 (test shil=853) CALCIUM (BEAKER) (test 8.8 mg/dL 8.4-10.2 vuco=474) AST (SGOT) (BEAKER) (test 24 U/L 5-34 jjoi=774) ALT (SGPT) (BEAKER) (test 12 U/L 6-55 qcke=679) EGFR (BEAKER) (test 17 mL/min/1.73 sq m ESTIMATED GFR IS NOT imfa=4433) ACCURATE CREATININE CLEARANCE IN PREDICTING GLOMERULAR FILTRATION RATE. ESTIMATED GFR IS NOT APPLICABLE FOR DIALYSIS PATIENTS. [id number] 04:51:00 Test Item Value Reference Range Comments PHOSPHORUS (BEAKER) (test vqdj=418) 4.7 mg/dL 2.3-4.7 [id number] 04:51:00 Test Item Value Reference Range Comments MAGNESIUM (BEAKER) (test vqub=664) 2.0 mg/dL 1.6-2.6 CBC W/PLT COUNT & AUTO [id number] 04:28:00 Test Item Value Reference Range Comments WHITE BLOOD CELL COUNT (BEAKER) (test rfkn=026) 14.8 K/ L 3.5-10.5 RED BLOOD CELL COUNT (BEAKER) (test ksjd=376) 2.09 M/ L 3.93-5.22 HEMOGLOBIN (BEAKER) (test bpzh=594) 6.7 GM/DL 11.2-15.7 HEMATOCRIT (BEAKER) (test iihz=300) 20.5 % 34.1-44.9 MEAN CORPUSCULAR VOLUME (BEAKER) (test gllg=020) 98.1 fL 79.4-94.8 MEAN CORPUSCULAR HEMOGLOBIN (BEAKER) (test 32.1 pg 25.6-32.2 dwpy=338) MEAN CORPUSCULAR HEMOGLOBIN CONC (BEAKER) (test 32.7 GM/DL 32.2-35.5 exmw=136) RED CELL DISTRIBUTION WIDTH (BEAKER) (test 15.0 % 11.7-14.4 jmyg=850) PLATELET COUNT (BEAKER) (test qscd=362) 263 K/CU MM 150-450 MEAN PLATELET VOLUME (BEAKER) (test ihnv=023) 10.3 fL 9.4-12.3 NUCLEATED RED BLOOD CELLS (BEAKER) (test 0 /100 WBC 0-0 lxhc=642) NEUTROPHILS RELATIVE PERCENT (BEAKER) (test 87 % cvij=642) LYMPHOCYTES RELATIVE PERCENT (BEAKER) (test 6 % kmuc=480) MONOCYTES RELATIVE PERCENT (BEAKER) (test 6 % chkq=697) EOSINOPHILS RELATIVE PERCENT (BEAKER) (test 0 % tpqt=996) BASOPHILS RELATIVE PERCENT (BEAKER) (test 0 % zean=666) NEUTROPHILS ABSOLUTE COUNT (BEAKER) (test 12.92 K/ L 1.56-6.13 xjgg=435) LYMPHOCYTES ABSOLUTE COUNT (BEAKER) (test 0.95 K/ L 1.18-3.74 jrjo=155) MONOCYTES ABSOLUTE COUNT (BEAKER) (test 0.87 K/ L 0.24-0.36 qisi=978) EOSINOPHILS ABSOLUTE COUNT (BEAKER) (test 0.00 K/ L 0.04-0.36 vuiw=798) BASOPHILS ABSOLUTE COUNT (BEAKER) (test 0.01 K/ L 0.01-0.08 qnri=024) IMMATURE GRANULOCYTES-RELATIVE PERCENT (BEAKER) 1 % 0-1 (test hoke=3555) BLOOD GAS, [id number] 04:22:00 Test Item Value Reference Range Comments PH ARTERIAL (BEAKER) (test mbgy=572) 7.44 7.35-7.45 PCO2 ARTERIAL (BEAKER) (test puuv=464) 37 mmHg 35-45 PO2 ARTERIAL (BEAKER) (test wpum=008) 188 mmHg 80-90 O2 SATURATION ARTERIAL (BEAKER) (test efhe=976) 99.4 % 96.0-97.0 HCO3 ARTERIAL (BEAKER) (test libi=093) 24 mmol/L 21-29 BASE EXCESS ARTERIAL (BEAKER) (test gfxj=178) 0.1 mmol/L -2.0-3.0 PATIENT TEMPERATURE (BEAKER) (test iojm=7407) 36.5 C FIO2 (BEAKER) (test dqot=6018) 50.0 % CALCIUM, [id number] 04:17:00 Test Item Value Reference Range Comments CALCIUM IONIZED (BEAKER) (test vfwb=716) 1.13 mmol/L 1.12-1.27 PH, BLOOD (BEAKER) (test geic=1658) 7.43 HEPATITIS B SURFACE [id number] 22:40:00 Test Item Value Reference Range Comments HEPATITIS B SURFACE ANTIGEN (2) (BEAKER) (test Nonreactive Nonreactive msry=6637) BASIC METABOLIC [id number] 21:37:00 Test Item Value Reference Range Comments SODIUM (BEAKER) (test 134 meq/L 136-145 ehra=501) POTASSIUM (BEAKER) (test 6.0 meq/L 3.5-5.1 nohy=969) CHLORIDE (BEAKER) (test 105 meq/L 98-107 utty=950) CO2 (BEAKER) (test 17 meq/L 22-29 vxna=774) BLOOD UREA NITROGEN 74 mg/dL 7-21 (BEAKER) (test bxfk=622) CREATININE (BEAKER) (test 4.66 mg/dL 0.57-1.25 cfpj=512) GLUCOSE RANDOM (BEAKER) 142 mg/dL 70-105 (test wxvp=455) CALCIUM (BEAKER) (test 8.0 mg/dL 8.4-10.2 lpqn=276) EGFR (BEAKER) (test 9 mL/min/1.73 sq m ESTIMATED GFR IS NOT rrfj=9453) ACCURATE CREATININE CLEARANCE IN PREDICTING GLOMERULAR FILTRATION RATE. ESTIMATED GFR IS NOT APPLICABLE FOR DIALYSIS PATIENTS. U/S, RENAL WITH [id number] 21:31:00Reason for exam:->AKIFINAL REPORT U/S, RENAL WITH [...] Brito MDReport Verified Date/Time: 07/29/2019 21:31 :26 [id number] 21:27:00 Test Item Value Reference Range Comments MAGNESIUM (BEAKER) (test nghi=403) 2.3 mg/dL 1.6-2.6 TROPONIN [id number] 21:18:00 Test Item Value Reference Range Comments TROPONIN I (BEAKER) (test rohj=822) 0.08 ng/mL 0.00-0.03 Troponin I (TnI) levels [...] and persistent tachyarrhythmia.RAD, CHEST, 1 VIEW, NON [id number] 20:45:00Reason for exam:->CVC placementShould this be performed [...] Rahman MDReport Verified Date/Time: 07/29/2019 20:45:35Reading Location: [address] Neuro Reading Room [facility] METABOLIC [id number] 20:31:00 Test Item Value Reference Range Comments SODIUM (BEAKER) (test 134 meq/L 136-145 gnqn=879) POTASSIUM (BEAKER) (test 6.0 meq/L 3.5-5.1 pakn=757) CHLORIDE (BEAKER) (test 105 meq/L 98-107 qgny=866) CO2 (BEAKER) (test 18 meq/L 22-29 eqok=624) BLOOD UREA NITROGEN 74 mg/dL 7-21 (BEAKER) (test piwe=412) CREATININE (BEAKER) (test 4.68 mg/dL 0.57-1.25 obnc=981) GLUCOSE RANDOM (BEAKER) 143 mg/dL 70-105 (test wwcy=709) CALCIUM (BEAKER) (test 8.0 mg/dL 8.4-10.2 pgsl=814) EGFR (BEAKER) (test 9 mL/min/1.73 sq m ESTIMATED GFR IS NOT ctmb=2371) ACCURATE CREATININE CLEARANCE IN PREDICTING GLOMERULAR FILTRATION RATE. ESTIMATED GFR IS NOT APPLICABLE FOR DIALYSIS PATIENTS. Draw 1 hour after giving insulin. Page [phone]. Thank you.CREATININE, RANDOM [id number] 18:51:00 Test Item Value Reference Range Comments CREATININE URINE (BEAKER) (test foqa=435) 149.5 mg/dL Reference Range: No NormalsPROTEIN, RANDOM [id number] 18:51:00 Test Item Value Reference Range Comments PROTEIN, URINE (BEAKER) (test gpwo=3886) 86 mg/dL 0-14 BASIC METABOLIC [id number] 18:21:00 Test Item Value Reference Range Comments SODIUM (BEAKER) (test 134 meq/L 136-145 vexa=113) POTASSIUM (BEAKER) (test 6.1 meq/L 3.5-5.1 joqc=201) CHLORIDE (BEAKER) (test 105 meq/L 98-107 rnjs=134) CO2 (BEAKER) (test 18 meq/L 22-29 smxe=456) BLOOD UREA NITROGEN 71 mg/dL 7-21 (BEAKER) (test hzzk=284) CREATININE (BEAKER) (test 4.41 mg/dL 0.57-1.25 iwln=491) GLUCOSE RANDOM (BEAKER) 156 mg/dL 70-105 (test cjmg=191) CALCIUM (BEAKER) (test 8.1 mg/dL 8.4-10.2 wcvy=776) EGFR (BEAKER) (test 10 mL/min/1.73 sq m ESTIMATED GFR IS NOT qomy=1093) ACCURATE CREATININE CLEARANCE IN PREDICTING GLOMERULAR FILTRATION RATE. ESTIMATED GFR IS NOT APPLICABLE FOR DIALYSIS PATIENTS. URIC [id number] 17:45:00 Test Item Value Reference Range Comments URIC ACID (BEAKER) (test wrkq=684) 8.0 mg/dL 2.6-7.2 URINALYSIS W/ [id number] 17:44:00 Test Item Value Reference Range Comments COLOR (BEAKER) (test yvsp=213) Yellow CLARITY (BEAKER) (test ylrz=412) Hazy SPECIFIC GRAVITY UA (BEAKER) (test zbwt=932) 1.017 1.001-1.035 PH UA (BEAKER) (test prbr=913) 5.5 5.0-8.0 PROTEIN UA (BEAKER) (test pleu=240) 30 mg/dL Negative GLUCOSE UA (BEAKER) (test yyzz=968) Negative Negative KETONES UA (BEAKER) (test rwzl=876) Negative Negative BILIRUBIN UA (BEAKER) (test smup=469) Negative Negative BLOOD UA (BEAKER) (test qlps=542) Moderate Negative NITRITE UA (BEAKER) (test kafl=537) Negative Negative LEUKOCYTE ESTERASE UA (BEAKER) (test ucid=082) Large Negative UROBILINOGEN UA (BEAKER) (test buni=507) 0.2 mg/dL 0.2-1.0 RBC UA (BEAKER) (test fgog=658) 13 /HPF WBC UA (BEAKER) (test jnhb=500) 70 /HPF MUCUS (BEAKER) (test gssq=2980) Rare SQUAMOUS EPITHELIAL (BEAKER) (test hdvh=292) < /HPF HYALINE CASTS (BEAKER) (test ppdq=883) 13 /LPF YEAST (BEAKER) (test zpet=0599) Rare SOURCE(BEAKER) (test mqqx=2825) Urine, [place] BLOOD GAS, [id number] 17:37:00 Test Item Value Reference Range Comments PH ARTERIAL (BEAKER) (test oszi=380) 7.22 7.35-7.45 PCO2 ARTERIAL (BEAKER) (test cmkg=166) 44 mmHg 35-45 PO2 ARTERIAL (BEAKER) (test etrm=267) 100 mmHg 80-90 O2 SATURATION ARTERIAL (BEAKER) (test iabb=319) 96.4 % 96.0-97.0 HCO3 ARTERIAL (BEAKER) (test tbtk=712) 18 mmol/L 21-29 BASE EXCESS ARTERIAL (BEAKER) (test kmzt=037) -9.4 mmol/L -2.0-3.0 PATIENT TEMPERATURE (BEAKER) (test cjhb=0612) 36.7 C FIO2 (BEAKER) (test rtnw=9059) 50.0 % B-TYPE NATRIURETIC FACTOR (BNP)2019-07-29 16:27:00 Test Item Value Reference Range Comments B-TYPE NATRIURETIC PEPTIDE (BEAKER) (test 3829 pg/mL 0-100 mruh=814) CALCIUM, [id number] 16:05:00 Test Item Value Reference Range Comments CALCIUM IONIZED (BEAKER) (test gkwb=505) 1.00 mmol/L 1.12-1.27 PH, BLOOD (BEAKER) (test ulkg=5233) 7.30 BASIC METABOLIC [id number] 15:53:00 Test Item Value Reference Range Comments SODIUM (BEAKER) (test 134 meq/L 136-145 lnzs=661) POTASSIUM (BEAKER) (test 6.4 meq/L 3.5-5.1 bykr=756) CHLORIDE (BEAKER) (test 107 meq/L 98-107 tfgf=657) CO2 (BEAKER) (test 20 meq/L 22-29 vndn=442) BLOOD UREA NITROGEN 69 mg/dL 7-21 (BEAKER) (test wyzo=475) CREATININE (BEAKER) (test 4.07 mg/dL 0.57-1.25 aznk=981) GLUCOSE RANDOM (BEAKER) 158 mg/dL 70-105 (test knta=319) CALCIUM (BEAKER) (test 7.9 mg/dL 8.4-10.2 tfyo=601) EGFR (BEAKER) (test 11 mL/min/1.73 sq m ESTIMATED GFR IS NOT ehvy=1740) ACCURATE CREATININE CLEARANCE IN PREDICTING GLOMERULAR FILTRATION RATE. ESTIMATED GFR IS NOT APPLICABLE FOR DIALYSIS PATIENTS. Page [phone] with [id number] 15:43:00 Test Item Value Reference Range Comments MAGNESIUM (BEAKER) (test flen=990) 2.1 mg/dL 1.6-2.6 Page [phone] with [id number] 15:43:00 Test Item Value Reference Range Comments PHOSPHORUS (BEAKER) (test slte=600) 6.0 mg/dL 2.3-4.7 Page [phone] with resultsTROPONIN [id number] 14:11:00 Test Item Value Reference Range Comments TROPONIN I (BEAKER) (test smdo=328) 0.11 ng/mL 0.00-0.03 Troponin I (TnI) levels [...] failure, acidosis, acute neurological disease, and persistent tachyarrhythmia.[id number] 14:04:00 Test Item Value Reference Range Comments PHOSPHORUS (BEAKER) (test rrvf=669) 6.1 mg/dL 2.3-4.7 [id number] 14:04:00 Test Item Value Reference Range Comments MAGNESIUM (BEAKER) (test ocbj=737) 2.2 mg/dL 1.6-2.6 HEMOGLOBIN [id number] 13:07:00 Test Item Value Reference Range Comments HEMOGLOBIN A1C (BEAKER) (test qxke=082) 5.6 % 4.3-6.1 POCT-GLUCOSE [id number] 11:56:00 Test Item Value Reference Range Comments POC-GLUCOSE METER (BEAKER) 209 mg/dL 70-110 TESTED AT [address] (test uvcz=4961) [facility] [address] POCT-GLUCOSE [id number] 11:35:00 Test Item Value Reference Range Comments POC-GLUCOSE METER (BEAKER) 192 mg/dL 70-110 TESTED AT [address] (test dxko=8678) [facility] [address] CREATININE, RANDOM [id number] 10:13:00 Test Item Value Reference Range Comments CREATININE URINE (BEAKER) (test pqpw=993) 89.4 mg/dL Reference Range: No NormalsUREA NITROGEN, RANDOM [id number] 10:13:00 Test Item Value Reference Range Comments UREA NITROGEN URINE (BEAKER) (test nlpt=279) 159 mg/dL Reference Range: No NormalsTROPONIN [id number] 10:08:00 Test Item Value Reference Range Comments TROPONIN I (BEAKER) (test bilc=279) 0.12 ng/mL 0.00-0.03 Troponin I (TnI) levels [...] acidosis, acute neurological disease, and persistent tachyarrhythmia.LIPID [id number] 07:50:00 Test Item Value Reference Range Comments TRIGLYCERIDES (BEAKER) (test iqwi=199) 137 mg/dL CHOLESTEROL (BEAKER) (test ecfk=885) 140 mg/dL HDL CHOLESTEROL (BEAKER) (test xlqm=630) 31 mg/dL LDL CHOLESTEROL CALCULATED (BEAKER) (test 82 mg/dL vxlo=453) Triglyceride Reference Range: Low Risk <150 Borderline 150- 199 High Risk 200-499 Very High Risk >=500Cholesterol Reference Range: Low Risk <200 Borderline 200-239 High Risk > 240HDL Cholesterol Reference Range: Low Risk >=60 High Risk <40LDL Cholesterol Reference Range: Optimal <100 Near Optimal 100-129 Borderline 130-159 High 160-189 Very High >=190URINALYSIS WITH MICROSCOPIC IF [id number] 05:40:00 Test Item Value Reference Range Comments COLOR (BEAKER) (test liau=219) Yellow CLARITY (BEAKER) (test udbs=908) Hazy SPECIFIC GRAVITY UA (BEAKER) (test gotv=231) 1.033 1.001-1.035 PH UA (BEAKER) (test oyue=672) 5.5 5.0-8.0 PROTEIN UA (BEAKER) (test ivwq=343) 50 mg/dL Negative GLUCOSE UA (BEAKER) (test jhvq=216) Negative Negative KETONES UA (BEAKER) (test bvyj=229) Trace Negative BILIRUBIN UA (BEAKER) (test scer=853) Negative Negative BLOOD UA (BEAKER) (test yixx=350) Small Negative NITRITE UA (BEAKER) (test nbeo=400) Negative Negative LEUKOCYTE ESTERASE UA (BEAKER) (test kkku=551) Large Negative UROBILINOGEN UA (BEAKER) (test devj=846) 2.0 mg/dL 0.2-1.0 SOURCE(BEAKER) (test nrof=9310) URINALYSIS [id number] 05:40:00 Test Item Value Reference Range Comments RBC UA (BEAKER) (test shao=405) 8 /HPF WBC UA (BEAKER) (test jvkn=831) 43 /HPF SQUAMOUS EPITHELIAL (BEAKER) (test jlxa=685) 1 /HPF YEAST (BEAKER) (test catr=2104) Few COMPREHENSIVE METABOLIC [id number] 04:28:00 Test Item Value Reference Range Comments TOTAL PROTEIN (BEAKER) 6.5 gm/dL 6.0-8.3 (test wrms=151) ALBUMIN (BEAKER) (test 3.6 g/dL 3.5-5.0 lhdq=7081) ALKALINE PHOSPHATASE 62 U/L 40-150 (BEAKER) (test mmez=699) BILIRUBIN TOTAL (BEAKER) 0.3 mg/dL 0.2-1.2 (test fqge=998) SODIUM (BEAKER) (test 135 meq/L 136-145 nhds=269) POTASSIUM (BEAKER) (test 5.7 meq/L 3.5-5.1 jrna=533) CHLORIDE (BEAKER) (test 108 meq/L 98-107 xztt=532) CO2 (BEAKER) (test 15 meq/L 22-29 xvqt=076) BLOOD UREA NITROGEN 68 mg/dL 7-21 (BEAKER) (test ztru=814) CREATININE (BEAKER) (test 3.72 mg/dL 0.57-1.25 ijhi=117) GLUCOSE RANDOM (BEAKER) 157 mg/dL 70-105 (test ikhd=440) CALCIUM (BEAKER) (test 8.5 mg/dL 8.4-10.2 osyy=783) AST (SGOT) (BEAKER) (test 15 U/L 5-34 tmsz=842) ALT (SGPT) (BEAKER) (test 12 U/L 6-55 lgwx=277) EGFR (BEAKER) (test 12 mL/min/1.73 sq m ESTIMATED GFR IS NOT ixqk=5051) ACCURATE CREATININE CLEARANCE IN PREDICTING GLOMERULAR FILTRATION RATE. ESTIMATED GFR IS NOT APPLICABLE FOR DIALYSIS PATIENTS. RAD, CHEST, 1 VIEW, NON [id number] 04:26:00Reason for exam:-> dyspneaShould this be performed [...] Electronically signed by: Brenda CAPUTO 2018 04:26 AMTROPOSHAEN [id number] 04:22:00 Test Item Value Reference Range Comments TROPONIN I (BEAKER) (test kmzx=500) 0.12 ng/mL 0.00-0.03 Troponin I (TnI) levels [...] and persistent tachyarrhythmia.CBC W/PLT COUNT & AUTO [id number] 04:18:00 Test Item Value Reference Range Comments WHITE BLOOD CELL COUNT (BEAKER) (test fhpr=312) 12.5 K/ L 3.5-10.5 RED BLOOD CELL COUNT (BEAKER) (test wgfj=410) 2.61 M/ L 3.93-5.22 HEMOGLOBIN (BEAKER) (test qpqa=344) 8.2 GM/DL 11.2-15.7 HEMATOCRIT (BEAKER) (test gbkl=091) 26.9 % 34.1-44.9 MEAN CORPUSCULAR VOLUME (BEAKER) (test zqyz=333) 103.1 fL 79.4-94.8 MEAN CORPUSCULAR HEMOGLOBIN (BEAKER) (test 31.4 pg 25.6-32.2 bgfi=199) MEAN CORPUSCULAR HEMOGLOBIN CONC (BEAKER) (test 30.5 GM/DL 32.2-35.5 rcib=331) RED CELL DISTRIBUTION WIDTH (BEAKER) (test 15.0 % 11.7-14.4 friu=323) PLATELET COUNT (BEAKER) (test pfsh=955) 302 K/CU MM 150-450 MEAN PLATELET VOLUME (BEAKER) (test gdyt=696) 9.9 fL 9.4-12.3 NUCLEATED RED BLOOD CELLS (BEAKER) (test 0 /100 WBC 0-0 mopj=045) NEUTROPHILS RELATIVE PERCENT (BEAKER) (test 97 % mgfy=440) LYMPHOCYTES RELATIVE PERCENT (BEAKER) (test 2 % tczb=182) MONOCYTES RELATIVE PERCENT (BEAKER) (test 1 % djae=981) EOSINOPHILS RELATIVE PERCENT (BEAKER) (test 0 % mxja=709) BASOPHILS RELATIVE PERCENT (BEAKER) (test 0 % kwfw=916) NEUTROPHILS ABSOLUTE COUNT (BEAKER) (test 12.10 K/ L 1.56-6.13 zerv=356) LYMPHOCYTES ABSOLUTE COUNT (BEAKER) (test 0.22 K/ L 1.18-3.74 uhoc=072) MONOCYTES ABSOLUTE COUNT (BEAKER) (test 0.08 K/ L 0.24-0.36 gmro=821) EOSINOPHILS ABSOLUTE COUNT (BEAKER) (test 0.00 K/ L 0.04-0.36 kvak=254) BASOPHILS ABSOLUTE COUNT (BEAKER) (test 0.01 K/ L 0.01-0.08 eylg=909) IMMATURE GRANULOCYTES-RELATIVE PERCENT (BEAKER) 0 % 0-1 (test bjay=2050) [id number] 04:15:00 Test Item Value Reference Range Comments PHOSPHORUS (BEAKER) (test joix=407) 5.9 mg/dL 2.3-4.7 [id number] 04:15:00 Test Item Value Reference Range Comments MAGNESIUM (BEAKER) (test wkeg=218) 2.2 mg/dL 1.6-2.6 B-TYPE NATRIURETIC FACTOR (BNP)2019-07-29 04:10:00 Test Item Value Reference Range Comments B-TYPE NATRIURETIC PEPTIDE (BEAKER) (test 4787 pg/mL 0-100 bbli=991)
[2020-01-05] MEDS ORDERED: NA CHLORIDE 0.9% 500 ML ONE (08:11)
[2020-01-05] MEDS ORDERED: HEPA 1000U/500MLS 2,000 UNIT/1,000 ML BAG IV ONE (09:10)
[2020-01-05] MEDS ORDERED: MIDAZOLAM HCL 2 MG/2 ML INJ ONE (09:39)
[2020-01-05] MEDS ORDERED: FENTANYL CITR 100 MCG/2 ML ONE ×2 (09:39→10:41)
[2020-01-05] MEDS ORDERED: FENTANYL CITR 100 MCG/2 ML IV ONE (10:38)
[2020-01-05 12:49] VITALS: BP 132/53; TEMP 97.2
[2020-01-05 12:54] VITALS: O2SAT 97
--- NOTE | 2020-01-05 13:26 | OP ---
Date of Procedure: 01/05/2020 Surgeon: Sharan Benjamin MD Hem Inspector: Jag Harmon. Indications For Procedure: Ms. Hdez is a 69-year-old white woman, who has multiple past medical iss ues including renal disease, COPD, peripheral arterial disease, status post multiple interventions in the past, was having more claudications, abnormal arterial Doppler, admitted today for an abdominal angiogram with runoff to the labour market economist as an outpatient. Description Of Procedure: She was prepped and draped in the routine sterile fashion. A 6-[place] she ath was introduced in the left common femoral artery successfully. An abdominal angiogram with runof f was done using a pigtail catheter. She was found to have a very small aorta with diffuse atheroscl erosis. She had a patent right common iliac artery stent and a patent right common femoral artery st ent. She had a 50% stenosis of the left common iliac artery. She had severe bilateral SFA disease, 80% to 90% on both sides. On the left side, most of the stenoses were within an old stent. She did reconstitute at the popliteal level bilaterally. A Wholey wire was initially used to place the pigta il over. There were no complications. Blood Loss: 5 mL. Postoperative Diagnosis: Severe peripheral artery disease. Plan: For possibility of bilateral fem-pop. She will get SCDs to take with her. I will make appoin tment with her for a vascular surgeon and get that opinion. Anesthesia: Total conscious sedation was 30 minutes. UMU/JEANCARLOS Voice ID: [id number] Report ID: [id number]
== END 2020-01-05 12:40 | disposition home health service (06) ==
LOC: CCL 07:44
DX: I70.213 Atherosclerosis of native arteries of extremities with intermittent claudication, bilateral legs (principal); I65.23 Occlusion and stenosis of bilateral carotid arteries; G62.9 Polyneuropathy, unspecified; I10 Essential (primary) hypertension; I48.92 Unspecified atrial flutter; J44.9 Chronic obstructive pulmonary disease, unspecified; N18.6 End stage renal disease; K21.9 Gastro-esophageal reflux disease without esophagitis; Z87.891 Personal history of nicotine dependence; Z79.02 Long term (current) use of antithrombotics/antiplatelets; Z79.82 Long term (current) use of aspirin; Z79.899 Other long term (current) drug therapy; Z82.49 Family history of ischemic heart disease and other diseases of the circulatory system
CPT/HCPCS: 93005; 85025; 80048; 36415; 85610; 85730; 71046; 36200; 75630; C1893; C1760; J2250; J3010 ×2; J7040